=== PATIENT | female | born 1975 | race Caucasian/White ===

== ENCOUNTER 2023-06-11 11:47 | Outpatient (OUT) | payer OTHER, SELFPAY ==
[2023-06-11 12:34] LABS: Basophils Percent Auto 0.6 % (0.2-2.0); Eosinophils Absolute Auto 0.1 10^3/uL (0.0-0.7); Eosinophils Percent Auto 1.9 % (0.9-7.0); Hematocrit 33.9 % (36.0-48.0); Hemoglobin 10.6 g/dL (12.0-16.0); Immature Granulocytes Abs Auto 0.03 10^3/uL (0.00-0.03); Immature Granulocytes Pct Auto 0.6 % (0.0-0.5); Lymphocytes Absolute Auto 1.2 10^3/uL (1.2-3.8); Lymphocytes Percent Auto 21.9 % (20.5-60.0); Mean Corpuscular HGB Conc 31.3 g/dL (29.9-35.2); Mean Corpuscular Hemoglobin 26.8 pg (26.7-34.0); Mean Corpuscular Volume 85.8 fL (81.0-99.0); Mean Platelet Volume 10.6 fL (9.5-13.5); Monocytes Absolute Auto 0.3 10^3/uL (0.3-0.8); Monocytes Percent Auto 6.5 % (1.7-12.0); Neutrophils Absolute Auto 3.6 10^3/uL (1.4-6.5); Neutrophils Percent Auto 68.5 % (43.0-75.0); Platelet Count 262 10^3/uL (150-450); Red Blood Count 3.95 10^6/uL (4.20-5.40); Red Cell Distribution Width 13.2 % (11.0-15.0); White Blood Count 5.3 10^3/uL (4.0-11.0)
[2023-06-11 12:44] LABS: Estimated Average Glucose 105 mg/dL; Glycohemoglobin A1C 5.3 % (4.5-6.2)
[2023-06-11 13:49] LABS: Alanine Aminotransferase 21 U/L (14-59); Albumin Level 3.7 g/dL (3.4-5.0); Alkaline Phosphatase 81 U/L (46-116); Anion Gap 11.1; Aspartate Amino Transferase 14 U/L (15-37); BUN Creatinine Ratio 11.7; Bilirubin Total 0.4 mg/dL (0.2-1.0); Carbon Dioxide 28.1 mmol/L (21.0-32.0); Chloride 103 mmol/L (98-107); Chol HDL Ratio 3.9; Cholesterol 227 mg/dL (<=200); Estimated GFR (African America >60 (>=60); Estimated GFR (Non-African Ame >60 (>=60); Globulin 3.6 g/dL; Glucose 93 mg/dL (74-106); HDL Cholesterol 58 mg/dL (40-60); Potassium 4.2 mmol/L (3.5-5.1); Sodium 138 mmol/L (136-145); Total Protein 7.3 g/dL (6.4-8.2); Triglycerides 123 mg/dL (<=150); VLDL CHOLESTEROL 24.6 mg/dL
== END 2023-06-11 11:48 | disposition home or self-care (01) ==
PROVIDERS: PCP Internal Medicine; Visit Provider Internal Medicine
DX: Z00.00 Encounter for general adult medical examination without abnormal findings (principal)
CPT/HCPCS: 36415; 80053; 80061; 83036; 85025

== ENCOUNTER 2023-07-24 09:03 | Outpatient (OUT) | payer OTHER, SELFPAY ==
--- NOTE | 2023-07-24 09:07 | MM_ITS ---
Patient: SANDRO FERNANDEZ Exam Date: 07/24/2023 : 1975 Gender:F Ordering : DR Brennon Zambrano D.O. Admission #: [id number] Family : Order #: [id number] CLICK HERE TO VIEW EXAM RADIOLOGY REPORT PROCEDURE: MM TOMOSYNTHESIS SCREENING BI COMPARISON: MG MAMM SCREEN CE W CAD, 07/14/2017. MG MAMM SCREEN CE W CAD, 11/25/2007. INDICATIONS: Screening Calculator Name NCI Breast Cancer Risk Assessment Tool 5 Year Breast Cancer Risk 1.00% Lifetime Breast Cancer Risk 10.00% Personal Breast Cancer No Personal Ovarian Cancer No Treatments None Family Cancers Mother with colon cancer at age 48. LOCATION: [facility] BREAST COMPOSITION: Heterogeneously dense,which may obscure small masses. FINDINGS: DIAGNOSTIC CATEGORY 1--NEGATIVE. NO CHANGE FROM COMPARISON ASSESSMENT. Scattered benign-appearing lymph nodes are present. RIGHT BREAST: No significant suspicious finding. LEFT BREAST: No significant suspicious finding. RECOMMENDATIONS: ROUTINE MAMMOGRAM AND CLINICAL EVALUATION IN 12 MONTHS. PLEASE NOTE: A NORMAL MAMMOGRAM DOES NOT EXCLUDE THE POSSIBILITY OF BREAST CANCER. A CLINICALLY SUSPICIOUS PALPABLE LUMP SHOULD BE BIOPSIED. Dictated by: Estuardo Hewitt MD on 07/24/2023 at 13:18 Approved by: Estuardo Hewitt MD on 07/24/2023 at 13:20
== END 2023-07-24 09:04 | disposition home or self-care (01) ==
LOC: MAMMO 09:03
PROVIDERS: PCP Internal Medicine; Visit Provider Internal Medicine
DX: Z12.31 Encounter for screening mammogram for malignant neoplasm of breast (principal); Z80.0 Family history of malignant neoplasm of digestive organs
CPT/HCPCS: 77063; 77067

== ENCOUNTER 2025-06-23 09:20 | Outpatient (OUT) | payer OTHER, SELFPAY ==
--- OUTSIDE RECORDS SUMMARY | 2013-10-04 03:26 | XMS_ITS | Encounter Summary ---
Author Organization [facility] Address [address], [address] [place] [address] Care Team Providers Care Registered Mail Clerk Name Role Phone Rema Marquez MD Primary Care Provider [phone] Encounter Details Date Type Department Care Team (Late st Contact Info) Description 10/04/2013 2:26 AM EST Hospital Encounter MTH PRE ADMIT [address] [id number] Jian Samuels MD [address] [facility] [address] [id number] Social History Tobacco Use Types Packs/Day Years Used Date Smoking Tobacco: Never Smokeless Tobacco: Never Alcohol Use Standard Drinks/Week Comments Yes 0 (1 standard drink = 0.6 oz pur e alcohol) Comments No Sex and Gender Information Value Date Recorded Sex Assigned at Not on file Legal Sex Female 2:04 PM EST Gender Identity Not on file Sexual Orientation Not on file documented as of this encounter Last Filed Vital Signs Vital Sign Reading Time Taken Comments Blood Pressure 138/60 10/04/2013 8:58 AM EST Pulse 78 10/04/2013 8:58 AM EST Temperature - - Respiratory Rate - - Oxygen Saturation 97% 10/04/2013 8:58 AM EST Inhaled Oxygen Concentration - - Weight 136.8 kg (301 lb 9 oz) 10/04/2013 8:58 AM EST Height 170.2 cm (5' 7 ) 10/04/2013 8:58 AM EST Body Mass Index 47.23 10/04/2013 8:58 AM EST documented in this encounter Plan of Treatment Not on file documented as of this encounter Procedures Procedure Name Priority Date/Time Associated Diagnosis Comments MICROSCOPIC URINALYSIS Routine 10/04/2013 9:16 AM EST UA W/REFLEX CULTURE [employer] Label Print 10/04/2013 9:16 AM EST CBC WITH AUTO DIFFERENTIAL Routine 10/04/2013 9:16 AM EST TYPE AND SCREEN Routine 10/04/2013 9:16 AM EST HCG, SERUM, QUALITATIVE Routine 10/04/2013 9:16 AM EST documented in this encounter Results * Microscopic Urinalysis (10/04/2013 9:16 AM EST) Pathologist [facility] - 10/04/2013 10:43 AM EST [facility] WBC, UA None 0 - 5 /HPF 10/04/2013 10:43 AM EST [facility] RBC, UA None 0 - 2 /HPF 10/04/2013 10:43 AM EST [facility] Casts UA NOT REPORTED 0 - 2 /LPF [facility] Crystals, UA NOT REPORTED NONE /HPF [facility] Epithelial Cells, UA 0 TO 2 0 - 25 /HPF 10/04/2013 10:43 AM EST [facility] Comment: Performed at [address] [place] [address] Renal Epithelial, UA NOT REPORTED 0 /HPF [facility] Bacteria, UA NOT REPORTED NONE [facility] Mucus, UA NOT REPORTED NONE [facility] Trichomonas NOT REPORTED NONE [facility] Amorphous, UA NOT REPORTED NONE [facility] Other Observations UA NOT REPORTED NREQ [facility] Yeast, UA NOT REPORTED NONE [facility] 10/04/2013 9:16 AM EST 10/04/2013 9:17 AM EST Jian Samuels MD URINE ORDERABLES Final Result Performing Organization Address [facility] Co de Phone Number [facility] [address] [place], [place] [address] [phone] [facility] * TYPE AND SCREEN (10/04/2013 9:16 AM EST) Expiration Date 10/07/2013 4 12:51 PM EST [facility] Arm Band Number [id number] 12:51 PM EST [facility] ABO/Rh O POSITIVE 10/04/2013 12:51 PM EST [facility] Antibody Screen NEGATIVE 4 12:51 PM EST [facility] Comment: Performed at [address] [place] [address] BLOOD SPECIMEN / Unknown 10/04/2013 9:16 AM EST 10/04/2013 9:17 AM EST Jian Samuels MD BLOOD BANK TEST ORDERABLES Fi nal Result Performing Organization Address [facility] Co de Phone Number [facility] [address] [place] [address] [facility] * (ABNORMAL) UA W/REFLEX CULTURE (10/04/2013 9:16 AM EST) Color, UA STRAW(A) YEL 10/04/2013 10:43 AM EST [facility] Turbidity UA CLEAR CLEAR 10/04/2013 10:43 AM EST [facility] Glucose, Ur NEGATIVE NEG 10/04/2013 10:43 AM EST [facility] Bilirubin Urine NEGATIVE NEG 10/04/2013 10:43 AM EST [facility] Ketones, Urine NEGATIVE NEG 10/04/2013 10:43 AM EST [facility] Specific [place], UA <1.005(L) 1.010 - 1.020 10/04/2013 10:43 AM EST [facility] Urine Hgb NEGATIVE NEG 10/04/2013 10:43 AM EST [facility] pH, UA 7.5 5.0 - 9.0 10/04/2013 10:43 AM EST [facility] Protein, UA NEGATIVE NEG 10/04/2013 10:43 AM EST [facility] Urobilinogen, Urine Normal NORM 10/04/2013 10:43 AM EST [facility] Nitrite, Urine NEGATIVE NEG 10/04/2013 10:43 AM EST [facility] Leukocyte Esterase, Urine NEGATIVE NEG 10/04/2013 10:43 AM EST [facility] Comment: Performed at [address] [place] [address] Urinalysis Comments NOT REPORTED [facility] Urine 10/04/2013 9:16 AM EST 10/04/2013 9:17 AM EST us Jian Samuels MD URINE ORDERABLES Final Result Performing Organization Address [facility]/ZIP Co de Phone Number [facility] [address] [place], [place] [id number] [phone] [facility] * HCG Qualitative, Serum (10/04/2013 9:16 AM EST) Preg, Serum NEGATIVE NEG 10/04/2013 10:29 AM EST [facility] Comment: Performed at [address] [place] [id number] BLOOD SPECIMEN / Unknown 10/04/2013 9:16 AM EST 10/04/2013 9:17 AM EST us Jian Samuels MD CHEMISTRY ORDERABLES Final Re sult Performing Organization Address City/[facility]/ZIP Co de Phone Number [facility] [address] [place], [place] [id number] [phone] [facility] * (ABNORMAL) CBC auto differential (10/04/2013 9:16 AM EST) WBC 8.8 3.5 - 11.0 k/uL 10/04/2013 9:38 AM EST [facility] RBC 4.17 4.0 - 5.2 m/uL 10/04/2013 9:38 AM EST [facility] Hemoglobin 11.7(L) 12.0 - 16.0 g/dL 10/04/2013 9:38 AM EST [facility] Hematocrit 34.2(L) 36 - 46 % 10/04/2013 9:38 AM EST [facility] MCV 81.8 80 - 100 fL 10/04/2013 9:38 AM EST [facility] MCH 28.1 26 - 34 pg 10/04/2013 9:38 AM EST [facility] MCHC 34.4 31 - 37 g/dL 10/04/2013 9:38 AM EST [facility] RDW 14.2(H) 10.0 - 14.0 % 10/04/2013 9:38 AM EST [facility] Platelets 230 140 - 450 k/uL 10/04/2013 9:38 AM [facility] MPV NOT REPORTED 6.0 - 12.0 fL [facility] Differential Type NOT REPORTED [facility] Seg Neutrophils 76(H) 36 - 66 % 4 9:38 AM EST [facility] Lymphocytes 17(L) 24 - 44 % 10/04/2013 9:38 AM EST [facility] Monocytes % 6 0 - 12 % 10/04/2013 9:38 AM EST [facility] Eosinophils % 1 0 - 8 % 10/04/2013 9:38 AM EST [facility] Basophils % 0 0 - 2 % 10/04/2013 9:38 AM EST [facility] Neutrophils Absolute 6.70 1.8 - 7.7 k/uL 10/04/2013 9:38 AM EST [facility] Lymphocytes Absolute 1.50 1.0 - 4.8 k/uL 10/04/2013 9:38 AM EST [facility] Monocytes Absolute 0.50 0.0 - 1.0 k/uL 10/04/2013 9:38 AM EST [facility] Eosinophils Absolute 0.10 0.0 - 0.4 k/uL 10/04/2013 9:38 AM [facility] Basophils Absolute 0.00 0.0 - 0.2 k/uL 10/04/2013 9:38 AM [facility] Comment: Performed at [address] [place] [address] WBC Morphology NOT REPORTED [facility] RBC Morphology NOT REPORTED [facility] Platelet Estimate NOT REPORTED [facility] BLOOD SPECIMEN / Unknown 10/04/2013 9:16 AM EST 10/04/2013 9:17 AM EST us Jian Samuels MD HEMATOLOGY ORDERABLES Final R esult [facility] [address] [place], [place] [address] [phone] [facility] documented in this encounter Visit Diagnoses Not on filedocumented in this encounter Care Teams Registered Mail Clerk Relationship Specialty Start Date End Date Rema Marquez MD [address] [place] [address] PCP - General 10/03/13 documented as of this encounter
--- OUTSIDE RECORDS SUMMARY | 2025-06-23 09:25 | XMS_ITS | Clinical Summary ---
Author Organization [facility] Address [address], [address] [place] [address] Care Team Providers Care Machine Paint Mixer Name Role Phone Rema Marquez MD Primary Care Provider [phone] Allergies Active Allergy Reactions Criticality Noted Date Comments Rickey Collins 09/06/2013 Medications Multiple Vitamins-Mineral s (MULTIVITAMIN PO)Indications:P elvic pain Take by mouth. Active IRON, FERROUS GLUCONATE, POIndications:Pe lvic pain Take by mouth. Active Active Problems No known active problems Family History Medical History Relation Name Comments Diabetes Father Colon Cancer Mother Hypertension Mother Relation Name Status Comments Father Alive Mother Social History Tobacco Use Types Packs/Day Years Used Date Smoking Tobacco: Never Smokeless Tobacco: Never Alcohol Use Standard Drinks/Week Comments Yes 0 (1 standard drink = 0.6 oz pur e alcohol) Comments No Sex and Gender Information Value Date Recorded Sex Assigned at Not on file Legal Sex Female 2:04 PM EST Gender Identity Not on file Sexual Orientation Not on file Last Filed Vital Signs Vital Sign Reading Time Taken Comments Blood Pressure 134/74 04/06/2017 1:02 PM EDT Pulse 66 10/11/2013 12:18 PM EST Temperature 37.1 C (98.8 F) 10/11/2013 11:50 AM EST Respiratory Rate 16 10/11/2013 12:18 PM EST Oxygen Saturation 98% 10/11/2013 12:18 PM EST Inhaled Oxygen Concentration - - Weight 133.8 kg (295 lb) 04/06/2017 1:02 PM EDT Height 170.2 cm (5' 7 ) 04/06/2017 1:02 PM EDT Body Mass Index 46.2 04/06/2017 1:02 PM EDT Plan of Treatment Health Maintenance Due Date Last Done Comments Depression Screen 1986 HIV screen 1989 Hepatitis C screen 01/13/1992 DTaP/Tdap/Td vaccine (1 - Tdap) 1993 Hepatitis B vaccine (1 of 3 - 19+ 3-dose series) 1993 HPV (without or with Pap) 01/13/2004 Breast cancer screen 2014 Lipids 2014 Colonoscopy 2019 Colorectal Cancer Screen 2019 FIT/FOBT: Average risk 2019 Fecal-DNA (Cologuard): Dilley ge risk 2019 Sigmoidoscopy/CT colonography 2019 Cervical cancer screen 04/06/2020 Pap smear 04/06/2020 04/06/2017, 09/06/2013 Pneumococcal 50+ years Vacci ne (1 of 1 - PCV) 01/13/2024 Shingles vaccine (1 of 2) 01/13/2024 Flu vaccine (#1) 04/21/2025 COVID-19 Vaccine (1 - 2023-2 5 season) 2025 Hepatitis A vaccine Aged Out No longe r eligible based on patient's age to complete this topic Hib vaccine Aged Out No longer eligi ble based on patient's age to complete this topic Meningococcal (ACWY) vaccine Aged Out No longer eligible based on patient's age to complete this topic Meningococcal B vaccine Aged Out No l onger eligible based on patient's age to complete this topic Polio vaccine Aged Out No longer elig ible based on patient's age to complete this topic Procedures Procedure Name Priority Date/Time Associated Diagnosis Comments BERRY PLANTER CYTOLOGY Routine 04/06/2017 12:15 PM EDT from Last 3 Months or Most Recently Relevant to Health Maintenance Results * BERRY PLANTER Cytology (04/06/2017 12:15 PM EDT) Cytology Report (NOTE) [id number] Package [facility]ATOM[facility] PATHOLOG[facility] [address] [place] [address]. Line [place], [place] [address] GYNECOLOGIC CYTOLOGY REPORT Patient Name: SANDRO FERNANDEZ MR#: [id number] Specimen #[id number] Source: 1: Cervical material, (ThinPrep vial, Imaging-assisted review) Clinical History Z01.419 Routine mortgage processing clerk exam without abnormal findings High Risk HPV DNA testing is requested if the diagnosis is ASC-US LMP: 03/21/2017 INTERPRETATION Cervical material, (ThinPrep vial, Imaging-assisted review): Specimen Adequacy: Satisfactory for evaluation. -Endocervical/solomon sformation zone component is absent. Descriptive Diagnosis: Negative for intraepithelial lesion or malignancy. Fungal organisms morphologically consistent with Jessica species. Weight Checker: NORRIS Santiago(ASCP) Electronically Signed Out [place]/04/09/2017 04/09/2017 12:00 AM EDT [facility] 04/06/2017 12:1 5 PM EDT 04/07/2017 12:15 PM EDT us Jian Samuels MD PATHOLOGY/CYTOLOGY ORDERABLES Final Result [facility] [address] [place], [place] [address] [phone] from Last 3 Months or Most Recently Relevant to Health Maintenance Insurance Advance Directives * Full Code (Latest Code Status on File) Date Activated Date Inactivated Comments 10/11/2013 11:42 AM 10/11/2013 2:42 PM Care Teams Machine Paint Mixer Relationship Specialty Start Date End Date Rema Marquez MD [address] [place] [phone] PCP - General 10/03/13
--- OUTSIDE RECORDS SUMMARY | 2025-06-23 09:25 | XMS_ITS | Encounter Summary ---
Author Organization [facility] Address [address] [place] [id number] Care Team Providers Care Study Lead Name Role Phone Brennon Zambrano DO Primary Care Provider [phone] Source Comments In the event this information is protected by the Federal Confidentiality of Alcohol and Drug AbusePatient Records regulations: The Federal rules restrict any use of the information to criminally investigate or prosecute any alcohol or drug abuse patient.[facility] Encounter Details Date Type Department Care Team (Late st Contact Info) Description 05/10/2025 Results Follow-Up Hematology/Oncology [address] [place] [address] [place] [address] Sandra Raphael, PA-C [address] [place] [address] Social History Tobacco Use Types Packs/Day Years Used Date Smoking Tobacco: Never Passive Smoke Exposure: Past Smokeless Tobacco: Never Alcohol Use Standard Drinks/Week Comments Yes 0 (1 standard drink = 0.6 oz pur e alcohol) social only PHQ-2 Answer Date Recorded PHQ-2 score 0 02/28/2025 Area Deprivation Index Answer Date Master rded National Score (1-100), lower number is lower ri sk 60 02/05/2023 State Score (1-10), lower number is lower risk 4 02/05/2023 Data from: https://www.neighborhoodatlas.[facility]/. Last address used for calculation [address] 02/05/2023 Comments No Sex and Gender Information Value Date Recorded Sex Assigned at Not on file Legal Sex Female 3:33 PM EST Gender Identity Not on file Sexual Orientation Not on file documented as of this encounter Plan of Treatment Upcoming Encounters Date Type Department Care Team (Latest Contact Info) Description 08/09/2025 10:00 AM EST Office Visit [facility] [address] [place] [address] lab 08/16/2025 10:00 AM EST Visit (SP) Office Hematology/Oncology [address] [place] [address] Sandra Raphael, PAVianeyC [address] [place] [address] 3 month follow up 08/16/2025 10:30 AM EST [facility] Hematology/Oncology [address] [place] [address] [place] [address] follow up and Injectafer documented as of this encounter Visit Diagnoses Not on filedocumented in this encounter Care Teams Study Lead Relationship Specialty Start Date End Date Brennon Zambrano DO [address] [place] [address] PCP - General Internal Medicine 09/15/17 documented as of this encounter
--- OUTSIDE RECORDS SUMMARY | 2025-06-23 09:25 | XMS_ITS | Clinical Summary ---
Author Organization [facility] Address [address] [place] [id number] Care Team Providers Care [place] Operator Name Role Phone Brennon Zambrano DO Primary Care Provider [phone] Allergies Active Allergy Reactions Criticality Noted Date Comments Codeine Hives 09/23/2017 Ferric Derisomaltose Other: See Comments 2020 Chest palpations with flushing, hot all over Medications Syringe with Needle, Disp, (SYRINGE 3CC/21GX1 ) 3 mL 21 gauge x 1 syrgIndications :Iron deficiency anemia, unspecified iron deficiency anemia type,History of bariatric surgery 1 Syringe once every month. 12 Each 12/07/19 24 Active cyanocobalamin 1,000 mcg/mLIndicatio ns:Iron deficiency anemia, unspecified iron deficiency anemia type,History of bariatric surgery Inject 1 mL intramuscularly once every month. 12 Each 06/20/20 24 Active Active Problems Problem Noted Date Diagnosed Date Iron deficiency anemia 09/23/2017 History of bariatric surgery 09/23/2017 Intermittent palpitations Lightheadedness Paroxysmal supraventricular tachycardia Elevated blood pressure read ing in office without diagnosis of hypertension Encounters Date Type Department Care Team Description 05/10/2025 Results Follow-Up Hematology/Oncology [address] [place] [address] [place] [address] Sandra Raphael, PAVianeyC 05/09/2025 Travel from Last 3 Months Immunizations Immunization Administration Dates Next Due COVID-19 original vaccine, a ge 12+ yr, monovalent ([email or web address] - PURPLE TOP) 02/06/2021,01/02/2021 Family History Medical History Relation Comments Diabetes Father Colon Cancer Mother Relation Status Comments Father Mother (Age 50) Social History Tobacco Use Types Packs/Day Years Used Date Smoking Tobacco: Never Passive Smoke Exposure: Past Smokeless Tobacco: Never Tobacco Cessation:Counseling Given: Not Answered Alcohol Use Standard Drinks/Week Comments Yes 0 (1 standard drink = 0.6 oz pur e alcohol) social only PHQ-2 Answer Date Recorded PHQ-2 score 0 02/28/2025 Area Deprivation Index Answer Date Master rded National Score (1-100), lower number is lower ri sk 60 02/05/2023 State Score (1-10), lower number is lower risk 4 02/05/2023 Data from: https://www.neighborhoodatlas.medicine.[facility]/. Last address used for calculation [address] 02/05/2023 Comments No Sex and Gender Information Value Date Recorded Sex Assigned at Not on file Legal Sex Female 3:33 PM EST Gender Identity Not on file Sexual Orientation Not on file Last Filed Vital Signs Vital Sign Reading Time Taken Comments Blood Pressure 160/100 03/07/2025 11:43 AM EDT Pulse 76 03/07/2025 10:20 AM EDT Temperature 36.6 C (97.9 F) 03/07/2025 10:20 AM EDT Respiratory Rate 16 03/07/2025 10:2 0 AM EDT Oxygen Saturation 98% 03/07/2025 10: 20 AM EDT Inhaled Oxygen Concentration - - Weight 159.7 kg (352 lb 1.2 oz) 02/28/2025 1:19 PM EDT Height 170.2 cm (5' 7.01 ) 02/28/2025 1:19 PM ED T Body Mass Index 55.13 02/28/2025 1:19 PM EDT Plan of Treatment Upcoming Encounters Date Type Department Care Team (Latest Contact Info) Description 08/09/2025 10:00 AM EST Office Visit [facility] [address] [facility] [place] [address] lab 08/16/2025 10:00 AM EST Visit (SP) Office Hematology/Oncology [address] [facility] [place] [address] Sandra Raphael PAVianeyC [address] [place] [address] 3 month follow up 08/16/2025 10:30 AM [facility] Hematology/Oncology [address] [place], [place] [address] follow up and Injectafer Health Maintenance Due Date Last Done Comments Anxiety Screening 01/13/1992 Depression Screening 01/13/1992 HIV Screening 01/13/1992 Hepatitis C Screening 01/13/1992 DTaP,Tdap,Td Vaccine (1 - Tdap) 1993 Hepatitis B Vaccine (1 of 3 - 19+ 3-dose series) 1993 Cervical Cancer Screening [address] M[address] Colonography 2019 Cologuard (FIT-DNA) 2019 Colonoscopy 2019 Colorectal Cancer Screening 2019 Fecal Occult Blood 2019 Lipid Screening 2019 Sigmoidoscopy 2019 Pneumococcal Vaccine: 50+ (1 of 1 - PCV) 01/13/2024 Shingrix Vaccine (1 of 2) 01/13/2024 Influenza Vaccine (#1) 2025 Diabetes Screening 05/09/2028 05/09/2025, 0 02/03/2025, 09/24/2024, Additional history exists Procedures Procedure Name Priority Date/Time Associated Diagnosis Comments VITAMIN B12 BLOOD Routine 05/09/2025 11: 26 AM EDT Iron deficiency anemia, unspecified iron deficiency anemia type History of bariatric surgery 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 B12 deficiency FOLATE SERUM Routine 05/09/2025 11:26 AM EDT Iron deficiency anemia, unspecified iron deficiency anemia type History of bariatric surgery 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 B12 deficiency FERRITIN BLD Routine 05/09/2025 11:26 AM EDT Iron deficiency anemia, unspecified iron deficiency anemia type History of bariatric surgery 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 B12 deficiency CBC + DIFF Routine 05/09/2025 11:26 AM EDT Iron deficiency anemia, unspecified iron deficiency anemia type History of bariatric surgery 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 B12 deficiency COMPREHENSIVE METABOLIC PANEL Routine 05/09/2025 11:26 AM EDT Iron deficiency anemia, unspecified iron deficiency anemia type History of bariatric surgery 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 B12 deficiency IRON + TIBC Routine 05/09/2025 11:26 AM EDT Iron deficiency anemia, unspecified iron deficiency anemia type History of bariatric surgery 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 B12 deficiency from Last 3 Months Results * VITAMIN B12 (05/09/2025 11:26 AM EDT) Vitamin B12 411 232 - 1,245 pg/mL 05/09/2025 6:52 PM EDT [facility] Blood BLOOD SPECIMEN / Unknown Venipuncture / Unknown 05/09/2025 11:26 AM EDT 05/09/2025 11:26 AM EDT us Sandra Raphael PA-C LABORATORY Final Result Performing Organization Address City/[facility]/ZIP Co de Phone Number [facility] [address] [address], [place] * IRON AND TIBC (05/09/2025 11:26 AM EDT) Iron 87 41 - 186 ug/dL 05/09/2025 6:36 PM EDT [facility] TIBC 310 232 - 386 ug/dL 05/09/2025 6:36 PM EDT [facility] Transferrin Saturation 28.1 15.0 - 57.0 % 05/09/2025 6:36 PM EDT [facility] Blood BLOOD SPECIMEN / Unknown Venipuncture / Unknown 05/09/2025 11:26 AM EDT 05/09/2025 11:26 AM EDT us Sandra Raphael PA-C LABORATORY Final Result Performing Organization Address City/[facility]/ZIP Co de Phone Number [facility] [address] [address], [place] * FOLATE, SERUM (05/09/2025 11:26 AM EDT) Folate 9.3 >4.7 ng/mL 05/09/2025 6:52 PM EDT [facility] Blood BLOOD SPECIMEN / Unknown Venipuncture / Unknown 05/09/2025 11:26 AM EDT 05/09/2025 11:26 AM EDT Sandra Raphael PA-C LABORATORY Final Result Performing Organization Address City/[facility]/ZIP Co de Phone Number [facility] [address] [place] [address], [place] * FERRITIN (05/09/2025 11:26 AM EDT) Pathologist [facility] Ferritin 164.0 14.7 - 205.1 ng/mL 05/09/2025 6:52 PM EDT [facility] Blood BLOOD SPECIMEN / Unknown Venipuncture / Unknown 05/09/2025 11:26 AM EDT 05/09/2025 11:26 AM EDT us Sandra Raphael PA-C LABORATORY Final Result Performing Organization Address [facility] de Phone Number [facility] [address] [place] [address], [place] * (ABNORMAL) COMPREHENSIVE METABOLIC PANEL (05/09/2025 11:26 AM EDT) Pathologist [facility] Protein, Total 6.6 6.3 - 8.0 g/dL 05/09/2025 11:50 AM EDT [facility] Albumin 4.0 3.9 - 4.9 g/dL 05/09/2025 11:50 AM EDT [facility] Calcium, Total 9.3 8.5 - 10.2 mg/dL 05/09/2025 11:50 AM EDT [facility] Bilirubin, Total 0.5 0.2 - 1.3 mg/dL 05/09/2025 11:50 AM EDT [facility] Alkaline Phosphatase 99 34 - 123 U/L 05/09/2025 11:50 AM [facility] AST 19 13 - 35 U/L 05/09/2025 11:50 AM [facility] ALT 17 7 - 38 U/L 05/09/2025 11:50 AM [facility] Glucose 141(H) 74 - 99 mg/dL 05/09/2025 11:50 AM [facility] Comment: The [place] Diabetes Association (ADA) provides guidance for cutoff values for fasting glucose and random glucose. The ADA defines fasting as no caloric intake for at least 8 hours. Fasting plasma glucose results between 100 to 125 mg/dL indicate increased risk for diabetes (prediabetes). Fasting plasma glucose results greater than or equal to 126 mg/dL meet the criteria for diagnosis of diabetes. In the absence of unequivocal hyperglycemia, results should be confirmed by repeat testing. In a patient with classic symptoms of hyperglycemia or hyperglycemic crisis, random plasma glucose results greater than or equal to 200 mg/dL meet the criteria for diagnosis of diabetes. Reference: Standards of Medical Care in Diabetes 2016, [place] [employer] Association. Diabetes Care. 2016.39(Suppl 1). BUN 8 7 - 21 mg/dL 05/09/2025 11:50 AM [facility] Creatinine 0.72 0.58 - 0.96 mg/dL 05/09/2025 11:50 AM [facility] Sodium 138 136 - 144 mmol/L 05/09/2025 11:50 AM [facility] Potassium 4.3 3.7 - 5.1 mmol/L 05/09/2025 11:50 AM [facility] Chloride 104 98 - 107 mmol/L 05/09/2025 11:50 AM [facility] CO2 25 22 - 30 mmol/L 05/09/2025 11:50 AM [facility] Anion Gap 9 8 - 15 mmol/L 05/09/2025 11:50 AM [facility] Estimated Glomerular Filtration Rate 101 >=60 mL/min/1. 73m 05/09/2025 11:50 AM EDT [facility] Comment:Estimated Glomerular Filtration Rate (eGFR) is calculated using the 2020 CKD-EPI creatinine equation. This equation utilizes serum creatinine, sex, and age as parameters. The creatinine assay has traceable calibration to isotope dilution- mass spectrometry. Refer to KDIGO guidelines for clinical interpretation. In patients with unstable renal function, e.g. those with acute kidney injury, the eGFR may not accurately reflect actual GFR. Blood BLOOD SPECIMEN / Unknown Venipuncture / Unknown 05/09/2025 11:26 AM EDT 05/09/2025 11:26 AM EDT Sandra Raphael PA-C LABORATORY Final Result [facility] [address] [place] [address] * COMPLETE BLOOD COUNT AND DIFFERENTIAL (05/09/2025 11:26 AM EDT) WBC 6.25 3.70 - 11.00 k/uL 05/09/2025 11:30 AM EDT [facility] RBC 3.95 3.90 - 5.20 m/uL 05/09/2025 11:30 AM EDT [facility] Hemoglobin 11.8 11.5 - 15.5 g/dL 05/09/2025 11:30 AM EDT [facility] Hematocrit 36.1 36.0 - 46.0 % 05/09/2025 11:30 AM EDT [facility] MCV 91.4 80.0 - 100.0 fL 05/09/2025 11:30 AM EDT [facility] MCH 29.9 26.0 - 34.0 pg 05/09/2025 11:30 AM EDT [facility] MCHC 32.7 30.5 - 36.0 g/dL 05/09/2025 11:30 AM EDT [facility] RDW-CV 14.5 11.5 - 15.0 % 05/09/2025 11:30 AM EDT [facility] Platelet Count 153 150 - 400 k/uL 05/09/2025 11:30 AM EDT [facility] MPV 9.7 9.0 - 12.7 fL 05/09/2025 11:30 AM EDT [facility] Neutrophils % 74.2 % 05/09/2025 11:30 AM EDT [facility] Abs Neut 4.63 1.45 - 7.50 k/uL 05/09/2025 11:30 AM EDT [facility] Lymphocytes % 16.6 % 05/09/2025 11:30 AM EDT [facility] Abs Lymph 1.04 1.00 - 4.00 k/uL 05/09/2025 11:30 AM EDT [facility] Monocytes % 5.0 % 05/09/2025 11:30 AM EDT [facility] Abs [place] 0.31 <0.87 k/uL 05/09/2025 11:30 AM EDT [facility] Eosinophils % 2.2 % 05/09/2025 11:30 AM EDT [facility] Abs Eosin 0.14 <0.46 k/uL 05/09/2025 11:30 AM EDT [facility] Basophils % 0.6 % 05/09/2025 11:30 AM EDT [facility] Abs Baso 0.04 <0.11 k/uL 05/09/2025 11:30 AM EDT [facility] Immature Granulocytes % 1.4 % 05/09/2025 11:30 AM EDT [facility] Abs Immature Gran 0.09 <0.10 k/uL 025 11:30 AM EDT [facility] NRBC 0.0 /100 WBC 05/09/2025 11:30 AM EDT [facility] Absolute nRBC <0.01 <0.01 k/uL 05/09/2025 11:30 AM EDT [facility] Diff Type Auto 05/09/2025 11:30 AM EDT [facility] Blood BLOOD SPECIMEN / Unknown Venipuncture / Unknown 05/09/2025 11:26 AM EDT 05/09/2025 11:26 AM EDT Sandra Raphael PA-C LABORATORY Final Result [facility] [address] [place] [address] from Last 3 Months Insurance MMO [employer] P[employer] Care Teams [place] Operator Relationship Specialty Start Date End Date Brennon Zambrano DO [address] [place] [address] PCP - General Internal Medicine 09/15/17
--- OUTSIDE RECORDS SUMMARY | 2025-06-23 09:27 | XMS_ITS | CCD ---
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 Role Phone Brennon Woody DO Primary Care Provider DR SANDRA CASTILLO Attending Unavailable DR SANDRA CASTILLO Consulting Unavailable DR SANDRA CASTILLO Admitting Unavailable DR BRENNON WOODY Primary Care Unavailable Brennon Woody DO Primary Care Provider Brennon Woody DO Primary Care Provider Brennon Woody Unavailable Herman Bender Unavailable Brennon Woody DO Primary Care Provider DO Brennon Woody Primary Care Provider MD Vitaliy Imcarmel Attending Provider Brennon Woody Primary Care Unavailable Vitaliy Imcarmel Attending Unavailable Vitaliy Imcarmel Admitting Unavailable Jesus Alberto Mcclain MD Primary Care Provider JOSE, SANDRA M Referring Unavailable JESUS ALBERTO MCCLAIN Primary Care Unavailable JOSE, SANDRA M Referring Unavailable MCCLAINJESUS ALBERTO Primary Care Unavailable BALL, BRENNON E Primary Care Unavailable JOSE, SANDRA M Referring Unavailable BALL, BRENNON E Primary Care Unavailable JOSE, SANDRA M Referring Unavailable BALL, BRENNON E Primary Care Unavailable BALL, BRENNON E Primary Care Unavailable JOSE, SANDRA M Attending Unavailable BALL, BRENNON E Primary Care Unavailable JOSE, SANDRA M Referring Unavailable BALL, BRENNON E Primary Care Unavailable JOSE, SANDRA M Referring Unavailable BALL, BRENNON E Primary Care Unavailable JOSE, SANDRA M Attending Unavailable BALL, BRENNON E Primary Care Unavailable JOSE, SANDRA M Attending Unavailable BALL, BRENNON E Primary Care Unavailable BALL, BRENNON E Primary Care Unavailable JOSE, SANDRA M Referring Unavailable BALL, BRENNON E Primary Care Unavailable JOSE, SANDRA M Referring Unavailable ANNALISE, BRENNON E Primary Care Unavailable Brennon Woody DO Primary Care Provider [phone] Vitaliy RODRIGUEZ, Teresa Attending Provider Sandra Garcia PA-C Attending Provider [phone] Debra Nogueira APRN Attending Provider Brennon Woody DO Attending Provider Allergies Allergy Classification Reported Allergen(s) Allergy Type Date of Onset Reaction(s) Facility (20 sources) Codeine; Translations: [CODEINE] Drug Allergy [facility] (20 sources) ferric derisomaltose; Translations: [FERRIC DERISOMALTOSE] Drug Allergy 1 Other: See Comments [facility] (1 source) Monoferric Drug allergy (disorder) 2 [facility] (1 source) Codeine Drug Allergy 4 [facility] (1 source) ferric derisomaltose Drug allergy (disorder) 4 [facility] Medications Current Medications Medication Drug Class(es) Dates Sig (Normalized) Sig (Original) 0.25 MG, 0.5 MG Dose 3 ML semaglutide 0.68 MG/ML Pen Injector [Ozempic] (1 source) Start: 06-16-2023 Ozempic (0.25 or 0.5 MG/DOSE) 2 MG/3ML 0.25mg Subcutaneous weekly for 28 days May, Active 0.5 ML semaglutide 0.5 MG/ML Auto-Injector [Wegovy] (4 sources) Start: 06-11-2023 inject 0.5 mL by subcutaneous injection every week Wegovy 0.25 MG/0.5ML 0.5 mL Subcutaneous weekly for 30 days May, Active IRON, FERROUS GLUCONATE, PO (2 sources) IRON, FERROUS GLUCONATE, PO Indications: Pelvic pain Take by mouth. Active Multiple Vitamins-Minerals (MULTIVITAMIN PO) (2 sources) Multiple Vitamins-Minerals (MULTIVITAMIN PO) Indications: Pelvic pain Take by mouth. Active ozempic (0.25 or 0.5 mg/dose) 2 mg/3ml solution pen-injector (2 sources) Start: 06-16-2023 Ozempic (0.25 or 0.5 MG/DOSE) 2 MG/3ML 0.25mg Subcutaneous weekly for 28 days May, Active permethrin 50 mg/ml topical cream (1 source) Pyrethroid Start: 06-05-2025 Permethrin 5 % cream Active 1 APPLIC TOPICAL Q14D 60 June 05, 2025 12:00am apply from neck down and wash off 8 hours later, second treatment 14 days after first treatment Complies with drug therapy Vitamin B-12 1000 MCG/15ML (3 sources) Vitamin B-12 100 0 MCG/15ML 1 ML injection once monthly Active vitamin b12 1 mg/ml injectable solution (20 sources) Vitamin B12 Start: 12-27-2020 End: 06-20-2024 inject 1 mL by intramuscular injection every month cyanocobalamin 1,000 mcg/mL Indications: Iron deficiency anemia, unspecified iron deficiency anemia type , History of bariatric surgery Inject 1 mL intramuscularly once every month. 12 Each 06/20/2024 Active Start: 11-12-2017 Cyanocobalamin (Vitamin B-12) 1,000 mcg/mL solution Active 1000 MG IM EVERY 4 WEEKS November 12, 2017 1:00am Complies with drug therapy Start: 11-12-2017 Cyanocobalamin (Vitamin B-12) Active 1000 MG IM EVERY 4 WEEKS November 12, 2017 1:00am Vitamin B-12 100 0 MCG/15ML 1 ML injection once monthly Active Vitamin B-12 100 0 MCG/15ML 1 ML injection once monthly Active Comment on above: Inject 1 mL intramus cularly once every month. Completed/Discontinued Medications Medication Drug Class(es) Dates Sig (Normalized) Sig (Original) [id number] Pyj-Lkjy-Emx-Asb-C (3 sources) Osmotic Laxative, Vitamin C Start: 02-29-2024 End: 05-13-2024 take 1 dose by mouth once daily [id number] Ter-Dqri-Eof-Asb-C (Plenvu) 140-9-5.2 gram powder in packet, sequential Discontinued 140 ML PO .COMPLEX 1 1 February 29, 2024 12:00am May 13, 2024 7:35am First dose at 4pm the day before colonoscopy, Second dose at 11pm the night before the colonoscopy 15 ml ferric carboxymaltose 50 mg/ml injection (2 sources) Start: 10-11-2024 End: 10-11-2024 750 mg (set by rule on 09/26/2024 9:24 AM), INTRAVENOUS, ONCE, 1 dose, On Thu10/11/24 at 1000, Maximum dose is 750 mg Administer as slow IV push at a rate of ~100 mg/minute. Start: 10-04-2024 End: 10-04-2024 750 mg (set by rule on 9:24 AM), INTRAVENOUS, ONCE, 1 dose, On Thu10/04/24 at 1000, Maximum dose is 750 mg Administer as slow IV push at a rate of ~100 mg/minute. ferric carboxymaltose 750 mg in NaCl 0.9% 250 mL (INJECTAFER) (4 sources) Start: 03-07-2025 End: 03-07-2025 750 mg, INTRAVENOUS, Administer over 30 Minutes, ONCE, 1 dose, On Thu03/07/25 at 1030, Approximate Total Volume: 300 mL Start: 02-28-2025 End: 02-28-2025 750 mg, INTRAVENOUS, Adminis ter over 30 Minutes, ONCE, 1 dose, On Thu02/28/25 at 1430, Approximate Total Volume: EXP: 1430 03/03/25 Start: 05-26-2024 End: 05-26-2024 750 mg (set by rule on 2023 11:18 AM), INTRAVENOUS, Administer over 30 Minutes, ONCE, 1 dose, On Thu05/26/24 at 1000, Approx Total Volume: 290 mL Maximum dose is 750 mg Start: 05-19-2024 End: 05-19-2024 750 mg (set by rule on 2023 11:18 AM), INTRAVENOUS, Administer over 30 Minutes, ONCE, 1 dose, On Thu05/19/24 at 1030, Approx Total Volume: 290 mL Maximum dose is 750 mg hydrOXYzine hydrochloride 25 mg oral tablet (1 source) Antihistamine Start: 05-16-2025 End: 06-05-2025 take 1 tablet by mouth three times daily as needed Hydroxyzine Hcl 25 mg tablet Discontinued 25 MG PO Three times daily as needed for itching May 16, 2025 12:00am June 05, 2025 3:36pm predniSONE 20 mg oral tablet (1 source) Start: 05-16-2025 End: 06-05-2025 take 3 tablets by mouth once daily, then take 2 tablets by mouth once daily, then take 1 tablet by mouth once daily Prednisone 20 mg tablet Discontinued 20 MG PO .COMPLEX 24 May 16, 2025 12:00am June 05, 2025 3:36pm Take 3 tabs po daily x 4 days, then take 2 tabs po daily x 4 days, then take 1 tab po daily x 4 days. Semaglutide (3 sources) Start: 02-23-2024 End: 05-16-2025 Semaglutide (Ozempic) 0.25 mg or 0.5 mg (2 mg/3 mL) pen injector Discontinued 0.25 MG SUBCUT every week February 23, 2024 12:00am May 16, 2025 9:24am Start: 02-23-2024 Semaglutide (O zempic) 0.25 mg or 0.5 mg (2 mg/3 mL) pen injector Active 0.25 MG SUBCUT every week February 23, 2024 12:00am Problems Active Problems Problem Classification Problem Date Documented Date Episodic/Chronic Allergic reactions (2 sources) Contact dermatitis; Translations: [Unspecified contact dermatitis, unspecified cause] 05-16-2025 Episodic Cardiac dysrhythmias (20 sources) Paroxysmal supraventricular tachycardia; Translations: [Supraventricular tachycardia] 09-18-2017 Chronic Cardiac dysrhythmias (20 sources) Intermittent palpitations; Translations: [Palpitations] 09-18-2017 Episodic Conditions associated with dizziness or vertigo (20 sources) Lightheadedness; Translations: [Dizziness and giddiness] 09-18-2017 Episodic Deficiency and other anemia (4 sources) Anemia, unspecified; Translations: [ANEMIA UNSPECIFIED] Onset: 11-29-2021 Episodic Deficiency and other anemia (5 sources) 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 B>12< deficiency; Translations: [Other megaloblastic anemias, not elsewhere classified] Episodic Deficiency and other anemia (8 sources) Pernicious anemia; Translations: [Vitamin B12 deficiency anemia due to intrinsic factor deficiency] 06-21-2024 Episodic Deficiency and other anemia (6 sources) Iron deficiency anemia secondary to inadequate dietary iron intake; Translations: [Other iron deficiency anemias] Episodic Deficiency and other anemia (2 sources) Vitamin B12 deficiency anemia due to intrinsic factor deficiency Episodic Deficiency and other anemia (1 source) Other iron deficiency anemias Episodic Deficiency and other anemia (3 sources) Anemia; Translations: [Anemia, unspecified] 09-02-2023 Episodic Comment on above: Problem List clean-u p per request of Phys. EHR Cmte Deficiency and other anemia (3 sources) Other megaloblastic anemias, not elsewhere classified; Translations: [Other megaloblastic anemias, not elsewhere classified] Onset: 01-31-2025 Episodic Other circulatory disease (20 sources) Elevated blood-pressure reading without diagnosis of hypertension; Translations: [Elevated blood-pressure reading, without diagnosis of hypertension] 09-18-2017 Episodic Other circulatory disease (1 source) Elevated blood-pressure reading, without diagnosis of hypertension Episodic Other inflammatory condition of skin (2 sources) Pruritic rash; Translations: [Other prurigo] 06-05-2025 Episodic Other nutritional; endocrine; and metabolic disorders (6 sources) Severe obesity; Translations: [Morbid (severe) obesity due to excess calories] Chronic Other nutritional; endocrine; and metabolic disorders (6 sources) Body mass index 40+ - severely obese; Translations: [Body mass index (BMI) 50.0-59.9, adult] Chronic Other nutritional; endocrine; and metabolic disorders (4 sources) Morbid (severe) obesity due to excess calories Chronic Other nutritional; endocrine; and metabolic disorders (2 sources) Body mass index (BMI) 50.0-59.9, adult Chronic Other nutritional; endocrine; and metabolic disorders (2 sources) Obesity; Translations: [Obesity, unspecified] 06-05-2025 Chronic Other screening for suspected conditions (not mental disorders or infectious disease) (5 sources) Encounter for screening mammogram for malignant neoplasm of breast; Translations: [Encounter for screening for malignant neoplasm of colon] Onset: 05-13-2024 Episodic Residual codes; unclassified (4 sources) Family history of cancer of colon; Translations: [Family history of malignant neoplasm of digestive organs] Episodic Past or Other Problems Problem Classification Problem Date Documented Da te Episodic/Chronic Deficiency and other anemia (20 sources) Iron deficiency anemia; Translations: [Iron deficiency anemia, unspecified] Onset: 09-23-2017 Episodic Deficiency and other anemia (3 sources) Iron deficiency anemia, unspecified; Translations: [Iron deficiency anemia, unspecified] Onset: 09-23-2017 Episodic Other gastrointestinal disorders (20 sources) History of bariatric surgical procedure; Translations: [Bariatric surgery status] Onset: 09-23-2017 Episodic Other gastrointestinal disorders (3 sources) Bariatric surgery status; Translations: [Bariatric surgery status] Onset: 09-23-2017 Episodic Results Test Name Value Interpretation Reference Range Facility Basophils Auto (Bld) [#/Vol] Ordered By: SANDRA GARCIA on 05-09-2025 Basophils (Bld) [#/Vol] 0.04 10*3/uL <0.11 [facility] Basophils/100 WBC Auto (Bld) Ordered By: SANDRA GARCIA on 05-09-2025 Basophils/100 WBC (Bld) 0.6 % F [facility] Blood manual differential co mment interpretation narrativeOrdered By: SANDRA GARCIA on 05-09-2025 Manual differential comment [place] (Bld) [Interp] Auto [facility] CBC W Auto Differential pane l (Bld)on 05-09-2025 Basophils (Bld) [#/Vol] 0.04 10*3/uL Normal <0.11 [facility] Comment on above: Order Comment: Speci men Type: BLOOD SPECIMENOrdering Facility: [facility] Address: [address] [place] [address] Performed By: #### 5 7021-8 ####[facility] LABCLIA [id number] [place] [address] Basophils/100 WBC (Bld) 0.6 % Normal C [facility] Comment on above: Order Comment: Speci men Type: BLOOD SPECIMENOrdering Facility: [facility] Address: [address] [place] [address] Performed By: #### 5 7021-8 ####[facility] LABCLIA [id number] [place] [address] Differential cell count method Nom (Bld) Auto Normal [facility] Comment on above: Order Comment: Speci men Type: BLOOD SPECIMENOrdering Facility: [facility] Address: [address] [place] [address] Performed By: #### 5 7021-8 ####[facility] LABCLIA [id number] [place] [address] Eosinophils (Bld) [#/Vol] 0.14 10*3/uL Normal <0.46 [facility] Comment on above: Order Comment: Speci men Type: BLOOD SPECIMENOrdering Facility: [facility] Address: [address] [place] [address] Performed By: #### 5 7021-8 ####[facility] LABCLIA [id number] [place] [address] Eosinophils/100 WBC (Bld) 2.2 % Normal [facility] Comment on above: Order Comment: Speci men Type: BLOOD SPECIMENOrdering Facility: [facility] Address: [address] [place] [address] Performed By: #### 5 7021-8 ####[facility] LABCLIA [id number] [place] [address] Erythrocyte distribution width (RBC) [Ratio] 14.5 % Normal 11.5-15.0 [facility] Comment on above: Order Comment: Speci men Type: BLOOD SPECIMENOrdering Facility: [facility] Address: [address] [place] [address] Performed By: #### 5 7021-8 ####[facility] LABCLIA [id number] [place] [address] Hematocrit (Bld) [Volume fraction] 36.1 % Normal 36.0-46.0 [facility] Comment on above: Order Comment: Speci men Type: BLOOD SPECIMENOrdering Facility: [facility] Address: [address] [place] [address] Performed By: #### 5 7021-8 ####[facility] LABCLIA [id number] [place] [address] Hemoglobin (Bld) [Mass/Vol] 11.8 g/dL Normal 11.5-15.5 [facility] Comment on above: Order Comment: Speci men Type: BLOOD SPECIMENOrdering Facility: [facility] Address: [address] [place] [address] Performed By: #### 5 7021-8 ####[facility] LABCLIA [id number] [place] [address] Immature granulocytes (Bld) [#/Vol] 0.09 10*3/uL Normal <0.10 [facility] Comment on above: Order Comment: Speci men Type: BLOOD SPECIMENOrdering Facility: [facility] Address: [address] [place] [address] Performed By: #### 5 7021-8 ####[facility] LABCLIA [id number] [place] [address] Immature granulocytes/100 WBC (Bld) 1.4 % Normal [facility] Comment on above: Order Comment: Speci men Type: BLOOD SPECIMENOrdering Facility: [facility] Address: [address] [place] [address] Performed By: #### 5 7021-8 ####[facility] LABCLIA [id number] [place] [address] Lymphocytes (Bld) [#/Vol] 1.04 10*3/uL Normal 1.00-4.00 [facility] Comment on above: Order Comment: Speci men Type: BLOOD SPECIMENOrdering Facility: [facility] Address: [address] [place] [address] Performed By: #### 5 7021-8 ####[facility] LABCLIA [id number] [place] [address] Lymphocytes/100 WBC (Bld) 16.6 % Normal [facility] Comment on above: Order Comment: Speci men Type: BLOOD SPECIMENOrdering Facility: [facility] Address: [address] [place] [address] Performed By: #### 5 7021-8 ####[facility] LABCLIA [id number] [place] [address] MCH (RBC) [Entitic mass] 29.9 pg Normal 26.0-34.0 [facility] Comment on above: Order Comment: Speci men Type: BLOOD SPECIMENOrdering Facility: [facility] Address: [address] [place] [address] Performed By: #### 5 7021-8 ####[facility] LABCLIA [id number] [place] [address] MCHC (RBC) [Mass/Vol] 32.7 g/dL Normal 30.5-36.0 [facility] Comment on above: Order Comment: Speci men Type: BLOOD SPECIMENOrdering Facility: [facility] Address: [address] [place] [address] Performed By: #### 5 7021-8 ####[facility] LABIA [id number] [place] [address] MCV (RBC) [Entitic vol] 91.4 fL Normal 80.0-100.0 C [facility] Comment on above: Order Comment: Speci men Type: BLOOD SPECIMENOrdering Facility: [facility] Address: [address] [place] [address] Performed By: #### 5 7021-8 ####[facility] LABIA [id number] [place] [address] Monocytes (Bld) [#/Vol] 0.31 10*3/uL Normal <0.87 [facility] Comment on above: Order Comment: Speci men Type: BLOOD SPECIMENOrdering Facility: [facility] Address: [address] [place] [address] Performed By: #### 5 7021-8 ####[facility] LABIA [id number] [place] [address] Monocytes/100 WBC (Bld) 5.0 % Normal C [facility] Comment on above: Order Comment: Speci men Type: BLOOD SPECIMENOrdering Facility: [facility] Address: [address] [place] [address] Performed By: #### 5 7021-8 ####[facility] LABCLIA [id number] [place] [address] Neutrophils (Bld) [#/Vol] 4.63 10*3/uL Normal 1.45-7.50 [facility] Comment on above: Order Comment: Speci men Type: BLOOD SPECIMENOrdering Facility: [facility] Address: [address] [place] [address] Performed By: #### 5 7021-8 ####[facility] LABCLIA [id number] [place] [address] Neutrophils/100 WBC (Bld) 74.2 % Normal [facility] Comment on above: Order Comment: Speci men Type: BLOOD SPECIMENOrdering Facility: [facility] Address: [address] [place] [address] Performed By: #### 5 7021-8 ####[facility] LABCLIA [id number] [place] [address] Nucleated RBC (Bld) [#/Vol] 10*3/uL Normal <0.01 [facility] Comment on above: Order Comment: Speci men Type: BLOOD SPECIMENOrdering Facility: [facility] Address: [address] [place] [address] Performed By: #### 5 7021-8 ####[facility] LABCLIA [id number] [place] [address] Nucleated RBC/100 WBC (Bld) [Ratio] 0.0 /100 WBC Normal [facility] Comment on above: Order Comment: Speci men Type: BLOOD SPECIMENOrdering Facility: [facility] Address: [address] [place] [address] Performed By: #### 5 7021-8 ####[facility] LABCLIA [id number] [place] [address] Platelet mean volume (Bld) [Entitic vol] 9.7 fL Normal 9.0-12.7 [facility] Comment on above: Order Comment: Speci men Type: BLOOD SPECIMENOrdering Facility: [facility] Address: [address] [place] [address] Performed By: #### 5 7021-8 ####[facility] LABCLIA [id number] [place] [address] Platelets (Bld) [#/Vol] 153 10*3/uL Normal 150-400 [facility] Comment on above: Order Comment: Speci men Type: BLOOD SPECIMENOrdering Facility: [facility] Address: [address] [place] [address] Performed By: #### 5 7021-8 ####[facility] LABIA [id number] [place] [address] RBC (Bld) [#/Vol] 3.95 10*6/uL Normal 3.90-5.20 [facility] Comment on above: Order Comment: Speci men Type: BLOOD SPECIMENOrdering Facility: [facility] Address: [address] [place] [address] Performed By: #### 5 7021-8 ####[facility] LABIA [id number] [place] [address] WBC (Bld) [#/Vol] 6.25 10*3/uL Normal 3.70-11.00 [facility] Comment on above: Order Comment: Speci men Type: BLOOD SPECIMENOrdering Facility: [facility] Address: [address] [place] [address] Performed By: #### 5 7021-8 ####[facility] LABIA [id number] [place] [address] Comprehensive metabolic 2000 panelon 05-09-2025 Albumin [Mass/Vol] 4.0 g/dL Normal 3.9-4.9 [facility] Comment on above: Order Comment: Speci men Type: BLOOD SPECIMENOrdering Facility: [facility] Address: [address] [place] [address] Performed By: #### 2 4323-8 ####[facility] LABCLIA [id number] [place] [address] ALP [Catalytic activity/Vol] 99 U/L Normal 34-123 [facility] Comment on above: Order Comment: Speci men Type: BLOOD SPECIMENOrdering Facility: [facility] Address: [address] [place] [address] Performed By: #### 2 4323-8 ####[facility] LABCLIA [id number] [place] [address] ALT [Catalytic activity/Vol] 17 U/L Normal 7-38 [facility] Comment on above: Order Comment: Speci men Type: BLOOD SPECIMENOrdering Facility: [facility] Address: [address] [place] [address] Performed By: #### 2 4323-8 ####[facility] LABCLIA [id number] [place] [address] Anion gap [Moles/Vol] 9 mmol/L Normal 8-15 [facility] Comment on above: Order Comment: Speci men Type: BLOOD SPECIMENOrdering Facility: [facility] Address: [address] [place] [address] Performed By: #### 2 4323-8 ####[facility] LABCLIA [id number] [place] [address] AST [Catalytic activity/Vol] 19 U/L Normal 13-35 [facility] Comment on above: Order Comment: Speci men Type: BLOOD SPECIMENOrdering Facility: [facility] Address: [address] [place] [address] Performed By: #### 2 4323-8 ####[facility] LABCLIA [id number] [place] [address] Bilirubin [Mass/Vol] 0.5 mg/dL Normal 0.2-1.3 [facility] Comment on above: Order Comment: Speci men Type: BLOOD SPECIMENOrdering Facility: [facility] Address: [address] [place] [address] Performed By: #### 2 4323-8 ####[facility] LABCLIA [id number] [place] [address] Calcium [Mass/Vol] 9.3 mg/dL Normal 8.5-10.2 [facility] Comment on above: Order Comment: Speci men Type: BLOOD SPECIMENOrdering Facility: [facility] Address: [address] [place] [address] Performed By: #### 2 4323-8 ####[facility] LABCLIA [id number] [place] [address] Chloride [Moles/Vol] 104 mmol/L Normal 98-107 [facility] Comment on above: Order Comment: Speci men Type: BLOOD SPECIMENOrdering Facility: [facility] Address: [address] [place] [address] Performed By: #### 2 4323-8 ####[facility] LABCLIA [id number] [place] [address] CO2 [Moles/Vol] 25 mmol/L Normal 22-30 [facility] Comment on above: Order Comment: Speci men Type: BLOOD SPECIMENOrdering Facility: [facility] Address: [address] [place] [address] Performed By: #### 2 4323-8 ####[facility] LABCLIA [id number] [place] [address] Creatinine [Mass/Vol] 0.72 mg/dL Normal 0.58-0.96 [facility] Comment on above: Order Comment: Speci men Type: BLOOD SPECIMENOrdering Facility: [facility] Address: [address] [place], [place] [address] Performed By: #### 2 4323-8 ####[facility] LABCLIA [id number] [place] [address] eGFRcr SerPlBld CKD-EPI 2020 101 mL/min/1.73m??? Normal >=60 [facility] Comment on above: Order Comment: Azam gomes Type: BLOOD SPECIMENOrdering Facility: [facility] Address: [address] [place] [address] Result Comment: Caitlyn mated Glomerular Filtration Rate (eGFR) is calculated using the 2020 CKD-EPI creatinine equation. This equation utilizes serum creatinine, sex, and age as parameters. The creatinine assay has traceable calibration to isotope dilution-mass spectrometry. Refer to KDIGO guidelines for clinical interpretation. In patients with unstable renal function, e.g. those with acute kidney injury, the eGFR may not accurately reflect actual GFR. Performed By: #### 2 4323-8 ####[facility] LABIA [id number] [place] [address] Glucose [Mass/Vol] 141 mg/dL High 74-99 [facility] Comment on above: Order Comment: Azam gomes Type: BLOOD SPECIMENOrdering Facility: [facility] Address: [address] [place] [address] Result Comment: The [place] Diabetes Association (ADA) provides guidance for cutoff [...] Standards of Medical Care in Diabetes 2016, [place] [employer]. Diabetes Care. 2016.39(Suppl 1). Performed By: #### 2 4323-8 ####[facility] LABIA [id number] [place] [address] Potassium [Moles/Vol] 4.3 mmol/L Normal 3.7-5.1 [facility] Comment on above: Order Comment: Speci men Type: BLOOD SPECIMENOrdering Facility: [facility] Address: [address] [place], [place] [address] Performed By: #### 2 4323-8 ####[facility] LABCLIA [id number] [place] [address] Protein [Mass/Vol] 6.6 g/dL Normal 6.3-8.0 [facility] Comment on above: Order Comment: Speci men Type: BLOOD SPECIMENOrdering Facility: [facility] Address: [address] [place] [address] Performed By: #### 2 4323-8 ####[facility] LABCLIA [id number] [place] [address] Sodium [Moles/Vol] 138 mmol/L Normal 136-144 [facility] Comment on above: Order Comment: Speci men Type: BLOOD SPECIMENOrdering Facility: [facility] Address: [address] [place] [address] Performed By: #### 2 4323-8 ####[facility] LABCLIA [id number] [place] [address] Urea nitrogen [Mass/Vol] 8 mg/dL Normal 7-21 [facility] Comment on above: Order Comment: Speci men Type: BLOOD SPECIMENOrdering Facility: [facility] Address: [address] [place] [address] Performed By: #### 2 4323-8 ####[facility] LABCLIA [id number] [place] [address] Eosinophils/100 WBC Auto (Bl d)Ordered By: SANDRA GARCIA on 05-09-2025 Eosinophils/100 WBC (Bld) 2.2 % [facility] Erythrocyte distribution wid th Auto (RBC) [Ratio]Ordered By: SANDRA GARCIA on 05-09-2025 Erythrocyte distribution width (RBC) [Ratio] 14.5 % 11.5-15.0 [facility] Ferritin SerPl-mCncon 2024 Ferritin [Mass/Vol] 164.0 ng/mL Normal 14.7-205.1 [facility] Comment on above: Order Comment: Speci men Type: BLOOD SPECIMENOrdering Facility: [facility] Address: [address] [place] [address] Performed By: #### 2 284-8, 33509-5, 2276-4, 2131-9 ####[facility] LABCLIA [id number] [place] [address] [place] Folate SerPl-ncon 05-09-20 Folate [Mass/Vol] 9.3 ng/mL Normal >4.7 [facility] Comment on above: Order Comment: Azam gomes Type: BLOOD SPECIMENOrdering Facility: [facility] Address: [address] [place] [address] Performed By: #### 2 284-8, 02152-0, 6-4, 9 ####[facility] LABCLIA [id number] [place] [address] [place] Glomerular filtration rate [ Volume Rate/Area] in Serum, Plasma or Blood by CreatinineOrdered By: SANDRA GARCIA on 05-09-2025 Glomerular filtration rate [Volume Rate/Area] in Serum, Plasma or Blood by Creatinine 101 mL/min/1.73m??? >=60 [facility] Comment on above: Estimated Glomerular Filtration Rate (eGFR) is calculated using the 2020 CKD-EPI creatinine equation. This equation utilizes serum creatinine, sex, and age as parameters. The creatinine assay has traceable calibration to isotope dilution-mass spectrometry. Refer to KDIGO guidelines for clinical interpretation. In patients with unstable renal function, e.g. those with acute kidney injury, the eGFR may not accurately reflect actual GFR. Hematocrit Auto (Bld) [Volum e fraction]Ordered By: SANDRA GARCIA on 05-09-2025 Hematocrit (Bld) [Volume fraction] 36.1 % 36.0-46.0 [facility] Hemoglobin [Mass/volume] in BloodOrdered By: SANDRA GARCIA on 05-09-2025 Hemoglobin (Bld) [Mass/Vol] 11.8 g/dL 11.5-15.5 [facility] Iron and Iron binding capaci ty panelon 05-09-2025 Iron [Mass/Vol] 87 ug/dL Normal 41-186 [facility] Comment on above: Order Comment: Speci men Type: BLOOD SPECIMENOrdering Facility: [facility] Address: [address] [place] [address] Performed By: #### 2 284-8, 73568-6, 2275-4, 2132-05 ####[facility] LABIA [id number] [address] [address] [place] Iron binding capacity [Mass/Vol] 310 ug/dL Normal 232-386 [facility] Comment on above: Order Comment: Speci men Type: BLOOD SPECIMENOrdering Facility: [facility] Address: [address] [place] [address] Performed By: #### 2 284-8, 14163-8, 4, 2132-05 ####[facility] LABIA [id number] [address] [address] [place] Iron/TIBC [Molar ratio] 28.1 % Normal 15.0-57.0 [facility] Comment on above: Order Comment: Speci men Type: BLOOD SPECIMENOrdering Facility: [facility] Address: [address] [place], [place] [address] Performed By: #### 2 284-8, 95890-8, 4, 2132-05 ####[facility] LABCLIA [id number] [address] [address] [place] Iron binding capacity [Mass/ volume] in Serum or PlasmaOrdered By: SANDRA GARCIA on 05-09-2025 Iron binding capacity [Mass/Vol] 310 ug/dL 232-386 [facility] Iron saturation [Mass Fracti on] in Serum or PlasmaOrdered By: SANDRA GARCIA on 05-09-2025 Iron saturation [Mass fraction] 28.1 % 15.0-57.0 [facility] Laboratory - Chemistry and C hemistry - challengeOrdered By: SANDRA GARCIA on 05-09-2025 Albumin [Mass/Vol] 4.0 g/dL 3.9-4.9 [facility] ALP [Catalytic activity/Vol] 99 U/L 34-123 [facility] ALT [Catalytic activity/Vol] 17 U/L 7-38 [facility] AST [Catalytic activity/Vol] 19 U/L 13-35 [facility] Bilirubin [Mass/Vol] 0.5 mg/dL 0.2-1.3 [facility] Calcium [Mass/Vol] 9.3 mg/dL 8.5-10.2 [facility] Chloride [Moles/Vol] 104 mmol/L 98-107 [facility] CO2 [Moles/Vol] 25 mmol/L 22-30 [facility] Cobalamin (Vitamin B12) [Mass/Vol] 411 pg/mL 232-1245 [facility] Creatinine [Mass/Vol] 0.72 mg/dL 0.58-0.96 [facility] Ferritin [Mass/Vol] 164.0 ng/mL 14.7-205.1 [facility] Glucose [Mass/Vol] 141 mg/dL High 74-99 [facility] Comment on above: The [place] Diabete s Association (ADA) provides guidance for cutoff values for fasting glucose and random glucose. The ADA defines fasting as no caloric intake for at least 8 hours. Fasting plasma glucose results between 100 to 125 mg/dL indicate increased risk for diabetes (prediabetes).Fasting plasma glucose results greater than or equal to 126 mg/dL meet the criteria for diagnosis of diabetes. In the absence of unequivocal hyperglycemia, results should be confirmed by repeat testing. In a patient with classic symptoms of hyperglycemia or hyperglycemic crisis, random plasma glucose results greater than or equal to 200 mg/dL meet the criteria for diagnosis of diabetes.Reference: Standards of Medical Care in Diabetes 2016, [place] [employer]. Diabetes Care. 2016.39(Suppl 1). Iron [Mass/Vol] 87 ug/dL 41-186 [facility] Potassium [Moles/Vol] 4.3 mmol/L 3.7-5.1 [facility] Sodium [Moles/Vol] 138 mmol/L 136-144 [facility] Urea nitrogen [Mass/Vol] 8 mg/dL 7-21 [facility] Laboratory - Hematology and Cell countsOrdered By: SANDRA GARCIA on 05-09-2025 Eosinophils (Bld) [#/Vol] 0.14 10*3/uL <0.46 [facility] Immature granulocytes (Bld) [#/Vol] 0.09 10*3/uL <0.10 [facility] Immature granulocytes/100 WBC (Bld) 1.4 % [facility] Leukocytes [#/volume] correc araceli for nucleated erythrocytes in Blood by Automated counOrdered By: SANDRA GARCIA on 05-09-2025 WBC corrected for nucl RBC Auto (Bld) [#/Vol] 6.25 k/uL 3.70-11.00 [facility] Lymphocytes Auto (Bld) [#/Vo l]Ordered By: SANDRA GARCIA on 05-09-2025 Lymphocytes (Bld) [#/Vol] 1.04 10*3/uL 1.00-4.00 [facility] Lymphocytes/100 WBC Auto (Bl d)Ordered By: SANDRA GARCIA on 05-09-2025 Lymphocytes/100 WBC (Bld) 16.6 % [facility] MCH Auto (RBC) [Entitic mass ]Ordered By: SANDRA GARCIA on 05-09-2025 MCH (RBC) [Entitic mass] 29.9 pg 26.0-34.0 [facility] MCHC Auto (RBC) [Mass/Vol]Or dered By: SANDRA GARCIA on 05-09-2025 MCHC (RBC) [Mass/Vol] 32.7 g/dL 30.5-36.0 [facility] MCV Auto (RBC) [Entitic vol] Ordered By: SANDRA GARCIA on 05-09-2025 MCV (RBC) [Entitic vol] 91.4 fL 80.0-100.0 [facility] Monocytes Auto (Bld) [#/Vol] Ordered By: SANDRA GARCIA on 05-09-2025 Monocytes (Bld) [#/Vol] 0.31 10*3/uL <0.87 [facility] Monocytes/100 WBC Auto (Bld) Ordered By: SANDRA GARCIA on 05-09-2025 Monocytes/100 WBC (Bld) 5.0 % [facility] Neutrophils Auto (Bld) [#/Vo l]Ordered By: SANDRA GARCIA on 05-09-2025 Neutrophils (Bld) [#/Vol] 4.63 10*3/uL 1.45-7.50 [facility] Neutrophils/100 WBC Auto (Bl d)Ordered By: SANDRA GARCIA on 05-09-2025 Neutrophils/100 WBC (Bld) 74.2 % [facility] No Panel InformationOrdered By: SANDRA GARCIA on 05-09-2025 Folate 9.3 ng/mL >4.7 [facility] Nucleated RBC Auto (Bld) [#/ Vol]Ordered By: SANDRA GARCIA on 05-09-2025 Nucleated RBC (Bld) [#/Vol] 10*3/uL <0.01 [facility] Nucleated erythrocytes [Pres ence] in Blood by Automated countOrdered By: SANDRA GARCIA on 05-09-2025 Nucleated RBC Auto Ql (Bld) 0.0 /100{WBC} [facility] Platelet mean volume Auto (B ld) [Entitic vol]Ordered By: SANDRA GARCIA on 05-09-2025 Platelet mean volume (Bld) [Entitic vol] 9.7 fL 9.0-12.7 [facility] Platelets Auto (Bld) [#/Vol] Ordered By: SANDRA GARCIA on 05-09-2025 Platelets (Bld) [#/Vol] 153 10*3/uL 150-400 [facility] Protein [Mass/volume] in Ser um or PlasmaOrdered By: SANDRA GARCIA on 05-09-2025 Protein [Mass/Vol] 6.6 g/dL 6.3-8.0 [facility] RBC Auto (Bld) [#/Vol]Ordere d By: SANDRA GARCIA on 05-09-2025 RBC (Bld) [#/Vol] 3.95 10*6/uL 3.90-5.20 [facility] Serum or plasma anion gap de terminationOrdered By: SANDRA GARCIA on 05-09-2025 Anion gap [Moles/Vol] 9 mmol/L 8-15 [facility] Vit B12 SerPl-mCncon 025 Cobalamin (Vitamin B12) [Mass/Vol] 411 pg/mL Normal 232-1245 [facility] Comment on above: Order Comment: Speci men Type: BLOOD SPECIMENOrdering Facility: [facility] Address: [address] [place] [address] Performed By: #### 2 284-8, 74831-9, 2276-4, 2132-9 ####[facility] LABCLIA [id number] [address] [facility] CNOVSPon 02-28-2025 CNOVSP Visit (SP) Office ([place]) ILSA FERNANDEZ ([id number]) 1975 F Date Time Provider Department 02/28/25 1:30 PM SANDRA GARCIA During your visit today, we recorded the following information about you: Temperature Pulse Respiration Blood pressure 97.2 degrees 87/minute 20/minute 109/85 Weight Height Last Period 159.7 kg 1.702 m 02/28/25 Sandra Garcia PA-C 02/28/2025 1:52 PM Signed Date of Service: February 21, 2025 (Elements copied from my note dated October 04, 2024 have been reviewed and updated where appropriate, and all reflect current assessment and medical decision making during today's encounter, February 21, 2025) CC: Follow up Diagnosis: Iron deficiency anemia B12 deficiency S/p bariatric surgery Treatment History: Last IV ferric carboxymaltose (Injectafer) given 10/04-10/11/24 (had previous reaction to Monoferric and does not respond to venofer) IM B12 at home monthly HPI Ilsa returns for follow up. Labs dated 02/03/25 showed hemoglobin normal at 11.9, MCV 89.3, ferritin 33.5 , TIBC elevated at 397 , transferrin saturation down to 14.7%. She has been very fatigued, having leg cramps as well. She could tell it was time for iron. 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 Current Outpatient Medications Medication Sig cyanocobalamin 1,000 mcg/mL Inject 1 mL intramuscularly once every month. Syringe with Needle, Disp, (SYRINGE 3CC/21GX1 ) 3 mL 21 gauge x 1 syrg 1 Syringe once every month. No current facility-administere d medications for this visit. ALLERGIES Allergen Reactions Codeine Hives Monoferric [Ferric * Other: See Comments Chest palpations with flushing, hot all over REVIEW OF SYSTEMS GENERAL: No weight loss, malaise or fevers.+ see HPI HEENT: Negative for frequent or significant headaches, No changes in hearing or vision, no nose bleeds or other nasal problems NECK: Negative for lumps, goiter, pain and significant neck swelling RESPIRATORY: Negative for cough, wheezing or shortness of breath. CARDIOVASCULAR: Negative for chest pain, leg swelling or palpitations. GI: Negative for abdominal discomfort, blood in stools or black stools or change in bowel habits MUSCULOSKELETAL: Negative for joint pain or swelling, back pain or muscle pain. SKIN: Negative for lesions, rash, and itching. PSYCH: Negative for sleep disturbance, mood disorder and recent psychosocial stressors. HEMATOLOGY/LYMPHOLOG Y: Negative for prolonged bleeding, bruising easily or swollen nodes. NEURO: No history of headaches, syncope, paralysis, seizures or tremors All other reviewed and negative other than HPI. PHYSICAL EXAM: BP 109/85 Pulse 87 Temp 36.2 ?C (97.2 ?F) (Temporal) Resp 20 Ht 170.2 cm (5' 7.01 ) Wt (!) 159.7 kg (352 lb 1.2 oz) LMP 02/28/2025 SpO2 95% BMI 55.13 kg/m? No exam LAB: Hemoglobin (g/dL) Date Value 02/03/2025 11.9 05/21/2021 9.9 Hematocrit (%) Date Value 02/03/2025 36.9 05/21/2021 33.4 WBC (k/uL) Date Value 02/03/2025 6.13 05/21/2021 6.89 Platelet Count (k/uL) Date Value 02/03/2025 196 05/21/2021 241 Latest Reference Range AND Units 01/25/24 09:01 05/09/24 09:02 06/20/24 10:08 02/03/25 10:29 Folate >4.7 ng/mL 8.5 Ferritin 14.7 - 205.1 ng/mL 177.0 11.8 (L) 183.0 33.5 Iron 41 - 186 ug/dL 65 26 (L) 90 56 TIBC 232 - 386 ug/dL 288 394 (H) 318 397 (H) Transferrin Saturation 15.0 - 57.0 % 22.6 6.6 (L) 28.3 14.1 (L) (L): Data is abnormally low (H): Data is abnormally high ASSESSMENT/PLAN: 1. Iron deficiency anemia, unspecified iron deficiency anemia type - ICD9: 280.9, ICD10: D50.9 (primary diagnosis) She has a history of recurrrent iron deficiency anemia. She has an allergy to monoferric and does not respond to venofer. Last injectafer infusion was 05/26/2024. She is now symptomatic again and iron levels are low. Will give injectafer x 2 and recheck labs in April at her request. 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 2. History of bariatric surgery - ICD9: V45.86, ICD10: Z98.84 3. 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 B12 deficiency - ICD9: 281.1, ICD10: D53.1 Continue monthly B12 injections at home Sandra Garcia PA-C CC: Brennon Woody, I spent a total of 21 minutes on the date of the service which included preparing to see the patient, [id number] patient care, completing clinical documentation, performing a medically appropriate examination, counseling and educating the patient/family/careg iver, ordering medications, tests, or procedures, independently interpreting results (not separately reported), communicating results to the patient/family/careg iver, and care coordination (not separately reported). Allergies As of Date: 02/28/2025 Noted Allergy Reaction CODEINE (more content not included)... Normal [facility] CNPNon 02-28-2025 [facility] ILSA FERNANDEZ ([id number]) 1975 F Date Time Provider Department 02/28/25 SANDRA GARCIA [facility] During your visit today, we recorded the following information about you: Marilyn Andrew 03/10/2025 11:50 AM Addendum Marilyn Andrew 03/10/2025 11:51 AM Addendum Labs scheduled for 05-09-25 Follow up based on these results Justo Gambino RN 05/10/2025 10:41 AM Addendum Sandra Garcia PA-C to [facility] Triage Pool (Selected Message) 05/10/25 7:55 AM Result Note Iron levels look good. Please let her know MM: When would you like RTC? BERYL Gaston Mindy M, PA-C 05/10/2025 10:58 AM Signed Repeat labs in 3 months with follow up a week after BERRY Pierce Natalie, RN 05/10/2025 11:03 AM Signed Pt updated on result/plan of care. She is agreeable to repeat labs 3 months, RTC 1 week following. She denies any questions, needs or concerns at this time. Will await call to schedule. PSS: please call to schedule per MM. BERYL Gaston Jodi 05/11/2025 8:57 AM Signed Pt scheduled and confirmed 08-09 at 10am for labs and 08/16 at 10for Sandra and 1030 for treatment. Also mailed an appt reminder too. Allergies As of Date: 02/28/2025 Noted Allergy Reaction CODEINE 09/23/2017 4 - Hives MONOFERRIC (FERRIC DERISOMALTOSE) 06/10/2021 14 - Other: See Comments Comments: Chest palpations with flushing, hot all over Date Reviewed: 02/28/2025 Reviewed by: Josephine Amin MA - Fully Assessed Reason for Visit: Results [95] Prescriptions as of 05/11/2025 - cyanocobalamin 1,000 mcg/mL Inject 1 mL intramuscularly once every month. - Syringe with Needle, Disp, (SYRINGE 3CC/21GX1 ) 3 mL 21 gauge x 1 syrg 1 Syringe once every month. Problem List As Of Date 02/28/2025 Noted Resolved Intermittent palpitations [R00.2] Lightheadedness [R42] Paroxysmal supraventricular tachycardia (HCC) [* Elevated blood pressure reading in office witho* Iron deficiency anemia [D50.9] 09/23/2017 History of bariatric surgery [Z98.84] 09/23/2017 Encounter Status:Closed by JUSTO GAMBINO on 05/11/25 Normal [facility] CBC W Auto Differential pane l (Bld)on 02-03-2025 Basophils (Bld) [#/Vol] 0.03 10*3/uL Normal <0.11 [facility] Comment on above: Order Comment: Speci men Type: BLOOD SPECIMENOrdering Facility: [facility] Address: [address] [place] [address] Performed By: #### 5 7021-8 ####[facility] LABCLIA [id number] [place] [address] Basophils/100 WBC (Bld) 0.5 % Normal C [facility] Comment on above: Order Comment: Speci men Type: BLOOD SPECIMENOrdering Facility: [facility] Address: [address] [place] [address] Performed By: #### 5 7021-8 ####[facility] LABCLIA [id number] [place] [address] Differential cell count method Nom (Bld) Auto Normal [facility] Comment on above: Order Comment: Speci men Type: BLOOD SPECIMENOrdering Facility: [facility] Address: [address] [place] [address] Performed By: #### 5 7021-8 ####[facility] LABCLIA [id number] [place] [address] Eosinophils (Bld) [#/Vol] 0.14 10*3/uL Normal <0.46 [facility] Comment on above: Order Comment: Speci men Type: BLOOD SPECIMENOrdering Facility: [facility] Address: [address] [place] [address] Performed By: #### 5 7021-8 ####[facility] LABCLIA [id number] [place] [address] Eosinophils/100 WBC (Bld) 2.3 % Normal [facility] Comment on above: Order Comment: Speci men Type: BLOOD SPECIMENOrdering Facility: [facility] Address: [address] [place] [address] Performed By: #### 5 7021-8 ####[facility] LABCLIA [id number] [place] [address] Erythrocyte distribution width (RBC) [Ratio] 13.7 % Normal 11.5-15.0 [facility] Comment on above: Order Comment: Speci men Type: BLOOD SPECIMENOrdering Facility: [facility] Address: [address] [place] [address] Performed By: #### 5 7021-8 ####[facility] LABCLIA [id number] [place] [address] Hematocrit (Bld) [Volume fraction] 36.9 % Normal 36.0-46.0 [facility] Comment on above: Order Comment: Speci men Type: BLOOD SPECIMENOrdering Facility: [facility] Address: [address] [place] [address] Performed By: #### 5 7021-8 ####[facility] LABCLIA [id number] [place] [address] Hemoglobin (Bld) [Mass/Vol] 11.9 g/dL Normal 11.5-15.5 [facility] Comment on above: Order Comment: Speci men Type: BLOOD SPECIMENOrdering Facility: [facility] Address: [address] [place] [address] Performed By: #### 5 7021-8 ####[facility] LABCLIA [id number] [place] [address] Immature granulocytes (Bld) [#/Vol] 0.08 10*3/uL Normal <0.10 [facility] Comment on above: Order Comment: Speci men Type: BLOOD SPECIMENOrdering Facility: [facility] Address: [address] [place] [address] Performed By: #### 5 7021-8 ####[facility] LABCLIA [id number] [place] [address] Immature granulocytes/100 WBC (Bld) 1.3 % Normal [facility] Comment on above: Order Comment: Speci men Type: BLOOD SPECIMENOrdering Facility: [facility] Address: [address] [place] [address] Performed By: #### 5 7021-8 ####[facility] LABCLIA [id number] [place] [address] Lymphocytes (Bld) [#/Vol] 1.32 10*3/uL Normal 1.00-4.00 [facility] Comment on above: Order Comment: Speci men Type: BLOOD SPECIMENOrdering Facility: [facility] Address: [address] [place] [address] Performed By: #### 5 7021-8 ####[facility] LABCLIA [id number] [place] [address] Lymphocytes/100 WBC (Bld) 21.5 % Normal [facility] Comment on above: Order Comment: Speci men Type: BLOOD SPECIMENOrdering Facility: [facility] Address: [address] [place] [address] Performed By: #### 5 7021-8 ####[facility] LABCLIA [id number] [place] [address] MCH (RBC) [Entitic mass] 28.8 pg Normal 26.0-34.0 [facility] Comment on above: Order Comment: Speci men Type: BLOOD SPECIMENOrdering Facility: [facility] Address: [address] [place] [address] Performed By: #### 5 7021-8 ####[facility] LABCLIA [id number] [place] [address] MCHC (RBC) [Mass/Vol] 32.2 g/dL Normal 30.5-36.0 [facility] Comment on above: Order Comment: Speci men Type: BLOOD SPECIMENOrdering Facility: [facility] Address: [address] [place] [address] Performed By: #### 5 7021-8 ####[facility] LABIA [id number] [place] [address] MCV (RBC) [Entitic vol] 89.3 fL Normal 80.0-100.0 C [facility] Comment on above: Order Comment: Speci men Type: BLOOD SPECIMENOrdering Facility: [facility] Address: [address] [place] [address] Performed By: #### 5 7021-8 ####[facility] LABCLIA [id number] [place] [address] Monocytes (Bld) [#/Vol] 0.43 10*3/uL Normal <0.87 [facility] Comment on above: Order Comment: Speci men Type: BLOOD SPECIMENOrdering Facility: [facility] Address: [address] [place] [address] Performed By: #### 5 7021-8 ####[facility] LABIA [id number] [place] [address] Monocytes/100 WBC (Bld) 7.0 % Normal C [facility] Comment on above: Order Comment: Speci men Type: BLOOD SPECIMENOrdering Facility: [facility] Address: [address] [place] [address] Performed By: #### 5 7021-8 ####[facility] LABCLIA [id number] [place] [address] Neutrophils (Bld) [#/Vol] 4.13 10*3/uL Normal 1.45-7.50 [facility] Comment on above: Order Comment: Speci men Type: BLOOD SPECIMENOrdering Facility: [facility] Address: [address] [place] [address] Performed By: #### 5 7021-8 ####[facility] LABCLIA [id number] [place] [address] Neutrophils/100 WBC (Bld) 67.4 % Normal [facility] Comment on above: Order Comment: Speci men Type: BLOOD SPECIMENOrdering Facility: [facility] Address: [address] [place] [address] Performed By: #### 5 7021-8 ####[facility] LABCLIA [id number] [place] [address] Nucleated RBC (Bld) [#/Vol] 10*3/uL Normal <0.01 [facility] Comment on above: Order Comment: Speci men Type: BLOOD SPECIMENOrdering Facility: [facility] Address: [address] [place] [address] Performed By: #### 5 7021-8 ####[facility] LABCLIA [id number] [place] [address] Nucleated RBC/100 WBC (Bld) [Ratio] 0.0 /100 WBC Normal [facility] Comment on above: Order Comment: Speci men Type: BLOOD SPECIMENOrdering Facility: [facility] Address: [address] [place] [address] Performed By: #### 5 7021-8 ####[facility] LABCLIA [id number] [place] [address] Platelet mean volume (Bld) [Entitic vol] 10.1 fL Normal 9.0-12.7 [facility] Comment on above: Order Comment: Speci men Type: BLOOD SPECIMENOrdering Facility: [facility] Address: [address] [place] [address] Performed By: #### 5 7021-8 ####[facility] LABIA [id number] [place] [address] Platelets (Bld) [#/Vol] 196 10*3/uL Normal 150-400 [facility] Comment on above: Order Comment: Speci men Type: BLOOD SPECIMENOrdering Facility: [facility] Address: [address] [place] [address] Performed By: #### 5 7021-8 ####[facility] LABIA [id number] [place] [address] RBC (Bld) [#/Vol] 4.13 10*6/uL Normal 3.90-5.20 [facility] Comment on above: Order Comment: Speci men Type: BLOOD SPECIMENOrdering Facility: [facility] Address: [address] [place] [address] Performed By: #### 5 7021-8 ####[facility] LABIA [id number] [place] [address] WBC (Bld) [#/Vol] 6.13 10*3/uL Normal 3.70-11.00 [facility] Comment on above: Order Comment: Speci men Type: BLOOD SPECIMENOrdering Facility: [facility] Address: [address] [place] [address] Performed By: #### 5 7021-8 ####[facility] LABIA [id number] [place] [address] Katia 02-03-2025 SUSANNA Telephone (HEMASA) JIMILSA ([id number]) 1975 F Date Time Provider Department 02/03/25 SANDRA GARCIA HEMASA During your visit today, we recorded the following information about you: Sandra Garcia PA-C 02/03/2025 8:41 AM Signed Please call and advise patient that we received only a B12 result from [facility]. WE call them and they said no other labs were done. If patient wishes to go back to [facility] and have the rest of her labs redrawn, please fax the remaining orders to them and ensure they receive all orders. Otherwise she is welcome to come here to have them drawn. BERRY Pierce Natalie, RN 02/03/2025 8:51 AM Signed Pt notified. She is coming to [place] today and will come in at 1030 to have rest of labs completed. Pt added to lab schedule Justo Gambino RN Allergies As of Date: 02/03/2025 Noted Allergy Reaction CODEINE 09/23/2017 4 - Hives MONOFERRIC (FERRIC DERISOMALTOSE) 06/10/2021 14 - Other: See Comments Comments: Chest palpations with flushing, hot all over Date Reviewed: 02/03/2025 Reviewed by: Sandra Garcia PA-C - Fully Assessed Reason for Visit: Results [95] Prescriptions as of 02/03/2025 - cyanocobalamin 1,000 mcg/mL Inject 1 mL intramuscularly once every month. - Syringe with Needle, Disp, (SYRINGE 3CC/21GX1 ) 3 mL 21 gauge x 1 syrg 1 Syringe once every month. Problem List As Of Date 02/03/2025 Noted Resolved Intermittent palpitations [R00.2] Lightheadedness [R42] Paroxysmal supraventricular tachycardia (HCC) [* Elevated blood pressure reading in office witho* Iron deficiency anemia [D50.9] 09/23/2017 History of bariatric surgery [Z98.84] 09/23/2017 Encounter Status:Closed by JUSTO GAMBINO on 02/03/25 Normal [facility] metabolic 2000 panelon 02-03-2025 Albumin [Mass/Vol] 4.4 g/dL Normal 3.9-4.9 [facility] Comment on above: Order Comment: Speci men Type: BLOOD SPECIMENOrdering Facility: [facility] Address: [address] [place] [address] Performed By: #### 2 4323-8 ####[facility] LABCLIA [id number] [place] [address] ALP [Catalytic activity/Vol] 88 U/L Normal 34-123 [facility] Comment on above: Order Comment: Speci men Type: BLOOD SPECIMENOrdering Facility: [facility] Address: [address] [place] [address] Performed By: #### 2 4323-8 ####[facility] LABCLIA [id number] [place] [address] ALT [Catalytic activity/Vol] 13 U/L Normal 7-38 [facility] Comment on above: Order Comment: Speci men Type: BLOOD SPECIMENOrdering Facility: [facility] Address: [address] [place] [address] Performed By: #### 2 4323-8 ####[facility] LABCLIA [id number] [place] [address] Anion gap [Moles/Vol] 10 mmol/L Normal 8-15 [facility] Comment on above: Order Comment: Speci men Type: BLOOD SPECIMENOrdering Facility: [facility] Address: [address] [place] [address] Performed By: #### 2 4323-8 ####[facility] LABCLIA [id number] [place] [address] AST [Catalytic activity/Vol] 14 U/L Normal 13-35 [facility] Comment on above: Order Comment: Speci men Type: BLOOD SPECIMENOrdering Facility: [facility] Address: [address] [place] [address] Performed By: #### 2 4323-8 ####[facility] LABCLIA [id number] [place] [address] Bilirubin [Mass/Vol] 0.4 mg/dL Normal 0.2-1.3 [facility] Comment on above: Order Comment: Speci men Type: BLOOD SPECIMENOrdering Facility: [facility] Address: [address] [place] [address] Performed By: #### 2 4323-8 ####[facility] LABCLIA [id number] [place] [address] Calcium [Mass/Vol] 9.6 mg/dL Normal 8.5-10.2 [facility] Comment on above: Order Comment: Speci men Type: BLOOD SPECIMENOrdering Facility: [facility] Address: [address] [place] [address] Performed By: #### 2 4323-8 ####[facility] LABCLIA [id number] [place] [address] Chloride [Moles/Vol] 103 mmol/L Normal 98-107 [facility] Comment on above: Order Comment: Speci men Type: BLOOD SPECIMENOrdering Facility: [facility] Address: [address] [place] [address] Performed By: #### 2 4323-8 ####[facility] LABCLIA [id number] [place] [address] CO2 [Moles/Vol] 25 mmol/L Normal 22-30 [facility] Comment on above: Order Comment: Speci men Type: BLOOD SPECIMENOrdering Facility: [facility] Address: [address] [place] [address] Performed By: #### 2 4323-8 ####[facility] LABCLIA [id number] [place] [address] Creatinine [Mass/Vol] 0.71 mg/dL Normal 0.58-0.96 [facility] Comment on above: Order Comment: Speci men Type: BLOOD SPECIMENOrdering Facility: [facility] Address: [address] [place], [place] [address] Performed By: #### 2 4323-8 ####[facility] LABCLIA [id number] [place] [address] Creatinine and Glomerular filtration rate.predicted panel (S/P/Bld) 103 mL/min/1.73m??? Normal >=60 [facility] Comment on above: Order Comment: Azam men Type: BLOOD SPECIMENOrdering Facility: [facility] Address: [address] [place] [address] Result Comment: Caitlyn mated Glomerular Filtration Rate (eGFR) is calculated using the 2020 CKD-EPI creatinine equation. This equation utilizes serum creatinine, sex, and age as parameters. The creatinine assay has traceable calibration to isotope dilution-mass spectrometry. Refer to KDIGO guidelines for clinical interpretation. In patients with unstable renal function, e.g. those with acute kidney injury, the eGFR may not accurately reflect actual GFR. Performed By: #### 2 4323-8 ####[facility] LABCLIA [id number] [place] [address] Glucose [Mass/Vol] 97 mg/dL Normal 74-99 [facility] Comment on above: Order Comment: Azam gomes Type: BLOOD SPECIMENOrdering Facility: [facility] Address: [address] [place], [place] [address] Result Comment: The [place] Diabetes Association (ADA) provides guidance for cutoff [...] Standards of Medical Care in Diabetes 2016, [place] [employer]. Diabetes Care. 2016.39(Suppl 1). Performed By: #### 2 4323-8 ####[facility] LABCLIA [id number] [place] [address] Potassium [Moles/Vol] 4.4 mmol/L Normal 3.7-5.1 [facility] Comment on above: Order Comment: Speci men Type: BLOOD SPECIMENOrdering Facility: [facility] Address: [address] [place] [address] Performed By: #### 2 4323-8 ####[facility] LABCLIA [id number] [place] [address] Protein [Mass/Vol] 6.9 g/dL Normal 6.3-8.0 [facility] Comment on above: Order Comment: Speci men Type: BLOOD SPECIMENOrdering Facility: [facility] Address: [address] [place] [address] Performed By: #### 2 4323-8 ####[facility] LABCLIA [id number] [place] [address] Sodium [Moles/Vol] 138 mmol/L Normal 136-144 [facility] Comment on above: Order Comment: Speci men Type: BLOOD SPECIMENOrdering Facility: [facility] Address: [address] [place] [address] Performed By: #### 2 4323-8 ####[facility] LABCLIA [id number] [place] [address] Urea nitrogen [Mass/Vol] 28 mg/dL High 7-21 [facility] Comment on above: Order Comment: Speci men Type: BLOOD SPECIMENOrdering Facility: [facility] Address: [address] [place] [address] Performed By: #### 2 4323-8 ####[facility] LABCLIA [id number] [place] [address] Ferritin [facility] Ferritin [Mass/Vol] 33.5 ng/mL Normal 14.7-205.1 [facility] Comment on above: Order Comment: Speci men Type: BLOOD SPECIMENOrdering Facility: [facility] Address: [address] [place] [address] Performed By: #### 2 284-8, 95811-8, 2275-4 ####[facility] LABCLIA [id number] [place] [id number] [place] Folate SerPl-ncon 02-04-20 25 Folate [Mass/Vol] 8.5 ng/mL Normal >4.7 [facility] Comment on above: Order Comment: Speci men Type: BLOOD SPECIMENOrdering Facility: [facility] Address: [address] [place] [address] Performed By: #### 2 284-8, 67494-0, 2275-4 ####[facility] LABCLIA [id number] [place] [address] [place] Iron and Iron binding capaci panel 02-03-2025 Iron [Mass/Vol] 56 ug/dL Normal 41-186 [facility] Comment on above: Order Comment: Speci men Type: BLOOD SPECIMENOrdering Facility: [facility] Address: [address] [place] [address] Performed By: #### 2 284-8, 13210-4, 2275-4 ####[facility] LABCLIA [id number] [place] [address] [place] Iron binding capacity [Mass/Vol] 397 ug/dL High 232-386 [facility] Comment on above: Order Comment: Speci men Type: BLOOD SPECIMENOrdering Facility: [facility] Address: [address] [place] [address] Performed By: #### 2 284-8, 43912-7, 2275-4 ####[facility] LABCLIA [id number] [place] [id number] [place] Iron/TIBC [Molar ratio] 14.1 % Low 15.0-57.0 C [facility] Comment on above: Order Comment: Speci men Type: BLOOD SPECIMENOrdering Facility: [facility] Address: [address] [place] [address] Performed By: #### 2 284-8, 84110-8, 2276-4 ####[facility] LABCLIA [id number] [place] [id number] [place] OF [facility] Vitamin B12on 02-01-2025 Cobalamin (Vitamin B12) [Mass/Vol] 340 pg/mL Normal 232-1245 [facility] Comment on above: Performed By: #### B 12 #### [facility] [address] [place] [address] Bridge Rigger: Mehdi Taylor MD CNOVSPon 10-04-2024 CNOVSP Visit (SP) Office (HEMASA) ILSA FERNANDEZ ([id number]) 1975 F Date Time Provider Department 10/04/24 9:30 AM SANDRA GARCIA During your visit today, we recorded the following information about you: Temperature Pulse Respiration Blood pressure 97.2 degrees 90/minute 18/minute 164/90 Weight Height Last Period 157.4 kg 1.702 m 09/26/24 Sandra Garcia PA-C 10/04/2024 9:54 AM Signed Date of Service: October 04, 2024 (Elements copied from my note dated June 20, 2024 have been reviewed and updated where appropriate, and all reflect current assessment and medical decision making during today's encounter, 10/04/2024) CC: Follow up Diagnosis: Iron deficiency anemia B12 deficiency S/p bariatric surgery Treatment History: Last IV ferric carboxymaltose (Injectafer) given 08/14/2023 (had previous reaction to Monoferric and does not respond to venofer) IM B12 at home monthly HPI Ilsa returns for follow up. Recent labs show her hemoglobin is down to 11.7, MCV 87.3, ferritin 18, iron saturation 10%. She is here to get IV iron. She has had fatigue, cramps and heart palpitations. She knew she needed iron. Current Outpatient Medications Medication Sig cyanocobalamin 1,000 mcg/mL Inject 1 mL intramuscularly once every month. Syringe with Needle, Disp, (SYRINGE 3CC/21GX1 ) 3 mL 21 gauge x 1 syrg 1 Syringe once every month. No current facility-administere d medications for this visit. ALLERGIES Allergen Reactions Codeine Hives Monoferric [Ferric * Other: See Comments Chest palpations with flushing, hot all over REVIEW OF SYSTEMS GENERAL: No weight loss, malaise or fevers., HEENT: Negative for frequent or significant headaches, No changes in hearing or vision, no nose bleeds or other nasal problems NECK: Negative for lumps, goiter, pain and significant neck swelling RESPIRATORY: Negative for cough, wheezing or shortness of breath. CARDIOVASCULAR: Negative for chest pain, leg swelling or palpitations. GI: Negative for abdominal discomfort, blood in stools or black stools or change in bowel habits MUSCULOSKELETAL: Negative for joint pain or swelling, back pain or muscle pain. SKIN: Negative for lesions, rash, and itching. PSYCH: Negative for sleep disturbance, mood disorder and recent psychosocial stressors. HEMATOLOGY/LYMPHOLOG Y: Negative for prolonged bleeding, bruising easily or swollen nodes. NEURO: No history of headaches, syncope, paralysis, seizures or tremors All other reviewed and negative other than HPI. PHYSICAL EXAM: BP 164/90 Pulse 90 Temp 36.2 ?C (97.2 ?F) (Temporal) Resp 18 Ht 170.2 cm (5' 7.01 ) Wt (!) 157.4 kg (346 lb 14.7 oz) LMP 09/26/2024 SpO2 100% BMI 54.32 kg/m? General: Alert and oriented, no distress, pleasant and cooperative. Heart: Regular, normal S1 and S2, no murmurs, rubs, or gallops Lungs: Clear to auscultation bilaterally Abdomen: Benign Extremities: Feet/ankles without edema, posterior tibial pulses full and symmetrical LAB: See labs in epic from [place] ASSESSMENT/PLAN: 1. Iron deficiency anemia, unspecified iron deficiency anemia type - ICD9: 280.9, ICD10: D50.9 (primary diagnosis) She has a history of recurrrent iron deficiency anemia. She has an allergy to monoferric and does not respond to venofer. Last injectafer infusion was 05/26/2024. She is now symptomatic again and iron levels are low. Will give injectafer x 2 and recheck labs in about 4 months and see us after if iron is needed. Lab orders printed for patient for [facility]. 2. History of bariatric surgery - ICD9: V45.86, ICD10: Z98.84 3. 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 B12 deficiency - ICD9: 281.1, ICD10: D53.1 Continue monthly B12 injections at home Sandra Garcia PA-C I spent a total of 20 minutes on the date of the service which included preparing to see the patient, nigp-hc-flmc patient care, completing clinical documentation, performing a medically appropriate examination, counseling and educating the patient/family/careg iver, ordering medications, tests, or procedures, independently interpreting results (not separately reported), communicating results to the patient/family/careg iver, and care coordination (not separately reported). CC: Brennon Woody, DO Allergies As of Date: 10/04/2024 Noted Allergy Reaction CODEINE 09/23/2017 4 - Hives MONOFERRIC (FERRIC DERISOMALTOSE) 06/10/2021 14 - Other: See Comments Comments: Chest palpations with flushing, hot all over Date Reviewed: 10/04/2024 Reviewed by: Sandra Garcia PA-C - Fully Assessed Reason for Visit: Anemia [6] Cmt: Follow up Primary Visit Diagnosis:Iron deficiency anemia, unspecified iron deficiency anemia type [D50.9] Other Visit Diagnoses:History of bariatric surgery [Z98.84] 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 B12 deficiency [D53.1] Orde (more content not included)... Normal [facility] CBC with Auto Differentialon 09-24-2024 Basophils (Bld) [#/Vol] 0.06 10*3/uL [facility] Bas[facility]/100 WBC (Bld) 1 % 0 - 2 % B on [facility] Eosinophils (Bld) [#/Vol] 0.14 10*3/uL [facility] Eosinophils/100 WBC (Bld) 2 % 1 - 4 % [facility] Erythrocyte distribution width (RBC) [Ratio] 13.0 % 11.8 - 14.4 % [facility] Hematocrit (Bld) [Volume fraction] 36.3 % 36.3 - 47.1 % [facility] Hemoglobin (Bld) [Mass/Vol] 11.7 g/dL Low 11.9 - 15.1 g/dL [facility] Immature granulocytes (Bld) [#/Vol] 0.03 10*3/uL [facility] Immature granulocytes/100 WBC (Bld) 1 % High 0 [facility] Interpretation and review of laboratory results Abnormal [facility] Lymphocytes/100 WBC (Bld) 22 % Low 24 - 43 % [facility] Lymphocytes/100 WBC (Bld) 1.34 % [facility] MCH (RBC) [Entitic mass] 28.1 pg 25. 2 - 33.5 pg [facility] MCHC (RBC) [Mass/Vol] 32.2 g/dL 28.4 - 34.8 g/dL [facility] MCV (RBC) [Entitic vol] 87.3 fL 82.6 - 102.9 fL [facility] Monocytes/100 WBC (Bld) 8 % 3 - 12 % B on [facility] Monocytes/100 WBC (Bld) 0.47 % B on [facility] Neutrophils/100 WBC (Bld) 66 % High 36 - 65 % [facility] Nucleated RBC/100 WBC (Bld) [Ratio] 0.0 % 0.0 per 100 WBC [facility] Platelet mean volume (Bld) [Entitic vol] 10.5 fL 8.1 - 13.5 fL [facility] Platelets (Bld) [#/Vol] 246 10*3/uL [facility] RBC (Bld) [#/Vol] 4.16 10*6/uL 3.95 - 5.1 1 m/uL [facility] Segmented neutrophils/100 WBC (Bld) 4.01 % [facility] WBC other (Bld) [#/Vol] 6.[address] [facility] [address] [facility] CBC with Diffon 09-24-2024 Abs. Basophil 0.06 k/uL Normal 0.00-0.20 [facility] Comment on above: Performed By: #### C P, CDP #### [facility] [address] [place] [address] Bridge Rigger: Estuardo Sena MD #### MITCHEL, FERI #### [address] [id number] Bridge Rigger: Mehdi Taylor MD Abs.Imm.Granulocyte 0.03 k/uL Normal 0.00-0.30 [facility] Comment on above: Performed By: #### C P, CDP #### [facility] [address] [place] [address] [place]. [place] [id number] Bridge Rigger: Estuardo Sena MD #### MITCHEL, FERI #### [address] [id number] Bridge Rigger: Mehdi Taylor MD Abs.Neutrophil (Seg) 4.01 k/uL Normal 1.50-8.10 [facility] Comment on above: Performed By: #### C P, CDP #### [address] [place] [id number] Bridge Rigger: Estuardo Sena MD #### MITCEHL, FERI #### [address] [id number] Bridge Rigger: Mehdi Taylor MD Basophils/100 WBC (Bld) 1 % Normal 0-2 M [facility] Comment on above: Performed By: #### C P, CDP #### [facility] [address] [place], [place] [id number] Bridge Rigger: Estuardo Sena MD #### MITCHEL, FERI #### [address] [id number] Bridge Rigger: Mehdi Taylor MD Eosinophils (Bld) [#/Vol] 0.14 10*3/uL Normal 0.00-0.44 [facility] Comment on above: Performed By: #### C P, CDP #### [facility] [address] [place] [address] Dr. [place], [place] [id number] Bridge Rigger: Estuardo Sena MD #### MITCHEL, FERI #### [address] [id number] Bridge Rigger: Mehdi Taylor MD Eosinophils/100 WBC (Bld) 2 % Normal 1-4 [facility] Comment on above: Performed By: #### C P, CDP #### [facility] [address] [place] [address] Dr. [place] [id number] Bridge Rigger: Estuardo Sena MD #### MITCHEL, FERI #### [address] [id number] Bridge Rigger: Mehdi Taylor MD Erythrocyte distribution width (RBC) [Ratio] 13.0 % Normal 11.8-14.4 [facility] Comment on above: Performed By: #### C P, CDP #### [address] [place] [id number] Bridge Rigger: Estuardo Sena MD #### MITCHEL, FERI #### [address] [id number] Bridge Rigger: Mehdi Taylor MD Hematocrit (Bld) [Volume fraction] 36.3 % Normal 36.3-47.1 [facility] Comment on above: Performed By: #### C P, CDP #### [facility] [address] [place] [address] Dr. [place], [place] [id number] Bridge Rigger: Estuardo Sena MD #### MITCHEL, FERI #### [address] [place] [address] Bridge Rigger: Mehdi Taylor MD Hemoglobin (Bld) [Mass/Vol] 11.7 g/dL Low 11.9-15.1 [facility] Comment on above: Performed By: #### C P, CDP #### [facility] [address] [place], [place] [id number] Bridge Rigger: Estuardo Sena MD #### FEMARGARITO, FERI #### [address] [address] Bridge Rigger: Mehdi Taylor MD Immature granulocytes/100 WBC (Bld) 1 % High 0 [facility] Comment on above: Performed By: #### C P, CDP #### [facility] [address] [place] [address] Dr[place], [place] [id number] Bridge Rigger: Estuardo Sena MD #### MITCHEL, FERI #### [address] [address] Bridge Rigger: Mehdi Taylor MD Lymphocytes (Bld) [#/Vol] 1.34 10*3/uL Normal 1.10-3.70 [facility] Comment on above: Performed By: #### C P, CDP #### [facility] [address] [place] [address] Dr[place], [place] [phone] Bridge Rigger: Estuardo Sena MD #### MITCHEL, FERI #### [address] [address] Bridge Rigger: Mehdi Taylor MD Lymphocytes/100 WBC (Bld) 22 % Low 24-43 [facility] Comment on above: Performed By: #### C P, CDP #### [facility] [address] [place] [address] Dr[place], [place] [id number] Bridge Rigger: Estuardo Sena MD #### MITCHEL, FERI #### [address] [phone] Bridge Rigger: Mehdi Taylor MD MCH (RBC) [Entitic mass] 28.1 pg Normal 25.2-33.5 [facility] [facility] Comment on above: Performed By: #### C P, CDP #### [address] [place] [id number] Bridge Rigger: Estuardo Sena MD #### MITCHEL, FERI #### [address] [id number] Bridge Rigger: Mehdi Taylor MD MCHC (RBC) [Mass/Vol] 32.2 g/dL Normal 28.4-34.8 [facility] Comment on above: Performed By: #### C P, CDP #### [address] [place] [address] Bridge Rigger: Estuardo Sena MD #### MITCHEL, FERI #### [place] [address] Bridge Rigger: Mehdi Taylor MD MCV (RBC) [Entitic vol] 87.3 fL Normal 82.6-102.9 M [facility] Comment on above: Performed By: #### C P, CDP #### [address] [place] [id number] Bridge Rigger: Estuardo Sena MD #### MITCHEL, FERI #### [place] [address] Bridge Rigger: Mehdi Taylor MD Monocytes (Bld) [#/Vol] 0.47 10*3/uL Normal 0.10-1.20 [facility] Comment on above: Performed By: #### C P, CDP #### [address] [place] [id number] Bridge Rigger: Estuardo Sena MD #### MITCHEL, FERI #### [address] [id number] Bridge Rigger: Mehdi Taylor MD Monocytes/100 WBC (Bld) 8 % Normal 3-12 M [facility] Comment on above: Performed By: #### C P, CDP #### [facility] [address] [place], [place] [id number] Bridge Rigger: Estuardo Sena MD #### FEMARGARITO, FERI #### [address] [address] Bridge Rigger: Mehdi Taylor MD Neutrophil (Seg) 66 % High 36-65 [facility] Comment on above: Performed By: #### C P, CDP #### [address] [place], [place] 6357983 Bridge Rigger: Estuardo Sena MD #### MITCHEL, FERI #### [address] [address] Bridge Rigger: Mehdi Taylor MD NRBC Automated 0.0 per 100 WBC Normal 0.0 [facility] Comment on above: Performed By: #### C P, CDP #### [address] [place], [place] 0395783 Bridge Rigger: Estuardo Sena MD #### MITCHEL, FERI #### [address] [address] Bridge Rigger: Mehdi Taylor MD Platelet mean volume (Bld) [Entitic vol] 10.5 fL Normal 8.1-13.5 [facility] Comment on above: Performed By: #### C P, CDP #### [address] [place], [place] [id number] Bridge Rigger: Estuardo Sena MD #### MITCHEL, FERI #### [address] [address] Bridge Rigger: Mehdi Taylor MD Platelets (Bld) [#/Vol] 246 10*3/uL Normal 138-453 [facility] Comment on above: Performed By: #### C P, CDP #### [address] [place], [place] [id number] Bridge Rigger: Estuardo Sena MD #### FEBC, FERI #### [address] [id number] Bridge Rigger: Mehdi Taylor MD RBC (Bld) [#/Vol] 4.16 10*6/uL Normal 3.95-5.11 [facility] Comment on above: Performed By: #### C P, CDP #### [address] [place] [id number] Bridge Rigger: Estuardo Sena MD #### MITCHEL, FERI #### [address] [address] Bridge Rigger: Mehdi Taylor MD WBC (Bld) [#/Vol] 6.1 10*3/uL Normal 3.5-11.3 [facility] Comment on above: Performed By: #### C P, CDP #### [address] [place] [id number] Bridge Rigger: Estuardo Sena MD #### MITCHEL, FERI #### [address] [address] Bridge Rigger: Mehdi Taylor MD Comp Metabolic Profon 2024 Albumin [Mass/Vol] 4.0 g/dL Normal 3.5-5.2 [facility] Comment on above: Performed By: #### C P, CDP #### [address] [place], [place] 2645183 Bridge Rigger: Estuardo Sena MD #### MITCHEL, FERI #### [address] [address] Bridge Rigger: Mehdi Taylor MD Albumin/Glob Ratio 1.5 Normal 1.0-2.5 [facility] Comment on above: Performed By: #### C P, CDP #### [facility] [address] [place], [place] 2602883 Bridge Rigger: Estuardo Sena MD #### MITCHEL, FERI #### [address] [address] Bridge Rigger: Mehdi Taylor MD Alkaline Phos 88 U/L Normal 35-104 [facility] Comment on above: Performed By: #### C P, CDP #### [address] [place], [place] 4569283 Bridge Rigger: Estuardo Sena MD #### MITCHEL, FERI #### [address] [address] Bridge Rigger: Mehdi Taylor MD ALT [Catalytic activity/Vol] 12 U/L Normal 10-35 [facility] Comment on above: Performed By: #### C P, CDP #### [address] [place], [place] 5465283 Bridge Rigger: Estuardo Sena MD #### MITCHEL, FERI #### [address] [address] Bridge Rigger: Mehdi Taylor MD Anion gap [Moles/Vol] 10 mmol/L Normal 9-16 [facility] Comment on above: Performed By: #### C P, CDP #### [address] [place] [address] Bridge Rigger: Estuardo Sena MD #### MITCHEL, FERI #### [address] [address] Bridge Rigger: Mehdi Taylor MD AST [Catalytic activity/Vol] 17 U/L Normal 10-35 [facility] Comment on above: Performed By: #### C P, CDP #### [facility] [address] [place], [place] [phone] Bridge Rigger: Estuardo Sena MD #### FEBC, FERI #### [address] [place], [place] 4665108 Bridge Rigger: Mehdi Taylor MD Bilirubin [Mass/Vol] 0.3 mg/dL Normal 0.00-1.20 [facility] Comment on above: Performed By: #### C P, CDP #### [facility] [address] [place], [place] 2444283 Bridge Rigger: Estuardo Sena MD #### FEMARGARITO, FERI #### [address] [id number] Bridge Rigger: Mehdi Taylor MD BUN/CRE Ratio 16 Normal 9-20 [facility] Comment on above: Performed By: #### C P, CDP #### [facility] [address] [place], [place] [phone] Bridge Rigger: Estuardo Sena MD #### FEBC, FERI #### [address] [address] Bridge Rigger: Mehdi Taylor MD Calcium [Mass/Vol] 8.9 mg/dL Normal 8.6-10.4 [facility] Comment on above: Performed By: #### C P, CDP #### [facility] [address] [place], [place] [phone] Bridge Rigger: Estuardo Sena MD #### FEBC, FERI #### [address] [address] Bridge Rigger: Mehdi Taylor MD Chloride [Moles/Vol] 103 mmol/L Normal 98-107 [facility] Comment on above: Performed By: #### C P, CDP #### [facility] [address] [place] [address] Bridge Rigger: Estuardo Sena MD #### MITCHEL, NELLI #### [address] [place], [place] 1812008 Bridge Rigger: Mehdi Taylor MD CO2 [Moles/Vol] 25 mmol/L Normal 20-[address] [facility] Comment on above: Performed By: #### C P, CDP #### [facility] [address] [place], [place] 9262883 Bridge Rigger: Estuardo Sena MD #### MITCHEL, NELLI #### [address] [place], [place] 0873508 Bridge Rigger: Mehdi Taylor MD Creatinine [Mass/Vol] 0.7 mg/dL Normal 0.50-0.90 [facility] Comment on above: Performed By: #### C P, CDP #### [address] [place] [address] Bridge Rigger: Estuardo Sena MD #### MITCHEL, FERI #### [address] [place], [place] 6378208 Bridge Rigger: Mehdi Taylor MD GFR/1.73 sq M.predicted among non-blacks MDRD (S/P/Bld) [Vol rate/Area] mL/min/{1.73_m2} Normal >60 [facility] Comment on above: Result Comment: These results are not intended for use in patients <18 years of age. eGFR results are calculated without a race factor using the 2020 CKD-EPI equation. Careful clinical correlation is recommended, particularly when comparing to results calculated using previous equations. The CKD-EPI equation is less accurate in patients with extremes of muscle mass, extra-renal metabolism of creatine, excessive creatine ingestion, or following therapy that affects renal tubular secretion. Performed By: #### C P, CDP #### [address] [place], [place] 9101683 Bridge Rigger: Estuardo Sena MD #### MITCHEL, FERI #### [address] [id number] Bridge Rigger: Mehdi Taylor MD Glucose [Mass/Vol] 86 mg/dL Normal 74-99 [facility] Comment on above: Performed By: #### C P, CDP #### [address] [place], [place] 5401683 Bridge Rigger: Estuardo Sena MD #### MITCHEL, FERI #### [address] [phone] Bridge Rigger: Mehdi Taylor MD Potassium [Moles/Vol] 4.6 mmol/L Normal 3.7-5.3 [facility] Comment on above: Performed By: #### C P, CDP #### [address] [place], [place] 8999783 Bridge Rigger: Estuardo Sena MD #### MITCHEL, FERI #### [address] 0021408 Bridge Rigger: Mehdi Taylor MD Protein [Mass/Vol] 6.7 g/dL Normal 6.6-8.7 [facility] Comment on above: Performed By: #### C P, CDP #### [address] [place], [place] 3182283 Bridge Rigger: Estuardo Sena MD #### MITCHEL, FERI #### [address] [address] Bridge Rigger: Mehdi Taylor MD Sodium [Moles/Vol] 138 mmol/L Normal 136-145 [facility] Comment on above: Performed By: #### C P, CDP #### [address] [place] [address] Bridge Rigger: Estuardo Sena MD #### MITCHEL, FERI #### [facility] [address] [place] [address] Bridge Rigger: Mehdi Taylor MD Urea nitrogen [Mass/Vol] 11 mg/dL Normal 6-20 [facility] Comment on above: Performed By: #### C P, CDP #### [facility] [address] [place] [address] Bridge Rigger: Estuardo Sena MD #### MITCHEL, FERI #### [facility] [address] [place] [address] Bridge Rigger: Mehdi Taylor MD Comprehensive Metabolic Pane [facility] 09-24-2024 Albumin [Mass/Vol] 4.0 g/dL 3.5 - 5.2 g/dL [facility] Albumin/Globulin [Mass ratio] 1.5 {ratio} 1.0 - 2.5 [facility] ALP [Catalytic activity/Vol] 88 U/L 35 - 104 U/L [facility] ALT [Catalytic activity/Vol] 12 U/L 10 - 35 U/L [facility] Anion gap [Moles/Vol] 10 mmol/L 9 - 16 mmol/L [facility] AST [Catalytic activity/Vol] 17 U/L 10 - 35 U/L [facility] Bilirubin [Mass/Vol] 0.3 mg/dL 0.00 - 1.20 mg/dL [facility] Calcium [Mass/Vol] 8.9 mg/dL 8.6 - 10. 4 mg/dL [facility] Chloride [Moles/Vol] 103 mmol/L 98 - 10 7 mmol/L [facility] CO2 [Moles/Vol] 25 mmol/L 20 - 31 mmol/L [facility] Creatinine [Mass/Vol] 0.7 mg/dL 0.50 - 0.90 mg/dL [facility] Est, Glom Filt Rate - PINF [facility] Comment on above: These results are not intended for use in patients <18 years of age. eGFR results are calculated without a race factor using the 2020 CKD-EPI equation. Careful clinical correlation is recommended, particularly when comparing to results calculated using previous equations. The CKD-EPI equation is less accurate in patients with extremes of muscle mass, extra-renal metabolism of creatine, excessive creatine ingestion, or following therapy that affects renal tubular secretion. Glucose [Mass/Vol] 86 mg/dL 74 - 99 mg/dL [facility] Potassium [Moles/Vol] 4.6 mmol/L 3.7 - 5.3 mmol/L [facility] Protein [Mass/Vol] 6.7 g/dL 6.6 - 8.7 g/dL [facility] Sodium [Moles/Vol] 138 mmol/L 136 - 145 mmol/L [facility] Urea nitrogen [Mass/Vol] 11 mg/dL 6 - 20 mg/d L [facility] Urea nitrogen/Creatinine [Mass ratio] 16 mg/mg 9 - 20 [facility] Ferritinon 09-24-2024 Ferritin [Mass/Vol] 18 ng/mL 15 - 150 ng/mL [facility] Comment on above: FERRITIN Reference Ranges: Adult Males 20 - 60 years: 30 - 400 ng/mL Adult females 17 - 60 years: 13 - 150 ng/mL Adults greater than 60 years: no established reference range Pediatrics: no established reference range Ferritin [Mass/Vol] 18 ng/mL Normal 15-150 [facility] Comment on above: Result Comment: FERRITIN Reference Ranges: Adult Males 20 - 60 years: 30 - 400 ng/mL Adult females 17 - 60 years: 13 - 150 ng/mL Adults greater than 60 years: no established reference range Pediatrics: no established reference range Performed By: #### C P, CDP #### [facility] [address] [place] [address] Bridge Rigger: Estuardo Sena MD #### FEWILLIAM PIMENTEL #### [facility] [address] [place] [address] Bridge Rigger: Mehdi Taylor MD Iron Binding Cap.on 09-24-19 25 % Fe Saturation 10 % Low 20-[address] [facility] Comment on above: Performed By: #### C P, CDP #### [facility] [address] [place], [place] 9955083 Bridge Rigger: Estuardo Sena MD #### FEBC, FERI #### [address] [id number] Bridge Rigger: Mehdi Taylor MD Iron [Mass/Vol] 38 ug/dL Normal 37-[address] [facility] Comment on above: Performed By: #### C P, CDP #### [facility] [address] [place], [place] 7476683 Bridge Rigger: Estuardo Sena MD #### MITCHEL, FERI #### [address] 8205508 Bridge Rigger: Mehdi Taylor MD Total Fe Binding Cap 392 ug/dL Normal 250-450 [facility] Comment on above: Performed By: #### C P, CDP #### [address] [place], [place] 4585583 Bridge Rigger: Estuardo Sena MD #### FEBC, FERI #### [address] [address] Bridge Rigger: Mehdi Taylor MD Unbound Fe Bind Cap 354 ug/dL High 112-347 [facility] Comment on above: Performed By: #### C P, CDP #### [address] [place], [place] 2126083 Bridge Rigger: Estuardo Sena MD #### FEBC, FERI #### [address] [place] [address] Bridge Rigger: Mehdi Taylor MD Iron and TIBCon 09-24-2024 Interpretation and review of laboratory results Abnormal [facility] Iron [Mass/Vol] 38 ug/dL 37 - 145 ug/dL [facility] Iron binding capacity [Mass/Vol] 392 ug/dL 250 - 450 ug/dL [facility] Iron saturation [Mass fraction] 10 % Low 20 - 55 % [facility] UIBC 354 ug/dL High 112 - 347 ug/dL [facility] No Panel Informationon 09-24 [facility] CNPNon 09-23-2024 CNPN Telephone (NCCAP) ILSA FERNANDEZ ([id number]) 1975 F Date Time Provider Department 09/23/24 SANDRA GARCIA [facility] During your visit today, we recorded the following information about you: Myranda Herrera 09/23/2024 11:38 AM Addendum Patient calls very aggravated about her upcoming appointments and she needs scheduled for Iron. She is scheduled for lab and follow up with Sandra on 10/10 and states she should have been due in August (however follow up instructions were given for September). She's feeling really run down and knows she will now need Iron. She states it's silly for her to drive a half hour just for labs and for Sandra to review and tell her she needs Iron. She would like all appointments on the same day. She requested her lab orders be faxed to [facility] - fax [phone]. Faxed lab orders September 23, 2024 11:27 AM She wants Sandra to review these results and then set her up for Iron if indicated. If Sandra wants to see me that's fine, but I'm not wasting an extra trip to come back for Iron . Sandra: Please watch for results - I will forward to Selena to obtain incase we do not receive - I noted our fax number to send. Will also need Iron orders placed and await for approval if so. Thanks! Sandra Danielle, PA-C 09/23/2024 11:52 AM Signed I am sorry she is aggravated about her appointments. Unfortunately, we have a 24 hour turn around time on our iron labs. She is more than welcome to get them done elsewhere, however, be advised, they do not always send us results in an efficient manner. BERRY Pierce Brittany 09/23/2024 11:56 AM Signed I did explain this to patient, she still insisted they be sent to [place]. Myranda Mark, Jo Ann L 09/26/2024 8:37 AM Signed Labs are in chart under the lab tab. Sandra Garcia PA-C 09/26/2024 8:41 AM Signed Please inform her she needs more IV iron. She requires infectafer that will need special approval from pharmacy and orders will need placed by pharmacy. BERRY Pierce Kathryn, [facility] 09/26/2024 11:16 AM Signed Orders placed and per Filomena Telles no non formulary approval is needed for injectafer. Yoan Jean, PharmD, BCOP Myranda Herrera 09/26/2024 11:29 AM Signed Did you want to see her same day prior? Sandra Danielle PA-C 09/26/2024 11:59 AM Signed sure Myranda Herrera 09/26/2024 2:21 PM Signed Patient has been scheduled and notified. Thanks! Myranda Herrera Allergies As of Date: 09/23/2024 Noted Allergy Reaction CODEINE 09/23/2017 4 - Hives MONOFERRIC (FERRIC DERISOMALTOSE) 06/10/2021 14 - Other: See Comments Comments: Chest palpations with flushing, hot all over Date Reviewed: 09/23/2024 Reviewed by: Sandra Garcia PA-C - Fully Assessed Reason for Visit: Iron Appointment [Other] Prescriptions as of 09/26/2024 - cyanocobalamin 1,000 mcg/mL Inject 1 mL intramuscularly once every month. - Syringe with Needle, Disp, (SYRINGE 3CC/21GX1 ) 3 mL 21 gauge x 1 syrg 1 Syringe once every month. Problem List As Of Date 09/23/2024 Noted Resolved Intermittent palpitations [R00.2] Lightheadedness [R42] Paroxysmal supraventricular tachycardia (HCC) [* Elevated blood pressure reading in office witho* Iron deficiency anemia [D50.9] 09/23/2017 History of bariatric surgery [Z98.84] 09/23/2017 Encounter Status:Closed by MYRANDA HERRERA on 09/26/24 Normal [facility] CNPNon 06-21-2024 CNPN Telephone (HEMASA) ILSA FERNANDEZ ([id number]) 1975 F Date Time Provider Department 06/21/24 JUSTO GAMBINO During your visit today, we recorded the following information about you: Justo Gambino RN 06/21/2024 9:03 AM Signed ----- Message from Sandra Garcia PA-C sent at 06/21/2024 7:45 AM EDT ----- Please call with normal iron levels. No need for IV iron at this time. Justo Gambino RN 06/21/2024 9:04 AM Signed Pt aware and agreeable to plan of care. Pt denies questions, needs or concerns at this time. Justo Gambino RN Allergies As of Date: 06/21/2024 Noted Allergy Reaction CODEINE 09/23/2017 4 - Hives MONOFERRIC (FERRIC DERISOMALTOSE) 06/10/2021 14 - Other: See Comments Comments: Chest palpations with flushing, hot all over Date Reviewed: 06/20/2024 Reviewed by: Sandra Garcia PA-C - Fully Assessed Reason for Visit: Results [95] Prescriptions as of 06/21/2024 - cyanocobalamin 1,000 mcg/mL Inject 1 mL intramuscularly once every month. - Syringe with Needle, Disp, (SYRINGE 3CC/21GX1 ) 3 mL 21 gauge x 1 syrg 1 Syringe once every month. Problem List As Of Date 06/21/2024 Noted Resolved Intermittent palpitations [R00.2] Lightheadedness [R42] Paroxysmal supraventricular tachycardia (HCC) [* Elevated blood pressure reading in office witho* Iron deficiency anemia [D50.9] 09/23/2017 History of bariatric surgery [Z98.84] 09/23/2017 Encounter Status:Closed by JUSTO GAMBINO on 06/21/24 Normal [facility] CBC W Auto Differential pane l (Bld)on 06-20-2024 Basophils (Bld) [#/Vol] 0.05 10*3/uL Normal <0.11 [facility] Comment on above: Order Comment: Speci men Type: BLOOD SPECIMENOrdering Facility: [facility] Address: [address] [place] [address] Performed By: #### 5 7021-8 ####[facility] LABCLIA [id number] [place] [address] Basophils/100 WBC (Bld) 0.8 % Normal C [facility] Comment on above: Order Comment: Speci men Type: BLOOD SPECIMENOrdering Facility: [facility] Address: [address] [place] [address] Performed By: #### 5 7021-8 ####[facility] LABCLIA [id number] [place] [address] Differential cell count method Nom (Bld) Auto Normal [facility] Comment on above: Order Comment: Speci men Type: BLOOD SPECIMENOrdering Facility: [facility] Address: [address] [place] [address] Performed By: #### 5 7021-8 ####[facility] LABCLIA [id number] [place] [address] Eosinophils (Bld) [#/Vol] 0.10 10*3/uL Normal <0.46 [facility] Comment on above: Order Comment: Speci men Type: BLOOD SPECIMENOrdering Facility: [facility] Address: [address] [place] [address] Performed By: #### 5 7021-8 ####[facility] LABCLIA [id number] [place] [address] Eosinophils/100 WBC (Bld) 1.6 % Normal [facility] Comment on above: Order Comment: Speci men Type: BLOOD SPECIMENOrdering Facility: [facility] Address: [address] [place] [address] Performed By: #### 5 7021-8 ####[facility] LABCLIA [id number] [place] [address] Erythrocyte distribution width (RBC) [Ratio] 17.0 % High 11.5-15.0 [facility] Comment on above: Order Comment: Speci men Type: BLOOD SPECIMENOrdering Facility: [facility] Address: [address] [place] [address] Performed By: #### 5 7021-8 ####[facility] LABCLIA [id number] [place] [address] Hematocrit (Bld) [Volume fraction] 38.3 % Normal 36.0-46.0 [facility] Comment on above: Order Comment: Speci men Type: BLOOD SPECIMENOrdering Facility: [facility] Address: [address] [place] [address] Performed By: #### 5 7021-8 ####[facility] LABCLIA [id number] [place] [address] Hemoglobin (Bld) [Mass/Vol] 12.7 g/dL Normal 11.5-15.5 [facility] Comment on above: Order Comment: Speci men Type: BLOOD SPECIMENOrdering Facility: [facility] Address: [address] [place] [address] Performed By: #### 5 7021-8 ####[facility] LABCLIA [id number] [place] [address] Immature granulocytes (Bld) [#/Vol] 0.03 10*3/uL Normal <0.10 [facility] Comment on above: Order Comment: Speci men Type: BLOOD SPECIMENOrdering Facility: [facility] Address: [address] [place] [address] Performed By: #### 5 7021-8 ####[facility] LABCLIA [id number] [place] [address] Immature granulocytes/100 WBC (Bld) 0.5 % Normal [facility] Comment on above: Order Comment: Speci men Type: BLOOD SPECIMENOrdering Facility: [facility] Address: [address] [place] [address] Performed By: #### 5 7021-8 ####[facility] LABCLIA [id number] [place] [address] Lymphocytes (Bld) [#/Vol] 1.49 10*3/uL Normal 1.00-4.00 [facility] Comment on above: Order Comment: Speci men Type: BLOOD SPECIMENOrdering Facility: [facility] Address: [address] [place] [address] Performed By: #### 5 7021-8 ####[facility] LABCLIA [id number] [place] [address] Lymphocytes/100 WBC (Bld) 23.3 % Normal [facility] Comment on above: Order Comment: Speci men Type: BLOOD SPECIMENOrdering Facility: [facility] Address: [address] [place] [address] Performed By: #### 5 7021-8 ####[facility] LABCLIA [id number] [place] [address] MCH (RBC) [Entitic mass] 28.2 pg Normal 26.0-34.0 [facility] Comment on above: Order Comment: Speci men Type: BLOOD SPECIMENOrdering Facility: [facility] Address: [address] [place] [address] Performed By: #### 5 7021-8 ####[facility] LABCLIA [id number] [place] [address] MCHC (RBC) [Mass/Vol] 33.2 g/dL Normal 30.5-36.0 [facility] Comment on above: Order Comment: Speci men Type: BLOOD SPECIMENOrdering Facility: [facility] Address: [address] [place] [address] Performed By: #### 5 7021-8 ####[facility] LABIA [id number] [place] [address] MCV (RBC) [Entitic vol] 84.9 fL Normal 80.0-100.0 C [facility] Comment on above: Order Comment: Speci men Type: BLOOD SPECIMENOrdering Facility: [facility] Address: [address] [place] [address] Performed By: #### 5 7021-8 ####[facility] LABIA [id number] [place] [address] Monocytes (Bld) [#/Vol] 0.47 10*3/uL Normal <0.87 [facility] Comment on above: Order Comment: Speci men Type: BLOOD SPECIMENOrdering Facility: [facility] Address: [address] [place] [address] Performed By: #### 5 7021-8 ####[facility] LABCLIA [id number] [place] [address] Monocytes/100 WBC (Bld) 7.4 % Normal C [facility] Comment on above: Order Comment: Speci men Type: BLOOD SPECIMENOrdering Facility: [facility] Address: [address] [place] [address] Performed By: #### 5 7021-8 ####[facility] LABIA [id number] [place] [address] Neutrophils (Bld) [#/Vol] 4.25 10*3/uL Normal 1.45-7.50 [facility] Comment on above: Order Comment: Speci men Type: BLOOD SPECIMENOrdering Facility: [facility] Address: [address] [place] [address] Performed By: #### 5 7021-8 ####[facility] LABCLIA [id number] [place] [address] Neutrophils/100 WBC (Bld) 66.4 % Normal [facility] Comment on above: Order Comment: Speci men Type: BLOOD SPECIMENOrdering Facility: [facility] Address: [address] [place] [address] Performed By: #### 5 7021-8 ####[facility] LABCLIA [id number] [place] [address] Nucleated RBC (Bld) [#/Vol] 10*3/uL Normal <0.01 [facility] Comment on above: Order Comment: Speci men Type: BLOOD SPECIMENOrdering Facility: [facility] Address: [address] [place] [address] Performed By: #### 5 7021-8 ####[facility] LABCLIA [id number] [place] [address] Nucleated RBC/100 WBC (Bld) [Ratio] 0.0 /100 WBC Normal [facility] Comment on above: Order Comment: Speci men Type: BLOOD SPECIMENOrdering Facility: [facility] Address: [address] [place] [address] Performed By: #### 5 7021-8 ####[facility] LABCLIA [id number] [place] [address] Platelet mean volume (Bld) [Entitic vol] 9.9 fL Normal 9.0-12.7 [facility] Comment on above: Order Comment: Speci men Type: BLOOD SPECIMENOrdering Facility: [facility] Address: [address] [place] [address] Performed By: #### 5 7021-8 ####[facility] LABCLIA [id number] [place] [address] Platelets (Bld) [#/Vol] 177 10*3/uL Normal 150-400 [facility] Comment on above: Order Comment: Speci men Type: BLOOD SPECIMENOrdering Facility: [facility] Address: [address] [place] [address] Performed By: #### 5 7021-8 ####[facility] LABIA [id number] [place] [address] RBC (Bld) [#/Vol] 4.51 10*6/uL Normal 3.90-5.20 [facility] Comment on above: Order Comment: Speci men Type: BLOOD SPECIMENOrdering Facility: [facility] Address: [address] [place] [address] Performed By: #### 5 7021-8 ####[facility] LABIA [id number] [place] [address] WBC (Bld) [#/Vol] 6.39 10*3/uL Normal 3.70-11.00 [facility] Comment on above: Order Comment: Speci men Type: BLOOD SPECIMENOrdering Facility: [facility] Address: [address] [place] [address] Performed By: #### 5 7021-8 ####[facility] LABIA [id number] [place] [address] CNOVSPon 06-20-2024 CNOVS Visit (SP) Office ([place]) ILSA FERNANDEZ ([id number]) 1975 F Date Time Provider Department 06/20/24 10:30 AM SANDRA GARCIA During your visit today, we recorded the following information about you: Temperature Pulse Respiration Blood pressure 97.9 degrees 78/minute 16/minute 138/84 Weight 147 kg Sandra Garcia PA-C 06/20/2024 10:45 AM Signed Date of Service: June 20, 2024 ((Elements copied from my note dated December 06 have been reviewed and updated where appropriate, and all reflect current assessment and medical decision making during today's encounter, June 20, 2024) CC: Follow up Diagnosis: Iron deficiency anemia B12 deficiency S/p bariatric surgery Treatment History: Last IV ferric carboxymaltose (Injectafer) given 08/14/2023 (had previous reaction to Monoferric and does not respond to venofer) IM B12 at home monthly HPI Ilsa returns for follow up after getting IV iron last month. She could tell she needed iron because of cramping in hips, sides and amira horses in her legs. She is feeling better now. No bleeding or new complaints. 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 Current Outpatient Medications Medication Sig cyanocobalamin 1,000 mcg/mL Inject 1 mL intramuscularly once every month. Syringe with Needle, Disp, (SYRINGE 3CC/21GX1 ) 3 mL 21 gauge x 1 syrg 1 Syringe once every month. No current facility-administere d medications for this visit. ALLERGIES Allergen Reactions Codeine Hives Monoferric [Ferric * Other: See Comments Chest palpations with flushing, hot all over REVIEW OF SYSTEMS GENERAL: No weight loss, malaise or fevers., HEENT: Negative for frequent or significant headaches, No changes in hearing or vision, no nose bleeds or other nasal problems NECK: Negative for lumps, goiter, pain and significant neck swelling RESPIRATORY: Negative for cough, wheezing or shortness of breath. CARDIOVASCULAR: Negative for chest pain, leg swelling or palpitations. GI: Negative for abdominal discomfort, blood in stools or black stools or change in bowel habits MUSCULOSKELETAL: Negative for joint pain or swelling, back pain or muscle pain. SKIN: Negative for lesions, rash, and itching. PSYCH: Negative for sleep disturbance, mood disorder and recent psychosocial stressors. HEMATOLOGY/LYMPHOLOG Y: Negative for prolonged bleeding, bruising easily or swollen nodes. NEURO: No history of headaches, syncope, paralysis, seizures or tremors All other reviewed and negative other than HPI. PHYSICAL EXAM: BP 138/84 Pulse 78 Temp 36.6 ?C (97.9 ?F) (Temporal) Resp 16 Wt (!) 147 kg (324 lb 1.2 oz) LMP 09/05/2022 SpO2 100% BMI 50.75 kg/m? General: Alert and oriented, no distress, pleasant and cooperative. Heart: Regular, normal S1 and S2, no murmurs, rubs, or gallops Lungs: Clear to auscultation bilaterally Abdomen: Benign Extremities: Feet/ankles without edema, posterior tibial pulses full and symmetrical LAB: Hemoglobin (g/dL) Date Value 06/20/2024 12.7 05/21/2021 9.9 Hematocrit (%) Date Value 06/20/2024 38.3 05/21/2021 33.4 WBC (k/uL) Date Value 06/20/2024 6.39 05/21/2021 6.89 Platelet Count (k/uL) Date Value 06/20/2024 177 05/21/2021 241 ASSESSMENT/PLAN: 1. Iron deficiency anemia, unspecified iron deficiency anemia type - ICD9: 280.9, ICD10: D50.9 (primary diagnosis) She has a history of recurrrent iron deficiency anemia. She has an allergy to monoferric and does not respond to venofer. Last injectafer infusion was 05/26/2024. Symptoms improved and hemoglobin improved. Waiting for iron levels. If normal, will plan to see back in about 4 months with repeat labs. 2. History of bariatric surgery - ICD9: V45.86, ICD10: Z98.84 3. 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 B12 deficiency - ICD9: 281.1, ICD10: D53.1 Continue monthly B12 injections at home, refilled today Sandra Garcia PA-C CC: Brennon Woody, DO I spent a total of 20 minutes on the date of the service which included preparing to see the patient, [id number] patient care, completing clinical documentation, performing a medically appropriate examination, counseling and educating the patient/family/careg iver, ordering medications, tests, or procedures, independently interpreting results (not separately reported), communicating results to the patient/family/careg iver, and care coordination (not separately reported). Allergies As of Date: 06/20/2024 Noted Allergy Reaction CODEINE 09/23/2017 4 - Hives MONOFERRIC (FERRIC DERISOMALTOSE) 06/10/2021 14 - Other: See Comments Comments: Chest palpations with flushing, hot all over Date Reviewed: 06/20/2024 Reviewed by: Sandra Garcia PA-C - Fully Assessed Visit Diagnoses:Iron deficiency anemia, unspecified iron deficiency anemia type [D50.9] History of (more content not included)... Normal [facility] Telephone (NCCAP) ILSA FERNANDEZ ([id number]) 1975 F Date Time Provider Department 06/20/24 SANDRA GARCIA NCCAP During your visit today, we recorded the following information about you: Myranda Herrera 06/20/2024 10:40 AM Signed Patient did not want to schedule appointments when she was here today. She states she will call our office to schedule appts at her convenience. Myranda Herrera Allergies As of Date: 06/20/2024 Noted Allergy Reaction CODEINE 09/23/2017 4 - Hives MONOFERRIC (FERRIC DERISOMALTOSE) 06/10/2021 14 - Other: See Comments Comments: Chest palpations with flushing, hot all over Date Reviewed: 06/20/2024 Reviewed by: Gayle Sandoval MA - Fully Assessed Reason for Visit: Appointment [186] Prescriptions as of 06/20/2024 - cyanocobalamin 1,000 mcg/mL Inject 1 mL intramuscularly once every month. - Syringe with Needle, Disp, (SYRINGE 3CC/21GX1 ) 3 mL 21 gauge x 1 syrg 1 Syringe once every month. Problem List As Of Date 06/20/2024 Noted Resolved Intermittent palpitations [R00.2] Lightheadedness [R42] Paroxysmal supraventricular tachycardia (HCC) [* Elevated blood pressure reading in office witho* Iron deficiency anemia [D50.9] 09/23/2017 History of bariatric surgery [Z98.84] 09/23/2017 Encounter Status:Closed by MYRANDA HERRERA on 06/20/24 Normal [facility] Comprehensive metabolic 2000 panelon 06-20-2024 Albumin [Mass/Vol] 4.5 g/dL Normal 3.9-4.9 [facility] Comment on above: Order Comment: Speci men Type: BLOOD SPECIMENOrdering Facility: [facility] Address: [address] [place] [address] Performed By: #### 2 4323-8 ####[facility] LABCLIA [id number] [place] [address] ALP [Catalytic activity/Vol] 94 U/L Normal 34-123 [facility] Comment on above: Order Comment: Speci men Type: BLOOD SPECIMENOrdering Facility: [facility] Address: [address] [place] [address] Performed By: #### 2 4323-8 ####[facility] LABCLIA [id number] [place] [address] ALT [Catalytic activity/Vol] 11 U/L Normal 7-38 [facility] Comment on above: Order Comment: Speci men Type: BLOOD SPECIMENOrdering Facility: [facility] Address: [address] [place] [address] Performed By: #### 2 4323-8 ####[facility] LABCLIA [id number] [place] [address] Anion gap [Moles/Vol] 10 mmol/L Normal 8-15 [facility] Comment on above: Order Comment: Speci men Type: BLOOD SPECIMENOrdering Facility: [facility] Address: [address] [place] [address] Performed By: #### 2 4323-8 ####[facility] LABCLIA [id number] [place] [address] AST [Catalytic activity/Vol] 11 U/L Low 13-35 [facility] Comment on above: Order Comment: Speci men Type: BLOOD SPECIMENOrdering Facility: [facility] Address: [address] [place] [address] Performed By: #### 2 4323-8 ####[facility] LABCLIA [id number] [place] [address] Bilirubin [Mass/Vol] 0.3 mg/dL Normal 0.2-1.3 [facility] Comment on above: Order Comment: Speci men Type: BLOOD SPECIMENOrdering Facility: [facility] Address: [address] [place] [address] Performed By: #### 2 4323-8 ####[facility] LABCLIA [id number] [place] [address] Calcium [Mass/Vol] 9.5 mg/dL Normal 8.5-10.2 [facility] Comment on above: Order Comment: Speci men Type: BLOOD SPECIMENOrdering Facility: [facility] Address: [address] [place] [address] Performed By: #### 2 4323-8 ####[facility] LABCLIA [id number] [place] [address] Chloride [Moles/Vol] 107 mmol/L Normal 98-107 [facility] Comment on above: Order Comment: Speci men Type: BLOOD SPECIMENOrdering Facility: [facility] Address: [address] [place] [address] Performed By: #### 2 4323-8 ####[facility] LABCLIA [id number] [place] [address] CO2 [Moles/Vol] 23 mmol/L Normal 22-30 [facility] Comment on above: Order Comment: Speci men Type: BLOOD SPECIMENOrdering Facility: [facility] Address: [address] [place], [place] [address] Performed By: #### 2 4323-8 ####[facility] LABCLIA [id number] [place] [address] Creatinine [Mass/Vol] 0.78 mg/dL Normal 0.58-0.96 [facility] Comment on above: Order Comment: Azam gomes Type: BLOOD SPECIMENOrdering Facility: [facility] Address: [address] [place], [place] [address] Performed By: #### 2 4323-8 ####[facility] LABCLIA [id number] [place] [address] Creatinine and Glomerular filtration rate.predicted panel (S/P/Bld) 93 mL/min/1.73m??? Normal >=60 [facility] Comment on above: Order Comment: Azam gomes Type: BLOOD SPECIMENOrdering Facility: [facility] Address: [address] [place] [address] Result Comment: Caitlyn mated Glomerular Filtration Rate (eGFR) is calculated using the 2020 CKD-EPI creatinine equation. This equation utilizes serum creatinine, sex, and age as parameters. The creatinine assay has traceable calibration to isotope dilution-mass spectrometry. Refer to KDIGO guidelines for clinical interpretation. In patients with unstable renal function, e.g. those with acute kidney injury, the eGFR may not accurately reflect actual GFR. Performed By: #### 2 4323-8 ####[facility] LABCLIA [id number] [place] [address] Glucose [Mass/Vol] 96 mg/dL Normal 74-99 [facility] Comment on above: Order Comment: Azam gomes Type: BLOOD SPECIMENOrdering Facility: [facility] Address: [address] [place], [place] [address] Result Comment: The [place] Diabetes Association (ADA) provides guidance for cutoff [...] Standards of Medical Care in Diabetes 2016, [place] [employer]. Diabetes Care. 2016.39(Suppl 1). Performed By: #### 2 4323-8 ####[facility] LABCLIA [id number] [place] [address] Potassium [Moles/Vol] 4.9 mmol/L Normal 3.7-5.1 [facility] Comment on above: Order Comment: Speci men Type: BLOOD SPECIMENOrdering Facility: [facility] Address: [address] [place] [address] Performed By: #### 2 4323-8 ####[facility] LABIA [id number] [place] [address] Protein [Mass/Vol] 7.3 g/dL Normal 6.3-8.0 [facility] Comment on above: Order Comment: Speci men Type: BLOOD SPECIMENOrdering Facility: [facility] Address: [address] [place] [address] Performed By: #### 2 4323-8 ####[facility] LABCLIA [id number] [place] [address] Sodium [Moles/Vol] 140 mmol/L Normal 136-144 [facility] Comment on above: Order Comment: Speci men Type: BLOOD SPECIMENOrdering Facility: [facility] Address: [address] [place] [address] Performed By: #### 2 4323-8 ####[facility] LABCLIA [id number] [place] [address] Urea nitrogen [Mass/Vol] 12 mg/dL Normal 7-21 [facility] Comment on above: Order Comment: Speci men Type: BLOOD SPECIMENOrdering Facility: [facility] Address: [address] [place] [address] Performed By: #### 2 4323-8 ####[facility] LABCLIA [id number] [place] [address] Ferritin SerPl-mCncon 2023 Ferritin [Mass/Vol] 183.0 ng/mL Normal 14.7-205.1 [facility] Comment on above: Order Comment: Speci men Type: BLOOD SPECIMENOrdering Facility: [facility] Address: [address] [place] [address] Performed By: #### 5 0190-8, 2275- ####[facility] LABCLIA [id number] [place] [address] [place] Iron and Iron binding capaci ty panelon 06-20-2024 Iron [Mass/Vol] 90 ug/dL Normal 41-186 [facility] Comment on above: Order Comment: Speci men Type: BLOOD SPECIMENOrdering Facility: [facility] Address: [address] [place] [address] Performed By: #### 5 0190-8, 2275-12 ####[facility] LABCLIA [id number] [address] [place] Iron binding capacity [Mass/Vol] 318 ug/dL Normal 232-386 [facility] Comment on above: Order Comment: Speci men Type: BLOOD SPECIMENOrdering Facility: [facility] Address: [address] [place] [address] Performed By: #### 5 0190-8, 2275-12 ####[facility] LABCLIA [id number] [place] [address] [place] Iron/TIBC [Molar ratio] 28.3 % Normal 15.0-57.0 [facility] Comment on above: Order Comment: Speci men Type: BLOOD SPECIMENOrdering Facility: [facility] Address: [address] [place] [address] Performed By: #### 5 0190-8, 2275- ####[facility] LABCLIA [id number] [place] [address] [place] HCG ( test) [place].rapi d Ql (U)Ordered By: Teresa Burks on 05-13-2024 HCG ( test) Ql (U) Negative [facility] HCG,Urineon 05-13-2024 Beta HCG ( test) Ql (U) Negative Normal [facility] Comment on above: Result Comment: PERF ORMED BY: [place] [address] PATHOLOGIST [employer] SAMANTHA RODRIGUEZ M.D. Performed By: #### U HCG #### [place] [address] [place] Oz 05-13-2024 L Specimen: [id number] Received: 05/16/24 Status: AMANDA [place] Num: [id number] Spec Type: Surgical Subm Dr: Teresa Burks MD Tissues: A Colon Biopsy (CECAL POLYP) B Colon Biopsy (ASCENDING POLYP) C Colon Biopsy (TRANSVERSE POLYP) D Colon Biopsy (DESCENDING POLYP) Procedures: HE/8, Gross/Micro L4/4 Age/ Patient Sex Location Account Attending Physician Ilsa Fernandez 49/F [id number] Teresa Burks MD SPEC NUM: [id number] RECD: 05/16/24 STATUS: AMANDA [place] NUM: [id number] CARYN: 05/13/24- [facility] DR: Teresa Burks MD ENTERED: 05/16/[address] [facility] DR: SPEC TYPE: Surgical DEPT: S ORDERED: HE/8, Gross/Micro L4/4 ORDERED: HE/8, Gross/Micro L4/4 Pathological Diagnosis A. Cecal polyp: Tubular Adenoma. - Negative For High Grade Dysplasia And Malignancy. B. Ascending colon polyps: Tubular Adenomas. - Negative For High Grade Dysplasia And Malignancy. C. Transverse colon polyp: Tubular Adenoma. - Negative For High Grade Dysplasia And Malignancy. D. Descending colon polyp: Tubular Adenoma. - Negative For High Grade Dysplasia And Malignancy. Clinical Information Family history of colon cancer Gross Description Part a was received in formalin with the patient's name and cecal polyp are 2 shetty irregular shaped soft tissue fragments ranging in size from 0.6 to 0.7 cm in greatest dimension. The specimen is submitted in toto in cassette A1. Specimen: [id number] Received: 05/16/24 Status: AM[place]DA [place] Num: [id number] Spec Type: Surgical Subm Dr: Teresa Burks MD Tissues: A Colon Biopsy (CECAL POLYP) B Colon Biopsy (ASCENDING POLYP) C Colon Biopsy (TRANSVERSE POLYP) D Colon Biopsy (DESCENDING POLYP) Procedures: Horace, Gross/Micro L4/4 Patient: JimIlsa [id number] (Continued) Specimen: [id number] Received: 05/16/24 (Continued) Gross Description (Continued) Signed (signature on file) Libertad Mendes MD 05/18/24 1524 Specimen: [id number] Received: 05/16/24 Status: AM[place] Num: [id number] Spec Type: Surgical Subm Dr: Teresa Burks MD Tissues: A Colon Biopsy (CECAL POLYP) B Colon Biopsy (ASCENDING POLYP) C Colon Biopsy (TRANSVERSE POLYP) D Colon Biopsy (DESCENDING POLYP) Procedures: HE/Horaec, Gross/Micro L4/4 Patient: Ilsa Fernandez [id number] (Continued) Specimen: [id number] Received: 05/16/24 (Continued) Gross Description (Continued) Part B was received in formalin with the patient's name and polyps x 5, ascending are multiple portions of shetty soft tissue measuring 1.5 x 0.6 x 0.3 cm in aggregate. The specimen is filtered entirely submitted in cassette B. Part C is received in formalin with the patient's name and transverse polyp are multiple shetty-pink polypoid shaped soft tissue fragments measuring 2.7 x 1.4 x 0.5 cm in aggregate. The specimen is filtered and entirely submitted in cassette C1. Part B received in formalin with the patient's name and polyp descending is a shetty portion of soft tissue measuring 0.5 cm in greatest dimension. The specimen is entirely submitted in cassette D1. CPT Codes 21745e9 Specimen: [id number] Received: 05/16/24 Status: AM[place] Num: [id number] Spec Type: Surgical Subm Dr: Teresa Burks MD Tissues: A Colon Biopsy (CECAL POLYP) B Colon Biopsy (ASCENDING POLYP) C Colon Biopsy (TRANSVERSE POLYP) D Colon Biopsy (DESCENDING POLYP) Procedures: Rylie MARIN/Ophelia L4/4 Patient: Ilsa Fernandez [id number] (Continued) Signed (signature on file) Libertad Mendes MD 05/18/24 1524 Normal [facility] Basophils Auto (Bld) [#/Vol] on 05-09-2024 Basophils (Bld) [#/Vol] 0.05 10*3/uL <0.11 [facility] Basophils/100 WBC Auto (Bld) on 05-09-2024 Basophils/100 WBC (Bld) 1.0 % F [facility] Blood manual differential co mment interpretation narrativeon 05-09-2024 Manual differential comment Addison (Bld) [Interp] Auto [facility] CBC W Auto Differential pane l (Bld)on 05-09-2024 Basophils (Bld) [#/Vol] 0.05 10*3/uL [facility] Basophils/100 WBC (Bld) 1.0 % C [facility] Differential cell count method Nom (Bld) Auto [facility] Eosinophils (Bld) [#/Vol] 0.07 10*3/uL [facility] Eosinophils/100 WBC (Bld) 1.4 % [facility] Erythrocyte distribution width (RBC) [Ratio] 13.0 % 11.5 - 15.0 % [facility] Hematocrit (Bld) [Volume fraction] 32.9 % Low 36.0 - 46.0 % [facility] Hemoglobin (Bld) [Mass/Vol] 10.7 g/dL Low 11.5 - 15.5 g/dL [facility] Immature granulocytes (Bld) [#/Vol] 0.03 10*3/uL [facility] Immature granulocytes/100 WBC (Bld) 0.6 % [facility] Interpretation and review of laboratory results Abnormal [facility] Lymphocytes (Bld) [#/Vol] 1.24 10*3/uL [facility] Lymphocytes/100 WBC (Bld) 25.1 % [facility] MCH (RBC) [Entitic mass] 27.3 pg 26. 0 - 34.0 pg [facility] MCHC (RBC) [Mass/Vol] 32.5 g/dL 30.5 - 36.0 g/dL [facility] MCV (RBC) [Entitic vol] 83.9 fL 80.0 - 100.0 fL [facility] Monocytes (Bld) [#/Vol] 0.39 10*3/uL [facility] Monocytes/100 WBC (Bld) 7.9 % C [facility] Neutrophils (Bld) [#/Vol] 3.16 10*3/uL [facility] Neutrophils/100 WBC (Bld) 64.0 % [facility] Nucleated RBC (Bld) [#/Vol] NINF [facility] Nucleated RBC/100 WBC (Bld) [Ratio] 0.0 % /100 WBC [facility] Platelet mean volume (Bld) [Entitic vol] 10.0 fL 9.0 - 12.7 fL [facility] Platelets (Bld) [#/Vol] 241 10*3/uL [facility] RBC (Bld) [#/Vol] 3.92 10*6/uL 3.90 - 5.2 0 m/uL [facility] WBC (Bld) [#/Vol] 4.94 10*3/uL [facility] Comprehensive metabolic 2000 panelOrdered By: Lizeth Gunter on 05-09-2024 Albumin [Mass/Vol] 4.2 g/dL 3.9 - 4.9 g/dL [facility] ALP [Catalytic activity/Vol] 89 U/L 34 - 123 U/L [facility] ALT [Catalytic activity/Vol] 9 U/L 7 - 38 U/L [facility] Anion gap [Moles/Vol] 11 mmol/L 8 - 15 mmol/L [facility] AST [Catalytic activity/Vol] 11 U/L Low 13 - 35 U/L [facility] Bilirubin [Mass/Vol] 0.4 mg/dL 0.2 - 1 .3 mg/dL [facility] Calcium [Mass/Vol] 9.4 mg/dL 8.5 - 10. 2 mg/dL [facility] Chloride [Moles/Vol] 104 mmol/L 98 - 10 7 mmol/L [facility] CO2 [Moles/Vol] 24 mmol/L 22 - 30 mmol/L [facility] Creatinine [Mass/Vol] 0.89 mg/dL 0.58 - 0.96 mg/dL [facility] [facility] GFR/1.73 sq M.predicted among non-blacks MDRD (S/P/Bld) [Vol rate/Area] 79 mL/min/{1.73_m2} - PINF [facility] Comment on above: Estimated Glomerular Filtration Rate (eGFR) is calculated using the 2020 CKD-EPI creatinine equation. This equation utilizes serum creatinine, sex, and age as parameters. The creatinine assay has traceable calibration to isotope dilution-mass spectrometry. Refer to KDIGO guidelines for clinical interpretation. In patients with unstable renal function, e.g. those with acute kidney injury, the eGFR may not accurately reflect actual GFR. Glucose [Mass/Vol] 92 mg/dL 74 - 99 mg/dL [facility] Comment on above: The [place] [employer] (ADA) provides guidance for cutoff values [...] Standards of Medical Care in Diabetes 2016, [place] [employer]. Diabetes Care. 2016.39(Suppl 1). Interpretation and review of laboratory results Abnormal [facility] Potassium [Moles/Vol] 4.4 mmol/L 3.7 - 5.1 mmol/L [facility] Protein [Mass/Vol] 6.6 g/dL 6.3 - 8.0 g/dL [facility] Sodium [Moles/Vol] 139 mmol/L 136 - 144 mmol/L [facility] Urea nitrogen [Mass/Vol] 12 mg/dL 7 - 21 mg/d L [facility] Eosinophils/100 WBC Auto (Bl d)on 05-09-2024 Eosinophils/100 WBC (Bld) 1.4 % [facility] Erythrocyte distribution wid th Auto (RBC) [Ratio]on 05-09-2024 Erythrocyte distribution width (RBC) [Ratio] 13.0 % 11.5-15.0 [facility] FERRITINon 05-09-2024 Ferritin [Mass/Vol] 11.8 ng/mL Low 14.7 - 2 05.1 ng/mL [facility] Ferritin [Mass/Vol]on 2023 Interpretation and review of laboratory results Abnormal [facility] Hematocrit Auto (Bld) [Volum e fraction]on 05-09-2024 Hematocrit (Bld) [Volume fraction] 32.9 % Low 36.0-46.0 [facility] Hemoglobin [Mass/volume] in Bloodon 05-09-2024 Hemoglobin (Bld) [Mass/Vol] 10.7 g/dL Low 11.5-15.5 [facility] Iron and Iron binding capaci ty panelon 05-09-2024 Interpretation and review of laboratory results Abnormal [facility] Iron [Mass/Vol] 26 ug/dL Low 41 - 186 ug/dL [facility] Iron binding capacity [Mass/Vol] 394 ug/dL High 232 - 386 ug/dL [facility] Iron/TIBC [Molar ratio] 6.6 % Low 15.0 - 57.0 % [facility] Iron binding capacity [Mass/ volume] in Serum or Plasmaon 05-09-2024 Iron binding capacity [Mass/Vol] 394 ug/dL High 232-386 [facility] Iron saturation [Mass Fracti on] in Serum or Plasmaon 05-09-2024 Iron saturation [Mass fraction] 6.6 % Low 15.0-57.0 [facility] Laboratory - Chemistry and C hemistry - challengeon 05-09-2024 Albumin [Mass/Vol] 4.2 g/dL 3.9-4.9 [facility] ALP [Catalytic activity/Vol] 89 U/L 34-123 [facility] ALT [Catalytic activity/Vol] 9 U/L 7-38 [facility] AST [Catalytic activity/Vol] 11 U/L Low 13-35 [facility] Bilirubin [Mass/Vol] 0.4 mg/dL 0.2-1.3 [facility] Calcium [Mass/Vol] 9.4 mg/dL 8.5-10.2 [facility] Chloride [Moles/Vol] 104 mmol/L 98-107 [facility] CO2 [Moles/Vol] 24 mmol/L 22-30 [facility] Creatinine [Mass/Vol] 0.89 mg/dL 0.58-0.96 [facility] Ferritin [Mass/Vol] 11.8 ng/mL Low 14.7-205.1 [facility] Glucose [Mass/Vol] 92 mg/dL 74-99 [facility] Comment on above: The [place] Di[employer] (ADA) provides guidance for cutoff values for fasting glucose and random glucose. The ADA defines fasting as no caloric intake for at least 8 hours. Fasting plasma glucose results between 100 to 125 mg/dL indicate increased risk for diabetes (prediabetes).Fasting plasma glucose results greater than or equal to 126 mg/dL meet the criteria for diagnosis of diabetes. In the absence of unequivocal hyperglycemia, results should be confirmed by repeat testing. In a patient with classic symptoms of hyperglycemia or hyperglycemic crisis, random plasma glucose results greater than or equal to 200 mg/dL meet the criteria for diagnosis of diabetes.Reference: Standards of Medical Care in Diabetes 2016, [place] [employer]. Diabetes Care. 2016.39(Suppl 1). Iron [Mass/Vol] 26 ug/dL Low 41-186 [facility] Potassium [Moles/Vol] 4.4 mmol/L 3.7-5.1 [facility] Sodium [Moles/Vol] 139 mmol/L 136-144 [facility] Urea nitrogen [Mass/Vol] 12 mg/dL 7-21 [facility] Laboratory - Hematology and Cell countson 05-09-2024 Eosinophils (Bld) [#/Vol] 0.07 10*3/uL <0.46 [facility] Immature granulocytes (Bld) [#/Vol] 0.03 10*3/uL <0.10 [facility] Immature granulocytes/100 WBC (Bld) 0.6 % [facility] Leukocytes [#/volume] correc araceli for nucleated erythrocytes in Blood by Automated counon 05-09-2024 WBC corrected for nucl RBC Auto (Bld) [#/Vol] 4.94 k/uL 3.70-11.00 [facility] Lymphocytes Auto (Bld) [#/Vo l]on 05-09-2024 Lymphocytes (Bld) [#/Vol] 1.24 10*3/uL 1.00-4.00 [facility] Lymphocytes/100 WBC Auto (Bl d)on 05-09-2024 Lymphocytes/100 WBC (Bld) 25.1 % [facility] MCH Auto (RBC) [Entitic mass ]on 05-09-2024 MCH (RBC) [Entitic mass] 27.3 pg 26.0-34.0 [facility] MCHC Auto (RBC) [Mass/Vol]on 05-09-2024 MCHC (RBC) [Mass/Vol] 32.5 g/dL 30.5-36.0 [facility] MCV Auto (RBC) [Entitic vol] on 05-09-2024 MCV (RBC) [Entitic vol] 83.9 fL 80.0-100.0 [facility] Monocytes Auto (Bld) [#/Vol] on 05-09-2024 Monocytes (Bld) [#/Vol] 0.39 10*3/uL <0.87 [facility] Monocytes/100 WBC Auto (Bld) on 05-09-2024 Monocytes/100 WBC (Bld) 7.9 % [facility] Neutrophils Auto (Bld) [#/Vo l]on 05-09-2024 Neutrophils (Bld) [#/Vol] 3.16 10*3/uL 1.45-7.50 [facility] Neutrophils/100 WBC Auto (Bl d)on 05-09-2024 Neutrophils/100 WBC (Bld) 64.0 % [facility] No Panel Informationon 05-09 Estimated GFR (CKD-EPI) 79 mL/min/1.73m??? >=60 [facility] Comment on above: Estimated Glomerular Filtration Rate (eGFR) is calculated using the 2020 CKD-EPI creatinine equation. This equation utilizes serum creatinine, sex, and age as parameters. The creatinine assay has traceable calibration to isotope dilution-mass spectrometry. Refer to KDIGO guidelines for clinical interpretation. In patients with unstable renal function, e.g. those with acute kidney injury, the eGFR may not accurately reflect actual GFR. Nucleated RBC Auto (Bld) [#/ Vol]on 05-09-2024 Nucleated RBC (Bld) [#/Vol] 10*3/uL <0.01 [facility] Nucleated erythrocytes [Pres ence] in Blood by Automated counton 05-09-2024 Nucleated RBC Auto Ql (Bld) 0.0 /100{WBC} [facility] Platelet mean volume Auto (B ld) [Entitic vol]on 05-09-2024 Platelet mean volume (Bld) [Entitic vol] 10.0 fL 9.0-12.7 [facility] Platelets Auto (Bld) [#/Vol] on 05-09-2024 Platelets (Bld) [#/Vol] 241 10*3/uL 150-400 [facility] Protein [Mass/volume] in Ser um or Plasmaon 05-09-2024 Protein [Mass/Vol] 6.6 g/dL 6.3-8.0 [facility] RBC Auto (Bld) [#/Vol]on RBC (Bld) [#/Vol] 3.92 10*6/uL 3.90-5.20 [facility] Serum or plasma anion gap de terminationon 05-09-2024 Anion gap [Moles/Vol] 11 mmol/L 8-15 [facility] CBC W Auto Differential pane l (Bld)on 09-19-2022 Basophils (Bld) [#/Vol] 0.05 10*3/uL <0.11 k/uL [facility] Basophils/100 WBC (Bld) 0.9 % [facility] Differential cell count method Nom (Bld) Auto [facility] Eosinophils (Bld) [#/Vol] 0.11 10*3/uL <0.46 k/uL [facility] Eosinophils/100 WBC (Bld) 2.0 % [facility] Erythrocyte distribution width (RBC) [Ratio] 14.2 % 11.5 - 15.0 % [facility] Hematocrit (Bld) [Volume fraction] 36.3 % 36.0 - 46.0 % [facility] Hemoglobin (Bld) [Mass/Vol] 11.7 g/dL 11.5 - 15.5 g/dL [facility] Immature granulocytes (Bld) [#/Vol] <0.10 k/uL [facility] Immature granulocytes/100 WBC (Bld) 0.4 % [facility] Lymphocytes (Bld) [#/Vol] 1.15 10*3/uL 1.00 - 4.00 k/uL [facility] Lymphocytes/100 WBC (Bld) 20.9 % [facility] MCH (RBC) [Entitic mass] 27.8 pg 26. 0 - 34.0 pg [facility] MCHC (RBC) [Mass/Vol] 32.2 g/dL 30.5 - 36.0 g/dL [facility] MCV (RBC) [Entitic vol] 86.2 fL 80.0 - 100.0 fL [facility] Monocytes (Bld) [#/Vol] 0.36 10*3/uL <0.87 k/uL [facility] Monocytes/100 WBC (Bld) 6.5 % [facility] Neutrophils (Bld) [#/Vol] 3.82 10*3/uL 1.45 - 7.50 k/uL [facility] Neutrophils/100 WBC (Bld) 69.3 % [facility] Nucleated RBC (Bld) [#/Vol] <0.01 k/uL [facility] Nucleated RBC/100 WBC (Bld) [Ratio] 0.0 /100 WBC [facility] Platelet mean volume (Bld) [Entitic vol] 10.1 fL 9.0 - 12.7 fL [facility] Platelets (Bld) [#/Vol] 193 10*3/uL 150 - 400 k/uL [facility] RBC (Bld) [#/Vol] 4.21 10*6/uL 3.90 - 5.2 0 m/uL [facility] WBC (Bld) [#/Vol] 5.51 10*3/uL 3.70 - 11. 00 k/uL [facility] Comprehensive metabolic 2000 panelon 09-19-2022 Albumin [Mass/Vol] 4.3 g/dL 3.9 - 4.9 g/dL [facility] ALP [Catalytic activity/Vol] 96 U/L 34 - 123 U/L [facility] ALT [Catalytic activity/Vol] 11 U/L 7 - 38 U/L [facility] Anion gap [Moles/Vol] 10 mmol/L 9 - 18 mmol/L [facility] AST [Catalytic activity/Vol] 13 U/L 13 - 35 U/L [facility] Bilirubin [Mass/Vol] 0.5 mg/dL 0.2 - 1 .3 mg/dL [facility] Calcium [Mass/Vol] 9.1 mg/dL 8.5 - 10. 2 mg/dL [facility] Chloride [Moles/Vol] 101 mmol/L 97 - 10 5 mmol/L [facility] CO2 [Moles/Vol] 25 mmol/L 22 - 30 mmol/L [facility] Creatinine [Mass/Vol] 0.69 mg/dL 0.58 - 0.96 mg/dL [facility] Estimated Glomerular Filtration Rate 107 mL/min/1.73m >=60 mL/min/1.73m [facility] Glucose [Mass/Vol] 99 mg/dL 74 - 99 mg/dL [facility] Potassium [Moles/Vol] 4.2 mmol/L 3.7 - 5.1 mmol/L [facility] Protein [Mass/Vol] 6.5 g/dL 6.3 - 8.0 g/dL [facility] Sodium [Moles/Vol] 136 mmol/L 136 - 144 mmol/L [facility] Urea nitrogen [Mass/Vol] 8 mg/dL 7 - 21 mg/d L [facility] FERRITIN BLDon 09-19-2022 Ferritin [Mass/Vol] 68.3 ng/mL 14.7 - 2 05.1 ng/mL [facility] Iron and Iron binding capaci ty panelon 09-19-2022 Iron [Mass/Vol] 62 ug/dL 41 - 186 ug/dL [facility] Iron binding capacity [Mass/Vol] 336 ug/dL 232 - 386 ug/dL [facility] Iron/TIBC [Molar ratio] 18.5 % 15.0 - 57.0 % [facility] CBC W Auto Differential pane l (Bld)on 06-20-2022 Abs Immature Gran 0.04 k/uL <0.10 k/uL [facility] Basophils (Bld) [#/Vol] 0.04 10*3/uL <0.11 k/uL [facility] Basophils/100 WBC (Bld) 0.8 % [facility] Differential cell count method Nom (Bld) Auto [facility] Eosinophils (Bld) [#/Vol] 0.08 10*3/uL <0.46 k/uL [facility] Eosinophils/100 WBC (Bld) 1.5 % [facility] Erythrocyte distribution width (RBC) [Ratio] 22.0 % High 11.5 - 15.0 % [facility] Hematocrit (Bld) [Volume fraction] 31.4 % Low 36.0 - 46.0 % [facility] Hemoglobin (Bld) [Mass/Vol] 10.0 g/dL Low 11.5 - 15.5 g/dL [facility] Immature Gran % 0.8 % [facility] Lymphocytes (Bld) [#/Vol] 1.19 10*3/uL 1.00 - 4.00 k/uL [facility] Lymphocytes/100 WBC (Bld) 22.3 % [facility] MCH (RBC) [Entitic mass] 27.0 pg 26. 0 - 34.0 pg [facility] MCHC (RBC) [Mass/Vol] 31.8 g/dL 30.5 - 36.0 g/dL [facility] MCV (RBC) [Entitic vol] 84.9 fL 80.0 - 100.0 fL [facility] Monocytes (Bld) [#/Vol] 0.30 10*3/uL <0.87 k/uL [facility] Monocytes/100 WBC (Bld) 5.6 % [facility] Neutrophils (Bld) [#/Vol] 3.68 10*3/uL 1.45 - 7.50 k/uL [facility] Neutrophils/100 WBC (Bld) 69.0 % [facility] Nucleated RBC (Bld) [#/Vol] <0.01 k/uL [facility] Nucleated RBC/100 WBC (Bld) [Ratio] 0.0 /100 WBC [facility] Platelet mean volume (Bld) [Entitic vol] 10.2 fL 9.0 - 12.7 fL [facility] Platelets (Bld) [#/Vol] 216 10*3/uL 150 - 400 k/uL [facility] RBC (Bld) [#/Vol] 3.70 10*6/uL Low 3.90 - 5.2 0 m/uL [facility] WBC (Bld) [#/Vol] 5.33 10*3/uL 3.70 - 11. 00 k/uL [facility] Comprehensive metabolic 2000 panelon 06-20-2022 Albumin [Mass/Vol] 4.3 g/dL 3.9 - 4.9 g/dL [facility] ALP [Catalytic activity/Vol] 78 U/L 34 - 123 U/L [facility] ALT [Catalytic activity/Vol] 13 U/L 7 - 38 U/L [facility] Anion gap [Moles/Vol] 12 mmol/L 9 - 18 mmol/L [facility] AST [Catalytic activity/Vol] 16 U/L 13 - 35 U/L [facility] Bilirubin [Mass/Vol] 0.3 mg/dL 0.2 - 1 .3 mg/dL [facility] Calcium [Mass/Vol] 8.7 mg/dL 8.5 - 10. 2 mg/dL [facility] Chloride [Moles/Vol] 102 mmol/L 97 - 10 5 mmol/L [facility] CO2 [Moles/Vol] 22 mmol/L 22 - 30 mmol/L [facility] Creatinine [Mass/Vol] 0.67 mg/dL 0.58 - 0.96 mg/dL [facility] Estimated Glomerular Filtration Rate 108 mL/min/1.73m >=60 mL/min/1.73m [facility] Glucose [Mass/Vol] 166 mg/dL High 74 - 99 mg/dL [facility] Potassium [Moles/Vol] 4.1 mmol/L 3.7 - 5.1 mmol/L [facility] Protein [Mass/Vol] 6.3 g/dL 6.3 - 8.0 g/dL [facility] Sodium [Moles/Vol] 136 mmol/L 136 - 144 mmol/L [facility] Urea nitrogen [Mass/Vol] 8 mg/dL 7 - 21 mg/d L [facility] PRBC LEUKOREDUCEDon 12-25-19 PRBC LEUKOREDUCED Cross Match Result Compatible Unit Blood Type O Pos Unit Number [id number] Status Information Transfused Product ID Red Blood Cells Product Code [id number] Normal [facility] Comment on above: Performed By: #### T NS, PRBC #### [facility] [address] [place] [address] Dr. Summer Rubalcava HEMOGLOBIN AND HEMATOCRITon 11-28-2021 Hematocrit (Bld) [Volume fraction] 26.0 % Critically low 36.0-48.0 [facility] Comment on above: Performed By: #### H GBHCT #### [facility] [address] [address] [address] Summer Rubalcava Hemoglobin (Bld) [Mass/Vol] 7.2 g/dL Critically low 12.0-16.0 [facility] Comment on above: Performed By: #### H GBHCT #### [facility] [address] [address] [address] Summer Rubalcava TYPE AND SCREENon 11-28-2021 TYPE AND SCREEN Negative Normal [facility] Comment on above: Performed By: #### T NS, PRBC #### [facility] [address] [address] [address] Summer Rubalcava Vital Signs Date Time Vital Sign Value Performing Clinician Facility 06-05-2025 15:41-0400 Body height 170.18 cm Brennon Ball DO Work Phone: [facility] 06-05-2025 15:41-0400 Body mass index (BMI) [Ratio] 57 kg/m2 Brennon Ball DO Work Phone: [facility] 06-05-2025 15:41-0400 Body weight 165.16 kg Brennon Ball DO Work Phone: [facility] 06-05-2025 15:41-0400 Diastolic blood pressure 89 mm[Hg] Brennon Ball DO Work Phone: [facility] 06-05-2025 15:41-0400 Heart rate 96 /min Brennon Ball DO Work Phone: [facility] 06-05-2025 15:41-0400 Respiratory rate 12 /min Brennon Ball DO Work Phone: [facility] 06-05-2025 15:41-0400 Systolic blood pressure 139 mm[Hg] Brennon Ball DO Work Phone: [facility] 05-16-2025 09:21-0400 Body height 170.18 cm Brennon Ball DO Work Phone: [facility] 05-16-2025 09:21-0400 Body mass index (BMI) [Ratio] 57.3 kg/m2 Brennon Ball DO Work Phone: [facility] 05-16-2025 09:21-0400 Body temperature 97.9 [degF] Brennon Ball DO Work Phone: [facility] 05-16-2025 09:21-0400 Body weight 166.01 kg Brennon Ball DO Work Phone: [facility] 05-16-2025 09:21-0400 Diastolic blood pressure 93 mm[Hg] Brennon Ball DO Work Phone: [facility] 05-16-2025 09:21-0400 Heart rate 103 /min Brennon Ball DO Work Phone: [facility] 05-16-2025 09:21-0400 Respiratory rate 18 /min Brennon Ball DO Work Phone: [facility] 05-16-2025 09:21-0400 SaO2% (BldA) [Mass fraction] 97 % Brennon Ball DO Work Phone: [facility] 05-16-2025 09:21-0400 Systolic blood pressure 154 mm[Hg] Brennon Ball DO Work Phone: [facility] 03-07-2025 11:43-0400 Diastolic blood pressure 100 mm[Hg] Chair [place] Work Phone: [facility] 03-07-2025 11:43-0400 Systolic blood pressure 160 mm[Hg] Chair [place] Work Phone: [facility] 03-07-2025 10:20-0400 Body temperature 97.9 [degF] Chair [place] Work Phone: [facility] 03-07-2025 10:20-0400 Heart rate 76 /min Chair [place] Work Phone: [facility] 03-07-2025 10:20-0400 Respiratory rate 16 /min Chair Evelia Work Phone: [facility] 03-07-2025 10:20-0400 SaO2% (BldA) [Mass fraction] 98 % Chair [place] Work Phone: [facility] 02-28-2025 13:19-0400 Body height 170.2 cm Sandra Jose PA-C Work Phone: [facility] 02-28-2025 13:19-0400 Body mass index (BMI) [Ratio] 55.13 kg/m2 Sandra Nolaner PA-C Work Phone: [facility] 02-28-2025 13:19-0400 Body temperature 97.2 [degF] Sandra Jose PA-C Work Phone: [facility] 02-28-2025 13:19-0400 Body weight 159.7 kg Sandra Jose PA-C Work Phone: [facility] 02-28-2025 13:19-0400 Diastolic blood pressure 85 mm[Hg] Sandra Jose PA-C Work Phone: [facility] 02-28-2025 13:19-0400 Heart rate 87 /min Sandra Jose PA-C Work Phone: [facility] 02-28-2025 13:19-0400 Respiratory rate 20 /min Sandra Jose PA-C Work Phone: [facility] 02-28-2025 13:19-0400 SaO2% (BldA) [Mass fraction] 95 % Sandra Jose PA-C Work Phone: [facility] 02-28-2025 13:19-0400 Systolic blood pressure 109 mm[Hg] Sandra Jose PA-C Work Phone: [facility] 10-11-2024 09:33-0500 Body temperature 98.1 [degF] Chair [place] Work Phone: [facility] 10-11-2024 09:33-0500 Diastolic blood pressure 83 mm[Hg] Chair [place] Work Phone: [facility] 10-11-2024 09:33-0500 Heart rate 67 /min Chair [place] Work Phone: [facility] 10-11-2024 09:33-0500 Respiratory rate 18 /min Chair Evelia Work Phone: [facility] 10-11-2024 09:33-0500 SaO2% (BldA) [Mass fraction] 96 % Chair [place] Work Phone: [facility] 10-11-2024 09:33-0500 Systolic blood pressure 139 mm[Hg] Chair [place] Work Phone: [facility] 10-04-2024 11:18-0500 Diastolic blood pressure 89 mm[Hg] Chair Evelia Work Phone: [facility] 10-04-2024 11:18-0500 Heart rate 62 /min Chair Evelia Work Phone: [facility] 10-04-2024 11:18-0500 Respiratory rate 18 /min Chair [place] Work Phone: [facility] 10-04-2024 11:18-0500 SaO2% (BldA) [Mass fraction] 97 % Chair [place] Work Phone: [facility] 10-04-2024 11:18-0500 Systolic blood pressure 164 mm[Hg] Chair [place] Work Phone: [facility] 10-04-2024 09:38-0500 Diastolic blood pressure 90 mm[Hg] Sandra Jose PA-C Work Phone: [facility] 10-04-2024 09:38-0500 Systolic blood pressure 164 mm[Hg] Sandra Jose PA-C Work Phone: [facility] 10-04-2024 09:31-0500 Body height 170.2 cm Sandra Jose PA-C Work Phone: [facility] 10-04-2024 09:31-0500 Body mass index (BMI) [Ratio] 54.32 kg/m2 Sandra Jose PA-C Work Phone: [facility] 10-04-2024 09:31-0500 Body temperature 97.2 [degF] Sandra Jose PA-C Work Phone: [facility] 10-04-2024 09:31-0500 Body weight 157.36 kg Sandra Jose PA-C Work Phone: [facility] 10-04-2024 09:31-0500 Heart rate 90 /min Sandra Jose PA-C Work Phone: [facility] 10-04-2024 09:31-0500 Respiratory rate 18 /min Sandra Jose PA-C Work Phone: [facility] 10-04-2024 09:31-0500 SaO2% (BldA) [Mass fraction] 100 % Sandra Jose PA-C Work Phone: [facility] 06-20-2024 10:10-0400 Body mass index (BMI) [Ratio] 50.75 kg/m2 Sandra Jose PA-C Work Phone: [facility] 06-20-2024 10:10-0400 Body temperature 97.9 [degF] Sandra Jose PA-C Work Phone: [facility] 06-20-2024 10:10-0400 Body weight 147 kg Sandra Jose PA-C Work Phone: [facility] 06-20-2024 10:10-0400 Diastolic blood pressure 84 mm[Hg] Sandra Jose PA-C Work Phone: [facility] 06-20-2024 10:10-0400 Heart rate 78 /min Sandra Jose PA-C Work Phone: [facility] 06-20-2024 10:10-0400 Respiratory rate 16 /min Sandra Jose PA-C Work Phone: [facility] 06-20-2024 10:10-0400 SaO2% (BldA) [Mass fraction] 100 % Sandra Jose PA-C Work Phone: [facility] 06-20-2024 10:10-0400 Systolic blood pressure 138 mm[Hg] Sandra Jose PA-C Work Phone: [facility] 05-26-2024 10:00-0400 Diastolic blood pressure 83 mm[Hg] Chair Evelia Work Phone: [facility] 05-26-2024 10:00-0400 Heart rate 88 /min Chair Evelia Work Phone: [facility] 05-26-2024 10:00-0400 Respiratory rate 18 /min Chair [place] Work Phone: [facility] 05-26-2024 10:00-0400 SaO2% (BldA) [Mass fraction] 99 % Chair Evelia Work Phone: [facility] 05-26-2024 10:00-0400 Systolic blood pressure 126 mm[Hg] Chair [place] Work Phone: [facility] 05-19-2024 10:00-0400 Body temperature 98.1 [degF] Chair [place] Work Phone: [facility] 05-19-2024 10:00-0400 Diastolic blood pressure 90 mm[Hg] Chair [place] Work Phone: [facility] 05-19-2024 10:00-0400 Heart rate 73 /min Chair [place] Work Phone: [facility] 05-19-2024 10:00-0400 Respiratory rate 16 /min Chair Evelia Work Phone: [facility] 05-19-2024 10:00-0400 SaO2% (BldA) [Mass fraction] 98 % Chair [place] Work Phone: [facility] 05-19-2024 10:00-0400 Systolic blood pressure 130 mm[Hg] Chair [place] Work Phone: [facility] 05-13-2024 09:20-0400 Diastolic blood pressure 77 mm[Hg] DO Brennon Ball Work Phone: [facility] 05-13-2024 09:20-0400 Heart rate 72 /min DO Brennon Ball Work Phone: [facility] 05-13-2024 09:20-0400 Respiratory rate 16 /min DO Brennon Ball Work Phone: [facility] 05-13-2024 09:20-0400 SaO2% (BldA) [Mass fraction] 97 % DO Brennon Ball Work Phone: [facility] 05-13-2024 09:20-0400 Systolic blood pressure 115 mm[Hg] DO Brennon Ball Work Phone: [facility] 05-13-2024 07:31-0400 Body height 170.18 cm DO Brennon Ball Work Phone: [facility] 05-13-2024 07:31-0400 Body weight 140.61 kg DO Brennon Ball Work Phone: [facility] 12-28-2023 11:05-0400 Diastolic blood pressure 55 mm[Hg] Chair [place] Work Phone: [facility] 12-28-2023 11:05-0400 Heart rate 69 /min Chair [place] Work Phone: [facility] 12-28-2023 11:05-0400 Respiratory rate 16 /min Chair [place] Work Phone: [facility] 12-28-2023 11:05-0400 Systolic blood pressure 143 mm[Hg] Chair Evelia Work Phone: [facility] 12-28-2023 09:25-0400 Body temperature 98.01 [degF] Chair [place] Work Phone: [facility] 12-28-2023 09:25-0400 SaO2% (BldA) [Mass fraction] 99 % Chair [place] Work Phone: [facility] 12-21-2023 09:15-0400 Diastolic blood pressure 80 mm[Hg] Chair Evelia Work Phone: [facility] 12-21-2023 09:15-0400 Heart rate 74 /min Chair Evelia Work Phone: [facility] 12-21-2023 09:15-0400 Respiratory rate 18 /min Chair Evelia Work Phone: [facility] 12-21-2023 09:15-0400 SaO2% (BldA) [Mass fraction] 98 % Chair Evelia Work Phone: [facility] 12-21-2023 09:15-0400 Systolic blood pressure 126 mm[Hg] Chair [place] Work Phone: [facility] 12-07-2023 09:23-0400 Body height 170.2 cm Sandra Jose PA-C Work Phone: [facility] 12-07-2023 09:23-0400 Body temperature 98.01 [degF] Sandra Jose PA-C Work Phone: [facility] 12-07-2023 09:23-0400 Body weight 145.2 kg Sandra Jose PA-C Work Phone: [facility] 12-07-2023 09:23-0400 Diastolic blood pressure 80 mm[Hg] Sandra Jose PA-C Work Phone: [facility] 12-07-2023 09:23-0400 Heart rate 85 /min Sandra Jose PA-C Work Phone: [facility] 12-07-2023 09:23-0400 Respiratory rate 16 /min Sandra Jose PA-C Work Phone: [facility] 12-07-2023 09:23-0400 SaO2% (BldA) [Mass fraction] 97 % Sandra Jose PA-C Work Phone: [facility] 12-07-2023 09:23-0400 Systolic blood pressure 153 mm[Hg] Sandra Jose PA-C Work Phone: [facility] 09-04-2023 09:30-0500 Body height 170.18 cm Brennon [employer] Other [employer] Other 09-04-2023 09:30-0500 Body mass index (BMI) [Ratio] 50.49 kg/m2 Brennon Ball Other [employer] Other 09-04-2023 09:30-0500 Body weight 146.24 kg Brennon Ball Other [employer] Other 09-04-2023 09:30-0500 Diastolic blood pressure 96 mm[Hg] Brennon Ball Other [employer] Other 09-04-2023 09:30-0500 Respiratory rate 12 /min Brennon Ball Other [employer] Other 09-04-2023 09:30-0500 Systolic blood pressure 151 mm[Hg] Brennon Ball Other [employer] Other 08-28-2023 08:43-0500 Body height 170.2 cm Sandra Jose PA-C Work Phone: [facility] 08-28-2023 08:43-0500 Body temperature 97.9 [degF] Sandra Jose PA-C Work Phone: [facility] 08-28-2023 08:43-0500 Body weight 148.15 kg Sandra Jose PA-C Work Phone: [facility] 08-28-2023 08:43-0500 Diastolic blood pressure 92 mm[Hg] Sandra Jose PA-C Work Phone: [facility] 08-28-2023 08:43-0500 Heart rate 78 /min Sandra Jose PA-C Work Phone: [facility] 08-28-2023 08:43-0500 Respiratory rate 16 /min Sandra Jose PA-C Work Phone: [facility] 08-28-2023 08:43-0500 SaO2% (BldA) [Mass fraction] 100 % Sandra Jose PA-C Work Phone: [facility] 08-28-2023 08:43-0500 Systolic blood pressure 153 mm[Hg] Sandra Jose PA-C Work Phone: [facility] 08-14-2023 10:18-0500 Diastolic blood pressure 85 mm[Hg] Chair [place] Work Phone: [facility] 08-14-2023 10:18-0500 Systolic blood pressure 124 mm[Hg] Chair [place] Work Phone: [facility] 08-14-2023 09:00-0500 Body temperature 97.7 [degF] Chair Evelia Work Phone: [facility] 08-14-2023 09:00-0500 Heart rate 99 /min Chair [place] Work Phone: [facility] 08-14-2023 09:00-0500 Respiratory rate 18 /min Chair [place] Work Phone: [facility] 08-14-2023 09:00-0500 SaO2% (BldA) [Mass fraction] 98 % Chair Evelia Work Phone: [facility] 08-07-2023 11:49-0500 Diastolic blood pressure 96 mm[Hg] Chair [place] Work Phone: [facility] 08-07-2023 11:49-0500 Systolic blood pressure 155 mm[Hg] Chair Evelia Work Phone: [facility] 08-07-2023 10:35-0500 Body temperature 98.49 [degF] Chair [place] Work Phone: [facility] 08-07-2023 10:35-0500 Heart rate 91 /min Chair [place] Work Phone: [facility] 08-07-2023 10:35-0500 Respiratory rate 18 /min Chair [place] Work Phone: [facility] 08-07-2023 10:35-0500 SaO2% (BldA) [Mass fraction] 100 % Chair [place] Work Phone: [facility] 06-11-2023 11:00-0400 Body height 170.18 cm Brennon Ball Other [employer] Other 06-11-2023 11:00-0400 Body mass index (BMI) [Ratio] 52.62 kg/m2 Brennon Ball Other [employer] Other 06-11-2023 11:00-0400 Body weight 152.41 kg Brennon Ball Other [employer] Other 06-11-2023 11:00-0400 Diastolic blood pressure 101 mm[Hg] Brennon Ball Other [employer] Other 06-11-2023 11:00-0400 Respiratory rate 12 /min Brennon Ball Other [employer] Other 06-11-2023 11:00-0400 Systolic blood pressure 175 mm[Hg] Brennon Ball Other [employer] Other 03-10-2023 10:54-0400 Body height 170.2 cm Sandra Jose PA-C Work Phone: [facility] 03-10-2023 10:54-0400 Body temperature 97.3 [degF] Sandra Jose PA-C Work Phone: [facility] 03-10-2023 10:54-0400 Body weight 148.6 kg Sandra Jose PA-C Work Phone: [facility] 03-10-2023 10:54-0400 Diastolic blood pressure 84 mm[Hg] Sandra Jose PA-C Work Phone: [facility] 03-10-2023 10:54-0400 Heart rate 68 /min Sandra Jose PA-C Work Phone: [facility] 03-10-2023 10:54-0400 Respiratory rate 16 /min Sandra Jose PA-C Work Phone: [facility] 03-10-2023 10:54-0400 SaO2% (BldA) [Mass fraction] 98 % Sandra Nolaner PA-C Work Phone: [facility] 03-10-2023 10:54-0400 Systolic blood pressure 163 mm[Hg] Sandra Nolaner PA-C Work Phone: [facility] 02-19-2023 09:31-0400 Body temperature 98.29 [degF] Chair Evelia Work Phone: [facility] 02-19-2023 09:31-0400 Diastolic blood pressure 84 mm[Hg] Chair Evelia Work Phone: [facility] 02-19-2023 09:31-0400 Heart rate 67 /min Chair [place] Work Phone: [facility] 02-19-2023 09:31-0400 Respiratory rate 18 /min Chair Evelia Work Phone: [facility] 02-19-2023 09:31-0400 SaO2% (BldA) [Mass fraction] 99 % Chair [place] Work Phone: [facility] 02-19-2023 09:31-0400 Systolic blood pressure 137 mm[Hg] Chair [place] Work Phone: [facility] 09-19-2022 09:59-0500 Body height 173 cm Reese Meek MD Work Phone: [facility] 09-19-2022 09:59-0500 Body temperature 97.3 [degF] Reese Meek MD Work Phone: [facility] 09-19-2022 09:59-0500 Body weight 152.95 kg Reese Meek MD Work Phone: [facility] 09-19-2022 09:59-0500 Diastolic blood pressure 100 mm[Hg] Reese Meek MD Work Phone: [facility] 09-19-2022 09:59-0500 Heart rate 73 /min Reese Meek MD Work Phone: [facility] 09-19-2022 09:59-0500 Respiratory rate 16 /min Reese Meek MD Work Phone: [facility] 09-19-2022 09:59-0500 SaO2% (BldA) [Mass fraction] 98 % Reese Meek MD Work Phone: [facility] 09-19-2022 09:59-0500 Systolic blood pressure 170 mm[Hg] Reese Meek MD Work Phone: [facility] 07-22-2022 10:35-0400 Body temperature 98.1 [degF] Chair [place] Work Phone: [facility] 07-22-2022 10:35-0400 Diastolic blood pressure 74 mm[Hg] Chair [place] Work Phone: [facility] 07-22-2022 10:35-0400 Heart rate 76 /min Chair [place] Work Phone: [facility] 07-22-2022 10:35-0400 Respiratory rate 18 /min Chair [place] Work Phone: [facility] 07-22-2022 10:35-0400 SaO2% (BldA) [Mass fraction] 97 % Chair [place] Work Phone: [facility] 07-22-2022 10:35-0400 Systolic blood pressure 129 mm[Hg] Chair [place] Work Phone: [facility] 07-15-2022 11:07-0400 Body temperature 98.01 [degF] Chair Evelia Work Phone: [facility] 07-15-2022 11:07-0400 Diastolic blood pressure 74 mm[Hg] Chair [place] Work Phone: [facility] 07-15-2022 11:07-0400 Heart rate 74 /min Chair [place] Work Phone: [facility] 07-15-2022 11:07-0400 Respiratory rate 18 /min Chair [place] Work Phone: [facility] 07-15-2022 11:07-0400 SaO2% (BldA) [Mass fraction] 98 % Chair [place] Work Phone: [facility] 07-15-2022 11:07-0400 Systolic blood pressure 135 mm[Hg] Chair [place] Work Phone: [facility] 06-20-2022 10:17-0400 Body height 173 cm Sandra Jose PA-C Work Phone: [facility] 06-20-2022 10:17-0400 Body temperature 98.2 [degF] Sandra Jose PA-C Work Phone: [facility] 06-20-2022 10:17-0400 Body weight 150.59 kg Sandra Jose PA-C Work Phone: [facility] 06-20-2022 10:17-0400 Diastolic blood pressure 96 mm[Hg] Sandra Jose PA-C Work Phone: [facility] 06-20-2022 10:17-0400 Heart rate 86 /min Sandra Jose PA-C Work Phone: [facility] 06-20-2022 10:17-0400 Respiratory rate 16 /min Sandra Jose PA-C Work Phone: [facility] 06-20-2022 10:17-0400 SaO2% (BldA) [Mass fraction] 98 % Sandra Jose PA-C Work Phone: [facility] 06-20-2022 10:17-0400 Systolic blood pressure 177 mm[Hg] Sandra Jose PA-C Work Phone: [facility] 05-21-2022 11:38-0400 Diastolic blood pressure 95 mm[Hg] Chair Evelia Work Phone: [facility] 05-21-2022 11:38-0400 Systolic blood pressure 130 mm[Hg] Chair [place] Work Phone: [facility] 05-21-2022 10:04-0400 Body temperature 97.59 [degF] Chair Evelia Work Phone: [facility] 05-21-2022 10:04-0400 Heart rate 76 /min Chair [place] Work Phone: [facility] 05-21-2022 10:04-0400 Respiratory rate 18 /min Chair [place] Work Phone: [facility] 05-21-2022 10:04-0400 SaO2% (BldA) [Mass fraction] 98 % Chair [place] Work Phone: [facility] 05-14-2022 12:00-0400 Diastolic blood pressure 70 mm[Hg] Chair Evelia Work Phone: [facility] 05-14-2022 12:00-0400 Systolic blood pressure 127 mm[Hg] Chair [place] Work Phone: [facility] 05-14-2022 10:28-0400 Body temperature 98.1 [degF] Chair Evelia Work Phone: [facility] 05-14-2022 10:28-0400 Heart rate 81 /min Chair [place] Work Phone: [facility] 05-14-2022 10:28-0400 Respiratory rate 18 /min Chair [place] Work Phone: [facility] 05-14-2022 10:28-0400 SaO2% (BldA) [Mass fraction] 99 % Chair Evelia Work Phone: [facility] 02-25-2022 09:20-0400 Body temperature 98.1 [degF] Chair Evelia Work Phone: [facility] 02-25-2022 09:20-0400 Diastolic blood pressure 66 mm[Hg] Chair [place] Work Phone: [facility] 02-25-2022 09:20-0400 Heart rate 84 /min Chair Evelia Work Phone: [facility] 02-25-2022 09:20-0400 Respiratory rate 16 /min Chair [place] Work Phone: [facility] 02-25-2022 09:20-0400 SaO2% (BldA) [Mass fraction] 97 % Chair Evelia Work Phone: [facility] 02-25-2022 09:20-0400 Systolic blood pressure 126 mm[Hg] Chair [place] Work Phone: [facility] 02-18-2022 08:37-0400 Body temperature 97.59 [degF] Chair Evelia Work Phone: [facility] 02-18-2022 08:37-0400 Diastolic blood pressure 75 mm[Hg] Chair [place] Work Phone: [facility] 02-18-2022 08:37-0400 Heart rate 73 /min Chair [place] Work Phone: [facility] 02-18-2022 08:37-0400 Respiratory rate 16 /min Chair [place] Work Phone: [facility] 02-18-2022 08:37-0400 SaO2% (BldA) [Mass fraction] 99 % Chair Evelia Work Phone: [facility] 02-18-2022 08:37-0400 Systolic blood pressure 138 mm[Hg] Chair [place] Work Phone: [facility] 02-11-2022 10:57-0400 Diastolic blood pressure 79 mm[Hg] Chair [place] Work Phone: [facility] 02-11-2022 10:57-0400 Heart rate 73 /min Chair Evelia Work Phone: [facility] 02-11-2022 10:57-0400 Respiratory rate 18 /min Chair Evelia Work Phone: [facility] 02-11-2022 10:57-0400 SaO2% (BldA) [Mass fraction] 97 % Chair Evelia Work Phone: [facility] 02-11-2022 10:57-0400 Systolic blood pressure 112 mm[Hg] Chair Evelia Work Phone: [facility] 02-11-2022 09:30-0400 Body temperature 97.11 [degF] Chair Evelia Work Phone: [facility] 02-04-2022 09:50-0400 Body height 173 cm Reese Meek MD Work Phone: [facility] 02-04-2022 09:50-0400 Body temperature 97.81 [degF] Reees Meek MD Work Phone: [facility] 02-04-2022 09:50-0400 Body weight 152.5 kg Reese Meek MD Work Phone: [facility] 02-04-2022 09:50-0400 Diastolic blood pressure 83 mm[Hg] Reese Meek MD Work Phone: [facility] 02-04-2022 09:50-0400 Heart rate 79 /min Reese Meek MD Work Phone: [facility] 02-04-2022 09:50-0400 Respiratory rate 20 /min Reese Meek MD Work Phone: [facility] 02-04-2022 09:50-0400 SaO2% (BldA) [Mass fraction] 100 % Reese Meek MD Work Phone: [facility] 02-04-2022 09:50-0400 Systolic blood pressure 180 mm[Hg] Reese Meek MD Work Phone: [facility] 12-30-2021 09:45-0400 Body temperature 98.2 [degF] Chair Evelia Work Phone: [facility] 12-30-2021 09:45-0400 Diastolic blood pressure 80 mm[Hg] Chair [place] Work Phone: [facility] 12-30-2021 09:45-0400 Heart rate 85 /min Chair [place] Work Phone: [facility] 12-30-2021 09:45-0400 Respiratory rate 20 /min Chair [place] Work Phone: [facility] 12-30-2021 09:45-0400 SaO2% (BldA) [Mass fraction] 98 % Chair [place] Work Phone: [facility] 12-30-2021 09:45-0400 Systolic blood pressure 142 mm[Hg] Chair [place] Work Phone: [facility] 12-23-2021 10:48-0400 Diastolic blood pressure 69 mm[Hg] Chair [place] Work Phone: [facility] 12-23-2021 10:48-0400 Heart rate 71 /min Chair [place] Work Phone: [facility] 12-23-2021 10:48-0400 Respiratory rate 18 /min Chair [place] Work Phone: [facility] 12-23-2021 10:48-0400 SaO2% (BldA) [Mass fraction] 98 % Chair [place] Work Phone: [facility] 12-23-2021 10:48-0400 Systolic blood pressure 121 mm[Hg] Chair [place] Work Phone: [facility] 12-23-2021 09:20-0400 Body temperature 98.4 [degF] Chair [place] Work Phone: [facility] 12-16-2021 09:17-0400 Body temperature 98.01 [degF] Chair Evelia Work Phone: [facility] 12-16-2021 09:17-0400 Diastolic blood pressure 76 mm[Hg] Chair [place] Work Phone: [facility] 12-16-2021 09:17-0400 Heart rate 77 /min Chair Evelia Work Phone: [facility] 12-16-2021 09:17-0400 Respiratory rate 16 /min Chair Evelia Work Phone: [facility] 12-16-2021 09:17-0400 SaO2% (BldA) [Mass fraction] 98 % Chair Altamirano Work Phone: [facility] 12-16-2021 09:17-0400 Systolic blood pressure 139 mm[Hg] Chair Altamirano Work Phone: [facility] Encounters Encounter Date Encounter Type Care Provider Facility Start: 06-05-2025 End: 06-05-2025 ambulatory Brennon Woody DO Work Phone: [facility] Work Phone: Start: 06-05-2025 End: 06-05-2025 Patient encounter procedure Brennon Woody -[facility] Work Phone: Start: 06-05-2025 End: 06-05-2025 Patient encounter status Brennon Woody DO [facility] Start: 06-05-2025 Patient encounter status Brennon Woody DO Work Phone: [facility] Start: 05-16-2025 End: 05-16-2025 ambulatory Brennon Woody DO Work Phone: [facility] [place] Work Phone: Start: 05-16-2025 End: 05-16-2025 Patient encounter procedure Debra Weber PUBLIC [employer]ATIONS REPRESENTATIVE -[facility] Work Phone: Start: 05-09-2025 Non-patient / Non-visit SANDRA Weber PA-C -[facility] Work Phone: Start: 05-09-2025 End: 05-09-2025 ambulatory BRENNON WOODY Facility:[facility] Start: 05-04-2025 Non-patient / Non-visit Teresa Burks MD -[facility] Work Phone: Start: 03-07-2025 End: 03-07-2025 Admission to same day surgery center Chair Evelia Work Phone: Hematology/Oncology Comment on above: History of bariatric surgery (Primary Dx); Iron deficiency anemia, unspecified iron deficiency anemia type Start: 03-07-2025 End: 03-07-2025 ambulatory Chair 14 Evelia Work Phone: Hematology/Oncology Start: 03-07-2025 End: 03-08-2025 ambulatory SANDRA GARCIA Facility:[facility] Start: 02-28-2025 End: 02-28-2025 Admission to same day surgery center Chair Evelia Work Phone: Hematology/Oncology Comment on above: History of bariatric surgery (Primary Dx); Iron deficiency anemia, unspecified iron deficiency anemia type Start: 02-28-2025 End: 05-11-2025 Telephone encounter Sandra TAYLORC Work Phone: [facility] Comment on above: Results Start: 02-28-2025 End: 02-28-2025 Office outpatient visit 15 minutes Sandra BRYANT-C Work Phone: Hematology/Oncology Comment on above: Iron deficiency anem ia, unspecified iron deficiency anemia type (Primary Dx); History of bariatric surgery; 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 B12 deficiency Start: 02-28-2025 End: 02-28-2025 ambulatory Chair 16 Evelia Work Phone: Hematology/Oncology Start: 02-06-2025 End: 04-08-2025 Follow-up encounter Sandra BRYANT-C Work Phone: Hematology/Oncology Comment on above: injectofer orders Start: 02-03-2025 End: 02-03-2025 Telephone encounter Sandra BRYANT-C Work Phone: Hematology/Oncology Comment on above: Results Start: 02-03-2025 End: 02-03-2025 ambulatory BRENNON WOODY Facility:[facility] Start: 01-31-2025 End: 01-31-2025 ambulatory SANDRA GARCIA [facility] Start: 01-31-2025 End: 01-31-2025 Subsequent hospital visit by physician Jesus Alberto Mcclain MD Work Phone: [facility] Start: 10-11-2024 End: 10-11-2024 Admission to same day surgery center Chair Evelia Work Phone: Hematology/Oncology Comment on above: History of bariatric surgery (Primary Dx); Iron deficiency anemia, unspecified iron deficiency anemia type Start: 10-11-2024 End: 10-11-2024 ambulatory Chair Anshu Altamirano Work Phone: Hematology/Oncology Start: 10-04-2024 End: 10-04-2024 Admission to same day surgery center Chair Evelia Work Phone: Hematology/Oncology Comment on above: History of bariatric surgery (Primary Dx); Iron deficiency anemia, unspecified iron deficiency anemia type Start: 10-04-2024 End: 10-04-2024 ambulatory Chair Anshu Altamirano Work Phone: Hematology/Oncology Start: 10-04-2024 End: 10-04-2024 Office outpatient visit 15 minutes Sandra Garcia PA-C Work Phone: Hematology/Oncology Comment on above: Iron deficiency anem ia, unspecified iron deficiency anemia type (Primary Dx); History of bariatric surgery; 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 B12 deficiency Start: 09-24-2024 End: 09-24-2024 ambulatory [facility] Start: 09-24-2024 End: 09-24-2024 Subsequent hospital visit by physician Jesus Alberto Mcclain MD Work Phone: [facility] Start: 09-23-2024 End: 09-26-2024 Telephone encounter Sandra Garcia PA-C Work Phone: [facility] Comment on above: Iron Appointment Start: 06-21-2024 End: 06-21-2024 Telephone encounter Justo Gambino RN Hematology/Oncology Comment on above: Results Start: 06-20-2024 End: 06-20-2024 Telephone encounter Sandra Garcia PA-C Work Phone: [facility] Comment on above: Appointment Start: 06-20-2024 End: 06-20-2024 Office outpatient visit 15 minutes Sandra Garcia PA-C Work Phone: Hematology/Oncology Comment on above: Iron deficiency anem ia, unspecified iron deficiency anemia type; History of bariatric surgery Start: 06-20-2024 End: 06-20-2024 ambulatory SANDRA GARCIA Facility:[facility] Start: 05-26-2024 End: 05-26-2024 Admission to same day surgery center Chair Evelia Work Phone: Hematology/Oncology Comment on above: History of bariatric surgery (Primary Dx); Iron deficiency anemia, unspecified iron deficiency anemia type Start: 05-26-2024 End: 05-26-2024 ambulatory Chair Anshu Altamirano Work Phone: Hematology/Oncology Start: 05-19-2024 End: 05-19-2024 Admission to same day surgery center Chair Evelia Work Phone: Hematology/Oncology Comment on above: History of bariatric surgery (Primary Dx); Iron deficiency anemia, unspecified iron deficiency anemia type Start: 05-19-2024 End: 05-19-2024 ambulatory Chair Anshu Altamirano Work Phone: Hematology/Oncology Start: 05-13-2024 Non-patient / Non-visit DO Brennon Ball Work Phone: [facility] Work Phone: Start: 05-13-2024 End: 05-13-2024 Admission to same day surgery center DO Brennon Ball Work Phone: [facility] Work Phone: Start: 05-13-2024 End: 05-13-2024 ambulatory DO Brennon Ball Work Phone: [facility] Work Phone: Start: 05-09-2024 End: 05-11-2024 Telephone encounter Sandra Garcia PA-C Work Phone: [facility] Comment on above: Appointment Start: 05-09-2024 Non-patient / Non-visit DO Brennon Woody Work Phone: [facility] Work Phone: Start: 05-02-2024 End: 05-11-2024 Telephone encounter Sandra Garcia PA-C Work Phone: Hematology/Oncology Comment on above: Lab Orders Start: 02-23-2024 Non-patient / Non-visit DO Brennon Woody Work Phone: [facility] Physician [facility] Work Phone: Start: 01-26-2024 Telephone encounter Justo Ardon Hematology/Oncology Comment on above: Results Start: 12-28-2023 End: 12-28-2023 Admission to same day surgery center Chair Altamirano Work Phone: Hematology/Oncology Comment on above: Iron deficiency anem ia, unspecified iron deficiency anemia type (Primary Dx); History of bariatric surgery Start: 12-28-2023 End: 12-28-2023 ambulatory Chair 14 Evelia Work Phone: [facility] Start: 12-21-2023 End: 12-21-2023 Admission to same day surgery center Chair Altamirano Work Phone: Hematology/Oncology Comment on above: Iron deficiency anem ia, unspecified iron deficiency anemia type (Primary Dx); History of bariatric surgery Start: 12-21-2023 End: 12-21-2023 ambulatory Chair 13 Evelia Work Phone: [facility] Start: 12-08-2023 Telephone encounter Sandra aguiar PA-C Work Phone: Hematology/Oncology Comment on above: Results Start: 12-07-2023 End: 12-07-2023 Admission to same day surgery center Sandra Garcia PA-C Work Phone: Hematology/Oncology Comment on above: Iron deficiency anem ia, unspecified iron deficiency anemia type; History of bariatric surgery Start: 12-07-2023 End: 12-07-2023 Patient encounter procedure Sandra Tia Jose SMART Work Phone: [facility] Start: 09-17-2023 End: 09-17-2023 ambulatory Herman Bender Other [employer] Other Start: 09-17-2023 Telephone encounter Herman Toussaint Staff Occupational Therapist Start: 09-04-2023 End: 09-04-2023 ambulatory Brennon Annalise Other [employer] Other Start: 09-04-2023 Office outpatient visit 15 minutes Brennon Woody [facility] Start: 08-31-2023 Telephone encounter Justo Ardon Hematology/Oncology Comment on above: Results Start: 08-28-2023 End: 08-28-2023 Admission to same day surgery center Sandra Garcia PA-C Work Phone: Hematology/Oncology Comment on above: Iron deficiency anem ia, unspecified iron deficiency anemia type (Primary Dx); History of bariatric surgery; 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 B12 deficiency Start: 08-28-2023 End: 08-28-2023 Patient encounter procedure Sandra M Jose SMART Work Phone: [facility] Start: 08-14-2023 End: 08-14-2023 Admission to same day surgery center Chair [place] Work Phone: Hematology/Oncology Comment on above: Iron deficiency anem ia, unspecified iron deficiency anemia type (Primary Dx); History of bariatric surgery Start: 08-14-2023 End: 08-14-2023 ambulatory Chair Sharon [place]am[place]ano Work Phone: [facility] Start: 08-07-2023 End: 08-07-2023 Admission to same day surgery center Chair [place]am[place]ano Work Phone: Hematology/Oncology Comment on above: Iron deficiency anem ia, unspecified iron deficiency anemia type (Primary Dx); History of bariatric surgery Start: 08-07-2023 End: 08-07-2023 ambulatory Chair Sharon [place]am[place]ano Work Phone: [facility] Start: 07-27-2023 Telephone encounter Nara Bustamante RN Hematology/Oncology Comment on above: Appointment Start: 06-16-2023 End: 06-16-2023 ambulatory Brennon Woody Other [employer] Other Start: 06-16-2023 Telephone encounter Brennon Woody LIANE [facility] Start: 06-12-2023 End: 06-12-2023 ambulatory Brennon Woody Other [employer] Other Start: 06-12-2023 Telephone encounter Brennon ROB [facility] Start: 06-11-2023 End: 06-11-2023 ambulatory Brennon Woody Other [employer] Other Start: 06-11-2023 Encounter for genera l adult medical examination without abnormal findings Brennon Woody [facility] Start: 06-11-2023 Periodic preventive med est patient 40-64yrs Brennon Woody [facility] Start: 06-11-2023 Telephone encounter Brennon Woody [facility] Start: 05-13-2023 ambulatory Sandra Garcia PA-C Work Phone: Hematology/Oncology Comment on above: Ozempic Start: 03-11-2023 Telephone encounter Sandra aguiar PA-C Work Phone: Hematology/Oncology Comment on above: Results Start: 03-10-2023 End: 03-10-2023 Admission to same day surgery center Sandra Garcia PA-C Work Phone: Hematology/Oncology Comment on above: Iron deficiency anem ia, unspecified iron deficiency anemia type (Primary Dx); History of bariatric surgery; 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 B12 deficiency Start: 03-10-2023 End: 03-10-2023 Patient encounter procedure Sandra TAYLORC Work Phone: [facility] Start: 02-23-2023 Lavell Chamberslou MD Work Phone: Hematology/Oncology Comment on above: Refill Request Start: 02-19-2023 End: 02-19-2023 Admission to same day surgery center Chair Evelia Work Phone: Hematology/Oncology Comment on above: Iron deficiency anem ia, unspecified iron deficiency anemia type (Primary Dx); History of bariatric surgery Start: 02-19-2023 End: 02-19-2023 ambulatory Chair 11 Evelia Work Phone: [facility] Start: 01-09-2023 Telephone encounter Rosalinda Virk RN Hematology/Oncology Comment on above: Results Start: 09-23-2022 Telephone encounter Rosalinda Virk RN Hematology/Oncology Comment on above: Results Start: 09-19-2022 End: 09-19-2022 ambulatory Reese Meek MD Work Phone: Hematology/Oncology Comment on above: Iron deficiency anem ia, unspecified iron deficiency anemia type (Primary Dx) Start: 09-19-2022 End: 09-19-2022 Patient encounter procedure Reese Meek MD Work Phone: [facility] Start: 09-05-2022 Telephone encounter Sandra aguiar PA-C Work Phone: Hematology/Oncology Comment on above: Lab Orders Start: 07-22-2022 End: 07-22-2022 Admission to same day surgery center Chair Altamirano Work Phone: Hematology/Oncology Comment on above: Iron deficiency anem ia, unspecified iron deficiency anemia type (Primary Dx); History of bariatric surgery Start: 07-22-2022 End: 07-22-2022 ambulatory Chair 15 Evelia Work Phone: [facility] Start: 07-15-2022 End: 07-15-2022 Admission to same day surgery center Chair Evelia Work Phone: Hematology/Oncology Comment on above: Iron deficiency anem ia, unspecified iron deficiency anemia type (Primary Dx); History of bariatric surgery Start: 07-15-2022 End: 07-15-2022 ambulatory Chair 15 Evelia Work Phone: [facility] Start: 06-23-2022 Telephone encounter Justo Ardon Hematology/Oncology Comment on above: Results; Appointment Start: 06-20-2022 End: 06-20-2022 Admission to same day surgery center Sandra Tia Garcia PA-C Work Phone: Hematology/Oncology Comment on above: Iron deficiency anem ia, unspecified iron deficiency anemia type (Primary Dx); History of bariatric surgery; 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 B12 deficiency Start: 06-20-2022 End: 06-20-2022 Patient encounter procedure Sandra Garcia PA-C Work Phone: [facility] Start: 06-04-2022 Telephone encounter Sandra Diggs sser PA-C Work Phone: Hematology/Oncology Comment on above: Lab Orders Start: 05-21-2022 End: 05-21-2022 Admission to same day surgery center Chair Altamirano Work Phone: Hematology/Oncology Comment on above: Iron deficiency anem ia, unspecified iron deficiency anemia type (Primary Dx); History of bariatric surgery Start: 05-21-2022 End: 05-21-2022 ambulatory Chair 13 Evelia Work Phone: [facility] Start: 05-14-2022 End: 05-14-2022 Admission to same day surgery center Chair Altamirano Work Phone: Hematology/Oncology Comment on above: Iron deficiency anem ia, unspecified iron deficiency anemia type (Primary Dx); History of bariatric surgery Start: 05-14-2022 End: 05-14-2022 ambulatory Chair 13 Evelia Work Phone: [facility] Start: 04-10-2022 Telephone encounter Sandra henaor PA-C Work Phone: Hematology/Oncology Comment on above: Results Start: 02-25-2022 End: 02-25-2022 Admission to same day surgery center Chair Altamirano Work Phone: Hematology/Oncology Comment on above: Iron deficiency anem ia, unspecified iron deficiency anemia type (Primary Dx); History of bariatric surgery Start: 02-25-2022 End: 02-25-2022 ambulatory Chair 18 Evelia Work Phone: [facility] Start: 02-18-2022 End: 02-18-2022 Admission to same day surgery center Chair Altamirano Work Phone: Hematology/Oncology Comment on above: Iron deficiency anem ia, unspecified iron deficiency anemia type (Primary Dx); History of bariatric surgery Start: 02-18-2022 End: 02-18-2022 ambulatory Chair 18 Evelia Work Phone: [facility] Start: 02-11-2022 End: 02-11-2022 Admission to same day surgery center Keri Townsend RN Hematology/Oncology Comment on above: Iron deficiency anem ia, unspecified iron deficiency anemia type (Primary Dx); History of bariatric surgery Refill Request Start: 02-11-2022 End: 02-11-2022 ambulatory Chair 18 Evelia Work Phone: [facility] Start: 02-04-2022 End: 02-04-2022 Admission to same day surgery center Chair Altamirano Work Phone: Hematology/Oncology Comment on above: Iron deficiency anem ia, unspecified iron deficiency anemia type (Primary Dx); History of bariatric surgery Start: 02-04-2022 End: 02-04-2022 ambulatory Chair 18 Evelia Work Phone: [facility] Comment on above: Iron deficiency anem ia, unspecified iron deficiency anemia type (Primary Dx) Start: 02-04-2022 End: 02-04-2022 Patient encounter procedure Reese Meek MD Work Phone: [facility] Start: 12-30-2021 End: 12-30-2021 Admission to same day surgery center Chair Altamirano Work Phone: Hematology/Oncology Comment on above: Iron deficiency anem ia, unspecified iron deficiency anemia type (Primary Dx); History of bariatric surgery Start: 12-30-2021 End: 12-30-2021 ambulatory Chair 11 Evelia Work Phone: [facility] Start: 12-23-2021 End: 12-23-2021 Admission to same day surgery center Chair Evelia Work Phone: Hematology/Oncology Comment on above: Iron deficiency anem ia, unspecified iron deficiency anemia type (Primary Dx); History of bariatric surgery Start: 12-23-2021 End: 12-23-2021 ambulatory Chair 10 Evelia Work Phone: [facility] Start: 12-16-2021 End: 12-16-2021 Admission to same day surgery center Chair Evelia Work Phone: Hematology/Oncology Comment on above: Iron deficiency anem ia, unspecified iron deficiency anemia type (Primary Dx); History of bariatric surgery Start: 12-16-2021 End: 12-16-2021 ambulatory Chair 11 Evelia Work Phone: [facility] Start: 11-29-2021 End: 11-29-[address] SANDRA CASTILLO Facility:[facility] Procedures Date Procedure Procedure Detail Performing Clinician Start: 09-24-2024 Comprehensive metabo lic panel Sandra Garcia PA-C Work Phone: Start: 05-13-2024 Colonoscopy DO Noelle Woody Work Phone: Start: 12-06-2021 Adult depression scr eening assessment Chair Altamirano Work Phone: Start: 04-06-2017 Microscopic observat ion [Identifier] in Cervix by Cyto stain Jesus Alberto Mcclain MD Work Phone: Screening for malign ant neoplasm of colon Brennon Woody Other Plan of Treatment Date Care Activity Detail Author Start: 05-09-2028 Diabetes Screening Diabetes Screenin g [facility] Start: 02-04-2028 Diabetes Screening Diabetes Screenin g [facility] Start: 09-24-2027 Diabetes Screening Diabetes Screenin g [facility] Start: 06-20-2027 Diabetes Screening Diabetes Screenin g [facility] Start: 05-09-2027 Diabetes Screening Diabetes Screenin g [facility] Start: 01-24-2027 Diabetes Screening Diabetes Screenin g [facility] Start: 12-06-2026 Diabetes Screening Diabetes Screenin g [facility] Start: 08-28-2026 Diabetes Screening Diabetes Screenin g [facility] Start: 07-24-2026 Diabetes Screening Diabetes Screenin g [facility] Start: 03-10-2026 DIABETES SCREEN DIABETES SCREEN [facility] Start: 02-05-2026 DIABETES SCREEN DIABETES SCREEN [facility] Start: 09-19-2025 DIABETES SCREEN DIABETES SCREEN [facility] Start: 08-16-2025 End: 08-16-2025 Follow-up encounter Hematology/Oncology Comment on above: 3 month follow up follow up and Inject afer Start: 08-09-2025 End: 08-09-2025 Patient encounter procedure 08/09/2025 10:00 AM EST Office Visit [facility] [address] [place] [address] [place] [id number] lab [facility] Comment on above: lab Start: 06-20-2025 DIABETES SCREEN DIABETES SCREEN [facility] Start: 05-22-2025 Influenza vaccination C [facility] Start: 05-11-2025 End: 08-10-2025 CBC W Auto Differential panel - Blood COMPLETE BLOOD COUNT AND DIFFERENTIAL Lab Routine Iron deficiency anemia, unspecified iron deficiency anemia type History of bariatric surgery 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 B12 deficiency Expected: 05/11/2025 (Approximate), Expires: 08/10/2025 [facility] Comment on above: Expected: 05/11/2025 (Approximate), Expires: 08/10/2025 Start: 05-11-2025 End: 08-10-2025 Comprehensive metabolic 2000 panel - Serum or Plasma COMPREHENSIVE METABOLIC PANEL Lab Routine Iron deficiency anemia, unspecified iron deficiency anemia type History of bariatric surgery 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 B12 deficiency Expected: 05/11/2025 (Approximate), Expires: 08/10/2025 [facility] Comment on above: Expected: 05/11/2025 (Approximate), Expires: 08/10/2025 Start: 05-11-2025 End: 08-10-2025 Ferritin [Mass/volume] in Serum or Plasma FERRITIN Lab Routine Iron deficiency anemia, unspecified iron deficiency anemia type History of bariatric surgery 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 B12 deficiency Expected: 05/11/2025 (Approximate), Expires: 08/10/2025 [facility] Comment on above: Expected: 05/11/2025 (Approximate), Expires: 08/10/2025 Start: 05-11-2025 End: 08-10-2025 Folate [Mass/volume] in Serum or Plasma FOLATE, SERUM Lab Routine Iron deficiency anemia, unspecified iron deficiency anemia type History of bariatric surgery 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 B12 deficiency Expected: 05/11/2025 (Approximate), Expires: 08/10/2025 [facility] Comment on above: Expected: 05/11/2025 (Approximate), Expires: 08/10/2025 Start: 05-11-2025 End: 08-10-2025 Iron and Iron binding capacity panel - Serum or Plasma IRON AND TIBC Lab Routine Iron deficiency anemia, unspecified iron deficiency anemia type History of bariatric surgery 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 B12 deficiency Expected: 05/11/2025 (Approximate), Expires: 08/10/2025 [facility] Comment on above: Expected: 05/11/2025 (Approximate), Expires: 08/10/2025 Start: 05-09-2025 End: 05-09-2025 Patient encounter procedure 05/09/2025 11:30 AM EDT Office Visit [facility] [address] [place] [address] [place] [id number] lab / week of april / Follow up based on thoses results [facility] Comment on above: lab / week of ana rosa / Follow up based on thoses results Start: 04-21-2025 Influenza vaccination Flu vacc ine (Season Ended) [facility] Start: 03-07-2025 End: 03-07-2025 ambulatory 03/07/2025 1:30 PM EDT [facility] Hematology/Oncology [address] [place] [id number] Injectafer x2 Hematology/Oncology Comment on above: Injectafer x2 Start: 02-28-2025 End: 05-30-2025 CBC W Auto Differential panel - Blood COMPLETE BLOOD COUNT AND DIFFERENTIAL Lab Routine Iron deficiency anemia, unspecified iron deficiency anemia type History of bariatric surgery 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 B12 deficiency Expected: 02/28/2025, Expires: 05/30/2025 [facility] Comment on above: Expected: 02/28/2025 , Expires: 05/30/2025 Start: 02-28-2025 End: 05-30-2025 Cobalamin (Vitamin B12) [Mass/volume] in Serum or Plasma VITAMIN B12 Lab Routine Iron deficiency anemia, unspecified iron deficiency anemia type History of bariatric surgery 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 B12 deficiency Expected: 02/28/2025, Expires: 05/30/2025 [facility] Comment on above: Expected: 02/28/2025 , Expires: 05/30/2025 Start: 02-28-2025 End: 05-30-2025 Comprehensive metabolic 2000 panel - Serum or Plasma COMPREHENSIVE METABOLIC PANEL Lab Routine Iron deficiency anemia, unspecified iron deficiency anemia type History of bariatric surgery 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 B12 deficiency Expected: 02/28/2025, Expires: 05/30/2025 [facility] Comment on above: Expected: 02/28/2025 , Expires: 05/30/2025 Start: 02-28-2025 End: 05-30-2025 Ferritin [Mass/volume] in Serum or Plasma FERRITIN Lab Routine Iron deficiency anemia, unspecified iron deficiency anemia type History of bariatric surgery 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 B12 deficiency Expected: 02/28/2025, Expires: 05/30/2025 [facility] Comment on above: Expected: 02/28/2025 , Expires: 05/30/2025 Start: 02-28-2025 End: 05-30-2025 Folate [Mass/volume] in Serum or Plasma FOLATE, SERUM Lab Routine Iron deficiency anemia, unspecified iron deficiency anemia type History of bariatric surgery 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 B12 deficiency Expected: 02/28/2025, Expires: 05/30/2025 [facility] Comment on above: Expected: 02/28/2025 , Expires: 05/30/2025 Start: 02-28-2025 End: 05-30-2025 Iron and Iron binding capacity panel - Serum or Plasma IRON AND TIBC Lab Routine Iron deficiency anemia, unspecified iron deficiency anemia type History of bariatric surgery 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 B12 deficiency Expected: 02/28/2025, Expires: 05/30/2025 [facility] Work Phone: Comment on above: Expected: 02/28/2025 , Expires: 05/30/2025 Start: 02-04-2025 DIABETES SCREEN DIABETES SCREEN [facility] Start: 02-01-2025 End: 05-03-2025 CBC W Auto Differential panel - Blood COMPLETE BLOOD COUNT AND DIFFERENTIAL Lab Routine Iron deficiency anemia, unspecified iron deficiency anemia type History of bariatric surgery 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 B12 deficiency Expected: 02/01/2025 (Approximate), Expires: 05/03/2025 [facility] Comment on above: Expected: 02/01/2025 (Approximate), Expires: 05/03/2025 Start: 02-01-2025 End: 05-03-2025 Cobalamin (Vitamin B12) [Mass/volume] in Serum or Plasma VITAMIN B12 Lab Routine Iron deficiency anemia, unspecified iron deficiency anemia type History of bariatric surgery 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 B12 deficiency Expected: 02/01/2025 (Approximate), Expires: 05/03/2025 [facility] Comment on above: Expected: 02/01/2025 (Approximate), Expires: 05/03/2025 Start: 02-01-2025 End: 05-03-2025 Comprehensive metabolic 2000 panel - Serum or Plasma COMPREHENSIVE METABOLIC PANEL Lab Routine Iron deficiency anemia, unspecified iron deficiency anemia type History of bariatric surgery 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 B12 deficiency Expected: 02/01/2025 (Approximate), Expires: 05/03/2025 [facility] Comment on above: Expected: 02/01/2025 (Approximate), Expires: 05/03/2025 Start: 02-01-2025 End: 05-03-2025 Ferritin [Mass/volume] in Serum or Plasma FERRITIN Lab Routine Iron deficiency anemia, unspecified iron deficiency anemia type History of bariatric surgery 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 B12 deficiency Expected: 02/01/2025 (Approximate), Expires: 05/03/2025 [facility] Comment on above: Expected: 02/01/2025 (Approximate), Expires: 05/03/2025 Start: 02-01-2025 End: 05-03-2025 Folate [Mass/volume] in Serum or Plasma FOLATE, SERUM Lab Routine Iron deficiency anemia, unspecified iron deficiency anemia type History of bariatric surgery 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 B12 deficiency Expected: 02/01/2025 (Approximate), Expires: 05/03/2025 [facility] Comment on above: Expected: 02/01/2025 (Approximate), Expires: 05/03/2025 Start: 02-01-2025 End: 05-03-2025 Iron and Iron binding capacity panel - Serum or Plasma IRON AND TIBC Lab Routine Iron deficiency anemia, unspecified iron deficiency anemia type History of bariatric surgery 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 B12 deficiency Expected: 02/01/2025 (Approximate), Expires: 05/03/2025 [facility] Work Phone: Comment on above: Expected: 02/01/2025 (Approximate), Expires: 05/03/2025 Start: 12-06-2024 DIABETES SCREEN DIABETES SCREEN [facility] Start: 10-20-2024 End: 01-19-2025 CBC W Auto Differential panel - Blood COMPLETE BLOOD COUNT AND DIFFERENTIAL Lab Routine Iron deficiency anemia, unspecified iron deficiency anemia type History of bariatric surgery Expected: 10/20/2024 (Approximate), Expires: 01/19/2025 [facility] Comment on above: Expected: 10/20/2024 (Approximate), Expires: 01/19/2025 Start: 10-20-2024 End: 01-19-2025 Comprehensive metabolic 2000 panel - Serum or Plasma COMPREHENSIVE METABOLIC PANEL Lab Routine Iron deficiency anemia, unspecified iron deficiency anemia type History of bariatric surgery Expected: 10/20/2024 (Approximate), Expires: 01/19/2025 [facility] Comment on above: Expected: 10/20/2024 (Approximate), Expires: 01/19/2025 Start: 10-20-2024 End: 01-19-2025 Ferritin [Mass/volume] in Serum or Plasma FERRITIN Lab Routine Iron deficiency anemia, unspecified iron deficiency anemia type History of bariatric surgery Expected: 10/20/2024 (Approximate), Expires: 01/19/2025 [facility] Comment on above: Expected: 10/20/2024 (Approximate), Expires: 01/19/2025 Start: 10-20-2024 End: 01-19-2025 Iron and Iron binding capacity panel - Serum or Plasma IRON AND TIBC Lab Routine Iron deficiency anemia, unspecified iron deficiency anemia type History of bariatric surgery Expected: 10/20/2024 (Approximate), Expires: 01/19/2025 [facility] Work Phone: Comment on above: Expected: 10/20/2024 (Approximate), Expires: 01/19/2025 Start: 10-11-2024 End: 10-11-2024 ambulatory 10/11/2024 9:30 AM [facility] Hematology/Oncology [address] [place] [address] [place] [address] Injectafer x2 Hematology/Oncology Comment on above: Injectafer x2 Start: 10-04-2024 End: 10-04-2024 Follow-up encounter Hematology/Oncology Comment on above: follow up w/ Injecta nell x2 (pt had local labs done and received results) Start: 07-19-2024 End: 10-18-2024 CBC W Auto Differential panel - Blood COMPLETE BLOOD COUNT AND DIFFERENTIAL Lab Routine Iron deficiency anemia, unspecified iron deficiency anemia type Expected: 07/19/2024 (Approximate), Expires: 10/18/2024 [facility] Comment on above: Expected: 07/19/2024 (Approximate), Expires: 10/18/2024 Start: 07-19-2024 End: 10-18-2024 Comprehensive metabolic 2000 panel - Serum or Plasma COMPREHENSIVE METABOLIC PANEL Lab Routine Iron deficiency anemia, unspecified iron deficiency anemia type Expected: 07/19/2024 (Approximate), Expires: 10/18/2024 [facility] Comment on above: Expected: 07/19/2024 (Approximate), Expires: 10/18/2024 Start: 07-19-2024 End: 10-18-2024 Ferritin [Mass/volume] in Serum or Plasma FERRITIN Lab Routine Iron deficiency anemia, unspecified iron deficiency anemia type Expected: 07/19/2024 (Approximate), Expires: 10/18/2024 [facility] Comment on above: Expected: 07/19/2024 (Approximate), Expires: 10/18/2024 Start: 07-19-2024 End: 10-18-2024 Iron and Iron binding capacity panel - Serum or Plasma IRON AND TIBC Lab Routine Iron deficiency anemia, unspecified iron deficiency anemia type Expected: 07/19/2024 (Approximate), Expires: 10/18/2024 [facility] Work Phone: Comment on above: Expected: 07/19/2024 (Approximate), Expires: 10/18/2024 Start: 06-20-2024 End: 06-20-2024 Follow-up encounter 06/20/2024 10:30 AM EDT Visit (SP) Office Hematology/Oncology [address] [facility] [place] [address] Sandra Garcia PA-C [address] [place] [address] follow up after iron infusions - date req per patient Hematology/Oncology Comment on above: follow up after iron infusions - date req per patient Start: 06-20-2024 End: 06-20-2024 Patient encounter procedure 06/20/2024 10:15 AM EDT Office Visit [facility] [address] [facility] [place] [address] follow up after iron infusions - date req per patient [facility] Comment on above: follow up after iron infusions - date req per patient Start: 05-26-2024 End: 05-26-2024 ambulatory 05/26/2024 10:00 AM EDT Infusion Center Hematology/Oncology [address] [facility] [place] [address] INJECTAFER Hematology/Oncology Comment on above: IN[employer]AFER Start: 05-22-2024 COVID-19 Vaccine () COVID-19 Vaccine () [facility] Start: 05-22-2024 Covid-19 Vaccine () Covid-19 Vaccine () [facility] Start: 05-22-2024 Covid-19 Vaccine (3 - 2024-25 season) Covid-19 Vaccine ( season) [facility] Start: 05-22-2024 Influenza vaccination C [facility] Start: 05-19-2024 End: 05-19-2024 ambulatory 05/19/2024 10:00 AM EDT Infusion Center Hematology/Oncology [address] [place] [address] INJECTAFER Hematology/Oncology Comment on above: INJECTAFER Start: 05-16-2024 End: 05-16-2024 ambulatory 05/16/2024 9:30 AM EDT Infusion Center Hematology/Oncology [address] [place] [address] possible injectafer Hematology/Oncology Comment on above: possible injectafer Start: 05-13-2024 [facility] Start: 05-09-2024 End: 05-09-2024 Follow-up encounter 05/09/2024 9:30 AM EDT Visit (SP) Office Hematology/Oncology [address] [place] [address] Sandra Garcia, PA-C [address] [place] [address] lab and follow up Hematology/Oncology Comment on above: lab and follow up Start: 05-09-2024 End: 05-09-2024 Patient encounter procedure 05/09/2024 9:00 AM EDT Office Visit [facility] [address] [place] [address] lab and follow up [facility] Comment on above: lab and follow up Start: 02-11-2024 End: 05-12-2024 CBC W Auto Differential panel - Blood CBC + DIFF Lab Routine Iron deficiency anemia, unspecified iron deficiency anemia type History of bariatric surgery Expected: 02/11/2024 (Approximate), Expires: 05/12/2024 [facility] Work Phone: Comment on above: Expected: 02/11/2024 (Approximate), Expires: 05/12/2024 Start: 02-11-2024 End: 05-12-2024 Comprehensive metabolic 2000 panel - Serum or Plasma COMP METABOLIC PANEL Lab Routine Iron deficiency anemia, unspecified iron deficiency anemia type History of bariatric surgery Expected: 02/11/2024 (Approximate), Expires: 05/12/2024 [facility] Work Phone: Comment on above: Expected: 02/11/2024 (Approximate), Expires: 05/12/2024 Start: 02-11-2024 End: 05-12-2024 Ferritin [Mass/volume] in Serum or Plasma FERRITIN BLD Lab Routine Iron deficiency anemia, unspecified iron deficiency anemia type History of bariatric surgery Expected: 02/11/2024 (Approximate), Expires: 05/12/2024 [facility] Work Phone: Comment on above: Expected: 02/11/2024 (Approximate), Expires: 05/12/2024 Start: 02-11-2024 End: 05-12-2024 Iron and Iron binding capacity panel - Serum or Plasma IRON + TIBC Lab Routine Iron deficiency anemia, unspecified iron deficiency anemia type History of bariatric surgery Expected: 02/11/2024 (Approximate), Expires: 05/12/2024 [facility] Work Phone: Comment on above: Expected: 02/11/2024 (Approximate), Expires: 05/12/2024 Start: 01-13-2024 Pneumococcal 50+ yea rs Vaccine (1 of 1 - PCV) Pneumococcal 50+ years Vaccine (1 of 1 - PCV) [facility] Start: 01-13-2024 Pneumococcal Vaccine : 50+ (1 of 1 - PCV) Pneumococcal Vaccine: 50+ (1 of 1 - PCV) [facility] Start: 01-13-2024 Shingles vaccine (1 of 2) Shingles vaccine (1 of 2) [facility] Start: 01-13-2024 Shingrix Vaccine (1 of 2) Shingrix Vaccine (1 of 2) [facility] Start: 12-16-2023 End: 03-16-2024 CBC W Auto Differential panel - Blood CBC + DIFF Lab Routine Iron deficiency anemia, unspecified iron deficiency anemia type History of bariatric surgery 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 B12 deficiency Expected: 12/16/2023 (Approximate), Expires: 03/16/2024 [facility] Work Phone: Comment on above: Expected: 12/16/2023 (Approximate), Expires: 03/16/2024 Start: 12-16-2023 End: 03-16-2024 Comprehensive metabolic 2000 panel - Serum or Plasma COMP METABOLIC PANEL Lab Routine Iron deficiency anemia, unspecified iron deficiency anemia type History of bariatric surgery 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 B12 deficiency Expected: 12/16/2023 (Approximate), Expires: 03/16/2024 [facility] Work Phone: Comment on above: Expected: 12/16/2023 (Approximate), Expires: 03/16/2024 Start: 12-16-2023 End: 03-16-2024 Ferritin [Mass/volume] in Serum or Plasma FERRITIN BLD Lab Routine Iron deficiency anemia, unspecified iron deficiency anemia type History of bariatric surgery 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 B12 deficiency Expected: 12/16/2023 (Approximate), Expires: 03/16/2024 [facility] Work Phone: Comment on above: Expected: 12/16/2023 (Approximate), Expires: 03/16/2024 Start: 12-16-2023 End: 03-16-2024 Iron and Iron binding capacity panel - Serum or Plasma IRON + TIBC Lab Routine Iron deficiency anemia, unspecified iron deficiency anemia type History of bariatric surgery 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 B12 deficiency Expected: 12/16/2023 (Approximate), Expires: 03/16/2024 [facility] Work Phone: Comment on above: Expected: 12/16/2023 (Approximate), Expires: 03/16/2024 Start: 09-21-2023 Behavioral Health Screening Behavioral Health Screening [facility] Start: 09-21-2023 Depression Assessment Depression Ass essment [facility] Start: 09-09-2023 End: 11-09-2023 CBC W Auto Differential panel - Blood CBC + DIFF Lab Routine Iron deficiency anemia, unspecified iron deficiency anemia type History of bariatric surgery 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 B12 deficiency Expected: 09/09/2023 (Approximate), Expires: 11/09/2023 [facility] Work Phone: Comment on above: Expected: 09/09/2023 (Approximate), Expires: 11/09/2023 Start: 09-09-2023 End: 11-09-2023 Comprehensive metabolic 2000 panel - Serum or Plasma COMP METABOLIC PANEL Lab Routine Iron deficiency anemia, unspecified iron deficiency anemia type History of bariatric surgery 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 B12 deficiency Expected: 09/09/2023 (Approximate), Expires: 11/09/2023 [facility] Work Phone: Comment on above: Expected: 09/09/2023 (Approximate), Expires: 11/09/2023 Start: 09-09-2023 End: 11-09-2023 Ferritin [Mass/volume] in Serum or Plasma FERRITIN BLD Lab Routine Iron deficiency anemia, unspecified iron deficiency anemia type History of bariatric surgery 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 B12 deficiency Expected: 09/09/2023 (Approximate), Expires: 11/09/2023 [facility] Work Phone: Comment on above: Expected: 09/09/2023 (Approximate), Expires: 11/09/2023 Start: 09-09-2023 End: 11-09-2023 Iron and Iron binding capacity panel - Serum or Plasma IRON + TIBC Lab Routine Iron deficiency anemia, unspecified iron deficiency anemia type History of bariatric surgery 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 B12 deficiency Expected: 09/09/2023 (Approximate), Expires: 11/09/2023 [facility] Work Phone: Comment on above: Expected: 09/09/2023 (Approximate), Expires: 11/09/2023 Start: 05-22-2023 Covid-19 Vaccine () Covid-19 Vaccine () [facility] Start: 05-22-2023 Influenza vaccination [facility] Start: 01-18-2023 End: 03-20-2023 CBC W Auto Differential panel - Blood CBC + DIFF Lab Routine Iron deficiency anemia, unspecified iron deficiency anemia type Expected: 01/18/2023 (Approximate), Expires: 03/20/2023 [facility] Work Phone: Comment on above: Expected: 01/18/2023 (Approximate), Expires: 03/20/2023 Start: 01-18-2023 End: 09-19-2023 Ferritin [Mass/volume] in Serum or Plasma FERRITIN BLD Lab Routine Iron deficiency anemia, unspecified iron deficiency anemia type Expected: 01/18/2023 (Approximate), Expires: 09/19/2023 [facility] Work Phone: Comment on above: Expected: 01/18/2023 (Approximate), Expires: 09/19/2023 Start: 01-18-2023 End: 09-19-2023 Iron and Iron binding capacity panel - Serum or Plasma IRON + TIBC Lab Routine Iron deficiency anemia, unspecified iron deficiency anemia type Expected: 01/18/2023 (Approximate), Expires: 09/19/2023 [facility] Work Phone: Comment on above: Expected: 01/18/2023 (Approximate), Expires: 09/19/2023 Start: 01-18-2023 End: 03-20-2023 RETIC COUNT RETIC COUNT Lab Routine Iron deficiency anemia, unspecified iron deficiency anemia type Expected: 01/18/2023 (Approximate), Expires: 03/20/2023 [facility] Work Phone: Comment on above: Expected: 01/18/2023 (Approximate), Expires: 03/20/2023 Start: 12-06-2022 Adult depression screening assessment DEPRESSION SCREENING [facility] Start: 09-21-2022 DEPRESSION ASSESSMENT DEPRESSION ASS ESSMENT [facility] Start: 06-20-2022 End: 08-20-2022 CBC W Auto Differential panel - Blood CBC + DIFF Lab Routine Iron deficiency anemia, unspecified iron deficiency anemia type History of bariatric surgery 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 B12 deficiency Expected: 06/20/2022, Expires: 08/20/2022 [facility] Work Phone: Comment on above: Expected: 06/20/2022 , Expires: 08/20/2022 Start: 06-20-2022 End: 08-20-2022 Comprehensive metabolic 2000 panel - Serum or Plasma COMP METABOLIC PANEL Lab Routine Iron deficiency anemia, unspecified iron deficiency anemia type History of bariatric surgery 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 B12 deficiency Expected: 06/20/2022, Expires: 08/20/2022 [facility] Work Phone: Comment on above: Expected: 06/20/2022 , Expires: 08/20/2022 Start: 06-20-2022 End: 08-20-2022 Ferritin [Mass/volume] in Serum or Plasma [facility] Work Phone: Comment on above: Expected: 06/20/2022 , Expires: 08/20/2022 Start: 06-20-2022 End: 08-20-2022 Iron and Iron binding capacity panel - Serum or Plasma [facility] Work Phone: Comment on above: Expected: 06/20/2022 , Expires: 08/20/2022 Start: 06-04-2022 End: 08-04-2022 Ferritin [Mass/volume] in Serum or Plasma FERRITIN BLD Lab Routine Iron deficiency anemia, unspecified iron deficiency anemia type Expected: 06/04/2022, Expires: 08/04/2022 [facility] Work Phone: Comment on above: Expected: 06/04/2022 , Expires: 08/04/2022 Start: 06-04-2022 End: 08-04-2022 Iron and Iron binding capacity panel - Serum or Plasma IRON + TIBC Lab Routine Iron deficiency anemia, unspecified iron deficiency anemia type Expected: 06/04/2022, Expires: 08/04/2022 [facility] Work Phone: Comment on above: Expected: 06/04/2022 , Expires: 08/04/2022 Start: 05-22-2022 Influenza vaccination [facility] Start: 04-01-2022 End: 06-01-2022 CBC W Auto Differential panel - Blood CBC + DIFF Lab Routine Iron deficiency anemia, unspecified iron deficiency anemia type Expected: 04/01/2022 (Approximate), Expires: 06/01/2022 [facility] Work Phone: Comment on above: Expected: 04/01/2022 (Approximate), Expires: 06/01/2022 Start: 04-01-2022 End: 02-04-2023 FERRITIN BLD FERRITIN BLD Lab Routine Iron deficiency anemia, unspecified iron deficiency anemia type Expected: 04/01/2022 (Approximate), Expires: 02/04/2023 [facility] Work Phone: Comment on above: Expected: 04/01/2022 (Approximate), Expires: 02/04/2023 Start: 04-01-2022 End: 02-04-2023 IRON + TIBC IRON + TIBC Lab Routine Iron deficiency anemia, unspecified iron deficiency anemia type Expected: 04/01/2022 (Approximate), Expires: 02/04/2023 [facility] Work Phone: Comment on above: Expected: 04/01/2022 (Approximate), Expires: 02/04/2023 Start: 04-01-2022 End: 06-01-2022 RETIC COUNT RETIC COUNT Lab Routine Iron deficiency anemia, unspecified iron deficiency anemia type Expected: 04/01/2022 (Approximate), Expires: 06/01/2022 [facility] Work Phone: Comment on above: Expected: 04/01/2022 (Approximate), Expires: 06/01/2022 Start: 09-21-2021 DEPRESSION ASSESSMENT DEPRESSION ASS ESSMENT [facility] Start: 07-09-2021 COVID-19 VACCINE (3 - Booster for Pfizer series) COVID-19 VACCINE (3 - Booster for Pfizer series) [facility] Start: 05-22-2021 Influenza vaccination INFLUENZA (#1) [facility] Start: 04-03-2021 COVID-19 VACCINE (3 - Booster for Pfizer series) COVID-19 VACCINE (3 - Booster for Pfizer series) [facility] Start: 04-03-2021 COVID-19 VACCINE (3 - Pfizer series) COVID-19 VACCINE (3 - Pfizer series) [facility] Start: 04-06-2020 Screening for malign ant neoplasm of cervix [facility] Start: 04-24-2019 COLOGUARD (FIT-DNA) COLOGUARD (FIT-D NA) [facility] Start: 2019 Colonoscopy COLONOSCOPY [facility] Start: 2019 COLORECTAL CANCER SCREENING COLORECTAL CANCER SCREENING [facility] Start: [address] COLONOGRAPHY [facility] Start: 2019 FECAL OCCULT BLOOD FECAL OCCULT BLOO D [facility] Start: 2019 Lipid 1996 panel - S solomon or Plasma Lipid Screening [facility] Start: 2019 Lipid panel Lipid Screening [facility] Start: 2019 LIPID SCREEN LIPID SCREEN [facility] Start: 2019 Screening for malign ant neoplasm of colon [facility] Start: 2019 SIGMOIDOSCOPY SIGMOIDOSCOPY [facility] Start: 2014 Lipid panel Lipids [facility] Start: 2014 Mammography [facility] Start: 2014 Screening for malign ant neoplasm of breast [facility] Start: 01-13-2004 HPV TESTING HPV TESTING [facility] Start: 01-13-2004 Screening for malign ant neoplasm of cervix [facility] Start: 1995 PAP TESTING PAP TESTING [facility] Start: 1995 Screening for malign ant neoplasm of cervix [facility] Start: 1993 DTaP/Tdap/Td vaccine (1 - Tdap) DTaP/Tdap/Td [facility] (1 - [facility]dap[facility] Start: 1993 Hepatitis B Vaccine (1 of 3 - 19+ 3-dose series) Hepatitis B Vaccine (1 of 3 - 19+ 3-dose series) [facility] Start: 1993 Urine microalbumin profile [facility] Start: 01-13-1992 Anxiety Screening Anxiety Screening [facility] Start: 01-13-1992 Depression Screening Depression Scre ening [facility] Start: 01-13-1992 HEPATITIS C SCREENING HEPATITIS C SC REENING [facility] Start: 01-13-1992 Hepatitis C screening C [facility] Start: 01-13-1992 HIV SCREENING HIV SCREENING [facility] Start: 01-13-1992 HIV screening HIV Screening [facility] Start: 1989 HIV screening HIV screen [facility] [employer] [facility] [email or web address] Start: 1986 Depression Screen Depression Screen [facility] [employer] Start: 1974 HEPATITIS B (1 of 3 - 3-dose series) HEPATITIS B (1 of 3 - 3-dose series) [facility] Start: 1974 Hepatitis B Vaccine (1 of 3 - 3-dose series) Hepatitis B Vaccine (1 of 3 - 3-dose series) [facility] Comprehensive metabo lic 1999 panel - Serum or Plasma [facility] End: 01-31-2025 Cyanocobalamin vitamin b-[address] [facility] Work Phone: Comment on above: Once for 1 Occurrenc es starting 01/31/2025 until 01/31/2025 MG Breast - bilatera l Screening [facility] Patient Education Colon polyps Hemorrhoids (DC) Know your Meds [facility] Work Phone: [facility] Immunizations Immunization Date Immunization Notes Care Provider Felicity watson 02-06-2021 COVID-19 vaccine, ag e 12+ yr (PFIZER-BIONTECH - PURPLE TOP) Chair Evelia Work Phone: [facility] 01-02-2021 COVID-19 vaccine, ag e 12+ yr (PFIZER-BIONTECH - PURPLE TOP) Chair [place] Work Phone: [facility] Payers Date Payer Category Payer Self-pay [id number] 2017 Private Health Insurance MMO SUP [employer] PPO [id number] 2017 Unknown MMO MMO [employer] [id number] 2017-Present [phone] [address] [place] [address] PPO [id number] 2017 Unknown [id number] 1974 Unknown [id number] 1974 Unknown [id number] 1974 Unknown [id number] 1959 Unknown [id number] Unknown [id number] Social History Date Type Detail Facility Start: 09-18-2017 End: 06-20-2022 Tobacco smoking status NHIS Never smoked tobacco [facility] Start: 09-18-2017 End: 06-20-2022 Tobacco use and exposure Smokeless tobacco non-user [facility] Start: 12-06-2021 End: 02-28-2025 Alcohol intake Current drinker of alcohol (finding) [facility] Start: 09-23-2017 History SDOH Alcohol Comment social only [facility] Start: 1975 Sex Assigned At Not on file [facility] Start: 12-06-2021 End: 06-23-2022 Exposure to SARS-CoV-2 (event) Not sure [facility] History of tobacco use Passive smoker [facility] Start: 09-19-2022 End: 02-05-2023 History of Social function [facility] Start: 09-19-2022 End: 02-05-2023 Tobacco use panel [facility] Start: 09-15-2017 Adult Depression Screening Assessment 0 [facility] Start: 05-13-2024 Tobacco smoking stat us NHIS Ex-smoker (finding) [facility] Start: 1975 Sex Assigned At Female F [facility] Start: 10-31-2012 Sex Female (finding) [facility] Medical Equipment Procedure Code Equipment Code Equipment Origin al Text Equipment Identifier Dates 1 Syringe once every month. [id number] Start: 05-21-2021 End: 12-07-2023 Comment on above: 1 Syringe once every month. Goals Date Patient Goal Desired Activity /State Clinical Notes 10-22-2017 to 05-16-2025 Note Date & Type Note Facility 05-16-2025 Evaluation note Diagnosis Onset Date Resolution Contact dermatitis acute May 16, 2025 9:19am Obesity acute May 3:09pm Pruritic rash acute May 222024 3:09pm Screening mammogram for breast cancer acute June 05, 2025 3:09pm Wellness examination acute May 3:09pm [facility] Work Phone: [phone]) 992-816108-21-2025 Telephone encounter Note* Telephone Encounter - Raeann Monterroso - 05/11/2025 8:57 AM EDT Pt scheduled and confirmed 11-19 at 10am for labs and 08/16 at 10for Sandra and 1030 for treatment. Also mailed an appt reminder too. [facility]08-21-2025 Miscellaneous Notes* Telephone Encounter - Raeann Monterroso - 05/11/2025 8:57 AM EDT Pt scheduled and confirmed 11-19 at 10am for labs and 08/16 at 10for Sandra and 1030 for treatment. Also mailed an appt reminder too. * Telephone Encounter - Justo Gambino RN - 05/10/2025 11:02 AM EDT Pt updated on result/plan of care. She is agreeable to repeat labs 3 months, RTC 1 week following. She denies any questions, needs or concerns at this time. Will await call to schedule. PSS: please call to schedule per MM. Justo Gambino RN * Telephone Encounter - Sandra Garcia PA-C - 05/10/2025 10:57 AM EDT Repeat labs in 3 months with follow up a week after Sandra Garcia PA-C * Telephone Encounter - Justo Gambino RN - 05/10/2025 10:36 AM EDT Images from the original note were not included. Sandra Garcia PA-C to [facility] Triage Pool (Selected Message) 05/10/25 7:55 AM Result Note Iron levels look good. Please let her know MM: When would you like RTC? Justo Gambino RN * Telephone Encounter - Marilyn Andrew - 02/28/2025 2:16 PM EDT Labs scheduled for 05-09-25 Follow up based on these results * Telephone Encounter - Marilyn Andrew - 02/28/2025 2:15 PM EDT Images from the original note were not included. [facility] Telephone encounter Note * Telephone Encounter - Justo Gambino RN - 05/10/2025 11:02 AM EDT Pt updated on result/plan of care. She is agreeable to repeat labs 3 months, RTC 1 week following. She denies any questions, needs or concerns at this time. Will await call to schedule. PSS: please call to schedule per MM. Justo Gambino RN [facility]08-20-2025 Telephone encounter Note* Telephone Encounter - Sandra Garcia PA-C - 05/10/2025 10:57 AM EDT Repeat labs in 3 months with follow up a week after Sandra Garcia PA-C [facility]08-20-2025 Telephone encounter Note* Telephone Encounter - Justo Gambino RN - 05/10/2025 10:36 AM EDT Images from the original note were not included. Sandra Garcia PA-C to [facility] Triage Pool (Selected Message) 05/10/25 7:55 AM Result Note Iron levels look good. Please let her know MM: When would you like RTC? Justo Gambino RN [facility]06-10-2025 Telephone encounter Note* Telephone Encounter - Marilyn Andrew - 02/28/2025 2:16 PM EDT Labs scheduled for 05-09-25 Follow up based on these results [facility]06-10-2025 Telephone encounter Note* Telephone Encounter - Marilyn Andrew - 02/28/2025 2:15 PM EDT Images from the original note were not included. [facility]06-10-2025 NoteHNO ID: [id number] Author: SANDRA GARCIA PA-C Service: ? Author Type: Physician Biotechnologist Type: Progress Notes Filed: 02/28/2025 13:52 Note Text: Date of Service: February 21, 2025 (Elements copied from my note dated October 04, 2024 have been reviewed and updated where appropriate, and all reflect current assessment and medical decision making during today's encounter, February 21, 2025) CC: Follow up Diagnosis: Iron deficiency anemia B12 deficiency S/p bariatric surgery Treatment History: Last IV ferric carboxymaltose (Injectafer) given 10/04-10/11/24 (had previous reaction to Monoferric and does not respond to venofer) IM B12 at home monthly HPI Ilsa returns for follow up. Labs dated 02/03/25 showed hemoglobin normal at 11.9, MCV 89.3, ferritin 33.5 , TIBC elevated at 397 , transferrin saturation down to 14.7%. She has been very fatigued, having leg cramps as well. She could tell it was time for iron. 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 Current Outpatient Medications Medication Sig cyanocobalamin 1,000 mcg/mL Inject 1 mL intramuscularly once every month. Syringe with Needle, Disp, (SYRINGE 3CC/21GX1 ) 3 mL 21 gauge x 1 syrg 1 Syringe once every month. No current facility-administered medications for this visit. ALLERGIES Allergen Reactions Codeine Hives Monoferric [Ferric * Other: See Comments Chest palpations with flushing, hot all over REVIEW OF SYSTEMS GENERAL: No weight loss, malaise or fevers.+ see HPI HEENT: Negative for frequent or significant headaches, No changes in hearing or vision, no nose bleeds or other nasal problems NECK: Negative for lumps, goiter, pain and significant neck swelling RESPIRATORY: Negative for cough, wheezing or shortness of breath. CARDIOVASCULAR: Negative for chest pain, leg swelling or palpitations. GI: Negative for abdominal discomfort, blood in stools or black stools or change in bowel habits MUSCULOSKELETAL: Negative for joint pain or swelling, back pain or muscle pain. SKIN: Negative for lesions, rash, and itching. PSYCH: Negative for sleep disturbance, mood disorder and recent psychosocial stressors. HEMATOLOGY/LYMPHOLOGY: Negative for prolonged bleeding, bruising easily or swollen nodes. NEURO: No history of headaches, syncope, paralysis, seizures or tremors All other reviewed and negative other than HPI. PHYSICAL EXAM: BP 109/85 Pulse 87 Temp 36.2 ?C (97.2 ?F) (Temporal) Resp 20 Ht 170.2 cm (5' 7.01 ) Wt (!) 159.7 kg (352 lb 1.2 oz) LMP 02/28/2025 SpO2 95% BMI 55.13 kg/m? No exam LAB: Hemoglobin (g/dL) Date Value 02/03/2025 11.9 05/21/2021 9.9 Hematocrit (%) Date Value 02/03/2025 36.9 05/21/2021 33.4 WBC (k/uL) Date Value 02/03/2025 6.13 05/21/2021 6.89 Platelet Count (k/uL) Date Value 02/03/2025 196 05/21/2021 241 Latest Reference Range AND Units 01/25/24 09:01 05/09/24 09:02 06/20/24 10:08 02/03/25 10:29 Folate >4.7 ng/mL 8.5 Ferritin 14.7 - 205.1 ng/mL 177.0 11.8 (L) 183.0 33.5 Iron 41 - 186 ug/dL 65 26 (L) 90 56 TIBC 232 - 386 ug/dL 288 394 (H) 318 397 (H) Transferrin Saturation 15.0 - 57.0 % 22.6 6.6 (L) 28.3 14.1 (L) (L): Data is abnormally low (H): Data is abnormally high ASSESSMENT/PLAN: 1. Iron deficiency anemia, unspecified iron deficiency anemia type - ICD9: 280.9, ICD10: D50.9 (primary diagnosis) She has a history of recurrrent iron deficiency anemia. She has an allergy to monoferric and does not respond to venofer. Last injectafer infusion was 05/26/2024. She is now symptomatic again and iron levels are low. Will give injectafer x 2 and recheck labs in April at her request. 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 2. History of bariatric surgery - ICD9: V45.86, ICD10: Z98.84 3. 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 B12 deficiency - ICD9: 281.1, ICD10: D53.1 Continue monthly B12 injections at home Sandra Garcia PA-C CC: Brennon Woody DO I spent a total of 21 minutes on the date of the service which included preparing to see the patient, [id number] patient care, completing clinical documentation, performing a medically appropriate examination, counseling and educating the patient/family/caregiver, ordering medications, tests, or procedures, independently interpreting results (not separately reported), communicating results to the patient/family/caregiver, and care coordination (not separately reported).[facility]06-10-2025 History of Present illness Narrative* Sandra Garcia PA-C - 02/28/2025 1:33 PM EDT Date of Service: February 21, 2025 (Elements copied from my note dated October 04, 2024 have been reviewed and updated where appropriate, and all reflect current assessment and medical decision making during today's encounter, February 21, 2025) CC: Follow up Diagnosis: Iron deficiency anemia B12 deficiency S/p bariatric surgery Treatment History: Last IV ferric carboxymaltose (Injectafer) given 10/04-10/11/24 (had previous reaction to Monoferric and does not respond to venofer) IM B12 at home monthly HPI Ilsa returns for follow up. Labs dated 02/03/25 showed hemoglobin normal at 11.9, MCV 89.3, ferritin 33.5 , TIBC elevated at 397 , transferrin saturation down to 14.7%. She has been very fatigued, having leg cramps as well. She could tell it was time for iron. 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 Current Outpatient Medications Medication Sig cyanocobalamin 1,000 mcg/mL Inject 1 mL intramuscularly once every month. Syringe with Needle, Disp, (SYRINGE 3CC/21GX1 ) 3 mL 21 gauge x 1 syrg 1 Syringe once every month. No current facility-administered medications for this visit. ALLERGIES Allergen Reactions Codeine Hives Monoferric [Ferric * Other: See Comments Chest palpations with flushing, hot all over REVIEW OF SYSTEMS GENERAL: No weight loss, malaise or fevers.+ see HPI HEENT: Negative for frequent or significant headaches, No changes in hearing or vision, no nose bleeds or other nasal problems NECK: Negative for lumps, goiter, pain and significant neck swelling RESPIRATORY: Negative for cough, wheezing or shortness of breath. CARDIOVASCULAR: Negative for chest pain, leg swelling or palpitations. GI: Negative for abdominal discomfort, blood in stools or black stools or change in bowel habits MUSCULOSKELETAL: Negative for joint pain or swelling, back pain or muscle pain. SKIN: Negative for lesions, rash, and itching. PSYCH: Negative for sleep disturbance, mood disorder and recent psychosocial stressors. HEMATOLOGY/LYMPHOLOGY: Negative for prolonged bleeding, bruising easily or swollen nodes. NEURO: No history of headaches, syncope, paralysis, seizures or tremors All other reviewed and negative other than HPI. PHYSICAL EXAM: BP 109/85 Pulse 87 Temp 36.2 C (97.2 F) (Temporal) Resp 20 Ht 170.2 cm (5' 7.01 ) Wt (!) 159.7 kg (352 lb 1.2 oz) LMP 02/28/2025 SpO2 95% BMI 55.13 kg/m No exam LAB: Hemoglobin (g/dL) Date Value 02/03/2025 11.9 05/21/2021 9.9 Hematocrit (%) Date Value 02/03/2025 36.9 05/21/2021 33.4 WBC (k/uL) Date Value 02/03/2025 6.13 05/21/2021 6.89 Platelet Count (k/uL) Date Value 02/03/2025 196 05/21/2021 241 Latest Reference Range & Units 01/25/24 09:01 05/09/24 09:02 06/20/24 10:08 02/03/25 10:29 Folate >4.7 ng/mL 8.5 Ferritin 14.7 - 205.1 ng/mL 177.0 11.8 (L) 183.0 33.5 Iron 41 - 186 ug/dL 65 26 (L) 90 56 TIBC 232 - 386 ug/dL 288 394 (H) 318 397 (H) Transferrin Saturation 15.0 - 57.0 % 22.6 6.6 (L) 28.3 14.1 (L) (L): Data is abnormally low (H): Data is abnormally high ASSESSMENT/PLAN: 1. Iron deficiency anemia, unspecified iron deficiency anemia type - ICD9: 280.9, ICD10: D50.9 (primary diagnosis) She has a history of recurrrent iron deficiency anemia. She has an allergy to monoferric and does not respond to venofer. Last injectafer infusion was 05/26/2024. She is now symptomatic again and iron levels are low. Will give injectafer x 2 and recheck labs in April at her request. 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 2. History of bariatric surgery - ICD9: V45.86, ICD10: Z98.84 3. 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 B12 deficiency - ICD9: 281.1, ICD10: D53.1 Continue monthly B12 injections at home Sandra Garcia PA-C CC: Brennon Woody DO I spent a total of 21 minutes on the date of the service which included preparing to see the patient, [id number] patient care, completing clinical documentation, performing a medically appropriate examination, counseling and educating the patient/family/caregiver, ordering medications, tests, or p rocedures, independently interpreting results (not separately reported), communicating results to the patient/family/caregiver, and care coordination (not separately reported). [facility] Telephone encounter Note * Telephone Encounter - Myranda Herrera - 02/07/2025 9:15 AM EDT Patient has been scheduled for RV with Sandra and injectafer on 02/21 and another dose on 02/28. Patient notified of dates/times. Patient needs AM appts and was informed this still requires authorization. Myranda Herrera [facility]05-20-2025 Miscellaneous Notes* Telephone Encounter - Myranda Herrera - 02/07/2025 9:15 AM EDT Patient has been scheduled for RV with Sandra and injectafer on 02/21 and another dose on 02/28. Patient notified of dates/times. Patient needs AM appts and was informed this still requires authorization. Myranda Herrera * Telephone Encounter - Justo Gambino RN - 02/06/2025 9:03 AM EDT VM left with MM message and recommendation. Encouraged to call with any additional questions/concerns. Aware PSS to call with appt Pharm: please place injectofer orders Roslyn/Marilyn: Please call to schedule Justo Gambino RN documented in this encounterTr[facility]05-19-2025 Telephone encounter Note * Telephone Encounter - Justo Gambino RN - 02/06/2025 9:03 AM EDT VM left with MM message and recommendation. Encouraged to call with any additional questions/concerns. Aware PSS to call with appt Pharm: please place injectofer orders Roslyn/Marilyn: Please call to schedule Justo Gambino RN [facility]05-16-2025 Telephone encounter Note* Telephone Encounter - Justo Gambino RN - 02/03/2025 8:50 AM EDT Pt notified. She is coming to [place] today and will come in at 1030 to have rest of labs completed. Pt added to lab schedule Justo Gambino RN [facility]05-16-2025 Miscellaneous Notes* Telephone Encounter - Justo Gambino RN - 02/03/2025 8:50 AM EDT Pt notified. She is coming to [place] today and will come in at 1030 to have rest of labs completed. Pt added to lab schedule Justo Gambino RN * Telephone Encounter - Sandra Garcia PA-C - 02/03/2025 8:40 AM EDT Please call and advise patient that we received only a B12 result from [facility]. WE call them and they said no other labs were done. If patient wishes to [facility] [place] [facility] and have the restof her labs redrawn, please fax the remaining orders to them and ensure they receive all orders. Otherwise she is welcome to come here to have them drawn. Sandra Garcia PA-C documented in this encounterTr[facility]05-16-2025 Telephone encounter Note * Telephone Encounter - Sandra Garcia PA-C - 02/03/2025 8:40 AM EDT Please call and advise patient that we received only a B12 result from [facility]. WE call them and they said no other labs were done. If patient wishes to go back to [place] [facility] and have the restof her labs redrawn, please fax the remaining orders to them and ensure they receive all orders. Otherwise she is welcome to come here to have them drawn. Sandra Garcia PA-C [facility]01-14-2025 NoteHNO ID: [id number] Author: KERI TOWNSEND RN Service: ? Author Type: Registered Nurse Type: Progress Notes Filed: 10/04/2024 11:20 Note Text: Order clarification per pharmacy that injecafer is to be given IVP due to IVF shortage [facility]eri Townsend RNOhio[facility]01-14-2025 History of Present illness Narrative* Keri Townsend RN - 10/04/2024 10:26 AM EST Order clarification per pharmacy that injecafer is to be given IVP due to IVF shortage Keri Townsend RN documented in this encounterTr[facility]01-14-2025 History of Present illness Narrative* Sandra Garcia PA-C - 10/04/2024 9:30 AM EST Date of Service: October 04, 2024 (Elements copied from my note dated June 20, 2024 have been reviewed and updated where appropriate, and all reflect current assessment and medical decision making during today's encounter, 10/04/2024) CC: Follow up Diagnosis: Iron deficiency anemia B12 deficiency S/p bariatric surgery Treatment History: Last IV ferric carboxymaltose (Injectafer) given 08/14/2023 (had previous reaction to Monoferric and does not respond to venofer) IM B12 at home monthly HPI Ilsa returns for follow up. Recent labs show her hemoglobin is down to 11.7, MCV 87.3, ferritin 18, iron saturation 10%. She is here to get IV iron. She has had fatigue, cramps and heart palpitations. She knew she needed iron. Current Outpatient Medications Medication Sig cyanocobalamin 1,000 mcg/mL Inject 1 mL intramuscularly once every month. Syringe with Needle, Disp, (SYRINGE 3CC/21GX1 ) 3 mL 21 gauge x 1 syrg 1 Syringe once every month. No current facility-administered medications for this visit. ALLERGIES Allergen Reactions Codeine Hives Monoferric [Ferric * Other: See Comments Chest palpations with flushing, hot all over REVIEW OF SYSTEMS GENERAL: No weight loss, malaise or fevers., HEENT: Negative for frequent or significant headaches, No changes in hearing or vision, no nose bleeds or other nasal problems NECK: Negative for lumps, goiter, pain and significant neck swelling RESPIRATORY: Negative for cough, wheezing or shortness of breath. CARDIOVASCULAR: Negative for chest pain, leg swelling or palpitations. GI: Negative for abdominal discomfort, blood in stools or black stools or change in bowel habits MUSCULOSKELETAL: Negative for joint pain or swelling, back pain or muscle pain. SKIN: Negative for lesions, rash, and itching. PSYCH: Negative for sleep disturbance, mood disorder and recent psychosocial stressors. HEMATOLOGY/LYMPHOLOGY: Negative for prolonged bleeding, bruising easily or swollen nodes. NEURO: No history of headaches, syncope, paralysis, seizures or tremors All other reviewed and negative other than HPI. PHYSICAL EXAM: BP 164/90 Pulse 90 Temp 36.2 C (97.2 F) (Temporal) Resp 18 Ht 170.2 cm (5' 7.01 ) Wt (!) 157.4 kg (346 lb 14.7 oz) LMP 09/26/2024 SpO2 100% BMI 54.32 kg/m General: Alert and oriented, no distress, pleasant and cooperative. Heart: Regular, normal S1 and S2, no murmurs, rubs, or gallops Lungs: Clear to auscultation bilaterally Abdomen: Benign Extremities: Feet/ankles without edema, posterior tibial pulses full and symmetrical LAB: See labs in epic from [place] ASSESSMENT/PLAN: 1. Iron deficiency anemia, unspecified iron deficiency anemia type - ICD9: 280.9, ICD10: D50.9 (primary diagnosis) She has a history of recurrrent iron deficiency anemia. She has an allergy to monoferric and does not respond to venofer. Last injectafer infusion was 05/26/2024. She is now symptomatic again and iron levels are low. Will give injectafer x 2 and recheck labs in about 4 months and see us after if ironis needed. Lab orders printed for patient for [facility]. 2. History of bariatric surgery - ICD9: V45.86, ICD10: Z98.84 3. 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 B12 deficiency - ICD9: 281.1, ICD10: D53.1 Continue monthly B12 injections at home Sandra Garcia PA-C I spent a total of 20 minutes on the date of the service which included preparing to see the patient, [id number] patient care, completing clinical documentation, performing a medically appropriate examination, counseling and educating the patient/family/caregiver, ordering medications, tests, or p rocedures, independently interpreting results (not separately reported), communicating results to the patient/family/caregiver, and care coordination (not separately reported). CC: Brennon Woody DO documented in this encounterTr[facility]01-14-2025 NoteHNO ID: [id number] Author: SANDRA GARCIA PA-C Service: ? Author Type: Physician Biotechnologist Type: Progress Notes Filed: 10/04/2024 09:54 Note Text: Date of Service: October 04, 2024 (Elements copied from my note dated June 20, 2024 have been reviewed and updated where appropriate, and all reflect current assessment and medical decision making during today's encounter, 10/04/2024) CC: Follow up Diagnosis: Iron deficiency anemia B12 deficiency S/p bariatric surgery Treatment History: Last IV ferric carboxymaltose (Injectafer) given 08/14/2023 (had previous reaction to Monoferric and does not respond to venofer) IM B12 at home monthly HPI Ilsa returns for follow up. Recent labs show her hemoglobin is down to 11.7, MCV 87.3, ferritin 18, iron saturation 10%. She is here to get IV iron. She has had fatigue, cramps and heart palpitations. She knew she needed iron. Current Outpatient Medications Medication Sig cyanocobalamin 1,000 mcg/mL Inject 1 mL intramuscularly once every month. Syringe with Needle, Disp, (SYRINGE 3CC/21GX1 ) 3 mL 21 gauge x 1 syrg 1 Syringe once every month. No current facility-administered medications for this visit. ALLERGIES Allergen Reactions Codeine Hives Monoferric [Ferric * Other: See Comments Chest palpations with flushing, hot all over REVIEW OF SYSTEMS GENERAL: No weight loss, malaise or fevers., HEENT: Negative for frequent or significant headaches, No changes in hearing or vision, no nose bleeds or other nasal problems NECK: Negative for lumps, goiter, pain and significant neck swelling RESPIRATORY: Negative for cough, wheezing or shortness of breath. CARDIOVASCULAR: Negative for chest pain, leg swelling or palpitations. GI: Negative for abdominal discomfort, blood in stools or black stools or change in bowel habits MUSCULOSKELETAL: Negative for joint pain or swelling, back pain or muscle pain. SKIN: Negative for lesions, rash, and itching. PSYCH: Negative for sleep disturbance, mood disorder and recent psychosocial stressors. HEMATOLOGY/LYMPHOLOGY: Negative for prolonged bleeding, bruising easily or swollen nodes. NEURO: No history of headaches, syncope, paralysis, seizures or tremors All other reviewed and negative other than HPI. PHYSICAL EXAM: BP 164/90 Pulse 90 Temp 36.2 ?C (97.2 ?F) (Temporal) Resp 18 Ht 170.2 cm (5' 7.01 ) Wt (!) 157.4 kg (346 lb 14.7 oz) LMP 09/26/2024 SpO2 100% BMI 54.32 kg/m? General: Alert and oriented, no distress, pleasant and cooperative. Heart: Regular, normal S1 and S2, no murmurs, rubs, or gallops Lungs: Clear to auscultation bilaterally Abdomen: Benign Extremities: Feet/ankles without edema, posterior tibial pulses full and symmetrical LAB: See labs in epic from [place] ASSESSMENT/PLAN: 1. Iron deficiency anemia, unspecified iron deficiency anemia type - ICD9: 280.9, ICD10: D50.9 (primary diagnosis) She has a history of recurrrent iron deficiency anemia. She has an allergy to monoferric and does not respond to venofer. Last injectafer infusion was 05/26/2024. She is now symptomatic again and iron levels are low. Will give injectafer x 2 and recheck labs in about 4 months and see us after if iron is needed. Lab orders printed for patient for [facility]. 2. History of bariatric surgery - ICD9: V45.86, ICD10: Z98.84 3. 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 B12 deficiency - ICD9: 281.1, ICD10: D53.1 Continue monthly B12 injections at home Sandra Garcia PA-C I spent a total of 20 minutes on the date of the service which included preparing to see the patient, [id number] patient care, completing clinical documentation, performing a medically appropriate examination, counseling and educating the patient/family/caregiver, ordering medications, tests, or procedures, independently interpreting results (not separately reported), communicating results to the patient/family/caregiver, and care coordination (not separately reported). CC: Brennon Woody, [facility]01-06-2025 Telephone encounter Note * Telephone Encounter - Myranda Herrera - 09/26/2024 2:21 PM EST Patient has been scheduled and notified. Thanks! Myranda Herrera [facility]01-06-2025 Miscellaneous Notes* Telephone Encounter - Myranda Herrera - 09/26/2024 2:21 PM EST Patient has been scheduled and notified. Thanks! Myranda Herrera * Telephone Encounter - Sandra Garcia PA-C - 09/26/2024 11:59 AM EST sure * Telephone Encounter - Myranda Herrera - 09/26/2024 11:29 AM EST Did you want to see her same day prior? Myranda Herrera * Telephone Encounter - Demetra Jean RPh - 09/26/2024 11:15 AM EST Orders placed and per Filomena Telles no non formulary approval is needed for injectafer. Yoan Jean, PharmD, BCOP * Telephone Encounter - Sandra Garcia PA-C - 09/26/2024 8:40 AM EST Please inform her she needs more IV iron. She requires infectafer that will need special approval from pharmacy and orders will need placed by pharmacy. Sandra Garcia PA-C * Telephone Encounter - Jo Ann Vargas - 09/26/2024 8:37 AM EST Labs are in chart under the lab tab. * Telephone Encounter - Myranda Herrera - 09/23/2024 11:55 AM EST I did explain this to patient, she still insisted they be sent to [place]. Myranda Herrera * Telephone Encounter - Sandra Garcia PA-C - 09/23/2024 11:50 AM EST I am sorry she is aggravated about her appointments. Unfortunately, we have a 24 hour turn around time on our iron labs. She is more than welcome to get them done elsewhere, however, be advised, theydo not always send us results in an efficient manner. Sandra Garcia PA-C * Telephone Encounter - Myranda Herrera - 09/23/2024 11:17 AM EST Patient calls very aggravated about her upcoming appointments and she needs scheduled for Iron. Sheis scheduled for lab and follow up with Sandra on 10/10 and states she should have been due in August (however follow up instructions were given for September). She's feeling really run down and knows she will now need Iron. She states it's silly for her to drive a half hour just for labs and for Sandra to review and tell her she needs Iron. She would like all appointments on the same day. She requested her lab orders be faxed to [facility] - fax [phone]. Faxed lab orders September 23, 2024 11:27 AM She wants Sandra to review these results and then set her up for Iron if indicated. If Sandra wants to see me that's fine, but I'm not wasting an extra trip to come back for Iron . Sandra: Please watch for results - I will forward to Selena to obtain incase we do not receive - I noted our fax number to send. Will also need Iron orders placed and await for approval if so. Thanks! Myranda Herrera documented in this encounterTr[facility]01-[facility]-2025 Telephone encounter Note * Telephone Encounter - Sandra Garcia PA-C - 09/26/2024 11:59 AM EST sure [facility]01-06-2025 Telephone encounter Note* Telephone Encounter - Myranda Herrera - 09/26/2024 11:29 AM EST Did you want to see her same day prior? Myranda Herrera [facility]01-06-2025 Telephone encounter Note* Telephone Encounter - Demetra Jean RPh - 09/26/2024 11:15 AM EST Orders placed and per Filomena Telles no non formulary approval is needed for shreyaafeisrael Jean, PharmD, BCOP [facility] Work Phone: [phone] Telephone encounter Note* Telephone Encounter - Sandra Garcia PA-C - 09/26/2024 8:40 AM EST Please inform her she needs more IV iron. She requires infectafer that will need special approval from pharmacy and orders will need placed by pharmacy. Sandra Garcia PA-C [facility]01-06-2025 Telephone encounter Note* Telephone Encounter - Jo Ann Vargas - 09/26/2024 8:37 AM EST Labs are in chart under the lab tab. [facility]01-03-2025 Telephone encounter Note* Telephone Encounter - Myranda Herrera - 09/23/2024 11:55 AM EST I did explain this to patient, she still insisted they be sent to [place]. Myranda Herrera [facility]01-03-2025 Telephone encounter Note* Telephone Encounter - Sandra Garcia PA-C - 09/23/2024 11:50 AM EST I am sorry she is aggravated about her appointments. Unfortunately, we have a 24 hour turn around time on our iron labs. She is more than welcome to get them done elsewhere, however, be advised, theydo not always send us results in an efficient manner. Sandra Garcia PA-C [facility]01-03-2025 Telephone encounter Note* Telephone Encounter - Myranda Herrera - 09/23/2024 11:17 AM EST Patient calls very aggravated about her upcoming appointments and she needs scheduled for Iron. Sheis scheduled for lab and follow up with Sandra on 10/10 and states she should have been due in August (however follow up instructions were given for September). She's feeling really run down and knows she will now need Iron. She states it's silly for her to drive a half hour just for labs and for Sandra to review and tell her she needs Iron. She would like all appointments on the same day. She requested her lab orders be faxed to [facility] - fax [phone]. Faxed lab orders September 23, 2024 11:27 AM She wants Sandra to review these results and then set her up for Iron if indicated. If Sandra wants to see me that's fine, but I'm not wasting an extra trip to come back for Iron . Sandra: Please watch for results - I will forward to Selena to obtain incase we do not receive - I noted our fax number to send. Will also need Iron orders placed and await for approval if so. Thanks! Myranda Herrera [facility]10-01-2024 Telephone encounter Note* Telephone Encounter - Justo Gambino RN - 06/21/2024 9:03 AM EDT Pt aware and agreeable to plan of care. Pt denies questions, needs or concerns at this time. Justo Gambino RN [facility]10-01-2024 Telephone encounter Note* Telephone Encounter - Justo Gambino RN - 06/21/2024 9:03 AM EDT ----- Message from Sandra Garcia PA-C sent at 06/21/2024 7:45 AM EDT ----- Please call with normal iron levels. No need for IV iron at this time. [facility]10-01-2024 Miscellaneous Notes* Telephone Encounter - Justo Gambino RN - 06/21/2024 9:03 AM EDT Pt aware and agreeable to plan of care. Pt denies questions, needs or concerns at this time. Justo Gambino RN * Telephone Encounter - Justo Gambino RN - 06/21/2024 9:03 AM EDT ----- Message from Sandra Garcia PA-C sent at 06/21/2024 7:45 AM EDT ----- Please call with normal iron levels. No need for IV iron at this time. documented in this encounterTr[facility]09-30-2024 Telephone encounter Note * Telephone Encounter - Myranda Herrera - 06/20/2024 10:39 AM EDT Patient did not want to schedule appointments when she was here today. She states she will call [facility] to schedule appts at her convenience. Myranda Herrera [facility]09-30-2024 Miscellaneous Notes* Telephone Encounter - Myranda Herrera - 06/20/2024 10:39 AM EDT Patient did not want to schedule appointments when she was here today. She states she will call [facility] to schedule appts at her convenience. Myranda Herrera documented in [facility]Tr[facility] History of Present illness Narrative* Sandra Garcia PA-C - 06/20/2024 10:30 AM EDT Date of Service: June 20, 2024 ((Elements copied from my note dated December 06 have been reviewed and updated where appropriate, andall reflect current assessment and medical decision making during today's encounter, June 20, 2024) CC: Follow up Diagnosis: Iron deficiency anemia B12 deficiency S/p bariatric surgery Treatment History: Last IV ferric carboxymaltose (Injectafer) given 08/14/2023 (had previous reaction to Monoferric and does not respond to venofer) IM B12 at home monthly HPI Ilsa returns for follow up after getting IV iron last month. She could tell she needed iron because of cramping in hips, sides and amira horses in her legs. She is feeling better now. No bleedingor new complaints. 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 Current Outpatient Medications Medication Sig cyanocobalamin 1,000 mcg/mL Inject 1 mL intramuscularly once every month. Syringe with Needle, Disp, (SYRINGE 3CC/21GX1 ) 3 mL 21 gauge x 1 syrg 1 Syringe once every month. No current facility-administered medications for this visit. ALLERGIES Allergen Reactions Codeine Hives Monoferric [Ferric * Other: See Comments Chest palpations with flushing, hot all over REVIEW OF SYSTEMS GENERAL: No weight loss, malaise or fevers., HEENT: Negative for frequent or significant headaches, No changes in hearing or vision, no nose bleeds or other nasal problems NECK: Negative for lumps, goiter, pain and significant neck swelling RESPIRATORY: Negative for cough, wheezing or shortness of breath. CARDIOVASCULAR: Negative for chest pain, leg swelling or palpitations. GI: Negative for abdominal discomfort, blood in stools or black stools or change in bowel habits MUSCULOSKELETAL: Negative for joint pain or swelling, back pain or muscle pain. SKIN: Negative for lesions, rash, and itching. PSYCH: Negative for sleep disturbance, mood disorder and recent psychosocial stressors. HEMATOLOGY/LYMPHOLOGY: Negative for prolonged bleeding, bruising easily or swollen nodes. NEURO: No history of headaches, syncope, paralysis, seizures or tremors All other reviewed and negative other than HPI. PHYSICAL EXAM: BP 138/84 Pulse 78 Temp 36.6 C (97.9 F) (Temporal) Resp 16 Wt (!) 147 kg (324 lb 1.2 oz) LMP 09/05/2022 SpO2 100% BMI 50.75 kg/m General: Alert and oriented, no distress, pleasant and cooperative. Heart: Regular, normal S1 and S2, no murmurs, rubs, or gallops Lungs: Clear to auscultation bilaterally Abdomen: Benign Extremities: Feet/ankles without edema, posterior tibial pulses full and symmetrical LAB: Hemoglobin (g/dL) Date Value 06/20/2024 12.7 05/21/2021 9.9 Hematocrit (%) Date Value 06/20/2024 38.3 05/21/2021 33.4 WBC (k/uL) Date Value 06/20/2024 6.39 05/21/2021 6.89 Platelet Count (k/uL) Date Value 06/20/2024 177 05/21/2021 241 ASSESSMENT/PLAN: 1. Iron deficiency anemia, unspecified iron deficiency anemia type - ICD9: 280.9, ICD10: D50.9 (primary diagnosis) She has a history of recurrrent iron deficiency anemia. She has an allergy to monoferric and does not respond to venofer. Last injectafer infusion was 05/26/2024. Symptoms improved and hemoglobin improved. Waiting for iron levels. If normal, will plan to see back in about 4 months with repeat labs. 2. History of bariatric surgery - ICD9: V45.86, ICD10: Z98.84 3. 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 B12 deficiency - ICD9: 281.1, ICD10: D53.1 Continue monthly B12 injections at home, refilled today Sandra Garcia PA-C CC: Brennon Woody, I spent a total of 20 minutes on the date of the service which included preparing to see the patient, [id number] patient care, completing clinical documentation, performing a medically appropriate examination, counseling and educating the patient/family/caregiver, ordering medications, tests, or p rocedures, independently interpreting results (not separately reported), communicating results to the patient/family/caregiver, and care coordination (not separately reported). documented in this encounterTr[facility] NoteHNO ID: [id number] Author: SANDRA GARCIA PA-C Service: ? Author Type: Physician Biotechnologist Type: Progress Notes Filed: 06/20/2024 10:45 Note Text: Date of Service: June 20, 2024 ((Elements copied from my note dated December 06 have been reviewed and updated where appropriate, and all reflect current assessment and medical decision making during today's encounter, June 20, 2024) CC: Follow up Diagnosis: Iron deficiency anemia B12 deficiency S/p bariatric surgery Treatment History: Last IV ferric carboxymaltose (Injectafer) given 08/14/2023 (had previous reaction to Monoferric and does not respond to venofer) IM B12 at home monthly HPI Ilsa returns for follow up after getting IV iron last month. She could tell she needed iron because of cramping in hips, sides and amira horses in her legs. She is feeling better now. No bleeding or new complaints. 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 Current Outpatient Medications Medication Sig cyanocobalamin 1,000 mcg/mL Inject 1 mL intramuscularly once every month. Syringe with Needle, Disp, (SYRINGE 3CC/21GX1 ) 3 mL 21 gauge x 1 syrg 1 Syringe once every month. No current facility-administered medications for this visit. ALLERGIES Allergen Reactions Codeine Hives Monoferric [Ferric * Other: See Comments Chest palpations with flushing, hot all over REVIEW OF SYSTEMS GENERAL: No weight loss, malaise or fevers., HEENT: Negative for frequent or significant headaches, No changes in hearing or vision, no nose bleeds or other nasal problems NECK: Negative for lumps, goiter, pain and significant neck swelling RESPIRATORY: Negative for cough, wheezing or shortness of breath. CARDIOVASCULAR: Negative for chest pain, leg swelling or palpitations. GI: Negative for abdominal discomfort, blood in stools or black stools or change in bowel habits MUSCULOSKELETAL: Negative for joint pain or swelling, back pain or muscle pain. SKIN: Negative for lesions, rash, and itching. PSYCH: Negative for sleep disturbance, mood disorder and recent psychosocial stressors. HEMATOLOGY/LYMPHOLOGY: Negative for prolonged bleeding, bruising easily or swollen nodes. NEURO: No history of headaches, syncope, paralysis, seizures or tremors All other reviewed and negative other than HPI. PHYSICAL EXAM: BP 138/84 Pulse 78 Temp 36.6 ?C (97.9 ?F) (Temporal) Resp 16 Wt (!) 147 kg (324 lb 1.2 oz) LMP 09/05/2022 SpO2 100% BMI 50.75 kg/m? General: Alert and oriented, no distress, pleasant and cooperative. Heart: Regular, normal S1 and S2, no murmurs, rubs, or gallops Lungs: Clear to auscultation bilaterally Abdomen: Benign Extremities: Feet/ankles without edema, posterior tibial pulses full and symmetrical LAB: Hemoglobin (g/dL) Date Value 06/20/2024 12.7 05/21/2021 9.9 Hematocrit (%) Date Value 06/20/2024 38.3 05/21/2021 33.4 WBC (k/uL) Date Value 06/20/2024 6.39 05/21/2021 6.89 Platelet Count (k/uL) Date Value 06/20/2024 177 05/21/2021 241 ASSESSMENT/PLAN: 1. Iron deficiency anemia, unspecified iron deficiency anemia type - ICD9: 280.9, ICD10: D50.9 (primary diagnosis) She has a history of recurrrent iron deficiency anemia. She has an allergy to monoferric and does not respond to venofer. Last injectafer infusion was 05/26/2024. Symptoms improved and hemoglobin improved. Waiting for iron levels. If normal, will plan to see back in about 4 months with repeat labs. 2. History of bariatric surgery - ICD9: V45.86, ICD10: Z98.84 3. 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 B12 deficiency - ICD9: 281.1, ICD10: D53.1 Continue monthly B12 injections at home, refilled today Sandra Garcia PA-C CC: Brennon Woody, I spent a total of 20 minutes on the date of the service which included preparing to see the patient, [id number] patient care, completing clinical documentation, performing a medically appropriate examination, counseling and educating the patient/family/caregiver, ordering medications, tests, or procedures, independently interpreting results (not separately reported), communicating results to the patient/family/caregiver, and care coordination (not separately reported).[facility]08-23-2024 Procedure note [facility]08-21-2024 Telephone encounter Note* Telephone Encounter - Myranda Herrera - 05/11/2024 1:53 PM EDT Patient called back and scheduled Injectafer 05/19 and 05/26 and her next follow up on 06/20. Appointment dates and times coordinated through her work schedule. Patient is all set, Thanks! Myranda Herrera [facility]08-21-2024 Miscellaneous Notes* Telephone Encounter - Myranda Herrera - 05/11/2024 1:53 PM EDT Patient called back and scheduled Injectafer 05/19 and 05/26 and her next follow up on 06/20. Appointment dates and times coordinated through her work schedule. Patient is all set, Thanks! Myranda Herrera * Telephone Encounter - Myranda Herrera - 05/11/2024 1:23 PM EDT Call placed to patient - got a loud ring noise and no one was there and call dropped x2. Will try patient at a later time. Myranda Herrera * Telephone Encounter - Sandra Garcia PA-C - 05/10/2024 11:29 AM EDT 6-8 weeks after she gets the iron Sandra Jackie Garcia PA-C * Telephone Encounter - Justo Gambino RN - 05/10/2024 11:13 AM EDT Pt aware and agreeable to Injectofer x 2 doses Pharm: please place orders MM: when would you like to repeat labs/follow up? PSS: Please call to schedule Justo Gambino RN * Telephone Encounter - Sandra Garcia PA-C - 05/10/2024 10:49 AM EDT Please call with low iron levels. She will benefit from iv iron if she approves. She is allergic tomonoferric and didn't respond to venofer in the past. She will need injectafer x 2. Please ask pharmacy to put the orders in because I cannot * Telephone Encounter - Justo Gambino, BERYL - 05/10/2024 9:44 AM EDT Sandra, please verify need for IV Iron and advise follow up. Pt will need IV Iron orders. Thank you, Justo * Telephone Encounter - Myranda Herrera - 05/09/2024 11:09 AM EDT Patient was scheduled for follow up and possible IV Iron with Sandra tomorrow. Patient came in todayto get her labs drawn and wanted to cancel her follow up appointment tomorrow and wait until her results come back to determine her next follow up and if she will need Iron. Cancelled appointment - Please advise future follow up when labs are resulted. Thanks! Myranda Herrera documented [facility]Tr[facility] Telephone encounter Note * Telephone Encounter - Myranda Herrera - 05/11/2024 1:23 PM EDT Call placed to patient - got a loud ring noise and no one was there and call dropped x2. Will try patient at a later time. Myranda Herrera [facility]08-20-2024 Telephone encounter Note* Telephone Encounter - Sandra Garcia PA-C - 05/10/2024 11:29 AM EDT 6-8 weeks after she gets the iron Sandra Garcia PA-C [facility]08-20-2024 Telephone encounter Note* Telephone Encounter - Justo Gambino RN - 05/10/2024 11:13 AM EDT Pt aware and agreeable to Injectofer x 2 doses Pharm: please place orders MM: when would you like to repeat labs/follow up? PSS: Please call to schedule Justo Gambino RN [facility]08-20-2024 Telephone encounter Note* Telephone Encounter - Sandra Garcia PA-C - 05/10/2024 10:49 AM EDT Please call with low iron levels. She will benefit from iv iron if she approves. She is allergic tomonoferric and didn't respond to venofer in the past. She will need injectafer x 2. Please ask pharmacy to put the orders in because I cannot [facility]08-20-2024 Telephone encounter Note* Telephone Encounter - Justo Gambino RN - 05/10/2024 9:44 AM EDT Sandra, please verify need for IV Iron and advise follow up. Pt will need IV Iron orders. Thank you, Justo [facility]08-19-2024 Telephone encounter Note* Telephone Encounter - Myranda Herrera - 05/09/2024 11:09 AM EDT Patient was scheduled for follow up and possible IV Iron with Sandra tomorrow. Patient came in todayto get her labs drawn and wanted to cancel her follow up appointment tomorrow and wait until her results come back to determine her next follow up and if she will need Iron. Cancelled appointment - Please advise future follow up when labs are resulted. Thanks! Myranda Herrera [facility]08-12-2024 Telephone encounter Note* Telephone Encounter - Josephine Amin MA - 05/02/2024 9:51 AM EDT Patient coming in Thursday05/09/24 for follow up labs. Please add lab orders. Thanks. Josephine Amin MA [facility]08-12-2024 Telephone encounter Note* Telephone Encounter - Josephine Amin MA - 05/02/2024 9:49 AM EDT Patient coming in Thursday05/09/24 for follow up treatment. Please add lab orders. Thanks. Josephine Amin MA [facility]05-07-2024 Telephone encounter Note* Telephone Encounter - Justo Gambino RN - 01/26/2024 12:22 PM EDT Pt informed of MM message and denies any questions, needs or concerns at this time. Appointment verified. Justo Gambino RN [facility]05-07-2024 Miscellaneous Notes* Telephone Encounter - Justo Gambino RN - 01/26/2024 12:22 PM EDT Pt informed of MM message and denies any questions, needs or concerns at this time. Appointment verified. Justo Gambino RN * Telephone Encounter - Justo Gambino RN - 01/26/2024 12:20 PM EDT ----- Message from Sandra Garcia PA-C sent at 01/26/2024 12:15 PM EDT ----- Please all with good iron levels documented in this encounterTr[facility]05-[facility]-2024 Telephone encounter Note * Telephone Encounter - Justo Gambino RN - 01/26/2024 12:20 PM EDT ----- Message from Sandra Garcia PA-C sent at 01/26/2024 12:15 PM EDT ----- Please all with good iron levels [facility]04-01-2024 Miscellaneous Notes* Telephone Encounter - Josephine Amin MA - 05/02/2024 9:51 AM EDT Patient coming in Thursday05/09/24 for follow up labs. Please add lab orders. Thanks. Josephine Amin MA documented in this encounterTr[facility]04-[facility]-2024 Miscellaneous Notes* Telephone Encounter - Josephine Amin MA - 05/02/2024 9:49 AM EDT Patient coming in Thursday05/09/24 for follow up treatment. Please add lab orders. Thanks. Josephine Amin MA documented in this encounterTr[facility]03-19-2024 Miscellaneous Notes* Telephone Encounter - Myranda Herrera - 12/08/2023 11:51 AM EDT Patient has been scheduled for Injectafer on 12/20 and 12/27 -- date preference per patient's schedule.Thanks! Myranda Herrera * Telephone Encounter - Justo Gambino RN - 12/08/2023 11:22 AM EDT Pt informed of need for IV Injectofer and is agreeable to poc. She will await scheduling to call for appts. She denies any questions, needs or concerns at this time. PSS: Please call to schedule Justo Gambino, RN * Telephone Encounter - Demetra Jean RPh - 12/08/2023 10:28 AM EDT Images from the original note were not included. Orders placed. Previous PT non-formulary approval on file: PSS: Please schedule accordingly for Injectafer Monty CabralesD, BCOP * Telephone Encounter - Sandra Garcia PA-C - 12/08/2023 7:46 AM EDT Please call and advise that her iron levels are low. I would recommend injectafer x 2. PHARM: She is allergic to monoferric and didn't respond to venofer in the past so pharmacy will have to get approval to use injectafer because I believe it is not on formulary. Please also place orders for me since I cannot put in injectafer. Sandra Garcia PA-C documented in this encounterTr[facility]03-18-[facility]24 History of Present illness Narrative* Sandra Garcia PA-C - 12/07/2023 9:30 AM EDT Date of Service: December 07, 2023 ((Elements copied from my note dated August 28 2023, have been reviewed and updated where appropriate, and all reflect current assessment and medical decision making during today's encounter, December 07, 2023) CC: Follow up Diagnosis: Iron deficiency anemia B12 deficiency S/p bariatric surgery Treatment History: Last IV ferric carboxymaltose (Injectafer) given 08/14/2023 (had previous reaction to Monoferric and does not respond to venofer) IM B12 at home monthly HPI Ilsa returns for 3 month follow up. She has felt well since her last iron infusions in 07/2024. Denies any significant fatigue, bleeding, restless legs, leg cramps or pica. Current Outpatient Medications Medication Sig cyanocobalamin 1,000 mcg/mL Inject 1 mL intramuscularly once every month. Syringe with Needle, Disp, (SYRINGE 3CC/21GX1 ) 3 mL 21 gauge x 1 syrg 1 Syringe once every month. No current facility-administered medications for this visit. ALLERGIES Allergen Reactions Codeine Hives Monoferric [Ferric * Other: See Comments Chest palpations with flushing, hot all over REVIEW OF SYSTEMS GENERAL: No weight loss, malaise or fevers., HEENT: Negative for frequent or significant headaches, No changes in hearing or vision, no nose bleeds or other nasal problems NECK: Negative for lumps, goiter, pain and significant neck swelling RESPIRATORY: Negative for cough, wheezing or shortness of breath. CARDIOVASCULAR: Negative for chest pain, leg swelling or palpitations. GI: Negative for abdominal discomfort, blood in stools or black stools or change in bowel habits MUSCULOSKELETAL: Negative for joint pain or swelling, back pain or muscle pain. SKIN: Negative for lesions, rash, and itching. PSYCH: Negative for sleep disturbance, mood disorder and recent psychosocial stressors. HEMATOLOGY/LYMPHOLOGY: Negative for prolonged bleeding, bruising easily or swollen nodes. NEURO: No history of headaches, syncope, paralysis, seizures or tremors All other reviewed and negative other than HPI. PHYSICAL EXAM: BP 153/80 Pulse 85 Temp 36.7 C (98 F) (Temporal) Resp 16 Ht 170.2 cm (5' 7.01 ) Wt (!) 145.2 kg (320 lb 1.7 oz) LMP 09/05/2022 SpO2 97% BMI 50.12 kg/m General: Alert and oriented, no distress, pleasant and cooperative. Heart: Regular, normal S1 and S2, no murmurs, rubs, or gallops Lungs: Clear to auscultation bilaterally Abdomen: Benign Extremities: Feet/ankles without edema, posterior tibial pulses full and symmetrical LAB: Hemoglobin (g/dL) Date Value 12/07/2023 11.9 05/21/2021 9.9 Hematocrit (%) Date Value 12/07/2023 36.5 05/21/2021 33.4 WBC (k/uL) Date Value 12/07/2023 5.53 05/21/2021 6.89 Platelet Count (k/uL) Date Value 12/07/2023 230 05/21/2021 241 ASSESSMENT/PLAN: 1. Iron deficiency anemia, unspecified iron deficiency anemia type - ICD9: 280.9, ICD10: D50.9 (primary diagnosis) She has a history of recurrrent iron deficiency anemia. She has an allergy to monoferric and does not respond to venofer. Her hemoglobin is stable today. Will await iron studies and give additional iron if needed. Otherwise, she will return end of January/early February for repeat labs and additional iron if needed. 2. History of bariatric surgery - ICD9: V45.86, ICD10: Z98.84 3. 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 B12 deficiency - ICD9: 281.1, ICD10: D53.1 Continue monthly B12 injections at home Sandra Garcia PA-C CC: Brennon Woody DO documented in this encounterTr[facility]12[facility] Evaluation note* Encounter Date Diagnosis Assessment Notes Treatment Notes Treatment Clinical Notes Aug, Pernicious anemia (ICD-10 - D51.0) Continue B12 injections monthly - malabsorption due to remote hx of bariatric surgery Aug, Elevated BP without diagnosis of hypertension (ICD-10 - R03.0) This patient is instructed to consume a healthy, low-fat, low-salt diet. They are also encouraged to continue exercise to achieve/maintain a normal BMI. Patient is instructed on home BP measurements: - rest for 5 minutes w/o talking- positioned w/ feet on floor and arm supported- average best 2/3 readings w/ goal < 135/85 Continue checking at home and update office w/ results Aug, Morbid (severe) obesity due to excess calories (ICD-10 - E66.01) This patient has been instructed on a low-fat, high-fiber diet. They are instructed to reduce calories, portion sizes and snacks. It is recommended that they exercise for 30 minutes, 3-5 times weekly. Continue to titrate Semiglutide monthly Aug, Body mass index [BMI] 50.0-59.9, adult (ICD-10 - Z68.43) [employer] Other [id number] Miscellaneous Notes* Telephone Encounter - Justo Gambino RN - 08/31/2023 9:28 AM EST Pt aware of MM message. She denies any questions, needs or concerns at this time. Justo Gambino RN * Telephone Encounter - Justo Gambino RN - 08/31/2023 9:28 AM EST ----- Message from Sandra Garcia PA-C sent at 08/31/2023 8:00 AM EST ----- Please call with normal iron levels documented in this encounterTr[facility]12-08-2023 History of Present illness Narrative* Sandra Garcia PA-C - 08/28/2023 8:42 AM EST Date of Service: 08/28/23 ((Elements copied from my note dated March 10, 2023, have been reviewed and updated where appropriate, and all reflect current assessment and medical decision making during today's encounter, 2022) CC Iron deficiency anemia B12 deficiency S/p bariatric surgery HPI Ilsa returns for follow up and repeat labs. Since her last visit in March 2023, she has required Injectafter x 2 doses 08/07/2023 and 08/14/2023. Her cramping has improved. She feels good today. Current Outpatient Medications Medication Sig cyanocobalamin 1,000 mcg/mL Inject 1 mL intramuscularly once every month. Syringe with Needle, Disp, (SYRINGE 3CC/21GX1 ) 3 mL 21 gauge x 1 syrg 1 Syringe once every month. No current facility-administered medications for this visit. ALLERGIES Allergen Reactions Codeine Hives Monoferric [Ferric * Other: See Comments Chest palpations with flushing, hot all over REVIEW OF SYSTEMS GENERAL: No weight loss, malaise or fevers., HEENT: Negative for frequent or significant headaches, No changes in hearing or vision, no nose bleeds or other nasal problems NECK: Negative for lumps, goiter, pain and significant neck swelling RESPIRATORY: Negative for cough, wheezing or shortness of breath. CARDIOVASCULAR: Negative for chest pain, leg swelling or palpitations. GI: Negative for abdominal discomfort, blood in stools or black stools or change in bowel habits MUSCULOSKELETAL: Negative for joint pain or swelling, back pain or muscle pain. SKIN: Negative for lesions, rash, and itching. PSYCH: Negative for sleep disturbance, mood disorder and recent psychosocial stressors. HEMATOLOGY/LYMPHOLOGY: Negative for prolonged bleeding, bruising easily or swollen nodes. NEURO: No history of headaches, syncope, paralysis, seizures or tremors All other reviewed and negative other than HPI. PHYSICAL EXAM: BP 153/92 Pulse 78 Temp 36.6 C (97.9 F) (Temporal) Resp 16 Ht 170.2 cm (5' 7.01 ) Wt (!) 148.1 kg (326 lb 9.6 oz) LMP 09/05/2022 SpO2 100% BMI 51.14 kg/m General: Alert and oriented, no distress, pleasant and cooperative. Heart: Regular, normal S1 and S2, no murmurs, rubs, or gallops Lungs: Clear to auscultation bilaterally Abdomen: Benign Extremities: Feet/ankles without edema, posterior tibial pulses full and symmetrical LAB: Hemoglobin (g/dL) Date Value 08/28/2023 11.9 05/21/2021 9.9 Hematocrit (%) Date Value 08/28/2023 37.0 05/21/2021 33.4 WBC (k/uL) Date Value 08/28/2023 4.87 05/21/2021 6.89 Platelet Count (k/uL) Date Value 08/28/2023 181 05/21/2021 241 ASSESSMENT/PLAN: 1. Iron deficiency anemia, unspecified iron deficiency anemia type - ICD9: 280.9, ICD10: D50.9 (primary diagnosis) She has a history of recurrrent iron deficiency anemia. She has an allergy to monoferric and does not respond to venofer. She required Injectafer x 2 doses about 2 weeks ago and her anemia has improved and her symptoms resolved. Follow up on iron levels. Return in 3 months for repeat labs and follow up. 2. History of bariatric surgery - ICD9: V45.86, ICD10: Z98.84 3. 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 B12 deficiency - ICD9: 281.1, ICD10: D53.1 Continue monthly B12 injections at home Sandra Garcia PA-C CC: Brennon Woody DO documented in this encounterTr[facility]-07-[facility]23 Miscellaneous Notes* Telephone Encounter - Myranda Herrera - 07/28/2023 1:18 PM EST Patient has been scheduled for 08/07 and 08/14 and notified. Thanks! Myranda Herrera * Telephone Encounter - Doris Amin RN - 07/28/2023 12:57 PM EST Please call and schedule the patient for 2 doses of injectafer preferably on Tuesday 08/07 and Tuesday 08/14 as we still need to get it authorized. Thanks Ketty Amin RN * Telephone Encounter - Demetra Jean RPh - 07/28/2023 12:25 PM EST Images from the original note were not included. Formulary exception request approved by Dr Jasen Disla via email 07/28/23. * Telephone Encounter - Demetra Jean RPh - 07/27/2023 4:32 PM EST Sent email to Dr Disla for a non formulary exception to be able to give the injectafer. Will notify of response. Thanks Yoan Jean, PharmD, BCOP * Telephone Encounter - Nara Bustamante RN - 07/27/2023 9:29 AM EST Pt notified and agrees with plan of injectafer. Pharmacy can you please place orders and send to MM for signature? PSS: Please call pt and schedule for Injectafer x 2 weekly doses. Thanks! Nara Bustamante RN * Telephone Encounter - Nara Bustamante RN - 07/27/2023 9:29 AM EST ----- Message from Sandra Garcia PA-C sent at 07/27/2023 8:05 AM EST ----- Please call and inform patient that she does need more IV iron. I believe we need to use injectaferfor her because she did not tolerate venofer. Please ask pharmacy to put in the orders because injectafer is not an option for me. Please have her see me the day of her first infusion. documented in this encounterTr[facility]09-26-2023 Evaluation note* Encounter Date Diagnosis Assessment Notes Treatment Notes Treatment Clinical Notes May, Morbid (severe) obesity due to excess calories (ICD-10 - E66.01) [facility] Other 09-21-2023 Evaluation note* Encounter Date Diagnosis Assessment Notes Treatment Notes Treatment Clinical Notes May, Wellness examination (ICD-10 - Z00.00) Healthy diet and exercise. Reviewed age-appropriate preventive testing recommended. May, Pernicious anemia (ICD-10 - D51.0) Continue B12 supplements May, Iron deficiency anemia secondary to inadequate dietary iron intake (ICD-10 - D50.8) Continue Fe infusions per Hematology May, Morbid (severe) obesity due to excess calories (ICD-10 - E66.01) This patient has been instructed on a low-fat, high-fiber diet. They are instructed to reduce calories, portion sizes and snacks. It is recommended that they exercise for 30 minutes, 3-5 times weekly. Discussed use of GLP-1 inhibitors and Adipex May, Body mass index [BMI] 50.0-59.9, adult (ICD-10 - Z68.43) May, Screening mammogram for breast cancer (ICD-10 - Z12.31) Instructed patient on monthly SBE and yearly mammograms. May, Screening for colon cancer (ICD-10 - Z12.11) Due for screening colonoscopy - last scope 5 years ago - mother w/ hx of CRC [facility] Other 09-21-2023 Evaluation note* Encounter Date Diagnosis Assessment Notes Treatment Notes Treatment Clinical Notes May, Morbid (severe) obesity due to excess calories (ICD-10 - E66.01) [facility] Other 06-21-2023 Miscellaneous Notes* Telephone Encounter - Justo Gambino RN - 03/11/2023 8:49 AM EDT Pt aware of MM message and denies any further questions, needs or concerns at this time. Justo Gambino RN * Telephone Encounter - Sandra Garcia PA-C - 03/11/2023 7:52 AM EDT Please call patient with improved iron levels. No need for additional IV iron at this time Sandra Garcia PA-C documented in this encounterTr[facility]06-20-2023 History of Present illness Narrative* Sandra Garcia PA-C - 03/10/2023 11:00 AM EDT Date of Service: 03/10/23 ((Elements copied from my note dated February 05, 2023, have been reviewed and updated where appropriate, and all reflect current assessment and medical decision making during today's encounter, March 10, 2023) CC Iron deficiency anemia B12 deficiency S/p bariatric surgery HPI Ilsa was able to receive 2 doses of injectafer. She feels much better. Her symptoms have resolved. Current Outpatient Medications Medication Sig cyanocobalamin 1,000 mcg/mL Inject 1 mL intramuscularly once every month. Syringe with Needle, Disp, (SYRINGE 3CC/21GX1 ) 3 mL 21 gauge x 1 syrg 1 Syringe once every month. No current facility-administered medications for this visit. ALLERGIES Allergen Reactions Codeine Hives Monoferric [Ferric * Other: See Comments Chest palpations with flushing, hot all over REVIEW OF SYSTEMS GENERAL: No weight loss, malaise or fevers., HEENT: Negative for frequent or significant headaches, No changes in hearing or vision, no nose bleeds or other nasal problems NECK: Negative for lumps, goiter, pain and significant neck swelling RESPIRATORY: Negative for cough, wheezing or shortness of breath. CARDIOVASCULAR: Negative for chest pain, leg swelling or palpitations. GI: Negative for abdominal discomfort, blood in stools or black stools or change in bowel habits MUSCULOSKELETAL: Negative for joint pain or swelling, back pain or muscle pain. SKIN: Negative for lesions, rash, and itching. PSYCH: Negative for sleep disturbance, mood disorder and recent psychosocial stressors. HEMATOLOGY/LYMPHOLOGY: Negative for prolonged bleeding, bruising easily or swollen nodes. NEURO: No history of headaches, syncope, paralysis, seizures or tremors All other reviewed and negative other than HPI. PHYSICAL EXAM: BP 163/84 Pulse 68 Temp 36.3 C (97.3 F) (Temporal) Resp 16 Ht 170.2 cm (5' 7.01 ) Wt (!) 148.6 kg (327 lb 9.6 oz) LMP 09/05/2022 SpO2 98% BMI 51.30 kg/m General: Alert and oriented, no distress, pleasant and cooperative. Heart: Regular, normal S1 and S2, no murmurs, rubs, or gallops Lungs: Clear to auscultation bilaterally Abdomen: Benign Extremities: Feet/ankles without edema, posterior tibial pulses full and symmetrical LAB: Hemoglobin (g/dL) Date Value 03/10/2023 11.6 05/21/2021 9.9 Hematocrit (%) Date Value 03/10/2023 37.6 05/21/2021 33.4 WBC (k/uL) Date Value 03/10/2023 4.03 05/21/2021 6.89 Platelet Count (k/uL) Date Value 03/10/2023 191 05/21/2021 241 ASSESSMENT/PLAN: 1. Iron deficiency anemia, unspecified iron deficiency anemia type - ICD9: 280.9, ICD10: D50.9 (primary diagnosis) She has a history of recurrrent iron deficiency anemia. She has an allergy to monoferric and does not respond to venofer. She recently had injectafer X 2 doses with a nice improvement in symptoms andhemoglobin. Will watch for her iron studies and give additional iron if needed. Otherwise she will return in 6 months for repeat labs. 2. History of bariatric surgery - ICD9: V45.86, ICD10: Z98.84 3. 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 B12 deficiency - ICD9: 281.1, ICD10: D53.1 Continue monthly B12 injections at home Sandra Garcia PA-C CC: Brennon Woody DO documented in this encounterTr[facility]05-02-2023 Miscellaneous Notes* Telephone Encounter - Myranda Herrera - 01/20/2023 2:22 PM EDT Patient has been scheduled per Marilyn Herrera * Telephone Encounter - Myranda Herrera - 01/13/2023 2:18 PM EDT Call placed to patient, no answer. Left message to call back to schedule for iron. Myranda Herrera * Telephone Encounter - Reese Meek MD - 01/09/2023 3:30 PM EDT 3 weeks * Telephone Encounter - Myranda Herrera - 01/09/2023 1:43 PM EDT How many doses would you like? Myranda Herrera * Telephone Encounter - Reese Meek MD - 01/09/2023 1:26 PM EDT Order placed * Telephone Encounter - Rosalinda Virk RN - 01/09/2023 10:19 AM EDT Informed pt of Dr Meek's message. Pt verbalized understanding and is agreeable to plan. PSS: Please schedule pt for Venofer. She is out of town until February 01. [facility]: Please place orders for after February 01. Rosalinda Virk RN * Telephone Encounter - Rosalinda Virk RN - 01/09/2023 8:46 AM EDT ----- Message from Mackenzie Tobin RN sent at 01/08/2023 2:25 PM EDT ----- ----- Message ----- From: Reese Meek MD Sent: 01/08/2023 7:45 AM EDT To: Mackenzie Tobin RN Please let her know that she needs Venofer. Let me know if she agrees and will place orders documented in this encounterTr[facility]01-03-2023 Miscellaneous Notes* Telephone Encounter - Rosalinda Virk RN - 09/23/2022 1:28 PM EST Informed pt of Dr Meek's message. Pt verbalized understanding and denies further needs at this time. Rosalinda Virk RN * Telephone Encounter - Rosalinda Virk RN - 09/23/2022 1:10 PM EST ----- Message from Mackenzie Tobin RN sent at 09/23/2022 1:08 PM EST ----- ----- Message ----- From: Reese Meek MD Sent: 09/20/2022 8:57 AM EST To: Mackenzie Tobin RN Please let know Iron levels are all good. documented in this encounterTr[facility]12-30-2022 History of Present illness Narrative* Reese Meek MD - 09/19/2022 10:15 AM EST CC Iron deficiency anemia B12 deficiency S/p bariatric surgery HPI Ilsa Fernandez is a 47 year old female who presents in follow up. Doing better after Iron infusions. Continue on her monthly B12 injections at home Current Outpatient Medications Medication Sig Syringe with Needle, Disp, (SYRINGE 3CC/21GX1 ) 3 mL 21 gauge x 1 syrg 1 Syringe once every month. cyanocobalamin 1,000 mcg/mL Inject 1 mL intramuscularly once every month. No current facility-administered medications for this visit. ALLERGIES Allergen Reactions Codeine Hives Monoferric [Ferric * Other: See Comments Chest palpations with flushing, hot all over REVIEW OF SYSTEMS GENERAL: No weight loss, malaise or fevers., SEE HPI HEENT: Negative for frequent or significant headaches, No changes in hearing or vision, no nose bleeds or other nasal problems NECK: Negative for lumps, goiter, pain and significant neck swelling RESPIRATORY: Negative for cough, wheezing or shortness of breath. CARDIOVASCULAR: Negative for chest pain, leg swelling or palpitations. GI: Negative for abdominal discomfort, blood in stools or black stools or change in bowel habits MUSCULOSKELETAL: Negative for joint pain or swelling, back pain or muscle pain. SKIN: Negative for lesions, rash, and itching. PSYCH: Negative for sleep disturbance, mood disorder and recent psychosocial stressors. HEMATOLOGY/LYMPHOLOGY: Negative for prolonged bleeding, bruising easily or swollen nodes. NEURO: No history of headaches, syncope, paralysis, seizures or tremors All other reviewed and negative other than HPI. PHYSICAL EXAM: BP 170/100 Pulse 73 Temp 36.3 C (97.3 F) Resp 16 Ht 173 cm (5' 8.11 ) Wt (!) 153 kg (337 lb 3.2 oz) LMP 09/05/2022 SpO2 98% BMI 51.11 kg/m General Appearance: alert and oriented, appearing in no acute distress Skin: skin color, texture, turgor normal, no suspicious rashes or lesions. Head: normal. Lungs: good air exchange overall Heart: RRR Abdomen: No obvious evidence of rebound tenderness or guarding Extremities: Extremities normal. No deformities, edema, or skin discoloration. Psychiatric: the patient has an appropriate affect Hemoglobin (g/dL) Date Value 09/19/2022 11.7 05/21/2021 9.9 Hematocrit (%) Date Value 09/19/2022 36.3 05/21/2021 33.4 WBC (k/uL) Date Value 09/19/2022 5.51 05/21/2021 6.89 Platelet Count (k/uL) Date Value 09/19/2022 193 05/21/2021 241 ASSESSMENT/PLAN: 1. Iron deficiency anemia, unspecified iron deficiency anemia type - ICD9: 280.9, ICD10: D50.9 (primary diagnosis) Improved after IV Iron infusion and repeat parameters in 4 months. 2. History of bariatric surgery - ICD9: V45.86, ICD10: Z98.84 3. 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 B12 deficiency - ICD9: 281.1, ICD10: D53.1 Continue monthly B12 injections at home Reese Meek MD CC: Brennon Woody, I spent a total of 15 minutes on the date of the service which included preparing to see the patient, [id number] patient care, completing clinical documentation, obtaining and/or reviewing separately obtained history, performing a medically appropriate examination and ordering medications, tests, or procedures. documented in this encounterTr[facility]12-16-2022 Miscellaneous Notes* Telephone Encounter - Izzy Rogers MA - 09/05/2022 11:14 AM EST Patient has an appt on 09/19/22. Would you like labs, if so place orders. Izzy Rogers MA documented in this encounterTrinity [facility]10-03-2022 Miscellaneous Notes* Telephone Encounter - Myranda Herrera - 06/23/2022 4:21 PM EDT Patient requested Injectafer be scheduled for the end of June. She is scheduled for 07/15 and 07/22. Myranda Herrera * Telephone Encounter - Justo Gambino RN - 06/23/2022 3:58 PM EDT Pt notified and agreeable to Injectofer x 2 per recommendation. MM: Please order PSS: please call pt and schedule. Justo Gambino RN * Telephone Encounter - Justo Gambino RN - 06/23/2022 3:57 PM EDT ----- Message from Sandra Garcia PA-C sent at 06/23/2022 11:47 AM EDT ----- Please call. Iron levels have improved, however, not completely normalized. She may benefit from additional Injectafer X 2 doses if she agrees. Sandra Garcia PA-C documented in this encounterTrinity [facility]09-30-2022 History of Present illness Narrative* Sandra Garcia PA-C - 06/20/2022 10:30 AM EDT (Elements copied from Dr. Meek's note dated February 04, 2022, have been reviewed and updated where appropriate, and all reflect current assessment and medical decision making during today's encounter, June 20, 2022) CC Iron deficiency anemia B12 deficiency S/p bariatric surgery HPI Ilsa returns for follow up after receiving Injectafer x 2 in April 2022. She has noticed improvement in her ankle swelling and maybe her fatigue is better. She denies any bleeding. She does continue her B12 injections at home as well. Current Outpatient Medications Medication Sig Syringe with Needle, Disp, (SYRINGE 3CC/21GX1 ) 3 mL 21 gauge x 1 syrg 1 Syringe once every month. cyanocobalamin 1,000 mcg/mL Inject 1 mL intramuscularly once every month. No current facility-administered medications for this visit. ALLERGIES Allergen Reactions Codeine Hives Monoferric [Ferric * Other: See Comments Chest palpations with flushing, hot all over REVIEW OF SYSTEMS GENERAL: No weight loss, malaise or fevers., SEE HPI HEENT: Negative for frequent or significant headaches, No changes in hearing or vision, no nose bleeds or other nasal problems NECK: Negative for lumps, goiter, pain and significant neck swelling RESPIRATORY: Negative for cough, wheezing or shortness of breath. CARDIOVASCULAR: Negative for chest pain, leg swelling or palpitations. GI: Negative for abdominal discomfort, blood in stools or black stools or change in bowel habits MUSCULOSKELETAL: Negative for joint pain or swelling, back pain or muscle pain. SKIN: Negative for lesions, rash, and itching. PSYCH: Negative for sleep disturbance, mood disorder and recent psychosocial stressors. HEMATOLOGY/LYMPHOLOGY: Negative for prolonged bleeding, bruising easily or swollen nodes. NEURO: No history of headaches, syncope, paralysis, seizures or tremors All other reviewed and negative other than HPI. PHYSICAL EXAM: BP 177/96 Pulse 86 Temp 36.8 C (98.2 F) (Temporal) Resp 16 Ht 173 cm (5' 8.11 ) Wt (!) 150.6 kg (332 lb) LMP 11/19/2020 SpO2 98% BMI 50.32 kg/m General: Alert and oriented, no distress, pleasant and cooperative. Heart: Regular, normal S1 and S2, no murmurs, rubs, or gallops Lungs: Clear to auscultation bilaterally Abdomen: Benign Extremities: Feet/ankles without edema, posterior tibial pulses full and symmetrical Hemoglobin (g/dL) Date Value 06/20/2022 10.0 05/21/2021 9.9 Hematocrit (%) Date Value 06/20/2022 31.4 05/21/2021 33.4 WBC (k/uL) Date Value 06/20/2022 5.33 05/21/2021 6.89 Platelet Count (k/uL) Date Value 06/20/2022 216 05/21/2021 241 ASSESSMENT/PLAN: 1. Iron deficiency anemia, unspecified iron deficiency anemia type - ICD9: 280.9, ICD10: D50.9 (primary diagnosis) Hemoglobin improving after injectefer. She didn't seem to respond well to venofer. At this time we will await her iron stores and if necessary give additional injecter. Will plan to see her back in 3months for follow up and repeat labs. 2. History of bariatric surgery - ICD9: V45.86, ICD10: Z98.84 3. 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 B12 deficiency - ICD9: 281.1, ICD10: D53.1 Continue monthly B12 injections at home Sandra Garcia PA-C CC: Brennon Woody DO documented in this encounterTr[facility]09-14-2022 Miscellaneous Notes* Telephone Encounter - Izzy Rogers MA - 06/04/2022 12:56 PM EDT Patient has an appt on 06/20/22. If labs are needed please place orders. Izzy Rogers MA documented in this encounterTrinity [facility]07-22-2022 Miscellaneous Notes* Telephone Encounter - Marilyn Orosco - 04/11/2022 11:49 AM EDT Scheduled for 2 injectafers q week. Follow up scheduled 6 weeks after last injectafer * Telephone Encounter - Filomena Telles RPh - 04/11/2022 9:52 AM EDT Injectafer orders in and approved for non-formulary use. Will submit PA once she gets scheduled. Thanks, Filomena Telles RPh * Telephone Encounter - Reese Meek MD - 04/10/2022 4:26 PM EDT agree * Telephone Encounter - Sandra Garcia PA-C - 04/10/2022 3:32 PM EDT 6 weeks following injectafer would be a good time to see her Sandra Garcia PA-C * Telephone Encounter - Marilyn Correia Sec - 04/10/2022 1:52 PM EDT I will call Ilsa to schedule her for injectafer. When should she be scheduled for a follow up? Her last appt with A[facility] was on 02-04-22. Her appt with Jessy on 04-02-22 was canceled by the patient. Please advise. Thank you * Telephone Encounter - Sandra Garcia PA-C - 04/10/2022 12:[address] Meek would like to try Injectafer since she doesn't seem to respond well or long enough to venofer and she is allergic to monoferric. Can you add the injectafer regimen and see if itcan get approved? PSS: please call and schedule for IV iron Triage: please inform patient of need for additional IV iron Sandra Garcia PA-C * Telephone Encounter - Reese Meek MD - 04/10/2022 8:20 AM EDT Yes, if we can * Telephone Encounter - Sandra Garcia PA-C - 04/10/2022 8:12 AM EDT Patient had allergic reaction to monoferic--chest palpitations and flushing. Do you want Injectaferpossibly or a different iron formulation? Sandra Garcia PA-C * Telephone Encounter - Sandra Garcia PA-C - 04/10/2022 8:12 AM EDT ----- Message from Reese Meek MD sent at 04/09/2022 7:02 PM EDT ----- Do you think that we can give her monoferric instead. That would be great if we can documented in this encounterTrinity [facility]06-07-2022 History of Present illness Narrative* China Miller RN - 02/25/2022 9:45 AM EDT . documented in this encounterTrinity Health [facility]05-24-2022 Miscellaneous Notes* Telephone Encounter - Jessy Baez APRN.CNP - 02/11/2022 10:22 AM EDT The following approved medication requests have been transmitted electronically. Signed Prescriptions Disp Refills Syringe with Needle, Disp, (SYRINGE 3CC/21GX1 ) 3 mL 21 gauge x 1 syrg 12 Each 0 Si Syringe once every month. ALVARO: No Authorizing Provider: JESSY BAEZ cyanocobalamin 1,000 mcg/mL 12 Each 0 Sig: Inject 1 mL intramuscularly once every month. ALVARO: No Authorizing Provider: JESSY BAEZ APRN.CONSTRUCTION REPRESENTATIVE * Telephone Encounter - Keri Townsend RN - 02/11/2022 10:18 AM EDT Patient has requested a refill of B12. Rx are pended to be filled at [facility] per patient Keri Townsend RN documented in this encounterTrinity [facility]05-17-2022 History of Present illness Narrative* Reese Meek MD - 02/04/2022 10:17 AM EDT CC Iron deficiency anemia B12 deficiency S/p bariatric surgery HPI Ilsa Fernandez is a 47 year old female who presents in follow up. She states that her fatigue is somewhat improved although states he is still tired. Denies any melena or hematochezia. Continue on her monthly B12 injections at home Current Outpatient Medications Medication Sig Syringe with Needle, Disp, (SYRINGE 3CC/21GX1 ) 3 mL 21 gauge x 1 syrg 1 Syringe once every month. cyanocobalamin 1,000 mcg/mL Inject 1 mL intramuscularly once every month. No current facility-administered medications for this visit. ALLERGIES Allergen Reactions Codeine Hives Monoferric [Ferric * Other: See Comments Chest palpations with flushing, hot all over REVIEW OF SYSTEMS GENERAL: No weight loss, malaise or fevers., SEE HPI HEENT: Negative for frequent or significant headaches, No changes in hearing or vision, no nose bleeds or other nasal problems NECK: Negative for lumps, goiter, pain and significant neck swelling RESPIRATORY: Negative for cough, wheezing or shortness of breath. CARDIOVASCULAR: Negative for chest pain, leg swelling or palpitations. GI: Negative for abdominal discomfort, blood in stools or black stools or change in bowel habits MUSCULOSKELETAL: Negative for joint pain or swelling, back pain or muscle pain. SKIN: Negative for lesions, rash, and itching. PSYCH: Negative for sleep disturbance, mood disorder and recent psychosocial stressors. HEMATOLOGY/LYMPHOLOGY: Negative for prolonged bleeding, bruising easily or swollen nodes. NEURO: No history of headaches, syncope, paralysis, seizures or tremors All other reviewed and negative other than HPI. PHYSICAL EXAM: BP 180/83 Pulse 79 Temp 36.6 C (97.8 F) (Temporal) Resp 20 Ht 173 cm (5' 8.11 ) Wt (!) 152.5 kg (336 lb 3.2 oz) LMP 11/19/2020 SpO2 100% BMI 50.95 kg/m General Appearance: alert and oriented, appearing in no acute distress Skin: skin color, texture, turgor normal, no suspicious rashes or lesions. Head: normal. Lungs: good air exchange overall Heart: RRR Abdomen: No obvious evidence of rebound tenderness or guarding Extremities: Extremities normal. No deformities, edema, or skin discoloration. Psychiatric: the patient has an appropriate affect Hemoglobin (g/dL) Date Value 02/04/2022 8.3 05/21/2021 9.9 Hematocrit (%) Date Value 02/04/2022 28.9 05/21/2021 33.4 WBC (k/uL) Date Value 02/04/2022 6.67 05/21/2021 6.89 Platelet Count (k/uL) Date Value 02/04/2022 252 05/21/2021 241 ASSESSMENT/PLAN: 1. Iron deficiency anemia, unspecified iron deficiency anemia type - ICD9: 280.9, ICD10: D50.9 (primary diagnosis) Continues to demonstrate microcytosis and a hemoglobin of 8.3 although slightly improved. She will need additional Venofer. We will schedule for 4 more infusion in addition to what she had received before. 2. History of bariatric surgery - ICD9: V45.86, ICD10: Z98.84 3. 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 B12 deficiency - ICD9: 281.1, ICD10: D53.1 Continue monthly B12 injections at home Reese Meek MD CC: Brennon Woody DO I spent a total of 15 minutes on the date of the service which included preparing to see the patient, [id number] patient care, completing clinical documentation, obtaining and/or reviewing separately obtained history, performing a medically appropriate examination and ordering medications, tests, or procedures. documented in this encounterTrinity Health [facility]04-04-2022 History of Present illness Narrative* China Miller RN - 12/23/2021 9:39 AM EDT . documented in this encounterTrinity [facility]02-01-2018 History general Narrative - Reported* Type Description Date Medical History B12 deficiency Medical History Fe deficiency Surgical History Bariatric surgery Surgical History EGD 10/2017 Surgical History Colonoscopy, polypectomy 10/2017 Surgical History Surgical History Tubal ligation Surgical History Ovarian cystectomy Surgical History [facility] History see surgical history [place] [employer] Other Evaluation note* Diagnosis Iron deficiency anemia, unspecified iron deficiency anemia type- Primary History of bariatric surgery Bariatric surgery status documented in this encounter [facility] note* Diagnosis Iron deficiency anemia, unspecified iron deficiency anemia type- Primary History of bariatric surgery Bariatric surgery status documented in this encounter [facility] note* Diagnosis Iron deficiency anemia, unspecified iron deficiency anemia type- Primary History of bariatric surgery Bariatric surgery status documented in this encounter [facility] note* Diagnosis Iron deficiency anemia, unspecified iron deficiency anemia type- Primary documented in this encounter [facility] note* Diagnosis Iron deficiency anemia, unspecified iron deficiency anemia type- Primary History of bariatric surgery Bariatric surgery status documented in this encounter [facility] note* Diagnosis Iron deficiency anemia, unspecified iron deficiency anemia type History of bariatric surgery Bariatric surgery status documented in this encounter [facility] note* Diagnosis Iron deficiency anemia, unspecified iron deficiency anemia type- Primary History of bariatric surgery Bariatric surgery status 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 B12 deficiency Other vitamin B12 deficiency anemia documented in this encounter [facility] note* Diagnosis Iron deficiency anemia, unspecified iron deficiency anemia type- Primary documented in this encounter [facility] note* Diagnosis Iron deficiency anemia, unspecified iron deficiency anemia type- Primary documented in this encounter [facility] note* Diagnosis Iron deficiency anemia, unspecified iron deficiency anemia type History of bariatric surgery Bariatric surgery status documented in this encounter [facility] noteNo [employer] Other Evaluation note* Diagnosis Iron deficiency anemia, unspecified iron deficiency anemia type- Primary History of bariatric surgery Bariatric surgery status documented in this encounter [facility] note* Diagnosis Iron deficiency anemia, unspecified iron deficiency anemia type- Primary History of bariatric surgery Bariatric surgery status documented in this encounter [facility] note* Diagnosis Iron deficiency anemia, unspecified iron deficiency anemia type- Primary History of bariatric surgery Bariatric surgery status 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 B12 deficiency Other vitamin B12 deficiency anemia [facility]* Diagnosis Iron deficiency anemia, unspecified iron deficiency anemia type History of bariatric surgery Bariatric surgery status [facility]* Diagnosis Iron deficiency anemia, unspecified iron deficiency anemia type- Primary History of bariatric surgery Bariatric surgery status [facility]* Diagnosis Iron deficiency anemia, unspecified iron deficiency anemia type- Primary [facility] noteNo assessment information availableSelect [facility] Work Phone: Evaluation note* Diagnosis History of bariatric surgery- Primary Bariatric surgery status Iron deficiency anemia, unspecified iron deficiency anemia type documented in this encounter [facility] note* Diagnosis History of bariatric surgery- Primary Bariatric surgery status Iron deficiency anemia, unspecified iron deficiency anemia type documented in this encounter [facility] note* Diagnosis Iron deficiency anemia, unspecified iron deficiency anemia type History of bariatric surgery Bariatric surgery status [facility]* Diagnosis Iron deficiency anemia, unspecified iron deficiency anemia type- Primary History of bariatric surgery Bariatric surgery status 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 B12 deficiency Other vitamin B12 deficiency anemia documented in this encounter [facility] note* Diagnosis History of bariatric surgery- Primary Bariatric surgery status Iron deficiency anemia, unspecified iron deficiency anemia type [facility]* Diagnosis Iron deficiency anemia, unspecified iron deficiency anemia type- Primary History of bariatric surgery Bariatric surgery status 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 B12 deficiency Other vitamin B12 deficiency anemia [facility]* Diagnosis History of bariatric surgery- Primary Bariatric surgery status Iron deficiency anemia, unspecified iron deficiency anemia type documented in this encounter [facility] note* Diagnosis History of bariatric surgery- Primary Bariatric surgery status Iron deficiency anemia, unspecified iron deficiency anemia type [facility] Author Teresa Burks [facility] May 13, 2024 8:45am Note Date/Time May 13, 2024 8: 15am [facility] [address] [place] [address] Gastroenterology H&P Signed Patient: Ilsa Fernandez MR#: [id number] : 1975 Acct:[id number] Age/Sex: 49 / F Adm Date: 4 Loc: Room: Type: [facility] Attending Dr: Teresa Burks MD Copies to: DO Teresa Ruiz MD~ Date of Service: 05/13/2024 HISTORY & PHYSICAL: Patient's history with special attention to the cardiovascular, pulmonary systems and the current problem was reviewed with the patient immediately prior to the procedure. Present medications and doses reviewed in the EMR. Allergies and pertinent laboratory tests were also reviewedat this time in the EMR. The physical examination, as below, was then performed. Indication, assessment and HPI: 49-year-old female with history of colonic polyps and family history of colon cancer(mother) here for surveillance colonoscopy Family history of GI malignancy? Yes PHYSICAL EXAMINATION General appearance: NAD Skin: No jaundice Head: NC/AT Eyes: Anicteric Neck: Supple Lungs: Normal respiratory effort, no use of accessory muscles Abdomen: nondistended Neuro: Ox3. REVIEW OF SYSTEMS Constitutional: Denies malaise, fevers Cardiovascular: Denies chest pain, palpitations Respiratory: Denies shortness of breath, wheezing Gastrointestinal: As per HPI Genitourinary: Denies dysuria, polyuria Musculoskeletal: Denies joint swelling, joint stiffness Neurological: Denies confusion, numbness, tingling Endocrine: Denies fatigue Written informed consent obtained from the patient. Risks (including but not limited to perforation, infection, bloating, bleeding, need for emergent surgeryand loss of life), benefits and alternatives explained and questions answered. The patient verbalized understanding. Based on history patient is an appropriate candidate for the procedure. Teresa Burks M.D. Documented By: Teresa Burks MD 05/13/2414 Signed By: <Electronically signed by Teresa Burks MD> 05/13/24 0845 [facility] Work Phone: [employer] for referral (narrative)No reason for referral information availableKing[facility] [place] Work Phone: Reason for visit Narrative* Fay Prior Authorization (Routine) - Pending Review Specialty Diagnoses / Procedures Referred By Contac t Referred To Contact Diagnoses History of bariatric surgery Iron deficiency anemia, unspecified iron deficiency anemia type Procedures INJ FERRIC CARBOXYMALTOS 1MG Sandra Garcia PA-C [address] [place] [address] [place] [address] Phone: tel: fax: Sandra Garcia PA-C [address] [place] [address] [place] [address] Phone: tel: fax: Referral ID Status Reason Start Date Expiration Date V isits Requested Visits Authorized [id number] Pending Review 02/13/2025 09/20/2025 0 99 [facility]* Fay Prior Authorization (Routine) - Authorized Specialty Diagnoses / Procedures Referred By Contac t Referred To Contact Diagnoses History of bariatric surgery Iron deficiency anemia, unspecified iron deficiency anemia type Procedures INJ FERRIC CARBOXYMALTOS 1MG Sandra Garcia PA-C [address] [place] [address] [place] [address] Phone: tel: fax: Sandra Garcia PA-C [address] [place] [address] [place] [address] Phone: tel: fax: Referral ID Status Reason Start Date Expiration Date V [employer] Requested Visits Authorized [id number] Authorized 02/13/2025 09/20/2025 0 99 [facility] Medications Administered Section Inactive Administered Medications - up to 3 most recent administrations Medication Order MAR Action Action Date Dose Rate Site acetaminophen 650 mg tab(s) (TYLENOL) 650 mg, ORAL, ONCE, 1 dose, On Thu12/16/21 at 0930, Give 30 minutes prior to infusion. No more than 4000 mg of acetaminophen should be given per day (FROM ALL SOURCES), If ordered PRN for pain, patient/guardian may elect to receive this medication for higher pain levels if preferred: N/A Given 12/16/2021 9:35 AM EDT 650 mg diphenhydrAMINE 50 mg (BENADRYL) 50 mg, ORAL, ONCE, 1 dose, On Thu12/16/21 at 0930, Give 30 minutes prior to infusion. Given 12/16/2021 9:35 AM EDT 50 mg iron sucrose 200 mg in NaCl 0.9% 100 mL (VENOFER) 200 mg, INTRAVENOUS, at 400 mL/hr, Administer over 15 Minutes, ONCE, 1 dose, On Thu12/16/21 at 0930, Please conduct a 30 minute post dose observation. TV 120 mL New Bag/Syringe/Bottle 12/16/2021 10:00 AM EDT 200 mg 400 mL/hr methylPREDNISolone sod succinate(PF) 100 mg injection (SOLU-Medrol) 100 mg, INTRAVENOUS, ONCE, 1 dose, On Thu12/16/21 at 0930, Give prior to chemotherapy. Given 12/16/2021 9:35 AM EDT 100 mg Inactive Administered Medications - up to 3 most recent administrations Medication Order MAR Action Action Date Dose Rate Site iron sucrose 200 mg in NaCl 0.9% 100 mL (VENOFER) 200 mg, INTRAVENOUS, at 400 mL/hr, Administer over 15 Minutes, ONCE, 1 dose, On Thu12/23/21 at 1000, Please conduct a 30 minute post dose observation. TV 120 mL New Bag/Syringe/Bottle 12/23/2021 10:00 AM EDT 200 mg 400 mL/hr methylPREDNISolone sod succinate(PF) 100 mg injection (SOLU-Medrol) 100 mg, INTRAVENOUS, ONCE, 1 dose, On Thu12/23/21 at 1000, Give prior to chemotherapy. Given 12/23/2021 9:39 AM EDT 100 mg Inactive Administered Medications - up to 3 most recent administrations Medication Order MAR Action Action Date Dose Rate Site acetaminophen 650 mg tab(s) (TYLENOL) 650 mg, ORAL, ONCE, 1 dose, On Thu12/30/21 at 0930, Give 30 minutes prior to infusion. No more than 4000 mg of acetaminophen should be given per day (FROM ALL SOURCES), If ordered PRN for pain, patient/guardian may elect to receive this medication for higher pain levels INSTEAD of the opioid, if preferred: N/A Given 12/30/2021 9:38 AM EDT 650 mg diphenhydrAMINE 50 mg (BENADRYL) 50 mg, ORAL, ONCE, 1 dose, On Thu12/30/21 at 0930, Give 30 minutes prior to infusion. Given 12/30/2021 9:38 AM EDT 50 mg iron sucrose 200 mg in NaCl 0.9% 100 mL (VENOFER) 200 mg, INTRAVENOUS, at 400 mL/hr, Administer over 15 Minutes, ONCE, 1 dose, On Thu12/30/21 at 0930, Please conduct a 30 minute post dose observation. TV 120 mL New Bag/Syringe/Bottle 12/30/2021 10:05 AM EDT 200 mg 400 mL/hr methylPREDNISolone sod succinate(PF) 100 mg injection (SOLU-Medrol) 100 mg, INTRAVENOUS, ONCE, 1 dose, On Thu12/30/21 at 0930, Give prior to chemotherapy. Given 12/30/2021 9:40 AM EDT 100 mg Inactive Administered Medications - up to 3 most recent administrations Medication Order MAR Action Action Date Dose Rate Site acetaminophen 650 mg tab(s) (TYLENOL) 650 mg, ORAL, ONCE, 1 dose, On Thu02/04/22 at 1100, Give 30 minutes prior to infusion. No more than 4000 mg of acetaminophen should be given per day (FROM ALL SOURCES), If ordered PRN for pain, patient/guardian may elect to receive this medication for higher pain levels INSTEAD of the opioid, if preferred: N/A Given 02/04/2022 10:49 AM EDT 650 mg diphenhydrAMINE 50 mg (BENADRYL) 50 mg, ORAL, ONCE, 1 dose, On Thu02/04/22 at 1100, Give 30 minutes prior to infusion. Given 02/04/2022 10:50 AM EDT 50 mg iron sucrose 200 mg in NaCl 0.9% 100 mL (VENOFER) 200 mg, INTRAVENOUS, at 440 mL/hr, Administer over 15 Minutes, ONCE, 1 dose, On Thu02/04/22 at 1130, Please conduct a 30 minute post dose observation. New Bag/Syringe/Bottle 02/04/2022 11:19 AM EDT 200 mg 440 mL/hr methylPREDNISolone sod succinate(PF) 100 mg injection (SOLU-Medrol) 100 mg, INTRAVENOUS, ONCE, 1 dose, On Thu02/04/22 at 1100, Give prior to chemotherapy. Given 02/04/2022 11:05 AM EDT 100 mg Inactive Administered Medications - up to 3 most recent administrations Medication Order MAR Action Action Date Dose Rate Site iron sucrose 200 mg in NaCl 0.9% 100 mL (VENOFER) 200 mg, INTRAVENOUS, at 400 mL/hr, Administer over 15 Minutes, ONCE, 1 dose, On Thu02/11/22 at 1000, Please conduct a 30 minute post dose observation. New Bag/Syringe/Bottle 02/11/2022 10:11 AM EDT 200 mg 400 mL/hr methylPREDNISolone sod succinate(PF) 100 mg injection (SOLU-Medrol) 100 mg, INTRAVENOUS, ONCE, 1 dose, On Thu02/11/22 at 1000, Give prior to chemotherapy. Given 02/11/2022 9:56 AM EDT 100 mg Inactive Administered Medications - up to 3 most recent administrations Medication Order MAR Action Action Date Dose Rate Site iron sucrose 200 mg in NaCl 0.9% 100 mL (VENOFER) 200 mg, INTRAVENOUS, at 400 mL/hr, Administer over 15 Minutes, ONCE, 1 dose, On Thu02/18/22 at 0900, Please conduct a 30 minute post dose observation. New Bag/Syringe/Bottle 02/18/2022 9:19 AM EDT 200 mg 400 mL/hr methylPREDNISolone sod succinate(PF) 100 mg injection (SOLU-Medrol) 100 mg, INTRAVENOUS, ONCE, 1 dose, On Thu02/18/22 at 0900, Give prior to chemotherapy. Given 02/18/2022 9:03 AM EDT 100 mg Inactive Administered Medications - up to 3 most recent administrations Medication Order MAR Action Action Date Dose Rate Site iron sucrose 200 mg in NaCl 0.9% 100 mL (VENOFER) 200 mg, INTRAVENOUS, at 440 mL/hr, Administer over 15 Minutes, ONCE, 1 dose, On Thu02/25/22 at 0930, Please conduct a 30 minute post dose observation. Appr. Total volume: 120 mL New Bag/Syringe/Bottle 02/25/2022 10:00 AM EDT 200 mg 440 mL/hr methylPREDNISolone sod succinate(PF) 100 mg injection (SOLU-Medrol) 100 mg, INTRAVENOUS, ONCE, 1 dose, On Thu02/25/22 at 0930, Give prior to chemotherapy. Given 02/25/2022 9:45 AM EDT 100 mg Inactive Administered Medications - up to 3 most recent administrations Medication Order MAR Action Action Date Dose Rate Site ferric carboxymaltose 750 mg in NaCl 0.9% 250 mL (INJECTAFER) 750 mg (set by rule on 04/10/2022 1:19 PM), INTRAVENOUS, Administer over 30 Minutes, ONCE, 1 dose, On Thu05/14/22 at 1030, Approx Total Volume: 290 mL Maximum dose is 750 mg EXP: 05/16/22 1030 Room Temp New Bag/Syringe/Bottle 05/14/2022 10:57 AM EDT 750 mg Inactive Administered Medications - up to 3 most recent administrations Medication Order MAR Action Action Date Dose Rate Site ferric carboxymaltose 750 mg in NaCl 0.9% 250 mL (INJECTAFER) 750 mg (set by rule on 04/10/2022 1:19 PM), INTRAVENOUS, Administer over 30 Minutes, ONCE, 1 dose, On Thu05/21/22 at 1030, Approx Total Volume: 290 mL Maximum dose is 750 mg New Bag/Syringe/Bottle 05/21/2022 10:32 AM EDT 750 mg Inactive Administered Medications - up to 3 most recent administrations Medication Order MAR Action Action Date Dose Rate Site ferric carboxymaltose 750 mg in NaCl 0.9% 250 mL (INJECTAFER) 750 mg (set by rule on 06/23/2022 11:46 AM), INTRAVENOUS, Administer over 30 Minutes, ONCE, 1 dose, On Thu07/15/22 at 1130, Approx Total Volume: 290 mL Maximum dose is 750 mg EXP: 07/17/2022@1130 Room Temp New Bag/Syringe/Bottle 07/15/2022 11:28 AM EDT 750 mg Inactive Administered Medications - up to 3 most recent administrations Medication Order MAR Action Action Date Dose Rate Site ferric carboxymaltose 750 mg in NaCl 0.9% 250 mL (INJECTAFER) 750 mg (set by rule on 06/23/2022 11:46 AM), INTRAVENOUS, Administer over 30 Minutes, ONCE, 1 dose, On Thu07/22/22 at 1100, Approx Total Volume: 290 mL Maximum dose is 750 mg New Bag/Syringe/Bottle 07/22/2022 11:11 AM EDT 750 mg Inactive Administered Medications - up to 3 most recent administrations Medication Order MAR Action Action Date Dose Rate Site ferric carboxymaltose 750 mg in NaCl 0.9% 250 mL (INJECTAFER) 750 mg (set by rule on 02/05/2023 3:38 PM), INTRAVENOUS, Administer over 30 Minutes, ONCE, 1 dose, On Thu02/19/23 at 0930, Approx Total Volume: 290 mL Maximum dose is 750 mg New Bag/Syringe/Bottle 02/19/2023 9:45 AM EDT 750 mg Inactive Administered Medications - up to 3 most recent administrations Medication Order MAR Action Action Date Dose Rate Site ferric carboxymaltose 750 mg in NaCl 0.9% 250 mL (INJECTAFER) 750 mg (set by rule on 07/27/2023 12:47 PM), INTRAVENOUS, Administer over 30 Minutes, ONCE, 1 dose, On Thu08/07/23 at 1100, Approx Total Volume: 290 mL Maximum dose is 750 mg New Bag/Syringe/Bottle 08/07/2023 10:44 AM EST 750 mg Inactive Administered Medications - up to 3 most recent administrations Medication Order MAR Action Action Date Dose Rate Site ferric carboxymaltose 750 mg in NaCl 0.9% 250 mL (INJECTAFER) 750 mg (set by rule on 07/27/2023 12:47 PM), INTRAVENOUS, Administer over 30 Minutes, ONCE, 1 dose, On Thu08/14/23 at 0900, Approx Total Volume: 290 mL Maximum dose is 750 mg EXP: 08/14/23 1700 New Bag/Syringe/Bottle 08/14/2023 9:18 AM EST 750 mg Summary Purpose Family History Relationship Condition Age at Onset Recorded Date/T humera father Diabetes mellitus Unknown mother Unknown Malignant neoplasm Unknown Malignant neoplasm of colon Unknown Advance Directives Advance Directive Response Recorded Date/ Time Advance Directives No October 11:46am Date Activated Date Inactivated Comments 10/11/2013 11:42 AM 10/11/2013 2:42 PM Chief Complaint and Reason for Visit Chief Complaint Amb Documentation Family hx of colon cancer Family hx of colon cancer Chief Complaint Admit Date CC Gastro Follow Up May 04, 2025 3: 17pm Rash May 16, 2025 9: 19am Chief Complaint Admit Date CC Gastro Follow Up May 04, 2025 3: 17pm Rash May 16, 2025 9: 19am Rash June 05, 2025 3:09pm Reason for Visit Admit Date Contact dermatitis May 16, 2025 9: 19am Obesity June 05, 2025 3:09pm Pruritic rash June 05, 2025 3:09pm Screening mammogram for breast cancer Se ptember 2024 3:09pm Wellness examination June 05 3:09pm Additional Source Comments Source Comments (unrecognize d section and content) In the event this informatio n is protected by the Federal Confidentiality of Alcohol and Drug Abuse Patient Records regulations: The Federal rules restrict any use of the information to criminally investigate or prosecute any alcohol or drug abuse patient.[facility] the event this information is protected by the Federal Confidentiality of Alcohol and Drug Abuse Patient Records regulations: The Federal rules restrict any use of the information to criminally investigate or prosecute any alcohol or drug abuse patient.[facility] Campus[facility] the event this information is protected by the Federal Confidentiality of Alcohol and Drug Abuse Patient Records regulations: The Federal rules restrict any use of the information to criminally investigate or prosecute any alcohol or drug abuse patient.[facility] Campus[facility] the event this information is protected by the Federal Confidentiality of Alcohol and Drug Abuse Patient Records regulations: The Federal rules restrict any use of the information to criminally investigate or prosecute any alcohol or drug abuse patient.[facility] CampusIn the event this information is protected by the Federal Confidentiality of Alcohol and Drug Abuse Patient Records regulations: The Federal rules restrict any use of the information to criminally investigate or prosecute any alcohol or drug abuse patient.[facility] CampusIn the event this information is protected by the Federal Confidentiality of Alcohol and Drug Abuse Patient Records regulations: The Federal rules restrict any use of the information to criminally investigate or prosecute any alcohol or drug abuse patient.[facility] CampusIn the event this information is protected by the Federal Confidentiality of Alcohol and Drug Abuse Patient Records regulations: The Federal rules restrict any use of the information to criminally investigate or prosecute any alcohol or drug abuse patient.[facility] the event this information is protected by the Federal Confidentiality of Alcohol and Drug Abuse Patient Records regulations: The Federal rules restrict any use of the information to criminally investigate or prosecute any alcohol or drug abuse patient.[facility] Campus[facility] the event this information is protected by the Federal Confidentiality of Alcohol and Drug Abuse Patient Records regulations: The Federal rules restrict any use of the information to criminally investigate or prosecute any alcohol or drug abuse patient.[facility] Campus[facility] the event this information is protected by the Federal Confidentiality of Alcohol and Drug Abuse Patient Records regulations: The Federal rules restrict any use of the information to criminally investigate or prosecute any alcohol or drug abuse patient.[facility] Campus[facility] the event this information is protected by the Federal Confidentiality of Alcohol and Drug Abuse Patient Records regulations: The Federal rules restrict any use of the information to criminally investigate or prosecute any alcohol or drug abuse patient.[facility] CampusIn the event this information is protected by the Federal Confidentiality of Alcohol and Drug Abuse Patient Records regulations: The Federal rules restrict any use of the information to criminally investigate or prosecute any alcohol or drug abuse patient.[facility] CampusIn the event this information is protected by the Federal Confidentiality of Alcohol and Drug Abuse Patient Records regulations: The Federal rules restrict any use of the information to criminally investigate or prosecute any alcohol or drug abuse patient.[facility] CampusIn the event this information is protected by the Federal Confidentiality of Alcohol and Drug Abuse Patient Records regulations: The Federal rules restrict any use of the information to criminally investigate or prosecute any alcohol or drug abuse patient.[facility] CampusIn the event this information is protected by the Federal Confidentiality of Alcohol and Drug Abuse Patient Records regulations: The Federal rules restrict any use of the information to criminally investigate or prosecute any alcohol or drug abuse patient.[facility] CampusIn the event this information is protected by the Federal Confidentiality of Alcohol and Drug Abuse Patient Records regulations: The Federal rules restrict any use of the information to criminally investigate or prosecute any alcohol or drug abuse patient.[facility] CampusIn the event this information is protected by the Federal Confidentiality of Alcohol and Drug Abuse Patient Records regulations: The Federal rules restrict any use of the information to criminally investigate or prosecute any alcohol or drug abuse patient.[facility] CampusIn the event this information is protected by the Federal Confidentiality of Alcohol and Drug Abuse Patient Records regulations: The Federal rules restrict any use of the information to criminally investigate or prosecute any alcohol or drug abuse patient.[facility] CampusIn the event this information is protected by the Federal Confidentiality of Alcohol and Drug Abuse Patient Records regulations: The Federal rules restrict any use of the information to criminally investigate or prosecute any alcohol or drug abuse patient.[facility] CampusIn the event this information is protected by the Federal Confidentiality of Alcohol and Drug Abuse Patient Records regulations: The Federal rules restrict any use of the information to criminally investigate or prosecute any alcohol or drug abuse patient.[facility] CampusIn the event this information is protected by the Federal Confidentiality of Alcohol and Drug Abuse Patient Records regulations: The Federal rules restrict any use of the information to criminally investigate or prosecute any alcohol or drug abuse patient.[facility] CampusIn the event this information is protected by the Federal Confidentiality of Alcohol and Drug Abuse Patient Records regulations: The Federal rules restrict any use of the information to criminally investigate or prosecute any alcohol or drug abuse patient.[facility] CampusIn the event this information is protected by the Federal Confidentiality of Alcohol and Drug Abuse Patient Records regulations: The Federal rules restrict any use of the information to criminally investigate or prosecute any alcohol or drug abuse patient.[facility] CampusIn the event this information is protected by the Federal Confidentiality of Alcohol and Drug Abuse Patient Records regulations: The Federal rules restrict any use of the information to criminally investigate or prosecute any alcohol or drug abuse patient.[facility] CampusIn the event this information is protected by the Federal Confidentiality of Alcohol and Drug Abuse Patient Records regulations: The Federal rules restrict any use of the information to criminally investigate or prosecute any alcohol or drug abuse patient.[facility] CampusIn the event this information is protected by the Federal Confidentiality of Alcohol and Drug Abuse Patient Records regulations: The Federal rules restrict any use of the information to criminally investigate or prosecute any alcohol or drug abuse patient.[facility] CampusIn the event this information is protected by the Federal Confidentiality of Alcohol and Drug Abuse Patient Records regulations: The Federal rules restrict any use of the information to criminally investigate or prosecute any alcohol or drug abuse patient.[facility] CampusIn the event this information is protected by the Federal Confidentiality of Alcohol and Drug Abuse Patient Records regulations: The Federal rules restrict any use of the information to criminally investigate or prosecute any alcohol or drug abuse patient.[facility] CampusIn the event this information is protected by the Federal Confidentiality of Alcohol and Drug Abuse Patient Records regulations: The Federal rules restrict any use of the information to criminally investigate or prosecute any alcohol or drug abuse patient.[facility] CampusIn the event this information is protected by the Federal Confidentiality of Alcohol and Drug Abuse Patient Records regulations: The Federal rules restrict any use of the information to criminally investigate or prosecute any alcohol or drug abuse patient.[facility] CampusIn the event this information is protected by the Federal Confidentiality of Alcohol and Drug Abuse Patient Records regulations: The Federal rules restrict any use of the information to criminally investigate or prosecute any alcohol or drug abuse patient.[facility] CampusIn the event this information is protected by the Federal Confidentiality of Alcohol and Drug Abuse Patient Records regulations: The Federal rules restrict any use of the information to criminally investigate or prosecute any alcohol or drug abuse patient.[facility] CampusIn the event this information is protected by the Federal Confidentiality of Alcohol and Drug Abuse Patient Records regulations: The Federal rules restrict any use of the information to criminally investigate or prosecute any alcohol or drug abuse patient.[facility] CampusIn the event this information is protected by the Federal Confidentiality of Alcohol and Drug Abuse Patient Records regulations: The Federal rules restrict any use of the information to criminally investigate or prosecute any alcohol or drug abuse patient.[facility] CampusIn the event this information is protected by the Federal Confidentiality of Alcohol and Drug Abuse Patient Records regulations: The Federal rules restrict any use of the information to criminally investigate or prosecute any alcohol or drug abuse patient.[facility] CampusIn the event this information is protected by the Federal Confidentiality of Alcohol and Drug Abuse Patient Records regulations: The Federal rules restrict any use of the information to criminally investigate or prosecute any alcohol or drug abuse patient.[facility] CampusIn the event this information is protected by the Federal Confidentiality of Alcohol and Drug Abuse Patient Records regulations: The Federal rules restrict any use of the information to criminally investigate or prosecute any alcohol or drug abuse patient.[facility] CampusIn the event this information is protected by the Federal Confidentiality of Alcohol and Drug Abuse Patient Records regulations: The Federal rules restrict any use of the information to criminally investigate or prosecute any alcohol or drug abuse patient.[facility] CampusIn the event this information is protected by the Federal Confidentiality of Alcohol and Drug Abuse Patient Records regulations: The Federal rules restrict any use of the information to criminally investigate or prosecute any alcohol or drug abuse patient.[facility] CampusIn the event this information is protected by the Federal Confidentiality of Alcohol and Drug Abuse Patient Records regulations: The Federal rules restrict any use of the information to criminally investigate or prosecute any alcohol or drug abuse patient.[facility] CampusIn the event this information is protected by the Federal Confidentiality of Alcohol and Drug Abuse Patient Records regulations: The Federal rules restrict any use of the information to criminally investigate or prosecute any alcohol or drug abuse patient.[facility] CampusIn the event this information is protected by the Federal Confidentiality of Alcohol and Drug Abuse Patient Records regulations: The Federal rules restrict any use of the information to criminally investigate or prosecute any alcohol or drug abuse patient.[facility] CampusIn the event this information is protected by the Federal Confidentiality of Alcohol and Drug Abuse Patient Records regulations: The Federal rules restrict any use of the information to criminally investigate or prosecute any alcohol or drug abuse patient.[facility] CampusIn the event this information is protected by the Federal Confidentiality of Alcohol and Drug Abuse Patient Records regulations: The Federal rules restrict any use of the information to criminally investigate or prosecute any alcohol or drug abuse patient.[facility] CampusIn the event this information is protected by the Federal Confidentiality of Alcohol and Drug Abuse Patient Records regulations: The Federal rules restrict any use of the information to criminally investigate or prosecute any alcohol or drug abuse patient.[facility] CampusIn the event this information is protected by the Federal Confidentiality of Alcohol and Drug Abuse Patient Records regulations: The Federal rules restrict any use of the information to criminally investigate or prosecute any alcohol or drug abuse patient.[facility] CampusIn the event this information is protected by the Federal Confidentiality of Alcohol and Drug Abuse Patient Records regulations: The Federal rules restrict any use of the information to criminally investigate or prosecute any alcohol or drug abuse patient.[facility] CampusIn the event this information is protected by the Federal Confidentiality of Alcohol and Drug Abuse Patient Records regulations: The Federal rules restrict any use of the information to criminally investigate or prosecute any alcohol or drug abuse patient.[facility] CampusIn the event this information is protected by the Federal Confidentiality of Alcohol and Drug Abuse Patient Records regulations: The Federal rules restrict any use of the information to criminally investigate or prosecute any alcohol or drug abuse patient.[facility] CampusIn the event this information is protected by the Federal Confidentiality of Alcohol and Drug Abuse Patient Records regulations: The Federal rules restrict any use of the information to criminally investigate or prosecute any alcohol or drug abuse patient.[facility] CampusIn the event this information is protected by the Federal Confidentiality of Alcohol and Drug Abuse Patient Records regulations: The Federal rules restrict any use of the information to criminally investigate or prosecute any alcohol or drug abuse patient.[facility] CampusIn the event this information is protected by the Federal Confidentiality of Alcohol and Drug Abuse Patient Records regulations: The Federal rules restrict any use of the information to criminally investigate or prosecute any alcohol or drug abuse patient.[facility] CampusIn the event this information is protected by the Federal Confidentiality of Alcohol and Drug Abuse Patient Records regulations: The Federal rules restrict any use of the information to criminally investigate or prosecute any alcohol or drug abuse patient.[facility] CampusIn the event this information is protected by the Federal Confidentiality of Alcohol and Drug Abuse Patient Records regulations: The Federal rules restrict any use of the information to criminally investigate or prosecute any alcohol or drug abuse patient.[facility] Reason for Visit (unrecogniz ed section and content) Specialty Diagnoses / Procedures Referred By Elena t Referred To Contact Diagnoses Iron deficiency anemia, unspecified iron deficiency anemia type History of bariatric surgery Procedures IRON SUCROSE INJECTION PER 1 MG Sandra Garcia PA-C [address] [address] [facility] Treat Evelia [address] [place] [address] Referral ID Status Reason Start Date Expiration Date V isits Requested Visits Authorized [id number] Authorized 05/22/2021 09/20/2022 99 99 Reason Comments Anemia follow up Reason Onset Date Comments Refill Request 02/11/2022 Reason Comments Results Specialty Diagnoses / Procedures Referred By Elena t Referred To Contact Diagnoses Iron deficiency anemia, unspecified iron deficiency anemia type History of bariatric surgery Procedures INJ FERRIC CARBOXYMALTOS 1MG Reese Meek MD [address] [place], [place] [id number] Berry James [place] [address] [place] [place] [address] Referral ID Status Reason Start Date Expiration Date V isits Requested Visits Authorized [id number] Authorized 04/10/2022 09/20/2022 99 99 Reason Comments Anemia 4 month follow up Reason Comments Lab Orders Reason Comments Results Appointment Reason Comments Anemia 3 month follow up Specialty Diagnoses / Procedures Referred By Elena t Referred To Contact Diagnoses Iron deficiency anemia, unspecified iron deficiency anemia type History of bariatric surgery Procedures IRON SUCROSE INJECTION PER 1 MG Reese Meek MD [address] [place] [id number] [facility] Evelia [address] [place] [place] [address] Referral ID Status Reason Start Date Expiration Date Visits Re quested Visits Authorized [id number] Closed 01/09/2023 09/20/2023 0 99 Reason Onset Date Comments Refill Request 02/23/2023 Reason Comments Anemia 1 month follow up Reason Comments Appointment Specialty Diagnoses / Procedures Referred By Contac t Referred To Contact Diagnoses Iron deficiency anemia, unspecified iron deficiency anemia type History of bariatric surgery Procedures INJ FERRIC CARBOXYMALTOS 1MG Sandra Garcia PA-C [address] [facility] [place] [address] [facility] Treat Evelia [address] [place] [address] Referral ID Status Reason Start Date Expiration Date V isits Requested Visits Authorized [id number] Authorized 07/27/2023 09/20/2023 99 99 Reason Comments Anemia 6 month follow up Reason Comments Anemia Follow up Referral ID Status Reason Start Date Expiration Date V isits Requested Visits Authorized [id number] Authorized 12/08/2023 09/20/2024 1 99 Specialty Diagnoses / Procedures Referred By Contac t Referred To Contact Diagnoses History of bariatric surgery Iron deficiency anemia, unspecified iron deficiency anemia type Procedures INJ FERRIC CARBOXYMALTOS 1MG Sandra Garcia PA-C [address] [place] [address] [facility] Treat Evelia [address] [place] [address] Referral ID Status Reason Start Date Expiration Date V isits Requested Visits Authorized [id number] Authorized 05/10/2024 09/20/2024 0 99 Reason Comments Iron Appointment Referral ID Status Reason Start Date Expiration Date V isits Requested Visits Authorized [id number] Authorized 09/26/2024 09/20/2025 0 99 Reason Onset Date Comments injectofer orders 02/06/2025 Care Teams (unrecognized sec tion and content) Rug Cutter Relationship Specialty Start Date End Date Brennon Woody, DO [address] [place] [address] PCP - General Internal Medicine 09/15/17 Rug Cutter Relationship Specialty Start Date End Date Brennon Woody, DO [address] [place] [address] PCP - General Internal Medicine 09/15/17 Rug Cutter Relationship Specialty Start Date End Date Brennon Woody, DO [address] [place] [address] PCP - General Internal Medicine 09/15/17 Rug Cutter Relationship Specialty Start Date End Date Brennon Woody, DO [address] [place] [address] PCP - General Internal Medicine 09/15/17 Rug Cutter Relationship Specialty Start Date End Date Brennon Woody, DO [address] [place] [address] PCP - General Internal Medicine 09/15/17 Rug Cutter Relationship Specialty Start Date End Date Brennon Woody, DO [address] [place] [address] PCP - General Internal Medicine 09/15/17 Rug Cutter Relationship Specialty Start Date End Date Brennon Woody, DO [address] [place] [address] PCP - General Internal Medicine 09/15/17 Rug Cutter Relationship Specialty Start Date End Date Brennon Woody, DO [address] [place] [address] PCP - General Internal Medicine 09/15/17 Rug Cutter Relationship Specialty Start Date End Date Brennon Woody, DO [address] [place] [address] PCP - General Internal Medicine 09/15/17 Rug Cutter Relationship Specialty Start Date End Date Brennon Woody, DO [address] [place] [address] PCP - General Internal Medicine 09/15/17 Rug Cutter Relationship Specialty Start Date End Date Brennon Woody, DO [address] [place] [address] PCP - General Internal Medicine 09/15/17 Rug Cutter Relationship Specialty Start Date End Date Brennon Woody, DO [address] [place] [address] PCP - General Internal Medicine 09/15/17 Rug Cutter Relationship Specialty Start Date End Date Brennon Woody, DO [address] [place] [address] PCP - General Internal Medicine 09/15/17 Rug Cutter Relationship Specialty Start Date End Date Brennon Woody, DO [address] [place] [address] PCP - General Internal Medicine 09/15/17 Rug Cutter Relationship Specialty Start Date End Date Brennon Woody, DO [address] [place] [address] PCP - General Internal Medicine 09/15/17 Rug Cutter Relationship Specialty Start Date End Date Brennon Woody, DO [address] [place] [address] PCP - General Internal Medicine 09/15/17 Rug Cutter Relationship Specialty Start Date End Date Brennon Woody, DO [address] [place] [address] PCP - General Internal Medicine 09/15/17 Rug Cutter Relationship Specialty Start Date End Date Brennon Woody, DO [address] [place] [address] PCP - General Internal Medicine 09/15/17 Rug Cutter Relationship Specialty Start Date End Date Brennon Woody, DO [address] [place] [address] PCP - General Internal Medicine 09/15/17 Rug Cutter Relationship Specialty Start Date End Date Brennon Woody DO [address] [place] [facility] [place] [address] PCP - General Internal Medicine 09/15/17 Rug Cutter Relationship Specialty Start Date End Date Brennon Woody DO [address] [place] [facility] [address] PCP - General Internal Medicine 09/15/17 Rug Cutter Relationship Specialty Start Date End Date Brennon Woody DO [address] [place] [facility] [place] [address] PCP - General Internal Medicine 09/15/17 Rug Cutter Relationship Specialty Start Date End Date Brennon Woody DO [address] [place] [facility] [place] [address] PCP - General Internal Medicine 09/15/17 Rug Cutter Relationship Specialty Start Date End Date Brennon Woody DO [address] [place] [facility] [place] [address] PCP - General Internal Medicine 09/15/17 Rug Cutter Relationship Specialty Start Date End Date Brennon Woody DO [address] [place] [facility] [place] [address] PCP - General Internal Medicine 09/15/17 Rug Cutter Relationship Specialty Start Date End Date Brennon Woody DO [address] [place] [facility] [place] [address] PCP - General Internal Medicine 09/15/17 Rug Cutter Relationship Specialty Start Date End Date Brennon Woody DO [address] [place] [address] PCP - General Internal Medicine 09/15/17 Team Status: Active Member Role Status Dates Brenonn Woody DO Primary Care Provider Active Team Status: Active Member Role Status Dates Brennon Woody DO Primary Care Provider Active Start: February 23, 2024 KARYN Boothe Attending Provider Active St art: February 23, 2024 Team Status: Active Member Role Status Dates Brennon Woody DO Primary Care Provider Active Start: May 09, 2024 Sandra Garcia PA-C Attending Provider Active Start: May 09, 2024 Team Status: Inactive Member Role Status Dates Brennon Woody DO Primary Care Provider Active Start: May 13, 2024 End: May 13, 2024 Teresa Burks MD Attending Provider Active Start: May 13, 2024 End: May 13, 2024 Team Status: Active Member Role Status Dates Brennon Woody DO Primary Care Provider Active Start: May 13, 2024 Teresa Burks MD Attending Provider, Other Provider Active Start: May 13, 2024 Rug Cutter Relationship Specialty Start Date End Date Brennon Woody DO [address] [place] [address] PCP - General Internal Medicine 09/15/17 Rug Cutter Relationship Specialty Start Date End Date Brennon Woody DO [address] [place] [address] PCP - General Internal Medicine 09/15/17 Rug Cutter Relationship Specialty Start Date End Date Jesus Alberto Mcclain MD [address] [place] [id number] PCP - General 10/03/13 Rug Cutter Relationship Specialty Start Date End Date Brennon Woody DO [address] [place] [address] PCP - General Internal Medicine 09/15/17 Rug Cutter Relationship Specialty Start Date End Date Brennon Woody DO [address] [place] [facility] [place] [address] PCP - General Internal Medicine 09/15/17 Rug Cutter Relationship Specialty Start Date End Date Brennon Woody DO [address] [place] [facility] [place] [address] PCP - General Internal Medicine 09/15/17 Rug Cutter Relationship Specialty Start Date End Date Jesus Alberto Mcclain MD [address] [place] [facility] [id number] PCP - General 10/03/13 Rug Cutter Relationship Specialty Start Date End Date Brennon Woody DO [address] [place] [facility] [place] [address] PCP - General Internal Medicine 09/15/17 Rug Cutter Relationship Specialty Start Date End Date Brennon Woody DO [address] [place] [facility] [place] [address] PCP - General Internal Medicine 09/15/17 Rug Cutter Relationship Specialty Start Date End Date Brennon Woody DO [address] [place] [facility] [place] [address] PCP - General Internal Medicine 09/15/17 Rug Cutter Relationship Specialty Start Date End Date Brennon Woody DO [address] [place] [facility] [place] [address] PCP - General Internal Medicine 09/15/17 Team Status: Active Member Role Status Colin Woody DO Primary Care Provider Active Start: May 04, 2025 Teresa Burks MD Attending Provider Active Start: May 04, 2025 Team Status: Active Member Role Status Dates Brennon Woody DO Primary Care Provider Active Start: May 09, 2025 Sandra Garcia PA-C Attending Provider Active Start: May 09, 2025 Team Status: Inactive Member Role Status Dates Brennon Woody DO Primary Care Provider Active Start: May 16, 2025 End: May 16, 2025 Debra Nogueira APRN Attending Provider Active Start: May 16, 2025 End: May 16, 2025 Team Status: Inactive Member Role Status Dates Brennon Woody DO Primary Care Provider Active Start: June 05, 2025 End: June 05, 2025 Brennon Woody DO Attending Provider Active Sta rt: June 05, 2025 End: June 05, 2025 INFORMATION SOURCE (unrecogn ized section and content) DATE CREATED AUTHOR 12/25/2021 [facility] DATE CREATED AUTHOR AUTHOR'S ORGANIZ ATION 05/28/2024 [facility] DATE CREATED AUTHOR AUTHOR'S ORGANIZ ATION 02/01/2025 [facility] DATE CREATED AUTHOR AUTHOR'S ORGANIZ ATION 05/13/2025 [facility] Inactive Administered Medications - up to 3 most recent administrations Administered Medications (un recognized section and content) Medication Order MAR Action Action Date Dose Rate Site ferric carboxymaltose 750 mg in NaCl 0.9% 250 mL (INJECTAFER) 750 mg (set by rule on 12/08/2023 10:27 AM), INTRAVENOUS, Administer over 30 Minutes, ONCE, 1 dose, On Thu12/21/23 at 0930, Approx Total Volume: 290 mL Maximum dose is 750 mg EXP: 12/23/2023 0915 RT New Bag/Syringe/Bottle 12/21/2023 9:25 AM EDT 750 mg Inactive Administered Medications - up to 3 most recent administrations Medication Order MAR Action Action Date Dose Rate Site ferric carboxymaltose 750 mg in NaCl 0.9% 250 mL (INJECTAFER) 750 mg (set by rule on 12/08/2023 10:27 AM), INTRAVENOUS, Administer over 30 Minutes, ONCE, 1 dose, On Thu12/28/23 at 1000, Approx Total Volume: 290 mL Maximum dose is 750 mg EXP: 12/28/2023 1740 RT New Bag/Syringe/Bottle 12/28/2023 10:00 AM EDT 750 mg Goals (unrecognized section and content) Goals may be documented in a n alternate section FOR RECORDS PERTAINING TO PATIENTS WHO ARE OR HAVE BEEN ENROLLED IN A CHEMICAL DEPENDENCY/SUBSTANCEABUSE PROGRAM, SOME INFORMATION MAY BE OMITTED. This clinical summary was aggregated from multiple sources. Caution should be exercised in using it in the provision of clinical care. This summary normalizes information from multiple sources, and as a consequence, information in this document may materially change the coding, format and clinical context of patient data. In addition, data may be omitted in some cases. CLINICAL DECISIONS SHOULD BE BASED ON THE PRIMARY CLINICAL RECORDS. [email or web address] [email or web address] provides no warranty or guarantee of the accuracy or completeness of information in this document.
[2025-06-23 09:45] LABS: Hematocrit 36.8 % (36.0-48.0); Hemoglobin 12.0 g/dL (12.0-16.0); Immature Granulocytes Abs Auto 0.07 10^3/uL (0.00-0.03); Immature Granulocytes Pct Auto 1.2 % (0.0-0.5); Lymphocytes Absolute Auto 1.1 10^3/uL (1.2-3.8); Mean Corpuscular HGB Conc 32.6 g/dL (29.9-35.2); Mean Corpuscular Hemoglobin 29.4 pg (26.7-34.0); Mean Corpuscular Volume 90.2 fL (81.0-99.0); Platelet Count 240 10^3/uL (150-450); Red Blood Count 4.08 10^6/uL (4.20-5.40); White Blood Count 5.9 10^3/uL (4.0-11.0)
[2025-06-23 10:35] LABS: Alanine Aminotransferase 46 U/L (14-59); Albumin Globulin Ratio 1.0; Albumin Level 3.7 g/dL (3.4-5.0); Alkaline Phosphatase 82 U/L (46-116); Anion Gap 14.4; Aspartate Amino Transferase 23 U/L (15-37); Blood Urea Nitrogen 9.0 mg/dL (7.0-18.0); Calcium 8.9 mg/dL (8.5-10.1); Carbon Dioxide 25.7 mmol/L (21.0-32.0); Chloride 104 mmol/L (98-107); Cholesterol 206 mg/dL (<=200); Estimated GFR (African America >60 (>=60 mL/min/1.73m^2); Estimated GFR (Non-African Ame >60 (>=60 mL/min/1.73m^2); Globulin 3.6 g/dL; Glucose 92 mg/dL (74-106); HDL Cholesterol 56 mg/dL (40-60); Potassium 4.1 mmol/L (3.5-5.1); Sodium 140 mmol/L (136-145); Thyroid Stimulating Hormone 3.752 uIU/mL (0.358-3.740); Total Protein 7.3 g/dL (6.4-8.2); Triglycerides 108 mg/dL (<=150); VLDL CHOLESTEROL 21.6 mg/dL
== END 2025-06-23 09:21 | disposition home or self-care (01) ==
PROVIDERS: PCP Internal Medicine; Visit Provider Internal Medicine
DX: Z00.00 Encounter for general adult medical examination without abnormal findings (principal)
CPT/HCPCS: 36415; 80053; 80061; 84443; 85025

== ENCOUNTER 2025-07-31 08:00 | Outpatient (OUT) | payer OTHER, SELFPAY ==
--- NOTE | 2025-07-31 08:03 | MM_ITS ---
Patient Name: SANDRO FERNANDEZ MR#: [id number] : 1975 Exam Date: 07/31/2025 Ordering Doctor: DR HANNAH WOODY D.O. RADIOLOGY REPORT PROCEDURE: MM TOMOSYNTHESIS SCREENING BI COMPARISON: MM TOMOSYNTHESIS SCREENING BI, 07/24/2023. MG MAMM SCREEN CE W CAD, 07/14/2017. MG MAMM SCREEN CE W CAD, 11/25/2007. INDICATIONS: Screening Calculator Name NCI Breast Cancer Risk Assessment Tool 5 Year Breast Cancer Risk 1.10% Lifetime Breast Cancer Risk 9.70% Personal Breast Cancer No Personal Ovarian Cancer No Treatments None Family Cancers Mother with colon cancer at age 48. LOCATION: [facility] BREAST COMPOSITION: The breasts are heterogeneously dense, which may obscure small masses. FINDINGS: RIGHT BREAST: No significant suspicious finding. LEFT BREAST: No significant suspicious finding. DIAGNOSTIC CATEGORY 1--NEGATIVE. NO CHANGE FROM COMPARISON ASSESSMENT. RECOMMENDATIONS: ROUTINE MAMMOGRAM AND CLINICAL EVALUATION IN 12 MONTHS. Dictated by: Jos Burks MD on 07/31/2025 at 10:59 Approved by: Jos Burks MD on 07/31/2025 at 11:05
--- OUTSIDE RECORDS SUMMARY | 2025-07-31 08:04 | XMS_ITS | Clinical Summary ---
Author Organization [facility] Address [address] [place] [id number] Care Team Providers Care Labor Representative Name Role Phone Brennon Zambrano DO Primary Care Provider Allergies Active AllergyReactionsCriticalityNoted ShzfGlvvaazkXqzipqdJureu21/03/2018Ferric DerisomaltoseOther: See Yjkkfxqw15/20/2021 Chest palpations with flushing, hot all over Medications MedicationSigDispense QuantityRefillsLast FilledStart DateEnd DateStatus Syringe with Needle, Disp, (SYRINGE 3CC/21GX1 ) 3 mL 21 gauge x 1 syrg Indications:Iron deficiency anemia, unspecified iron deficiency anemia type, History of bariatric surgery1 Syringe once every month. 12 Each 4Active cyanocobalamin 1,000 mcg/mL Indications:Iron deficiency anemia, unspecified iron deficiency anemia type, History of bariatric surgeryInject 1 mL intramuscularly once every month. 12 Each 4Active Active Problems ProblemNoted DateDiagnosed DateIron deficiency wwlnid3509/23/2017History of bariatric mlzsuno0909/23/2017Intermittent palpitationsLightheadednessParoxysmal supraventricular tachycardiaElevated blood pressure reading in office without diagnosis of hypertension Encounters DateTypeDepartmentCare LkgcEkdstlcigvu82/20/2025Results Follow-Up Hematology/Oncology [address] [place] [address] [place] [address] Sandra Raphael, PAVianeyC 05/09/2025Travelfrom Last 3 Months Immunizations ImmunizationAdministration DatesNext DueCOVID-19 original vaccine, age 12+ yr, monovalent (PFIZER-BIONTVal[employer] - PURPLE TOP)02/06/2021,01/02/2021 Family History Medical HistoryRelationCommentsDiabetesFatherColon CancerMotherRelationStatus CommentsFatherMotherDeceased (Age 50) Social History Tobacco UseTypesPacks/DayYears UsedDateSmoking Tobacco: NeverPassive Smoke Exposure: PastSmokeless Tobacco: Never Tobacco Cessation:Counseling Given: Not Answered Alcohol UseStandard Drinks/WeekCommentsYes0 (1 standard drink = 0.6 oz pure alcohol)social onlyPHQ-2AnswerDate RecordedPHQ-2 dzobk243rea Deprivation IndexAnswerDate RecordedNational Score (1-100), lower number is lower elal456602/05/2023State Score (1-10), lower number is lower sxoq108 Data from: https://www.neighborhoodatlas.medicine.[facility].edu/. Last address used for amhxrawokvo[address] [facility] [address]/05/2023CommentsNoSex and Gender InformationValueDate RecordedSex Assigned at BirthNot on fileLegal SexFemale 09/15/2017 3:33 PM ESTGender IdentityNot on fileSexual OrientationNot on file Last Filed Vital Signs Vital SignReadingTime TakenCommentsBlood Abptjhba543/8293803/07/2025 11:43 AM EDT Zgpwd367303/07/2025 10:20 AM ATGSrxotbqhvtx37.6 ??C (97.9 ??F)03/07/2025 10:20 AM EDTRespiratory Ppvd850003/07/2025 10:20 AM EDTOxygen Xaofclkudl19%03/07/2025 10:20 AM EDTInhaled Oxygen Concentration--Rdmwpg224.7 kg (352 lb 1.2 oz)02/28/2025 1:19 PM PESXhqabd221.2 cm (5' 7.01 )02/28/2025 1:19 PM EDTBody Mass Index55.13 02/28/2025 1:19 PM EDT Plan of Treatment DateTypeDepartmentCare Team (Latest Contact Info)Khqdcgcqgnz29/19/2025 10:00 AM ESTOffice Visit [facility] [address] [place] [address] [place] [address] lab08/23/2025 10:30 AM ESTVisit (SP) Office Hematology/Oncology [address] [address] Sandra Raphael, PA-C [address] [place] [address] [place] [address] 3 month follow up08/23/2025 10:45 AM ESTInfusion Center Hematology/Oncology [address] [place] [address] [place] [address] follow up and InjectaferHealth MaintenanceDue DateLast DoneCommentsAnxiety Nqbkrvlrg14/24/1992Depression Eltatgjsf11/24/1992HIV Lsgylegcq44/24/1992 Hepatitis C Fmkrmwdix23/24/1992DTaP,Tdap,Td Vaccine (1 - Tdap)1993 Hepatitis B Vaccine (1 of 3 - 19+ 3-dose series)1993Cervical Cancer Eiqpetoql66/24/1995Mammogram Kwhikuupe49/24/2014CT Vpmljuyxfnah31/24/2019 Cologuard (FIT-DNA)01/12/20198651Nmnwuzeyekj85/24/2019Colorectal Cancer Screening 2019Fecal Occult Blood2019Lipid Rrvqzapoz08/24/2019Sigmoidoscopy 2019Pneumococcal Vaccine: 50+ (1 of 1 - PCV)01/13/2024Shingrix Vaccine (1 of 2)01/13/2024ovid-19 Vaccine (3 - season)/, 01/02/2021Influenza Vaccine (#1)2025Diabetes Jyfobbrss59/19/2028 05/09/2025, 02/03/2025, 09/24/2024, Additional history exists Procedures Procedure NamePriorityDate/TimeAssociated DiagnosisCommentsVITAMIN B12 BLOOD Slwlqrl0805/09/2025 11:26 AM EDT Iron deficiency anemia, unspecified iron deficiency anemia type History of bariatric surgery 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 B12 deficiency FOLATE EXJHJXtvtgig86/19/2025 11:26 AM EDT Iron deficiency anemia, unspecified iron deficiency anemia type History of bariatric surgery 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 B12 deficiency FERRITIN SVJXrjynfx18/19/2025 11:26 AM EDT Iron deficiency anemia, unspecified iron deficiency anemia type History of bariatric surgery 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 B12 deficiency CBC + HXOJDbkglhw02/19/2025 11:26 AM EDT Iron deficiency anemia, unspecified iron deficiency anemia type History of bariatric surgery 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 B12 deficiency COMPREHENSIVE METABOLIC DNUXBEryynro71/19/2025 11:26 AM EDT Iron deficiency anemia, unspecified iron deficiency anemia type History of bariatric surgery 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 B12 deficiency IRON + KAGPBrecgxa46/19/2025 11:26 AM EDT Iron deficiency anemia, unspecified iron deficiency anemia type History of bariatric surgery 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 B12 deficiency from Last 3 Months Results * VITAMIN B12 (05/09/2025 11:26 AM EDT)ComponentValueRef RangeTest Method Analysis TimePerformed AtPathologist SignatureVitamin [id number] - 1,245 pg/mL 05/09/2025 6:52 PM EDK[facility] LABSpecimen (Source) Anatomical Location / LateralityCollection Method / VolumeCollection Time Received TimeBloodBLOOD SPECIMEN / UnknownVenipuncture / Gjauwpq7805/09/2025 11:26 AM EDT05/09/2025 11:26 AM EDT Narrative Authorizing ProviderResult TypeResult StatusMinzoë BRYANT-CLABORATORYFinal ResultPerforming OrganizationAddressCity/State/ZIP CodePhone Number [facility] [address] * IRON AND TIBC (05/09/2025 11:26 AM EDT)ComponentValueRef RangeTest Method Analysis TimePerformed AtPathologist PwnpancohUwve7117 - 186 ug/dL05/09/2025 6:36 PM EDTCPROM[facility] JXKFRLE039065 - 386 ug/dL05/09/2025 6:36 PM EDKET[facility] LABTransferrin Cfbmajqhin10.115.0 - 57.0 %05/09/2025 6:36 PM [facility] LABSpecimen (Source) Anatomical Location / LateralityCollection Method / VolumeCollection Time Received TimeBloodBLOOD SPECIMEN / UnknownVenipuncture / Zwadtfe7205/09/2025 11:26 AM EDT05/09/2025 11:26 AM EDT Narrative Authorizing ProviderResult TypeResult StatusMinzoë Tia Ijeoma PA-CLABORATORYFinal ResultPerforming OrganizationAddressCity/State/ZIP CodePhone Number [facility] [address] [place] [phone], * FOLATE, SERUM (05/09/2025 11:26 AM EDT)ComponentValueRef RangeTest Method Analysis TimePerformed AtPathologist SignatureFolate9.3>4.7 ng/mL05/09/2025 6:52 PM [facility] LABSpecimen (Source)Anatomical Location / LateralityCollection Method / VolumeCollection TimeReceived Time BloodBLOOD SPECIMEN / UnknownVenipuncture / Nmbbwoe9805/09/2025 11:26 AM EDT 05/09/2025 11:26 AM EDT Narrative Authorizing ProviderResult TypeResult StatusSandra Tia Ijeoma PA-CLABORATORYFinal ResultPerforming OrganizationAddressCity/State/ZIP CodePhone Number [facility] [address] [place] [id number], [place] * FERRITIN (05/09/2025 11:26 AM EDT)ComponentValueRef RangeTest MethodAnalysis TimePerformed AtPathologist GczylyfjfKndixufh757.014.7 - 205.1 ng/mL05/09/2025 6:52 PM EDKET[facility] LABSpecimen (Source)Anatomical Location / LateralityCollection Method / VolumeCollection TimeReceived Time BloodBLOOD SPECIMEN / UnknownVenipuncture / Ntudnja4605/09/2025 11:26 AM EDT 05/09/2025 11:26 AM EDT Narrative Authorizing ProviderResult TypeResult StatusSandra Tia Ijeoma PA-CLABORATORYFinal ResultPerforming OrganizationAddressCity/State/ZIP CodePhone Number [facility] [address] [place] [address], [place] * (ABNORMAL) COMPREHENSIVE METABOLIC PANEL (05/09/2025 11:26 AM EDT)Component ValueRef RangeTest MethodAnalysis TimePerformed AtPathologist Signature Protein, Total6.66.3 - 8.0 g/dL05/09/2025 11:50 AM EDTNORTOAST HILL[facility] & [facility] LABAlbumin4.03.9 - 4.9 g/dL05/09/2025 11:[address] [facility] LABCalcium, Total9.38.5 - 10.2 mg/dL05/09/2025 11:[address] [facility] LABBilirubin, Total0.50.2 - 1.3 mg/dL 05/09/2025 11:[address] [facility] LABAlkaline Ycffmykklwf2853 - 123 U/L05/09/2025 11:[address] [facility] IBEJIU7544 - 35 U/L05/09/2025 11:[address] [facility] RMANCB762 - 38 U/L05/09/2025 11:50 AM [facility]TCAMDEN [facility] SVBClokgxu027(H)74 - 99 mg/dL05/09/2025 11:50 AM EDMARY [facility] LABComment: The [place] Diabetes Association (ADA) provides guidance for cutoff values for fasting glucose andrandom glucose. The ADA defines fasting as no [...] Standards of Medical Care in Diabetes 2016, [place] [employer]. Diabetes Care. 2016.39(Suppl 1). BUN87 - 21 mg/dL05/09/2025 11:50 AM [facility] Creatinine0.720.58 - 0.96 mg/dL05/09/2025 11:50 AM [facility] KJZSrrjiu649079 - 144 mmol/L05/09/2025 11:50 AM [facility] LABPotassium4.33.7 - 5.1 mmol/L05/09/2025 11:50 AM [facility]TCAM[facility] NDEVsgtzlsg55492 - 107 mmol/L05/09/2025 11:50 AM EDT [facility] ALVZI02920 - 30 mmol/L05/09/2025 11:50 AM EDT [facility] LABAnion Gap98 - 15 mmol/L05/09/2025 11:50 AM [facility] LABEstimated Glomerular Filtration Mxmh673 >=60 mL/min/1.73m 05/09/2025 11:50 AM [facility] LABComment:Estimated Glomerular Filtration Rate (eGFR) is calculated using the 2020 CKD-EPI creatinine equation. This equation utilizes serum creatinine, sex, and age as parameters. The creatinine assay has traceable calibration to isotope dilution- mass spectrometry. Refer to KDIGO guidelines for clinical interpretation. In patients with unstable renal function, e.g. those with acute kidney injury, the eGFRmay not accurately reflect actual GFR.Specimen (Source)Anatomical Location / LateralityCollection Method / VolumeCollection TimeReceived TimeBloodBLOOD SPECIMEN / UnknownVenipuncture / Qizqrqm4105/09/2025 11:26 AM EDT05/09/2025 11:26 AM EDT Narrative Authorizing ProviderResult TypeResult StatusMinzoë BRYANT-CLABORATORYFinal ResultPerforming OrganizationAddressCity/State/ZIP CodePhone Number [facility] [address] [place] [address] * COMPLETE BLOOD COUNT AND DIFFERENTIAL (05/09/2025 11:26 AM EDT)ComponentValue Ref RangeTest MethodAnalysis TimePerformed AtPathologist SignatureWBC6.253.70 - 11.00 k/uL05/09/2025 11:[address] [facility] LABRBC 3.953.90 - 5.20 m/05/09/2025 11:[address] [facility] ORVAoxpjkfmxk10.811.5 - 15.5 g/dL05/09/2025 11:[address] [facility] EVABtzdyzrjzf85.136.0 - 46.0 %05/09/2025 11:30 AM EDTCAM[facility] CKQYNN52.480.0 - 100.0 [place]05/09/2025 11:30 AM EDT [facility] VCDUGQ08.926.0 - 34.0 pg05/09/2025 11:30 AM ED[facility] WABCRTK85.730.5 - 36.0 g/dL05/09/2025 11:30 AM ED[facility] LABRDW-CV14.511.5 - 15.0 % 05/09/2025 11:30 AM ED[facility] LABPlatelet Pgtni251 150 - 400 k/05/09/2025 11:30 AM ED[facility] LABMPV 9.79.0 - 12.7 [place]05/09/2025 11:[address] [facility] Neutrophils %74.2%05/09/2025 11:[address] [facility] Abs Neut4.631.45 - 7.50 k/05/09/2025 11:30 AM ED[facility] LABLymphocytes %16.6%05/09/2025 11:30 AM [facility] LABAbs Lymph1.041.00 - 4.00 k/05/09/2025 11:30 AM EDTNOWEBSTER [facility] LABMonocytes %5.0%05/09/2025 11:30 AM [facility] LABAbs Mono0.31<0.87 /05/09/2025 11:30 AM EDT [facility] LABEosinophils %2.2%05/09/2025 11:30 AM EDT [facility] LABAbs Eosin0.14<0.46 /05/09/2025 11:[address] [facility] LABBasophils %0.6%05/09/2025 11:30 AM ED[facility] LABAbs Baso0.04<0.11 /05/09/2025 11:30 AM [facility] LABImmature Granulocytes %1.4% 05/09/2025 11:30 AM ED[facility] LABAbs Immature Gran 0.09<0.10 /05/09/2025 11:30 AM ED[facility] LABNRBC 0.0/100 WBC05/09/2025 11:30 AM [facility] Absolute nRBC<0.01<0.01 /05/09/2025 11:30 AM [facility] LABDiff TuhhKwxy51/19/2025 11:30 AM [facility] LABSpecimen (Source)Anatomical Location / LateralityCollection Method / VolumeCollection TimeReceived TimeBloodBLOOD SPECIMEN / UnknownVenipuncture / Tknppgz1805/09/2025 11:26 AM EDT05/09/2025 11:26 AM EDT Narrative Authorizing ProviderResult TypeResult StatusMinzoë Raphael PA-CLABORATORYFinal ResultPerforming OrganizationAddressCity/State/ZIP CodePhone Number [facility] [address] [place] [address] from Last 3 Months Insurance Care Teams Team MemberRelationshipSpecialtyStart DateEnd Date Brennon Zambrano DO [address] [place] [address] PCP - GeneralInternal Kgrptthb43/26/17
--- OUTSIDE RECORDS SUMMARY | 2025-07-31 08:04 | XMS_ITS | Clinical Summary ---
Author Organization [facility] Address [address], [address] [place] [address] Care Team Providers Care Balloon Artist Name Role Phone Rema Marquez MD Primary Care Provider [phone] Allergies Active AllergyReactionsCriticalityNoted WcfxTpsuhhkaHbzlzktQhixu46/17/2013 Medications MedicationSigDispense QuantityRefillsLast FilledStart DateEnd DateStatus Multiple Vitamins-Minerals (MULTIVITAMIN PO) Indications:Pelvic painTake by mouth.Active IRON, FERROUS GLUCONATE, PO Indications:Pelvic painTake by mouth.Active Active Problems No known active problems Family History Medical HistoryRelationNameCommentsDiabetesFatherColon CancerMotherHypertension MotherRelationNameStatusCommentsFatherAliveMotherDeceased Social History Tobacco UseTypesPacks/DayYears UsedDateSmoking Tobacco: NeverSmokeless Tobacco: NeverAlcohol UseStandard Drinks/WeekCommentsYes0 (1 standard drink = 0.6 oz pure alcohol)CommentsNoSex and Gender InformationValueDate RecordedSex Assigned at BirthNot on fileLegal CnyUjwfpj20/10/2013 2:04 PM ESTGender Identity Not on fileSexual OrientationNot on file Last Filed Vital Signs Vital SignReadingTime TakenCommentsBlood Batmpzzy895/7407 1:02 PM EDT Akslh6147 12:18 PM LYXJipwcqjwbvp93.1 ??C (98.8 ??F)10/11/2013 11:50 AM ESTRespiratory Clov5893 12:18 PM ESTOxygen Rixbhhumqi36%10/11/2013 12:18 PM ESTInhaled Oxygen Concentration--Qqvgti210.8 kg (295 lb)04/06/2017 1:02 PM MGBEqftpg697.2 cm (5' 7 )04/06/2017 1:02 PM EDTBody Mass Index46. 1:02 PM EDT Plan of Treatment Health MaintenanceDue DateLast DoneCommentsDepression Drhopf4901/12/1986HIV screen 1989Hepatitis C ffldpr6501/13/1992DTaP/Tdap/Td vaccine (1 - Tdap)1993 Hepatitis B vaccine (1 of 3 - 19+ 3-dose series)1993HPV (without or with Pap)01/13/2004Breast cancer yczayu6301/12/20147440Lshaiz63/24/2014Colonoscopy 2019Colorectal Cancer Vvunyl2301/12/2019FIT/FOBT: Average risk2019 Fecal-DNA (Cologuard): Average risk2019Sigmoidoscopy/CT colonography 2019Cervical cancer fppytp8204/06/2020Pap smear04/06/, 09/06/2013Pneumococcal 50+ years Vaccine (1 of 1 - PCV)01/13/2024Shingles vaccine (1 of 2)01/13/2024Flu vaccine (#1)5COVID-19 Vaccine ( - 2023- season)2025Hepatitis A vaccineAged OutNo longer eligible based on patient's age to complete this topicHib vaccineAged OutNo longer eligible based on patient's age to complete this topicMeningococcal (ACWY) vaccineAged OutNo longer eligible based on patient's age to complete this topicMeningococcal B vaccineAged OutNo longer eligible based on patient's age to complete this topic Polio vaccineAged OutNo longer eligible based on patient's age to complete this topic Procedures Procedure NamePriorityDate/TimeAssociated DiagnosisCommentsGYN CYTOLOGYRoutine 04/06/2017 12:15 PM EDT from Last 3 Months or Most Recently Relevant to Health Maintenance Results * CURBING STONECUTTER Cytology (04/06/2017 12:15 PM EDT)ComponentValueRef RangeTest Method Analysis TimePerformed AtPathologist SignatureCytology Report(NOTE) [id number] [facility] ??[facility] ANATOMIC PATHOLOGY [address] [place] [address]. ??[place] [address] GYNECOLOGIC CYTOLOGY REPORT Patient Name: SANDRO FERNANDEZ. MR#: [id number] Specimen #[id number] Source: 1: Cervical material, (ThinPrep vial, Imaging-assisted review) Clinical History Z01.419 Routine grain blender exam without abnormal findings High Risk HPV DNA testing is requested if the diagnosis is ASC-US LMP: ??03/21/2017 INTERPRETATION Cervical material, (ThinPrep vial, Imaging-assisted review): Specimen Adequacy: ?Satisfactory for evaluation. ?-Endocervical/transformation zone component is absent. Descriptive Diagnosis: ?Negative for intraepithelial lesion or malignancy. Fungal organisms morphologically consistent with Jessica species. Application Development Specialist: ?? NORRIS Santiago(ASCP) Electronically Signed Out /04/09/2017 04/09/2017 12:00 AM [facility] LABSpecimen (Source) Anatomical Location / LateralityCollection Method / VolumeCollection Time Received Time04/06/2017 12:15 PM EDT04/07/2017 12:15 PM EDT Narrative Authorizing ProviderResult TypeResult StatusWetiffanie Samuels MDPATHOLOGY/CYTOLOGY ORDERABLESFinal ResultPerforming OrganizationAddressCity/State/ZIP CodePhone Number [facility] [address] [place] [address], [facility] [phone] from Last 3 Months or Most Recently Relevant to Health Maintenance Insurance * Guarantor: Sandro Fernandez TypeRelation to PatientDate of BirthPhone Billing AddressPersonal/EbvsjlYkyf1975 [address] [address] Advance Directives * Full Code (Latest Code Status on File) Date ActivatedDate InactivatedComments10/11/2013 11:42 AM10/11/2013 2:42 PM Care Teams Team MemberRelationshipSpecialtyStart DateEnd Date Rema Marquez MD [address] [place] [id number] PCP - General10/03/13
--- OUTSIDE RECORDS SUMMARY | 2025-07-31 08:05 | XMS_ITS | CCD ---
Author Organization [facility] Care Team Providers Care Rfid Engineer Name Role Phone Brennon Zambrano DO Primary Care Provider DR SANDRA CASTILLO Attending Unavailable DR SANDRA CASTILLO Consulting Unavailable DR SANDRA CASTILLO Admitting Unavailable DR BRENNON ZAMBRANO Primary Care Unavailable Brennon Zambrano DO Primary Care Provider Brennon Zambrano DO Primary Care Provider Brennon Zambrano Unavailable Herman Bender Unavailable Brennon Zambrano DO Primary Care Provider DO Brennon Zambrano Primary Care Provider MD Vitaliy Imcarmel Attending Provider Brennon Zambrano Primary Care Unavailable Vitaliy Imcarmel Attending Unavailable Vitaliy Imcarmel Admitting Unavailable Jesus Alberto Mcclain MD Primary Care Provider [phone] JOSE, SANDRA M Referring Unavailable JESUS ALBERTO [...] ANNALISE, BRENNON E Primary Care Unavailable Brennon Zambrano DO Primary Care Provider Teresa Burks MD Attending Provider Sandra Raphael PA-C Attending Provider [phone] Debra Nogueira APRN Attending Provider [phone] Brennon Zambrano DO Attending Provider Allergies Allergy ClassificationReported Allergen(s)Allergy TypeDate of OnsetReaction(s) Facility (20 sources)Codeine; Translations: [CODEINE]Drug Gxauijt97-99-4333[facility] (20 sources)ferric derisomaltose; Translations: [FERRIC DERISOMALTOSE]Drug Lwbhoeh12-49-8897Evbma: See CommentsUniversity Hospitals Health System (1 source)MonoferricDrug allergy (disorder)94-76-3866ElhOhiohealth [facility] (1 source)CodeineDrug Umgbmko77-29-9962OvswjgpmnDayton Va Medical Center Rep[facility] (1 source)ferric derisomaltoseDrug allergy (disorder)19-26-6054IjadesduzDayton Va Medical Center Repository Medications Current Medications MedicationDrug Class(es)DatesSig (Normalized)Sig (Original)0.25 MG, 0.5 MG Dose 3 ML semaglutide 0.68 MG/ML Pen Injector [Ozempic] (1 source)Start: 35-27-7829Bsruzzw (0.25 or 0.5 MG/DOSE) 2 MG/3ML 0.25mg Subcutaneous weekly for 28 days May, Active0.5 ML semaglutide 0.5 MG/ML Auto-Injector [Wegovy] (4 sources)Start: 33-33-2186jtnenl 0.5 mL by subcutaneous injection every week Wegovy 0.25 MG/0.5ML 0.5 mL Subcutaneous weekly for 30 days May, Active IRON, FERROUS GLUCONATE, PO (2 sources)IRON, FERROUS GLUCONATE, PO Indications: Pelvic pain Take by mouth. ActiveMultiple Vitamins-Minerals (MULTIVITAMIN PO) (2 sources)Multiple Vitamins-Minerals (MULTIVITAMIN PO) Indications: Pelvic pain Take by mouth. Activeozempic (0.25 or 0.5 mg/dose) 2 mg/3ml solution pen-injector (2 sources)Start: 94-59-1036Irccmee (0.25 or 0.5 MG/DOSE) 2 MG/3ML 0.25mg Subcutaneous weekly for 28 days May, Activepermethrin 50 mg/ml topical cream (1 source)PyrethroidStart: 47-17-0818Hwmianiklv 5 % cream Active 1 APPLIC TOPICAL Q14D 60 June 05, 2025 12:00am apply from neck down and wash off 8 hours later, second treatment 14 days after first treatment Complies with drug therapyVitamin B-12 1000 MCG/15ML (3 sources)Vitamin B-12 1000 MCG/15ML 1 ML injection once monthly Activevitamin b12 1 mg/ml injectable solution (20 sources)Vitamin M44Byalv: 12-27-2020 End: 65-82-2580zvfnpc 1 mL by intramuscular injection every monthcyanocobalamin 1,000 mcg/mL Indications: Iron deficiency anemia, unspecified iron deficiency anemiatype , History of bariatric surgery Inject 1 mL intramuscularly once every month. 12 Each 06/20/2024 ActiveStart: 80-88-0191Pgrfxtkjtbhkos (Vitamin B-12) 1,000 mcg/mL solution Active 1000 MG IM EVERY 4 WEEKS November 12, 2017 1:00am Complies with drug therapyStart: 41-87-1908Zxcvkmsbyoobiy (Vitamin B-12) Active 1000 MG IM EVERY 4 WEEKS November 12, 2017 1:00amVitamin B-12 1000 MCG/15ML 1 ML injection once monthly ActiveVitamin B-12 1000 MCG/15ML 1 ML injection once monthly ActiveComment on above:Inject 1 mL intramuscularly once every month. Completed/Discontinued Medications MedicationDrug Class(es)DatesSig (Normalized)Sig (Original)Hov2694-Mrc Dyr-Ejgj-Utt-Asb-C (3 sources)Osmotic Laxative, Vitamin CStart: 02-29-2024 End: 65-69-0746qaag 1 dose by mouth once rxqadAgn1190-Vhl Avx-Ttke-Hlk-Asb-C (Plenvu) 140-9-5.2 gram powder in packet, sequential Discontinued 140 ML PO .COMPLEX 1 1 February 29, 2024 12:00am May 13, 2024 7:35am First dose at 4pm the day before colonoscopy, Second dose at 11pm the night before the colonoscopy 15 ml ferric carboxymaltose 50 mg/ml injection (2 sources)Start: 10-11-2024 End: 79-28-0483075 mg (set by rule on 09/26/2024 9:24 AM), INTRAVENOUS, ONCE, 1 dose, On Thu10/11/24 at 1000, Maximum dose is 750 mg Administer as slow IV push at a rate of ~100 mg/minute.Start: 10-04-2024 End: 42-10-7115372 mg (set by rule on 09/26/2024 9:24 AM), INTRAVENOUS, ONCE, 1 dose, On Thu10/04/24 at 1000, Maximum dose is 750 mg Administer as slow IV push at a rate of ~100 mg/minute.ferric carboxymaltose 750 mg in NaCl 0.9% 250 mL (INJECTAFER) (4 sources)Start: 03-07-2025 End: 97-97-7017565 mg, INTRAVENOUS, Administer over 30 Minutes, ONCE, 1 dose, On Thu03/07/25 at 1030, Approximate Total Volume: 300 mLStart: 02-28-2025 End: 75-08-6067193 mg, INTRAVENOUS, Administer over 30 Minutes, ONCE, 1 dose, On Thu02/28/25 at 1430, Approximate Total Volume: EXP: 1430 03/03/25 Start: 05-26-2024 End: 21-89-8135099 mg (set by rule on 05/10/2024 11:18 AM), INTRAVENOUS, Administer over 30 Minutes, ONCE, 1 dose, On Thu05/26/24 at 1000, Approx Total Volume: 290 mL Maximum dose is 750 mgStart: 05-19-2024 End: 06-84-7757747 mg (set by rule on 05/10/2024 11:18 AM), INTRAVENOUS, Administer over 30 Minutes, ONCE, 1 dose, On Thu05/19/24 at 1030, Approx Total Volume: 290 mL Maximum dose is 750 mghydrOXYzine hydrochloride 25 mg oral tablet (1 source)AntihistamineStart: 05-16-2025 End: 76-35-3004qfhu 1 tablet by mouth three times daily as neededHydroxyzine Hcl 25 mg tablet Discontinued 25 MG PO Three times daily as needed for itching May 16, 2025 12:00am June 05, 2025 3:36pmpredniSONE 20 mg oral tablet (1 source)Start: 05-16-2025 End: 04-73-0737yxuq 3 tablets by mouth once daily, then take 2 tablets by mouth once daily, then take 1 tablet by mouth once dailyPrednisone 20 mg tablet Discontinued 20 MG PO .COMPLEX 24 May 16, 2025 12:00am June 05, 2025 3:36pm Take 3 tabs po daily x 4 days, then take 2 tabs po daily x 4 days, then take 1 tab po daily x 4 days.Semaglutide (3 sources)Start: 02-23-2024 End: 76-96-4316Lugyyemkoth (Ozempic) 0.25 mg or 0.5 mg (2 mg/3 mL) pen injector Discontinued 0.25 MG SUBCUT every week February 23, 2024 12:00am May 16, 2025 9:24amStart: 87-10-7177Pvmdatfioah (Ozempic) 0.25 mg or 0.5 mg (2 mg/3 mL) pen injector Active 0.25 MG SUBCUT every week February 23, 2024 12:00am Problems Active Problems Problem ClassificationProblemDateDocumented DateEpisodic/ChronicAllergic reactions (2 sources)Contact dermatitis; Translations: [Unspecified contact dermatitis, unspecified cause]37-65-0852XucvlbtlCnndwol dysrhythmias (20 sources)Paroxysmal supraventricular tachycardia; Translations: [Supraventricular tachycardia]51-30-2290QsfywgfVzxzmbh dysrhythmias (20 sources)Intermittent palpitations; Translations: [Palpitations]09-18-2017 EpisodicConditions associated with dizziness or vertigo (20 sources)Lightheadedness; Translations: [Dizziness and giddiness]09-18-2017 EpisodicDeficiency and other anemia (4 sources)Anemia, unspecified; Translations: [ANEMIA UNSPECIFIED]Onset: 34-02-6571QmuyueavAlgntnakuf and other anemia (5 sources)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 B>12< deficiency; Translations: [Other megaloblastic anemias, not elsewhere classified]EpisodicDeficiency and other anemia (8 sources)Pernicious anemia; Translations: [Vitamin B12 deficiency anemia due to intrinsic factor deficiency]90-55-5781SciyyrjlOdbuobdkue and other anemia (6 sources)Iron deficiency anemia secondary to inadequate dietary iron intake; Translations: [Other iron deficiency anemias]EpisodicDeficiency and other anemia (2 sources)Vitamin B12 deficiency anemia due to intrinsic factor deficiency EpisodicDeficiency and other anemia (1 source)Other iron deficiency anemiasEpisodicDeficiency and other anemia (3 sources)Anemia; Translations: [Anemia, unspecified]06-33-5118NceragjyXluiejl on above:Problem List clean-up per request of Phys. EHR CmteDeficiency and other anemia (3 sources)Other megaloblastic anemias, not elsewhere classified; Translations: [Other megaloblastic anemias, not elsewhere classified]Onset: 06-44-2981Nhsbbfeq Other circulatory disease (20 sources)Elevated blood-pressure reading without diagnosis of hypertension; Translations: [Elevated blood-pressure reading, without diagnosis of hypertension]67-16-7037BxfbbqdiDkugw circulatory disease (1 source)Elevated blood-pressure reading, without diagnosis of hypertension EpisodicOther inflammatory condition of skin (2 sources)Pruritic rash; Translations: [Other prurigo]67-15-7596OesyhancSwmvy nutritional; endocrine; and metabolic disorders (6 sources)Severe obesity; Translations: [Morbid (severe) obesity due to excess calories]ChronicOther nutritional; endocrine; and metabolic disorders (6 sources)Body mass index 40+ - severely obese; Translations: [Body mass index (BMI) 50.0-59.9, adult]ChronicOther nutritional; endocrine; and metabolic disorders (4 sources)Morbid (severe) obesity due to excess caloriesChronicOther nutritional; endocrine; and metabolic disorders (2 sources)Body mass index (BMI) 50.0-59.9, adultChronicOther nutritional; endocrine; and metabolic disorders (2 sources)Obesity; Translations: [Obesity, unspecified]65-20-6907HwnxbleVxita screening for suspected conditions (not mental disorders or infectious disease) (5 sources)Encounter for screening mammogram for malignant neoplasm of breast; Translations: [Encounter for screening for malignant neoplasm of colon]Onset: 65-85-8112MhewrrlyLpecqpzx codes; unclassified (4 sources)Family history of cancer of colon; Translations: [Family history of malignant neoplasm of digestiveorgans]Episodic Past or Other Problems Problem ClassificationProblemDateDocumented DateEpisodic/ChronicDeficiency and other anemia (20 sources)Iron deficiency anemia; Translations: [Iron deficiency anemia, unspecified]Onset: 79-97-4517YheekssySfnhjdjhjf and other anemia (3 sources)Iron deficiency anemia, unspecified; Translations: [Iron deficiency anemia, unspecified]Onset: 36-45-4356YgxzpfrwZxcoh gastrointestinal disorders (20 sources)History of bariatric surgical procedure; Translations: [Bariatric surgery status]Onset: 66-06-2945KbheqkaqAnmsa gastrointestinal disorders (3 sources)Bariatric surgery status; Translations: [Bariatric surgery status] Onset: 21-64-9608Ahquyeff Results Test NameValueInterpretationReference RangeFacilityBasophils Auto (Bld) [#/Vol] Ordered By: SANDRA RAPHAEL on 49-97-4798Hgclwsexz (Bld) [#/Vol]0.04 10*3/uL<0.11 [facility] CenterBasophils/100 WBC Auto (Bld)Ordered By: SANDRA RAPHAEL on 98-58-2464Pnuqganko/100 WBC (Bld)0.6 %[facility] CenterBlood manual differential comment interpretation narrativeOrdered By: SANDRA RAPHAEL on 02-00-5613Qnxnza differential comment Addison (Bld) [Interp]Auto [facility] CenterCB W Auto Differential panel (Bld)on 92-83-1192Ldeexkzdt (Bld) [#/Vol]0.04 10*3/uLNormal<0.11CMercy Health Allen Hospital on above:Order Comment: Specimen Type: BLOOD SPECIMENOrdering Facility: [facility] Address:[address] [place] [address]Waxqclian By: #### 28655-5 ####[facility] LABCLIA [id number] [place], [place] [address]Epdadabjf/100 WBC (Bld)0.6 % NormalTrumbull Regional Medical Center on above:Order Comment: Specimen Type: BLOOD SPECIMENOrdering Facility: [facility] Address:[address] [place], [place] [address]Performed By: #### 00951-9 ####[facility] LABIA [id number] [place] [address] Differential cell count method Nom (Bld)AutoNormalClevelAtrium Health Carolinas Medical Center Comment on above:Order Comment: Specimen Type: BLOOD SPECIMENOrdering Facility: [facility] Address:[address] [place] [address] Performed By: #### 85882-0 ####[facility] LABCLIA [id number] [place], [place] [address]Uhqckvwaheb (Bld) [#/Vol]0.14 10*3/uLNormal<0.46The Jewish HospitalComaspirus [facility] on above:Order Comment: Specimen Type: BLOOD SPECIMENOrdering Facility: [facility] Address:[address] [place], [place] [address]Performed By: #### 42525-3 ####[facility] LABIA [id number] [place], [place] [address]Qmyssscnhej/100 WBC (Bld)2.2 %NormalThe Jewish HospitalComment on above:Order Comment: Specimen Type: BLOOD SPECIMENOrdering Facility: [facility] Address:[address] [place], [place] [address]Performed By: #### 84362-5 ####[facility] LABIA [id number] [place], [place] [address]Bewngdvclxx distribution width (RBC) [Ratio]14.5 %Nmfpkm46.5-15.0[facility] on above: Order Comment: Specimen Type: BLOOD SPECIMENOrdering Facility: [facility] Address:[address] [place], [place] [address]Performed By: #### 65886- 8 ####[facility] LABIA [id number] [place], [place] [address]Kzakxwevfa (Bld) [Volume fraction]36.1 %Bwzxok54.0-46.0 [facility] on above:Order Comment: Specimen Type: BLOOD SPECIMENOrdering Facility: [facility] Address:[address] [place], [place] [address]Performed By: #### 00922-1 ####[facility] LABIA [id number] [place], [place] [address]Pyecigptsn (Bld) [Mass/Vol]11.8 g/qQZctisq22.5-15.5CMercy Health Allen Hospital on above: Order Comment: Specimen Type: BLOOD SPECIMENOrdering Facility: [facility] Address:[address] [place], [place] [address]Performed By: #### 08401- 8 ####[facility] LABIA [id number] [place], [place] [address]Akgyvrog granulocytes (Bld) [#/Vol]0.09 10*3/uLNormal <0.10[facility] on above:Order Comment: Specimen Type: BLOOD SPECIMENOrdering Facility: [facility] Address:[address] [place], [place] [address]Performed By: #### 43885-4 ####[facility] LABIA [id number] [place], [place] [address]Illmiswl granulocytes/100 WBC (Bld)1.4 %NormalTrumbull Regional Medical Center on above: Order Comment: Specimen Type: BLOOD SPECIMENOrdering Facility: [facility] Address:[address] [place], [place] [address]Performed By: #### 89018- 8 ####[facility] LABIA [id number] [place], [place] [address]Gvnriwnaptt (Bld) [#/Vol]1.04 10*3/uLNormal1.00-4.00 [facility] on above:Order Comment: Specimen Type: BLOOD SPECIMENOrdering Facility: [facility] Address:[address] [place], [place] [address]Performed By: #### 47089-5 ####[facility] LABIA [id number] [place], [place] [address]Tavxhgxvezk/100 WBC (Bld)16.6 %NormalTrumbull Regional Medical Center on above:Order Comment: Specimen Type: BLOOD SPECIMENOrdering Facility: [facility] Address:[address] [place], [place] [address]Performed By: #### 42586-9 ####[facility] LABCLIA [id number] [place], [place] [address]OCN (RBC) [Entitic mass]29.9 zcAmzjkl78.0-34.0[facility] on above:Order Comment: Specimen Type: BLOOD SPECIMENOrdering Facility: [facility] Address:[address] [place], [place] [address]Performed By: #### 50351-3 ####[facility] LABIA [id number] [place], [place] [address]EVRP (RBC) [Mass/Vol]32.7 g/dMZpoedl95.5-36.0[facility] on above: Order Comment: Specimen Type: BLOOD SPECIMENOrdering Facility: [facility] Address:[address] [place], [place] [address]Performed By: #### 34216- 8 ####[facility] LABCLIA [id number] [place], [place] [address]ISB (RBC) [Entitic vol]91.4 nXRwfuqr50.0-100.0[facility] on above:Order Comment: Specimen Type: BLOOD SPECIMENOrdering Facility: [facility] Address:[address] [place], [place] [address]Performed By: #### 59350-4 ####[facility] LABIA [id number] [place], [place] [address]Ltupvuqnb (Bld) [#/Vol]0.31 10*3/uLNormal<0.87[facility] on above:Order Comment: Specimen Type: BLOOD SPECIMENOrdering Facility: [facility] Address:[address] [place], [place] [address]Performed By: #### 22895- 8 ####[facility] LABCLIA [id number] [place], [place] [address]Lrsfkzqza/100 WBC (Bld)5.0 %NormalTrumbull Regional Medical Center on above:Order Comment: Specimen Type: BLOOD SPECIMENOrdering Facility: [facility] Address:[address] [place], [place] [address]Performed By: #### 12052-7 ####[facility] LABCLIA [id number] [place], [place] [address]Muutxdnatci (Bld) [#/Vol]4.63 10*3/uLNormal1.45-7.50[facility] on above:Order Comment: Specimen Type: BLOOD SPECIMENOrdering Facility: [facility] Address:[address] [place], [place] [address]Performed By: #### 70071-3 ####[facility] LABCLIA [id number] [place], [place] [address]Amynmxqedbu/100 WBC (Bld)74.2 %NormalTrumbull Regional Medical Center on above:Order Comment: Specimen Type: BLOOD SPECIMENOrdering Facility: [facility] Address:[address] [place], [place] [address]Performed By: #### 27690-1 ####[facility] LABIA [id number] [place], [place] [address]Dldxurxkl RBC (Bld) [#/Vol] 10*3/uLNormal<0.01[facility] on above:Order Comment: Specimen Type: BLOOD SPECIMENOrdering Facility: [facility] Address:[address] [place], [place] [address]Performed By: #### 68455-0 ####[facility] LABCLIA [id number] [place], [place] [address]Sljojyiom RBC/100 WBC (Bld) [Ratio]0.0 /100 WBCNormal [facility] on above:Order Comment: Specimen Type: BLOOD SPECIMENOrdering Facility: [facility] Address:[address] [place], [place] [address]Performed By: #### 07505-7 ####[facility] LABCLIA [id number] [place], [place] [address]Afjchazd mean volume (Bld) [Entitic vol]9.7 fLNormal9.0-12.7CMercy Health [facility] Hospital on above:Order Comment: Specimen Type: BLOOD SPECIMENOrdering Facility: [facility] Address:[address] [place] [address] Performed By: #### 11741-5 ####[facility] LABCLIA [id number] [place], [place] [address]Declbfmvr (Bld) [#/Vol]153 10*3/xKSswfch231-131UnohjndnhTrumbull Regional Medical Center on above:Order Comment: Specimen Type: BLOOD SPECIMENOrdering Facility: [facility] Address:[address] [place], [place] [address]Performed By: #### 05997-9 ####[facility] LABCLIA [id number] [place], [place] [address]PUQ (Bld) [#/Vol]3.95 10*6/uLNormal3.90-5.20[facility] on above:Order Comment: Specimen Type: BLOOD SPECIMENOrdering Facility: [facility] Address:[address] [place], [place] [address]Performed By: #### 97044-0 ####[facility] LABCLIA [id number] [place], [place] [address]ANY (Bld) [#/Vol]6.25 10*3/uLNormal3.70-11.00[facility] on above: Order Comment: Specimen Type: BLOOD SPECIMENOrdering Facility: [facility] Address:[address] [place], [place] [address]Performed By: #### 28508- 8 ####[facility] LABCLIA [id number] [place], [place] [address]Jfoiobabwooiq metabolic 2000 panelon 71-32-9924Iahshtw [Mass/Vol]4.0 g/dLNormal3.9-4.9CMercy [facility] on above:Order Comment: Specimen Type: BLOOD SPECIMENOrdering Facility: [facility] Address:[address] [place], [place] [address]Performed By: #### 65126- 8 ####[facility] LABCLIA [id number] [place], [place] [address]BXG [Catalytic activity/Vol]99 U/UJgqqch87-548JdbogvswlTrumbull Regional Medical Center on above:Order Comment: Specimen Type: BLOOD SPECIMENOrdering Facility: [facility] Address:[address] [place], [place] [address]Performed By: #### 78032-5 ####[facility] LABCLIA [id number] [place], [place] [address]MQV [Catalytic activity/Vol]17 U/LNormal7-38[facility] on above:Order Comment: Specimen Type: BLOOD SPECIMENOrdering Facility: [facility] Address:[address] [place], [place] [address]Performed By: #### 94519- 8 ####[facility] LABCLIA [id number] [place], [place] [address]Jujge gap [Moles/Vol]9 mmol/LNormal8-15[facility] on above:Order Comment: Specimen Type: BLOOD SPECIMENOrdering Facility: [facility] Address:[address] [place], [place] [address]Performed By: #### 29514-9 ####[facility] LABCLIA [id number] MARIBEL CHERIEAGUILAHELEN KELLER HOSPITALOtiliaLEBANON, [place] [address]MUI [Catalytic activity/Vol]19 U/ESbcxdn77-50QljclwhlcTrumbull Regional Medical Center on above:Order Comment: Specimen Type: BLOOD SPECIMENOrdering Facility: [facility] Address:[address] [place], [place] [address]Performed By: #### 67559-2 ####[facility] LABCLIA [id number] [place] [address] Bilirubin [Mass/Vol]0.5 mg/dLNormal0.2-1.3CMercy Health [facility] Hospital on above:Order Comment: Specimen Type: BLOOD SPECIMENOrdering Facility: [facility] Address:[address] [place], [place] [address]Performed By: #### 54640-3 ####[facility] LABCLIA [id number] MARIBEL CHERIEAGUILATUCS[place], [place] [address]Ykingxn [Mass/Vol]9.3 mg/dLNormal8.5-10.2CMercy Health [facility] Hospital on above:Order Comment: Specimen Type: BLOOD SPECIMENOrdering Facility: [facility] Address:[address] [place], [place] [address]Performed By: #### 85008-0 ####[facility] LABCLIA [id number] MARIBLEST. ANTHONY HOSPITALAGUILATUCSON, [place] [address]Hrklvind [Moles/Vol]104 mmol/PVxgpcc40-122TdozhwmekTrumbull Regional Medical Center on above: Order Comment: Specimen Type: BLOOD SPECIMENOrdering Facility: [facility] Address:[address] [place], [place] [address]Performed By: #### 80154- 8 ####[facility] LABCLIA [id number] [facility]ITALRY [place]ERIE [place]TU[place], [place] [address]UK3 [Moles/Vol]25 mmol/AYprxhn99-28LqgyvwwyaTrumbull Regional Medical Center on above:Order Comment: Specimen Type: BLOOD SPECIMENOrdering Facility: [facility] Address:[address] [place], [place] [address]Performed By: #### 01818-3 ####[facility] LABCLIA [id number] [place], [place] [address]Xeovppitfm [Mass/Vol]0.72 mg/dL Normal0.58-0.96[facility] on above:Order Comment: Specimen Type: BLOOD SPECIMENOrdering Facility: [facility] Address:[address] [place], [place] [address]Performed By: #### 12923-9 ####[facility] LABIA [id number] [place], [place] [address]zPIFrj SerPlBld CKD-EPI [id number] mL/min/1.73m???Normal>=60 [facility] on above:Order Comment: Specimen Type: BLOOD SPECIMENOrdering Facility: [facility] Address:[address] [place], [place] [address]Result Comment: Estimated Glomerular Filtration Rate (eGFR) is calculated using the 2020 CKD-EPI creatinine equation. This equation utilizes serum creatinine, sex, and age as parameters. The creatinine assay has traceable calibration to isotope dilution-mass spectrometry. Refer to KDIGO guidelines for clinical interpretation. In patients with unstable renal function, e.g. those with acute kidney injury, the eGFR may not accurately reflect actual GFR.Performed By: #### 93217-1 ####[facility] LABIA [id number] [place], [place] [address]Ypombff [Mass/Vol]141 mg/qGNtie78-71GfaqqqbllTrumbull Regional Medical Center on above:Order Comment: Specimen Type: BLOOD SPECIMENOrdering Facility: [facility] Address:[address] [place], [place] [address]Result Comment: The [place] [employer] (ADA) provides guidance for cutoff values for fast ing glucose and random glucose. The ADA defines [...] Standards of Medical Care in Diabetes 2016, [place] [employer]. Diabetes Care. 2016.39(Suppl 1).Performed By: #### 49138-3 ####[facility] LABCLIA [id number] [place], [place] [address]Uoaihtqzb [Moles/Vol]4.3 mmol/LNormal3.7-5.1CMercy Health Allen Hospital on above:Order Comment: Specimen Type: BLOOD SPECIMENOrdering Facility: [facility] Address:[address] [place], [place] [address]Performed By: #### 70289-1 ####[facility] LABIA [id number] [place], [place] [address]Eekmwos [Mass/Vol]6.6 g/dLNormal6.3-8.0[facility] on above:Order Comment: Specimen Type: BLOOD SPECIMENOrdering Facility: [facility] Address:[address] [address] [place], [place] [address]Performed By: #### 25460- 8 ####[facility] LABCLIA [id number] [place], [place] [address]Cddgjj [Moles/Vol]138 mmol/HCnbdte240-630HogxgfzamTrumbull Regional Medical Center on above:Order Comment: Specimen Type: BLOOD SPECIMENOrdering Facility: [facility] Address:[address] [place], [place] [address]Performed By: #### 35736-6 ####[facility] LABCLIA [id number] [place], [place] [address]Qjem nitrogen [Mass/Vol]8 mg/dL Normal7-21[facility] ClevelandComment on above:Order Comment: Specimen Type: BLOOD SPECIMENOrdering Facility: [facility] Address:[address] [place], [place] [address]Performed By: #### 13487-3 ####[facility] LABCLIA [id number] [place] [address] Eosinophils/100 WBC Auto (Bld)Ordered By: SANDRA RAPHAEL on 05-09-2025 Eosinophils/100 WBC (Bld)2.2 %[facility] Medical CenterErythrocyte distribution width Auto (RBC) [Ratio]Ordered By: SANDRA RAPHAEL on 05-09-2025 Erythrocyte distribution width (RBC) [Ratio]14.5 %11.5-15.0[facility] CenterFerritin SerPl-mCncon 83-41-1837Zubjhwty [Mass/Vol]164.0 ng/mL Qecigf50.7-205.1CNorwalk Memorial HospitalComment on above:Order Comment: Specimen Type: BLOOD SPECIMENOrdering Facility: [facility] Address:[address] [place], [place] [address]Performed By: #### 2284-8, 67240-1, 2276-4, 2131-9 ####[facility] LABIA [id number] [place] [address] [place] OF AMERICAFolate SerPl-mCncon 07-10-6690Hirbaw [Mass/Vol]9.3 ng/mLNormal>4.7CMercy Health Allen Hospital on above:Order Comment: Specimen Type: BLOOD SPECIMENOrdering Facility: [facility] Address:[address] [place] [address] Performed By: #### 2284-8, 71422-0, 6-4, 9 ####[facility] LABIA [id number] [place] [address] [place] OF AMERICAGlomerular filtration rate [Volume Rate/Area] in Serum, Plasma or Blood by CreatinineOrdered By: SANDRA RAPHAEL on 69-13-8768Ntlttwcoch filtration rate [Volume Rate/Area] in Serum, Plasma or Blood by Qtcmtnddbz628 mL/min/1.73m???>=60[facility] Medical CenterComment on above:Estimated Glomerular Filtration Rate (eGFR) is calculated using the 2020 CKD-EPI creatinine equation. This equation utilizes serum creatinine, sex, and age as parameters. The creatinine assay has traceable calibration to isotope dilution- mass spectrometry. Refer to KDIGO guidelines for clinical interpretation. In patients with unstable renal function, e.g. those with acute kidney injury, the eGFRmay not accurately reflect actual GFR.Hematocrit Auto (Bld) [Volume fraction]Ordered By: SANDRA RAPHAEL on 00-87-2870Fmrncojnaa (Bld) [Volume fraction]36.1 %36.0-46.0[facility] Medical CenterHemoglobin [Mass/volume] in BloodOrdered By: SANDRA RAPHAEL on 60-44-2707Hmoxhneedw (Bld) [Mass/Vol]11.8 g/dL11.5-15.5FShelby Memorial HospitalIron and Iron binding capacity panelon 42-22-5655Qdjp [Mass/Vol]87 ug/kXZlcipd31-727XkvyhctipTrumbull Regional Medical Center on above:Order Comment: Specimen Type: BLOOD SPECIMENOrdering Facility: [facility] Address:[address] [place], [place] [address]Performed By: #### 2284-8, 35338-1, 2275-12, 2132-05 ####[facility] [id number] [place] [address] [place] OF AMERICAIron binding capacity [Mass/Vol] 310 ug/tUDvyiji818-691FliifatotTrumbull Regional Medical Center on above:Order Comment: Specimen Type: BLOOD SPECIMENOrdering Facility: [facility] Address:[address] [place], [place] [address]Performed By: #### 2284-8, 80151-7, 2275-12, 2132-05 ####[facility] LABIA [id number] [address] [address] [place] OF AMERICAIron/TIBC [Molar ratio]28.1 %Ktnccp03.0-57.0[facility] on above:Order Comment: Specimen Type: BLOOD SPECIMENOrdering Facility: [facility] Address:[address] [place], [place] [address]Performed By: #### 2284- 8, 11710-8, 2276-4, 2132-9 ####[facility] LABCLIA [id number] [place] [address] [place] AMERICAIron binding capacity [Mass/volume] in Serum or PlasmaOrdered By: SANDRA RAPHAEL on 01-94-7030Gbtj binding capacity [Mass/Vol]310 ug/mS832-878NugksmkgrDayton Va Medical CenterIron saturation [Mass Fraction] in Serum or PlasmaOrdered By: SANDRA RAPHAEL on 64-57-1463Relb saturation [Mass fraction]28.1 %15.0-57.0 [facility] CenterLaboratory - Chemistry and Chemistry - challengeOrdered By: SANDRA RAPHAEL on 00-67-4162Sbznvfo [Mass/Vol]4.0 g/dL3.9-4.9 [facility] CenterALP [Catalytic activity/Vol]99 U/L34-123 [facility] CenterALT [Catalytic activity/Vol]17 U/L7-38[facility] CenterAST [Catalytic activity/Vol]19 U/U60-68VfmpnmcolDayton Va Medical CenterBilirubin [Mass/Vol]0.5 mg/dL0.2-1.3FShelby Memorial HospitalCalcium [Mass/Vol]9.3 mg/dL8.5-10.2FShelby Memorial Hospital Chloride [Moles/Vol]104 mmol/N76-978ZwasihnjoDayton Va Medical CenterCO2 [Moles/Vol]25 mmol/U90-74VvtkwbxzoDayton Va Medical CenterCobalamin (Vitamin B12) [Mass/Vol]411 pg/vE010-6806CjgjizjdiDayton Va Medical CenterCreatinine [Mass/Vol]0.72 mg/dL0.58-0.96[facility] CenterFerritin [Mass/Vol]164.0 ng/mL14.7-205.1FShelby Memorial HospitalGlucose [Mass/Vol]141 mg/wNXefe39-93QxlxxckmuDayton Va Medical CenterComment on above: The [place] Diabetes Association (ADA) provides guidance for cutoff [...] hyperglycemia or hyperglycemic crisis, random plasma glucose resultsgreater than or equal to 200 mg/dL meet the criteria for diagnosis of diabetes.Reference: [employer] in Diabetes 2016, [place] Diabetes Association. Diabetes Care. 2016.39(Suppl 1).Iron [Mass/Vol]87 ug/mF79-709GyfxwflttDayton Va Medical Center Potassium [Moles/Vol]4.3 mmol/L3.7-5.1FMarymount Hospitalodium [Moles/Vol]138 mmol/J015-789TgpnhldnyDayton Va Medical CenterUrea nitrogen [Mass/Vol]8 mg/dL7-21[facility] CenterLaboratory - Hematology and Cell countsOrdered By: SANDRA RAPHAEL on 43-71-1312Qzlvrmmhjuy (Bld) [#/Vol] 0.14 10*3/uL<0.46[facility] Medical CenterImmature granulocytes (Bld) [#/Vol]0.09 10*3/uL<0.10[facility] Medical CenterImnvture granulocytes/100 WBC (Bld)1.4 %[facility] Medical CenterLeukocytes [#/volume] corrected for nucleated erythrocytes in Blood by Automated coun Ordered By: SANDRA RAPHAEL on 86-03-8464RCF corrected for nucl RBC Auto (Bld) [#/Vol]6.25 k/uL3.70-11.00[facility] Medical CenterLymphocytes Auto (Bld) [#/Vol]Ordered By: SANDRA RAPHAEL on 06-62-1608Alirkbgsjom (Bld) [#/Vol]1.04 10*3/uL1.00-4.00[facility] Medical CenterLymphocytes/100 WBC Auto (Bld) Ordered By: SANDRA RAPHAEL on 52-48-3162Mnsmomyjfvw/100 WBC (Bld)16.6 %[facility] Medical CenterMCH Auto (RBC) [Entitic mass]Ordered By: SANDRA RAPHAEL on 53-95-9489PSK (RBC) [Entitic mass]29.9 pg26.0-34.0[facility] Medical CenterMCHC Auto (RBC) [Mass/Vol]Ordered By: SANDRA RAPHAEL on 59-91-5529WAAK (RBC) [Mass/Vol]32.7 g/dL30.5-36.0[facility] CenterMCV Auto (RBC) [Entitic vol]Ordered By: SANDRA RAPHAEL on 06-09-3759THC (RBC) [Entitic vol]91.4 fL80.0-100.0[facility] Medical CenterMonocytes Auto (Bld) [#/Vol]Ordered By: SANDRA RAPHAEL on 49-19-3311Werejkfrb (Bld) [#/Vol]0.31 10*3/uL<0.87[facility] Medical CenterMonocytes/100 WBC Auto (Bld)Ordered By: SANDRA RAPHAEL on 71-33-4921Tnsslgnzh/100 WBC (Bld)5.0 %[facility] Neutrophils Auto (Bld) [#/Vol]Ordered By: SANDRA RAPHAEL on 63-88-6473Dhuolqqeajy (Bld) [#/Vol]4.63 10*3/uL1.45-7.50[facility] Neutrophils/100 WBC Auto (Bld)Ordered By: SANDRA RAPHAEL on 05-09-2025 Neutrophils/100 WBC (Bld)74.2 %[facility] CenterNo Panel InformationOrdered By: SANDRA RAPHAEL on 04-21-7873Btrgph0.3 ng/mL>4.7FShelby Memorial HospitalNucleated RBC Auto (Bld) [#/Vol]Ordered By: SANDRA RAPHAEL on 74-18-2863Qfrhystsg RBC (Bld) [#/Vol]10*3/uL<0.01[facility] Medical CenterNucleated erythrocytes [Presence] in Blood by Automated countOrdered By: SANDRA RAPHAEL on 87-49-5888Turvfgiqd RBC Auto Ql (Bld)0.0 /100{WBC}[facility] Medical CenterPlatelet mean volume Auto (Bld) [Entitic vol]Ordered By: SANDRA RAPHAEL on 78-83-6482Nrzpmlpc mean volume (Bld) [Entitic vol]9.7 fL9.0-12.7 [facility] CenterPlatelets Auto (Bld) [#/Vol]Ordered By: SANDRA RAPHAEL on 11-40-9952Ylyubqred (Bld) [#/Vol]153 10*3/lQ138-221DswzrlzseDayton Va Medical CenterProtein [Mass/volume] in Serum or PlasmaOrdered By: SANDRA RAPHAEL on 59-52-2416Zskfplm [Mass/Vol]6.6 g/dL6.3-8.0[facility] RBC Auto (Bld) [#/Vol]Ordered By: SANDRA RAPHAEL on 54-32-2354BKK (Bld) [#/Vol] 3.95 10*6/uL3.90-5.20UC Healtherum or plasma anion gap determinationOrdered By: SANDRA RAPHAEL on 95-57-8119Wdhzn gap [Moles/Vol]9 mmol/L 8-15[facility] Medical CenterVit B12 SerPl-mCncon 88-08-8234Bhbodxqiq (Vitamin B12) [Mass/Vol]411 pg/dZWysvnf990-7709RldgnxhiiMercy Health Allen Hospital on above:Order Comment: Specimen Type: BLOOD SPECIMENOrdering Facility: [facility] Address:[address] [place] [address] Performed By: #### 2284-8, 66438-4, 2276-4, 2132-9 ####[facility] LABCLIA [id number] [facility] [id number] [place] [address] [place] OF AMERICACNOVSPon 94-70-7558FSKQYOUrqlb (SP) Office ([place]) ILSA FERNANDEZ ([id number]) 1975 F Date Time Provider Department 02/28/25 1:30 PM SANDRA RAPHAEL During your visit today, we recorded the following information about you: Temperature Pulse Respiration Blood pressure 97.2 degrees 87/minute 20/minute 109/85 Weight Height Last Period 159.7 kg 1.702 m 02/28/25 Sandra Raphael PA-C 02/28/2025 1:52 PM Signed Date of [...] Continue monthly B12 injections at home Sandra Raphael PA-C CC: Brennon Zambrano, I spent a total of 21 minutes on the date of the service which included preparing to see the patient, xnza-oy-pvxs patient care, completing clinical documentation, performing a medically appropriate examination, counseling and educating the patient/family/caregiver, ordering medications, tests, or procedures, independently interpreting results (not separately reported), communicating results to the patient/family/caregiver, and care coordination (not separately reported). Allergies As of Date: 02/28/2025 Noted Allergy Reaction CODEINE (more content not included)...NormalThe Jewish HospitalCNPNon 70-67-4975LSJRYcmwtzmnw (NCCAP) ILSA FERNANDEZ ([id number]) 1975 F Date Time Provider Department 02/28/25 SANDRA RAPHAEL During your visit today, we recorded the following information about you: Marilyn Andrew 03/10/2025 11:50 AM Addendum Marilyn Andrew 03/10/2025 11:51 AM Addendum Labs scheduled for 05-09-25 Follow up based on these results Justo Gambino RN 05/10/2025 10:41 AM Addendum Sandra Raphael PA-C to [facility] Triage Pool (Selected Message) 05/10/25 7:55 AM [...] 09/23/2017 Encounter Status:Closed by JUSTO GAMBINO on 05/11/25NormalCleveland [facility] W Auto Differential panel (Bld)on 35-94-3126Gypshboce (Bld) [#/Vol] 0.03 10*3/uLNormal<0.11CMercy Health Allen Hospital on above:Order Comment: Specimen Type: BLOOD SPECIMENOrdering Facility: [facility] Address:[address] [place], [place] [address]Performed By: #### 21643-4 ####[facility] LABCLIA [id number] [place], [place] [address]Ggsdyqbrf/100 WBC (Bld)0.5 %NormalTrumbull Regional Medical Center on above:Order Comment: Specimen Type: BLOOD SPECIMENOrdering Facility: [facility] Address:[address] [place], [place] [address]Performed By: #### 21536-7 ####[facility] LABCLIA [id number] [place], [place] [address]Uihcnppcalfa cell count method Nom (Bld)AutoNormalCMercy Health Allen Hospital on above:Order Comment: Specimen Type: BLOOD SPECIMENOrdering Facility: [facility] Address:[address] [place], [place] [address]Performed By: #### 53699-5 ####[facility] LABCLIA [id number] [place], [place] [address]Qcaezzvmcrp (Bld) [#/Vol]0.14 10*3/uLNormal<0.46[facility] on above:Order Comment: Specimen Type: BLOOD SPECIMENOrdering Facility: [facility] Address:[address] [place], [place] [address]Performed By: #### 61341-6 ####[facility] LABCLIA [id number] [place], [place] [address]Yqfkuhtgxnp/100 WBC (Bld)2.3 %NormalTrumbull Regional Medical Center on above:Order Comment: Specimen Type: BLOOD SPECIMENOrdering Facility: [facility] Address:[address] [place], [place] [address]Performed By: #### 49340-9 ####[facility] LABCLIA [id number] [place], [place] [address]Zlqhxvjkeut distribution width (RBC) [Ratio]13.7 %Normal 11.5-15.0[facility] on above:Order Comment: Specimen Type: BLOOD SPECIMENOrdering Facility: [facility] Address:[address] [place], [place] [address]Performed By: #### 34377-7 ####[facility] LABIA [id number] [place] [address] Hematocrit (Bld) [Volume fraction]36.9 %Unhiuf28.0-46.0[facility] on above:Order Comment: Specimen Type: BLOOD SPECIMENOrdering Facility: [facility] Address:[address] [place], [place] [address]Performed By: #### 08654-4 ####[facility] LABIA [id number] [place], [place] [address]Peyuajwont (Bld) [Mass/Vol]11.9 g/bZNzuoxx25.5-15.5CMercy Health Allen Hospital on above:Order Comment: Specimen Type: BLOOD SPECIMENOrdering Facility: [facility] Address:[address] [place], [place] [address]Performed By: #### 74749-4 ####[facility] LABIA [id number] [place], [place] [address]Sfumfprn granulocytes (Bld) [#/Vol]0.08 10*3/uLNormal <0.10[facility] on above:Order Comment: Specimen Type: BLOOD SPECIMENOrdering Facility: [facility] Address:[address] [place], [place] [address]Performed By: #### 27146-5 ####[facility] LABIA [id number] [place], [place] [address]Rsjyprpq granulocytes/100 WBC (Bld)1.3 %NormalTrumbull Regional Medical Center on above: Order Comment: Specimen Type: BLOOD SPECIMENOrdering Facility: [facility] Address:[address] [place], [place] [address]Performed By: #### 83628- 8 ####[facility] LABCLIA [id number] [place], [place] [address]Bmuudnepeuc (Bld) [#/Vol]1.32 10*3/uLNormal1.00-4.00 [facility] on above:Order Comment: Specimen Type: BLOOD SPECIMENOrdering Facility: [facility] Address:[address] [place], [place] [address]Performed By: #### 27428-4 ####[facility] LABIA [id number] [place], [place] [address]Hmvohbywcyz/100 WBC (Bld)21.5 %NormalTrumbull Regional Medical Center on above:Order Comment: Specimen Type: BLOOD SPECIMENOrdering Facility: [facility] Address:[address] [place], [place] [address]Performed By: #### 29080-9 ####[facility] LABCLIA [id number] [place], [place] [address]EYG (RBC) [Entitic mass]28.8 qyNttkhe36.0-34.0[facility] on above:Order Comment: Specimen Type: BLOOD SPECIMENOrdering Facility: [facility] Address:[address] [place], [place] [address]Performed By: #### 43776-5 ####[facility] LABCLIA [id number] [place], [place] [address]RBGL (RBC) [Mass/Vol]32.2 g/tSOzthwr46.5-36.0[facility] on above: Order Comment: Specimen Type: BLOOD SPECIMENOrdering Facility: [facility] Address:[address] [place], [place] [address]Performed By: #### 36919- 8 ####[facility] LABCLIA [id number] [place], [place] [address]XMM (RBC) [Entitic vol]89.3 fVNxmosl41.0-100.0[facility] on above:Order Comment: Specimen Type: BLOOD SPECIMENOrdering Facility: [facility] Address:[address] [place], [place] [address]Performed By: #### 51846-6 ####[facility] LABIA [id number] [place], [place] [address]Vumcsxcyq (Bld) [#/Vol]0.43 10*3/uLNormal<0.87[facility] on above:Order Comment: Specimen Type: BLOOD SPECIMENOrdering Facility: [facility] Address:[address] [place], [place] [address]Performed By: #### 46150- 8 ####[facility] LABIA [id number] [place], [place] [address]Jwcgdilgv/100 WBC (Bld)7.0 %NormalTrumbull Regional Medical Center on above:Order Comment: Specimen Type: BLOOD SPECIMENOrdering Facility: [facility] Address:[address] [place], [place] [address]Performed By: #### 07447-9 ####[facility] LABIA [id number] [place], [place] [address]Nhxubjnnbru (Bld) [#/Vol]4.13 10*3/uLNormal1.45-7.50[facility] on above:Order Comment: Specimen Type: BLOOD SPECIMENOrdering Facility: [facility] Address:[address] [place], [place] [address]Performed By: #### 89436-1 ####[facility] LABCLIA [id number] [place], [place] [address]Zebswcjfrnu/100 WBC (Bld)67.4 %NormalTrumbull Regional Medical Center on above:Order Comment: Specimen Type: BLOOD SPECIMENOrdering Facility: [facility] Address:[address] [place], [place] [address]Performed By: #### 23329-5 ####[facility] LABCLIA [id number] [place], [place] [address]Itnvjxchv RBC (Bld) [#/Vol] 10*3/uLNormal<0.01[facility] on above:Order Comment: Specimen Type: BLOOD SPECIMENOrdering Facility: [facility] Address:[address] [place], [place] [address]Performed By: #### 68440-5 ####[facility] LABCLIA [id number] [place], [place] [address]Gznodglvn RBC/100 WBC (Bld) [Ratio]0.0 /100 WBCNormal [facility] on above:Order Comment: Specimen Type: BLOOD SPECIMENOrdering Facility: [facility] Address:[address] [place], [place] [address]Performed By: #### 86302-7 ####[facility] LABIA [id number] [place], [place] [address]Ugtexnat mean volume (Bld) [Entitic vol]10.1 fLNormal9.0-12.7CMercy Health Allen Hospital on above:Order Comment: Specimen Type: BLOOD SPECIMENOrdering Facility: [facility] Address:[address] [place] [address] Performed By: #### 11322-5 ####[facility] LABCLIA [id number] [place], [place] [address]Gxpcwwkrb (Bld) [#/Vol]196 10*3/mRZyeeyh258-004TkaacotvtTrumbull Regional Medical Center on above:Order Comment: Specimen Type: BLOOD SPECIMENOrdering Facility: [facility] Address:[address] [place], [place] [address]Performed By: #### 26167-5 ####[facility] LABCLIA [id number] [place], [place] [address]MEK (Bld) [#/Vol]4.13 10*6/uLNormal3.90-5.20[facility] on above:Order Comment: Specimen Type: BLOOD SPECIMENOrdering Facility: [facility] Address:[address] [place] [address]Cpdmishpc By: #### 14321-0 ####MARIANA [facility] LABCLIA [id number] [place], [place] [address]AWB (Bld) [#/Vol]6.13 10*3/uLNormal3.70-11.00[facility] on above: Order Comment: Specimen Type: BLOOD SPECIMENOrdering Facility: [facility] Address:[address] [place] [address]Pzzywyyyu By: #### 91616- 8 ####MARIANA [facility] LABCLIA [id number] [place], [place] [address]FAJTyk 41-01-4570MNYOLwurlmnoo ([place]MASA) ILSA FERNANDEZ ([id number]) 1975 F Date Time Provider Department 02/03/25 SANDRA RAPHAEL HEMASA During your visit today, we recorded the following information about you: Sandra Raphael PA-C 02/03/2025 8:41 AM Signed Please call [...] here to have them drawn. BERRY Pierce Natalie RN 02/03/2025 8:51 AM Signed Pt notified. She is coming to [place] today and will come in at 1030 to have rest of labs completed. Pt added to lab schedule Justo Gambino RN Allergies As of Date: 02/03/2025 Noted Allergy Reaction CODEINE 09/23/2017 4 - Hives MONOFERRIC (FERRIC DERISOMALTOSE) 06/10/2021 14 - Other: See Comments Comments: Chest palpations with flushing, hot all over Date Reviewed: 02/03/2025 Reviewed by: Sandra Raphael PA-C - Fully Assessed Reason for Visit: [...] 09/23/2017 Encounter Status:Closed by JUSTO GAMBINO on 02/03/25NormalCNorwalk Memorial HospitalComprehensive metabolic 2000 panelon 04-77-2232Laqbyev [Mass/Vol]4.4 g/dLNormal3.9-4.9CMercy Health Allen Hospital on above:Order Comment: Specimen Type: BLOOD SPECIMENOrdering Facility: [facility] Address:[address] [place], [place] [address]Xtnkhiqge By: #### 03089-7 ####[facility] LABCLIA [id number] [place], [place] [address]JIF [Catalytic activity/Vol]88 U/MRipxpk20-812JsrpzmazwTrumbull Regional Medical Center on above:Order Comment: Specimen Type: BLOOD SPECIMENOrdering Facility: [facility] Address:[address] [place], [place] [address]Nakhfuyhy By: #### 12384-5 ####[facility] LABCLIA [id number] [place] [address]EXP [Catalytic activity/Vol]13 U/LNormal7-38[facility] on above:Order Comment: Specimen Type: BLOOD SPECIMENOrdering Facility: [facility] Address:[address] [place], [place] [address]Performed By: #### 59400- 8 ####[facility] LABCLIA [id number] [facility] HARDINGBANNER BEHAVIORAL HEALTH HOSPITALBILLLA [place], [place] [address]Rpoem gap [Moles/Vol]10 mmol/LNormal8-15[facility] on above:Order Comment: Specimen Type: BLOOD SPECIMENOrdering Facility: [facility] Address:[address] [place], [place] [address]Performed By: #### 95528-3 ####[facility] LABCLIA [id number] [facility] BRADBANNER BEHAVIORAL HEALTH HOSPITALBILLLA [place], [place] [address]ZTQ [Catalytic activity/Vol]14 U/ZXfmshn89-61ZrxnjbssfTrumbull Regional Medical Center on above:Order Comment: Specimen Type: BLOOD SPECIMENOrdering Facility: [facility] Address:[address] [place], [place] [address]Performed By: #### 90769-1 ####[facility] LABCLIA [id number] [facility]ADBANNER BE[facility] [place] [address] Bilirubin [Mass/Vol]0.4 mg/dLNormal0.2-1.3CMercy Health Allen Hospital on above:Order Comment: Specimen Type: BLOOD SPECIMENOrdering Facility: [facility] Address:[address] [place], [place] [address]Performed By: #### 86921-5 ####[facility] LABCLIA [id number] [facility]ADBANNER BEHAVIOR[facility] HEALTH HOSPITALBILLLA [place], [place] [address]Tnsstut [Mass/Vol]9.6 mg/dLNormal8.5-10.2CMercy Health Allen Hospital on above:Order Comment: Specimen Type: BLOOD SPECIMENOrdering Facility: [facility] Address:[address] [place], [place] [address]Performed By: #### 65884-4 ####[facility] LABCLIA [id number] [place], [place] [address]Fjtscuaw [Moles/Vol]103 mmol/OZszvzi01-483YsbrybvuuTrumbull Regional Medical Center on above: Order Comment: Specimen Type: BLOOD SPECIMENOrdering Facility: [facility] Address:[address] [place], [place] [address]Performed By: #### [id number]- 8 ####[facility] LABCLIA [id number] [place], [place] [id number] [Moles/Vol]25 mmol/LDxhlwp09-19RsxsjuqqiTrumbull Regional Medical Center on above:Order Comment: Specimen Type: BLOOD SPECIMENOrdering Facility: [facility] Address:[address] [place], [place] [address]Performed By: #### [id number] ####[facility] LABCLIA [id number] [place], [place] [address]Aiurwsqbir [Mass/Vol]0.71 mg/dL Normal0.58-0.96[facility] on above:Order Comment: Specimen Type: BLOOD SPECIMENOrdering Facility: [facility] Address:[address] [place], [place] [address]Performed By: #### 78026-8 ####[facility] LABCLIA [id number] [place], [place] [address]Adizdifhyb and Glomerular filtration rate.predicted panel (S/P/Bld)103 mL/min/1.73m???Normal>=60[facility] on above:Order Comment: Specimen Type: BLOOD SPECIMENOrdering Facility: [facility] Address:[address] [place], [place] [address]Result Comment: Estimated Glomerular Filtration Rate (eGFR) is calculated using the 2020 CKD-EPI creatinine equation. This equation utilizes serum creatinine, sex, and age as parameters. The creatinine assay has traceable calibration to isotope dilution- mass spectrometry. Refer to KDIGO guidelines for clinical interpretation. In patients with unstable renal function, e.g. those with acute kidney injury, the eGFR may not accurately reflect actual GFR.Performed By: #### 53562-7 ####[facility] LABCLIA [id number] [place], [place] [address]Ynfkrmr [Mass/Vol]97 mg/fWOioafo68-19QwtuvmqahTrumbull Regional Medical Center on above:Order Comment: Specimen Type: BLOOD SPECIMENOrdering Facility: [facility] Address:[address] [place] [address]Nlmmsd Comment: The [place] [employer] (ADA) provides guidance for cutoff values for fasting glucose and random glucose. The ADA defines fasting as no caloric intake for at least 8 hours. Fasting plasma glucose results between 100 to 125 mg/dL indicate increased risk for diabetes (prediab etes). Fasting plasma glucose results greater than or [...] Standards of Medical Care in Diabetes 2016, [place] [employer]. Diabetes Care. 2016.39(Suppl 1).Performed By: #### 75179-5 ####[facility] LABCLIA [id number] [place], [place] [address]Ewnfwaian [Moles/Vol]4.4 mmol/LNormal3.7-5.1CMercy Health [facility] on above:Order Comment: Specimen Type: BLOOD SPECIMENOrdering Facility: [facility] Address:[address] [place], [place] [address]Lbixdxaqd By: #### 89898-0 ####[facility] LABCLIA [id number] [place], [place] [address]Pqbdqkg [Mass/Vol]6.9 g/dLNormal6.3-8.0[facility] on above:Order Comment: Specimen Type: BLOOD SPECIMENOrdering Facility: [facility] Address:[address] [place], [place] [address]Performed By: #### 01063- 8 ####[facility] LABCLIA [id number] [place], [place] [address]Lgeohk [Moles/Vol]138 mmol/PVilbvx794-797ZrhwreutoTrumbull Regional Medical Center on above:Order Comment: Specimen Type: BLOOD SPECIMENOrdering Facility: [facility] Address:[address] [place], [place] [address]Performed By: #### 10390-8 ####[facility] LABCLIA [id number] [place], [place] [address]Xevj nitrogen [Mass/Vol]28 mg/dLHigh7-21[facility] on above:Order Comment: Specimen Type: BLOOD SPECIMENOrdering Facility: [facility] Address:[address] [place], [place] [address]Performed By: #### 34120-0 ####[facility] LABCLIA [id number] [place] [address] Ferritin SerPl-mCncon 10-67-9912Ejpvgtwq [Mass/Vol]33.5 ng/lYXvwwrn70.7-205.1 [facility] on above:Order Comment: Specimen Type: BLOOD SPECIMENOrdering Facility: [facility] Address:[address] [place], [place] [address]Performed By: #### 2284-8, 34848-7, 2276-4 ####[facility] LABCLIA [id number] [facility] [id number] [place] [address] [place] OF AMERICAFolate SerPl-mCncon 07-69-1668Gbqrkx [Mass/Vol]8.5 ng/mLNormal>4.7CMercy Health [facility] on above:Order Comment: Specimen Type: BLOOD SPECIMENOrdering Facility: [facility] Address:[address] [place], [place] [address]Performed By: #### 2284-8, 09545-1, 2275-4 ####[facility] LABCLIA [id number] [place] [address] [place] OF AMERICAIron and Iron binding capacity panelon 47-08-1390Iexh [Mass/Vol]56 ug/lIPtkmyr73-151QixwtpezuThe Jewish Hospital Comment on above:Order Comment: Specimen Type: BLOOD SPECIMENOrdering Facility: [facility] Address:[address] [place] [address] Performed By: #### 2284-8, 11336-6, 2275-12 ####[facility] LABIA [id number] [address] STATES OF AMERICAIron binding capacity [Mass/Vol]397 ug/jNHexy174-075QtojpswzxThe Jewish HospitalComment on above:Order Comment: Specimen Type: BLOOD SPECIMENOrdering Facility: [facility] Address:[address] [place], [place] [address]Performed By: #### 2284-8, 58803-5, 2275-12 ####[facility] LABIA [id number] [place] [address] [place] AMERICAIron/TIBC [Molar ratio]14.1 %Low15.0-57.0[facility] Comment on above:Order Comment: Specimen Type: BLOOD SPECIMENOrdering Facility: [facility] Address:[address] [place] [address] Performed By: #### 2284-8, 06188-8, 2275-12 ####[facility] LABIA [id number] [place] [id number] [place] STATES OF AMERICAVitamin B12on 78-78-5835Bllthjlnk (Vitamin B12) [Mass/Vol]340 pg/mLNormal 232-1245Galion Community HospitalComment on above:Performed By: #### B12 #### [place] [id number] Lead Mason Tender: Mehdi Taylor [place] [id number] (SP) Office ([place]) JIMILSA M ([id number]) 1975 F Date Time Provider Department 10/04/24 9:30 AM SANDRA RAPHAELASA During your visit today, we recorded the following information about you: Temperature Pulse Respiration Blood pressure 97.2 degrees 90/minute 18/minute 164/90 Weight Height Last Period 157.4 kg 1.702 m 09/26/24 Sandra Raphael PA-C 10/04/2024 9:54 AM Signed Date of [...] symmetrical LAB: See labs in epic from [place] ASSESSMENT/PLAN: 1. Iron deficiency anemia, unspecified iron [...] needed. Lab orders printed for patient for [facility]. 2. History of bariatric surgery - ICD9: V45.86, ICD10: Z98.84 3. 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 B12 deficiency - ICD9: 281.1, ICD10: D53.1 Continue monthly B12 injections at home Sandra Raphael PA-C I spent a total of 20 minutes on the date of the service which included preparing to see the patient, pjdv-mx-wdti patient care, completing clinical documentation, performing a medically appropriate examination, counseling and educating the patient/family/caregiver, ordering medications, tests, or procedures, independently interpreting results (not separately reported), communicating results to the patient/family/caregiver, and care coordination (not separately reported). CC: Brennon Zambrano, DO Allergies As of Date: 10/04/2024 Noted Allergy Reaction CODEINE 09/23/2017 4 - Hives MONOFERRIC (FERRIC DERISOMALTOSE) 06/10/2021 14 - Other: See Comments Comments: Chest palpations with flushing, hot all over Date Reviewed: 10/04/2024 Reviewed by: Sandra Raphael PA-C - Fully Assessed Reason for Visit: Anemia [6] Cmt: Follow up Primary Visit Diagnosis:Iron deficiency anemia, unspecified iron deficiency anemia type [D50.9] Other Visit Diagnoses:History of bariatric surgery [Z98.84] 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 B12 deficiency [D53.1] Orde (more content not included)...NormalRegency Hospital Cleveland East with Auto Differentialon 09-72-2572Fqofpkbdp (Bld) [#/Vol]0.06 10*3/uLBon Secours Mercy HealthBasophils/100 WBC (Bld)1 %0 - 2 %[facility] HealthEosinophils (Bld) [#/Vol]0.14 10*3/uLBon Secours Mercy HealthEosinophils/100 WBC (Bld)2 %1 - 4 % [facility] Mercy HealthErythrocyte distribution width (RBC) [Ratio]13.0 %11.8 - 14.4 %[facility] HealthHematocrit (Bld) [Volume fraction]36.3 %36.3 - 47.1 %[facility] HealthHemoglobin (Bld) [Mass/Vol]11.7 g/dLLow11.9 - 15.1 g/dLBon Secours Mercy HealthImmature granulocytes (Bld) [#/Vol]0.03 10*3/uLBon Secours Mercy HealthImmature granulocytes/100 WBC (Bld)1 %Xspm6Xdd Secours Mercy HealthInterpretation and review of laboratory resultsAbnormalBon [facility] – [facility] Jewish HospitalLymphocytes/100 WBC (Bld)22 %Low24 - 43 %[facility] Lymphocytes/100 WBC (Bld)1.34 %[facility] CenterH (RBC) [Entitic mass] 28.1 pg25.2 - 33.5 pgBon [facility] HospitalHC (RBC) [Mass/Vol]32.2 g/dL28.4 - 34.8 g/dLBon [facility] Valley HospitalV (RBC) [Entitic vol]87.3 fL82.6 - 102.9 fL [facility] SystemMonocytes/100 WBC (Bld)8 %3 - 12 %[facility] SystemMonocytes/100 WBC (Bld)0.47 %[facility] SystemNeutrophils/100 WBC (Bld)66 %High36 - 65 %[facility] SystemNucleated RBC/100 WBC (Bld) [Ratio]0.0 %0.0 per 100 WBCInova Health SystemPlatelet mean volume (Bld) [Entitic vol]10.5 fL8.1 - 13.5 fLInova Health SystemPlatelets (Bld) [#/Vol] 246 10*3/uLBon Mercy Health – The Jewish HospitalRBC (Bld) [#/Vol]4.16 10*6/uL3.95 - 5.11 m/uL [facility] SystemSegmented neutrophils/100 WBC (Bld)4.01 %[facility] Health SystemWBC other (Bld) [#/Vol]6.1Bon SecProHealth Memorial Hospital OconomowocCBC with Diffon 14-73-7528Lew. Basophil0.06 k/uLNormal0.00-0.20[facility] Hospitalcy [facility] HospiceComment on above:Performed By: #### CP, CDP #### [facility] [address] [place] [address] Lead Mason Tender: Estuardo Sena MD #### WILLIAM GRULLON #### [place] [id number] [place] [address] Lead Mason Tender: Jemima Wyatt.Imm.Granulocyte0.03 k/uLNormal0.00-0.30[facility] Community HospitalComment on above:Performed By: #### GREY, CDP #### [address] [place], [place] 2915383 Lead Mason Tender: Estuardo Sena MD #### MITCHEL, NELLI #### [address] [phone] Lead Mason Tender: Jemima Wyatt.Neutrophil (Seg)4.01 k/uLNormal1.50-8.10 [facility] HospitalComment on above:Performed By: #### GREY, CDP #### [address] [place], [place] 1037483 Lead Mason Tender: Estuardo Sena MD #### MITCHEL, NELLI #### [address] [address] Lead Mason Tender: Mehdi Taylor MDBasophils/100 WBC (Bld)1 %Normal0-2MKettering Health SpringfieldComment on above:Performed By: #### GREY, CDP #### [address] [place], [place] 7282183 Lead Mason Tender: Estuardo Sena MD #### MITCHEL, FERI #### [address] [address] Lead Mason Tender: Mehdi Taylor MDEosinophils (Bld) [#/Vol]0.14 10*3/uLNormal 0.00-0.44[facility] Community HospitalComaspirus ironwood hospital on above:Performed By: #### GREY, CDP #### [address] [place], [place] 0498783 Lead Mason Tender: Estuardo Sena MD #### MITCHEL, NELLI #### [address] [id number] Lead Mason Tender: Mehdi Taylor MDEosinophils/100 WBC (Bld)2 %Normal1-4[facility] HospitalComment on above:Performed By: #### CP, CDP #### [address] [place], [place] 2595683 Lead Mason Tender: Estuardo Sena MD #### MITCHEL, FERI #### [address] [phone] Lead Mason Tender: Mehdi Taylor MDErythrocyte distribution width (RBC) [Ratio]13.0 %Spjwlg53.8-14.4[facility] Community HospitalComment on above:Performed By: #### CP, CDP #### [address] [place] 2672983 Lead Mason Tender: Estuardo Sena MD #### MITCHEL, FERI #### [address] [address] Lead Mason Tender: Mehdi Taylor MDHematocrit (Bld) [Volume fraction]36.3 %Normal 36.3-47.1Mthe university of toledo medical centery Connecticut HospiceComment on above:Performed By: #### CP, CDP #### [address] [place] 267[address]83 Lead Mason Tender: Estuardo Sena MD #### MITCHEL, FERI #### [address] [address] Lead Mason Tender: Mehdi Taylor MDHemoglobin (Bld) [Mass/Vol]11.7 g/dLLow11.9-15.1 [facility] HospitalComment on above:Performed By: #### CP, CDP #### [address] [place], [place] 0527883 Lead Mason Tender: Estuardo Sena MD #### MITCHEL, FERI #### [address] [address] Lead Mason Tender: Mehdi Taylor MDImmature granulocytes/100 WBC (Bld)1 %Xpzb9HviuvGalion Community HospitalComaspirus ironwood hospital on above:Performed By: #### CP, CDP #### [address] [place] [address] Lead Mason Tender: Estuardo Sena MD #### MITCHEL, FERI #### [address] [address] Lead Mason Tender: Mehdi Taylor MDLymphocytes (Bld) [#/Vol]1.34 10*3/uLNormal 1.10-3.70[facility] HospitalComment on above:Performed By: #### GREY, CDP #### [address] [place] [address] Lead Mason Tender: Estuardo Sena MD #### MITCHEL, FERI #### [address] [address] Lead Mason Tender: Mehdi Taylor MDLymphocytes/100 WBC (Bld)22 %War52-49KwjmzGalion Community HospitalComaspirus ironwood hospital on above:Performed By: #### GREY, CDP #### [address] [place] [address] Lead Mason Tender: Estuardo Snea MD #### MITCHEL, FERI #### [address] [address] Lead Mason Tender: JAMEL WyattCH (RBC) [Entitic mass]28.1 erXgoteb61.2-33.5 [facility] HospitalComaspirus ironwood hospital on above:Performed By: #### GREY, CDP #### [address] [place] [address] Lead Mason Tender: Estuardo Sena MD #### MITCHEL, FERI #### [address] [id number] Lead Mason Tender: JAMEL WyattCHC (RBC) [Mass/Vol]32.2 g/gMChholf72.4-34.8 [facility] HospitalComment on above:Performed By: #### CP, CDP #### [address] [place] 2672983 Lead Mason Tender: Estuardo Sena MD #### MITCHEL, FERI #### [address] [address] Lead Mason Tender: Mehdi Taylor MDMCV (RBC) [Entitic vol]87.3 kBMlkkeh68.6-102.9 [facility] HospitalComment on above:Performed By: #### GREY, CDP #### [address] [place] 2672983 Lead Mason Tender: Estuardo Sena MD #### MITCHEL, FERI #### [place] [address] Lead Mason Tender: JAMEL Wyattonocytes (Bld) [#/Vol]0.47 10*3/uLNormal 0.10-1.20[facility] HospitalComment on above:Performed By: #### GREY, CDP #### [address] [place] [address] Lead Mason Tender: Estuardo Sena MD #### MITCHEL, FERI #### [address] [address] Lead Mason Tender: Mehdi Taylor MDMonocytes/100 WBC (Bld)8 %Normal3-12[facility] HospitalComment on above:Performed By: #### CP, CDP #### [address] [place] [phone] ( Lead Mason Tender: Estuardo Sena MD #### MITCHEL, FERI #### [place] [address] [place], [place] [phone] Lead Mason Tender: Mehdi Taylor MDNeutrophil (Seg)66 %Pgom93-80PkmpqWhite Hospital on above:Performed By: #### CP, CDP #### [address] [place], [place] 0559[address] Lead Mason Tender: Estuardo Sena MD #### FEMARGARITO, FERI #### [address] [address] Lead Mason Tender: Mehdi Taylor MDNRBC Automated0.0 per 100 WBCNormal0.0[facility] on above:Performed By: #### CP, CDP #### [address] [place], [place] 3454783 Lead Mason Tender: Estuardo Sena MD #### MITCHEL, FERI #### [address] [address] Lead Mason Tender: Marily Wyatt mean volume (Bld) [Entitic vol]10.5 fL Normal8.1-13.5[facility] on above:Performed By: #### CP, CDP #### [address] [place], [place] 6[address] Lead Mason Tender: Estuardo Sena MD #### MITCHEL, FERI #### [address] [address] Lead Mason Tender: Adolfo Wyatttenannette (Bld) [#/Vol]246 10*3/gLBawqzl891-500 [facility] on above:Performed By: #### CP, CDP #### [address] [place], [place] 9082583 Lead Mason Tender: Estuardo Sena MD #### MITCHEL, FERI #### [address] [place] [address] Lead Mason Tender: NOLA Wyatt ([facility]) [#/Vol]4.16 10*6/uLNormal3.95-5.11 [facility] HospitalComment on above:Performed By: #### CP, CDP #### [address] [place], [place] 7932283 Lead Mason Tender: Estuardo Sena MD #### MITCHEL, FERI #### [place] [address] [place] [address] Lead Mason Tender: Mehdi Taylor MDW ([facility]) [#/Vol]6.1 10*3/uLNormal3.5-11.3[facility] [place] HospitalComment on above:Performed By: #### CP, CDP #### [address] [place] 267[address]83 Lead Mason Tender: Estuardo Sena MD #### MITCHEL, FERI #### [address] [address] Lead Mason Tender: IVANNA Wyattsalt lake regional medical center Metabolic Profon 12-67-5907Ztjarxj [Mass/Vol]4.0 g/dLNormal3.5-5.2[facility] [place] HospitalComment on above:Performed By: #### GREY, CDP #### [address] [place] 2672983 Lead Mason Tender: Estuardo Sena MD #### MITCHEL, FERI #### [address] [address] Lead Mason Tender: Mehdi Taylor MDAlbumin/Glob Ratio1.0Wlyueo2.0-2.5[facility] HospitalComment on above:Performed By: #### CP, CDP #### [address] [place], [place] 4995383 Lead Mason Tender: Estaurdo Sena MD #### FEMARGARITO, FERI #### [facility] [address] [place] [address] Lead Mason Tender: Jose Alejandro Wyatt Phos88 U/QMbylby39-744MhbczGalion Community HospitalComment on above:Performed By: #### CP, CDP #### [address] [place], [place] 6846983 Lead Mason Tender: Estuardo Sena MD #### MITCHEL, FERI #### [address] [address] Lead Mason Tender: Mehdi Taylor MDALT [Catalytic activity/Vol]12 U/FDwgdfy76-64 [facility] HospitalComment on above:Performed By: #### CP, CDP #### [address] [place], [place] 2917983 Lead Mason Tender: Estuardo Sena MD #### MITCHEL, FERI #### [address] [address] Lead Mason Tender: [place] Wyatt gap [Moles/Vol]10 mmol/LNormal9-16[facility] HospitalComment on above:Performed By: #### CP, CDP #### [address] [place], [place] 7734583 Lead Mason Tender: Estuardo Sena MD #### MITCHEL, FERI #### [facility] [address] [place] [address] Lead Mason Tender: Mehdi Taylor MDAST [Catalytic activity/Vol]17 U/MHttxbi80-15 [facility] HospitalComaspirus ironwood hospital on above:Performed By: #### CP, CDP #### [address] [place] [address] Lead Mason Tender: Estuardo Sena MD #### MITCHEL, FERI #### [address] [address] Lead Mason Tender: Mehdi Taylor MDBilirubin [Mass/Vol]0.3 mg/dLNormal0.00-1.20 [facility] HospitalComment on above:Performed By: #### CP, CDP #### [address] [place], [place] 3681783 Lead Mason Tender: Estuardo Sena MD #### MITCHEL, FERI #### [address] [address] Lead Mason Tender: Mehdi Taylor MDBUN/CRE Nharl52Rorsuh1-32Duvkb [facility] Comment on above:Performed By: #### GREY, CDP #### [address] [place] [address] Lead Mason Tender: Estuardo Sena MD #### MITCHEL, FERI #### [address] [address] Lead Mason Tender: IVANNA Wyattalcium [Mass/Vol]8.9 mg/dLNormal8.6-10.4[facility] HospitalComment on above:Performed By: #### GREY, CDP #### [address] [place], [place] 3632583 Lead Mason Tender: Estuardo Sena MD #### MITCHEL, FERI #### [address] [address] Lead Mason Tender: IVANNA Wyatthloride [Moles/Vol]103 mmol/QFlbbcl65-269RrfmuGalion Community HospitalComment on above:Performed By: #### GREY, CDP #### [address] [place], [place] 6697883 Lead Mason Tender: Estuardo Sena MD #### MITCHEL, FERI #### [address] [address] Lead Mason Tender: Mehdi Taylor MDCO2 [Moles/Vol]25 mmol/XJcrcgc27-92UnnnfGalion Community HospitalComaspirus ironwood hospital on above:Performed By: #### GREY, CDP #### [address] [place], [place] 2650983 Lead Mason Tender: Estuardo Sena MD #### MITCHEL, WILLIAM #### [place] [address] [place], [place] 5903508 Lead Mason Tender: IVANNA Wyattreatinine [Mass/Vol]0.7 mg/dLNormal0.50-0.90 [facility] HospitalComaspirus ironwood hospital on above:Performed By: #### GREY, CDP #### [address] [place] [address] Lead Mason Tender: Estuardo Sena MD #### MITCHEL, WILLIAM #### [address] [phone] Lead Mason Tender: Mehdi Taylor MDGFR/1.73 sq M.predicted among non-blacks MDRD (S/P/Bld) [Vol rate/Area]mL/min/{1.73_m2}Normal>60[facility] HospitalComaspirus ironwood hospital on above:Result Comment: These results are not intended for [...] or following therapy that affects renal tubular secretion.Performed By: #### GREY, CDP #### [address] [place], [place] 9822983 Lead Mason Tender: Estuardo Sena MD #### MITCHEL, NELLI #### [place] [address] [place], [place] 5138808 Lead Mason Tender: Mehdi Taylor MDGlucose [Mass/Vol]86 mg/gKMhpbac18-36CogzdKettering Health SpringfieldComment on above:Performed By: #### CP, CDP #### [address] [place] [address]83 Lead Mason Tender: Estuardo Sena MD #### MITCHEL, FERI #### [address] [phone] Lead Mason Tender: FLOR Wyattotassium [Moles/Vol]4.6 mmol/LNormal3.7-5.3 [facility] HospitalComment on above:Performed By: #### CP, CDP #### [address] [place] 2672983 Lead Mason Tender: Estuardo Sena MD #### MITCHEL, FERI #### [place] [address] Lead Mason Tender: Mehdi Taylor MDProtein [Mass/Vol]6.7 g/dLNormal6.6-8.7[facility] HospitalComment on above:Performed By: #### GREY, CDP #### [address] [place] [address]83 Lead Mason Tender: Estuardo Sena MD #### MITCHEL, FERI #### [place] [address] Lead Mason Tender: Mehdi Taylor MDSodium [Moles/Vol]138 mmol/TVryduq238-559WebneGalion Community HospitalComment on above:Performed By: #### CP, CDP #### [address] [place] 2672983 Lead Mason Tender: Estuardo Sena MD #### FEMARGARITO, FERI #### [address] [address] Lead Mason Tender: Mehdi Taylor MDUrea nitrogen [Mass/Vol]11 mg/dLNormal6-20[facility] HospitalComment on above:Performed By: #### CP, CDP #### [facility] [address] [place] [address] Lead Mason Tender: Estuardo Sena MD #### WILLIAM GRULLON #### [facility] [address] [place], [place] 0117308 Lead Mason Tender: Mehdi Taylor [facility] – ENIDomprehensive Metabolic Panelon 09-24-2024 Albumin [Mass/Vol]4.0 g/dL3.5 - 5.2 g/dLBon [facility] HealthAlbumin/Globulin [Mass ratio]1.5 {ratio}1.0 - 2.5Bon SecMerged with Swedish Hospitaly HealthALP [Catalytic activity/Vol]88 U/L35 - 104 U/LBon SecOchsner [facility] HealthALT [Catalytic activity/Vol]12 U/L10 - 35 U/LBon [facility] HealthAnion gap [Moles/Vol]10 mmol/L9 - 16 mmol/LBon SecMerged with Swedish Hospitaly HealthAST [Catalytic activity/Vol]17 U/L10 - 35 U/LBon Secours Centervilley HealthBilirubin [Mass/Vol]0.3 mg/dL0.00 - 1.20 mg/dL Bon SecOchsner [facility] HealthCalcium [Mass/Vol]8.9 mg/dL8.6 - 10.4 mg/dLBon [facility] HealthChloride [Moles/Vol]103 mmol/L98 - 107 mmol/LBon [facility] HealthCO2 [Moles/Vol]25 mmol/L20 - 31 mmol/LBon [facility] HealthCreatinine [Mass/Vol]0.7 mg/dL0.50 - 0.90 mg/dLBon [facility] HealthEst, Glom Filt Rate- PINFBon [facility] Jewish HospitalComment on above: These results are not intended [...] therapy that affects renal tubular secretion. Glucose [Mass/Vol]86 mg/dL74 - 99 mg/dLBon [facility] Jewish HospitalPotassium [Moles/Vol]4.6 mmol/L3.7 - 5.3 mmol/LBon [facility] HealthProtein [Mass/Vol] 6.7 g/dL6.6 - 8.7 g/dLBon [facility] Jewish HospitalSodium [Moles/Vol]138 mmol/L136 - 145 mmol/LBon [facility] Jewish HospitalUrea nitrogen [Mass/Vol]11 mg/dL6 - 20 mg/dL Inova Health SystemUrea nitrogen/Creatinine [Mass ratio]16 mg/mg9 - 20Bon [facility] HospitalBon [facility] Jewish HospitalFerritinon 95-12-7782Gsnmfsjm [Mass/Vol]18 ng/mL15 - 150 ng/mLBon [facility] Jewish HospitalComment on above: FERRITIN Reference Ranges: Adult Males 20 - 60 years: 30 - 400 ng/mL Adult females 17 - 60 years: 13 - 150 ng/mL Adults greater than 60 years: no established reference range Pediatrics: no established reference range Ferritin [Mass/Vol]18 ng/kYGmdcau97-140HfhqfGalion Community HospitalComaspirus ironwood hospital on above: Result Comment: FERRITIN Reference Ranges: Adult Males 20 - 60 years: 30 - 400 ng/mL Adult females 17 - 60 years: 13 - 150 ng/mL Adults greater than 60 years: no established reference range Pediatrics: no established reference rangePerformed By: #### CP, CDP #### [facility] [address] [place] [address] [place] [address] Lead Mason Tender: Estuardo Sena MD #### WILLIAM GRULLON #### [facility] [address] [place] [address] Lead Mason Tender: Ml Wyatt Cap.on 09-24-2024% Fe Vxsqzfpoav87 %Mzv96-52QwltrGalion Community HospitalComaspirus ironwood hospital on above:Performed By: #### CP, CDP #### [address] [place] [address] Lead Mason Tender: Estuardo Sena MD #### FEBC, FERI #### [address] [address] Lead Mason Tender: Mehdi Taylor MDIron [Mass/Vol]38 ug/gDDneefo56-972EtzhcGalion Community HospitalComaspirus ironwood hospital on above:Performed By: #### CP, CDP #### [address] [place], [place] 8397383 Lead Mason Tender: Estuardo Sena MD #### FEBC, FERI #### [address] [address] Lead Mason Tender: Phoebe Wyatt Fe Binding Bee795 ug/fOEtnipz208-594KaplfGalion Community HospitalComaspirus ironwood hospital on above:Performed By: #### CP, CDP #### [address] [place], [place] 7[address]83 Lead Mason Tender: Estuardo Sena MD #### FEMARGARITO, FERI #### [address] [address] Lead Mason Tender: Mehdi Taylor MDUnbound Fe Bind Gyv400 ug/wSWspk831-339ZuwqsGalion Community HospitalComaspirus ironwood hospital on above:Performed By: #### CP, CDP #### [address] [place], [place] 9274983 Lead Mason Tender: Estuardo Sena MD #### FEBC, FERI #### [address] [address] Lead Mason Tender: Ml Wyatt and Joshua 94-16-4577Semzsotyctowus and review of laboratory resultsAbnormalBon Secours Centervilley HealthIron [Mass/Vol]38 ug/dL37 - 145 ug/dLBon Secours Centervilley HealthIron binding capacity [Mass/Vol]392 ug/dL250 - 450 ug/dLBon Secours Centervilley HealthIron saturation [Mass fraction]10 % Low20 - 55 %[facility]cy MluyfvIYVJ170 ug/lEYoxt888 - 347 ug/dLBon [facility] – The Jewish HospitalNo Panel Informationon 08-93-8667Yki [facility] Hospitalotilia [facility] Wexner Medical CenterCNPNon 79-12-9404SHCPIlhwjlyrs (NCCAP) ILSA FERNANDEZ ([id number]) 1975 F Date Time Provider Department 09/23/24 SANDRA RAPHAEL During your visit today, we recorded the following information about you: Myranda Mishra 09/23/2024 11:38 AM Addendum Patient calls very [...] be faxed to [facility] - fax [phone]. Faxed lab orders September 23, 2024 11:27 [...] for approval if so. Thanks! Sandra Danielle, BERRY 09/23/2024 11:52 AM Signed I am sorry [...] she still insisted they be sent to [place]. Myranda Epstein Mrc, Jo Ann L 09/26/2024 8:37 AM Signed Labs are in chart under the lab tab. Sandra Raphael PA-C 09/26/2024 8:41 AM Signed Please inform her she needs more IV iron. She requires infectafer that will need special approval from pharmacy and orders will need placed by pharmacy. BERRY Pierce Kathryn, [facility] 09/26/2024 11:16 AM Signed Orders placed and per Filomena Telles no non formulary approval is needed for injectafer. Yoan Jean, MontyD, BCOP Myranda Mishra 09/26/2024 11:29 AM Signed Did you want to see her same day prior? Sandra Danielle PA-C 09/26/2024 11:59 AM Signed sure Myranda Mishra 09/26/2024 2:21 PM Signed Patient has been scheduled and notified. Thanks! Myranda Mishra Allergies As of Date: 09/23/2024 Noted Allergy Reaction CODEINE 09/23/2017 4 - Hives MONOFERRIC (FERRIC DERISOMALTOSE) 06/10/2021 14 - Other: See Comments Comments: Chest palpations with flushing, hot all over Date Reviewed: 09/23/2024 Reviewed by: Sandra Raphael PA-C - Fully Assessed Reason for Visit: [...] surgery [Z98.84] 09/23/2017 Encounter Status:Closed by MYRANDA MISHRA on 09/26/24[facility] SystemCNCRUZon [id number] (HEMASA) ILSA FERNANDEZ ([id number]) 1975 F Date Time Provider Department 06/21/24 JUSTO GAMBINO During your visit today, we recorded the following information about you: Justo Gambino RN 06/21/2024 9:03 AM Signed ----- Message from Sandra Raphael PA-C sent at 06/21/2024 7:45 AM EDT [...] over Date Reviewed: 06/20/2024 Reviewed by: Sandra Raphael PA-C - Fully Assessed Reason for Visit: [...] 09/23/2017 Encounter Status:Closed by JUSTO GAMBINO on 06/21/24NormalCMount [facility] W Auto Differential panel (Bld)on 10-98-9387Trluqegng (Bld) [#/Vol] 0.05 10*3/uLNormal<0.11CMercy Health [facility] Hospital on above:Order Comment: Specimen Type: BLOOD SPECIMENOrdering Facility: [facility] Address:[address] [place], [place] [address]Performed By: #### 52998-6 ####[facility] LABCLIA [id number] [place], [place] [address]Gbsmwdbiu/100 WBC (Bld)0.8 %NormalTrumbull Regional Medical Center on above:Order Comment: Specimen Type: BLOOD SPECIMENOrdering Facility: [facility] Address:[address] [place], [place] [address]Performed By: #### 14248-3 ####[facility] LABCLIA [id number] [place], [place] [address]Rtbepouubpaw cell count method Nom (Bld)AutoNormGrand Lake Joint Township District [facility] on above:Order Comment: Specimen Type: BLOOD SPECIMENOrdering Facility: [facility] Address:[address] [place], [place] [address]Performed By: #### 12560-8 ####[facility] LABCLIA [id number] [place], [place] [address]Svahwqklkjy (Bld) [#/Vol]0.10 10*3/uLNormal<0.46[facility] on above:Order Comment: Specimen Type: BLOOD SPECIMENOrdering Facility: [facility] Address:[address] [place], [place] [address]Performed By: #### 27227-3 ####[facility] LABIA [id number] [place], [place] [address]Fshnxuklzpn/100 WBC (Bld)1.6 %NormalTrumbull Regional Medical Center on above:Order Comment: Specimen Type: BLOOD SPECIMENOrdering Facility: [facility] Address:[address] [place], [place] [address]Performed By: #### 38327-7 ####[facility] LABIA [id number] [place], [place] [address]Zjakpmsahgs distribution width (RBC) [Ratio]17.0 %High 11.5-15.0[facility] on above:Order Comment: Specimen Type: BLOOD SPECIMENOrdering Facility: [facility] Address:[address] [place], [place] [address]Performed By: #### 78908-0 ####[facility]IA [id number] [place] [address] Hematocrit (Bld) [Volume fraction]38.3 %Kyfsry45.0-46.0[facility] on above:Order Comment: Specimen Type: BLOOD SPECIMENOrdering Facility: [facility] Address:[address] [place], [place] [address]Performed By: #### 18435-6 ####[facility] LABIA [id number] [place], [place] [address]Hclqnktqzt (Bld) [Mass/Vol]12.7 g/gOCqjpdj57.5-15.5CMercy Health Allen Hospital on above:Order Comment: Specimen Type: BLOOD SPECIMENOrdering Facility: [facility] Address:[address] [place], [place] [address]Performed By: #### 94493-7 ####[facility] LABIA [id number] [place], [place] [address]Dxqporyw granulocytes (Bld) [#/Vol]0.03 10*3/uLNormal <0.10[facility] on above:Order Comment: Specimen Type: BLOOD SPECIMENOrdering Facility: [facility] Address:[address] [place], [place] [address]Performed By: #### 07673-8 ####[facility] LABCLIA [id number] [place], [place] [address]Sdjqlado granulocytes/100 WBC (Bld)0.5 %NormalTrumbull Regional Medical Center on above: Order Comment: Specimen Type: BLOOD SPECIMENOrdering Facility: [facility] Address:[address] [place], [place] [address]Performed By: #### 44367- 8 ####[facility] LABCLIA [id number] [place], [place] [address]Lesxpjkglzc (Bld) [#/Vol]1.49 10*3/uLNormal1.00-4.00 [facility] on above:Order Comment: Specimen Type: BLOOD SPECIMENOrdering Facility: [facility] Address:[address] [place], [place] [address]Performed By: #### 34938-1 ####[facility] LABIA [id number] [place], [place] [address]Vmswxvdvlmn/100 WBC (Bld)23.3 %NormalTrumbull Regional Medical Center on above:Order Comment: Specimen Type: BLOOD SPECIMENOrdering Facility: [facility] Address:[address] [place], [place] [address]Performed By: #### 89639-9 ####[facility] LABCLIA [id number] [place], [place] [address]AWA (RBC) [Entitic mass]28.2 ysYaliha33.0-34.0[facility] on above:Order Comment: Specimen Type: BLOOD SPECIMENOrdering Facility: [facility] Address:[address] [place], [place] [address]Performed By: #### 96843-6 ####[facility] LABCLIA [id number] [place], [place] [address]DONN (RBC) [Mass/Vol]33.2 g/xSPbdsvd94.5-36.0[facility] on above: Order Comment: Specimen Type: BLOOD SPECIMENOrdering Facility: [facility] Address:[address] [place], [place] [address]Performed By: #### 45985- 8 ####[facility] LABCLIA [id number] [place], [place] [address]JBV (RBC) [Entitic vol]84.9 sHFrfoki82.0-100.0[facility] on above:Order Comment: Specimen Type: BLOOD SPECIMENOrdering Facility: [facility] Address:[address] [place], [place] [address]Performed By: #### 66010-1 ####[facility] LABIA [id number] [place], [place] [address]Kwytxcjjd (Bld) [#/Vol]0.47 10*3/uLNormal<0.87[facility] on above:Order Comment: Specimen Type: BLOOD SPECIMENOrdering Facility: [facility] Address:[address] [place], [place] [address]Performed By: #### 30480- 8 ####[facility] LABCLIA [id number] [place], [place] [address]Wuywimiuo/100 WBC (Bld)7.4 %NormalTrumbull Regional Medical Center on above:Order Comment: Specimen Type: BLOOD SPECIMENOrdering Facility: [facility] Address:[address] [place], [place] [address]Performed By: #### 60310-6 ####[facility] LABIA [id number] [place], [place] [address]Qftnytobedm (Bld) [#/Vol]4.25 10*3/uLNormal1.45-7.50[facility] on above:Order Comment: Specimen Type: BLOOD SPECIMENOrdering Facility: [facility] Address:[address] [place], [place] [address]Performed By: #### 97648-2 ####[facility] LABCLIA [id number] [place], [place] [address]Meonbnsbqhi/100 WBC (Bld)66.4 %NormalTrumbull Regional Medical Center on above:Order Comment: Specimen Type: BLOOD SPECIMENOrdering Facility: [facility] Address:[address] [place], [place] [address]Performed By: #### 06168-8 ####[facility] LABCLIA [id number] [place], [place] [address]Kapnnrytu RBC (Bld) [#/Vol] 10*3/uLNormal<0.01[facility] on above:Order Comment: Specimen Type: BLOOD SPECIMENOrdering Facility: [facility] Address:[address] [place], [place] [address]Performed By: #### 50296-3 ####[facility] LABCLIA [id number] [place], [place] [address]Jlcpkxttf RBC/100 WBC (Bld) [Ratio]0.0 /100 WBCNormal [facility] on above:Order Comment: Specimen Type: BLOOD SPECIMENOrdering Facility: [facility] Address:[address] [place], [place] [address]Performed By: #### 29147-6 ####[facility] LABCLIA [id number] [place], [place] [address]Erdkgunp mean volume (Bld) [Entitic vol]9.9 fLNormal9.0-12.7CMercy Health [facility] Hospital on above:Order Comment: Specimen Type: BLOOD SPECIMENOrdering Facility: [facility] Address:[address] [place] [address] Performed By: #### 70442-6 ####[facility] LABCLIA [id number] [place], [place] [address]Vnvbjcyph (Bld) [#/Vol]177 10*3/rEUbhajv810-613RksudylfjTrumbull Regional Medical Center on above:Order Comment: Specimen Type: BLOOD SPECIMENOrdering Facility: [facility] Address:[address] [place], [place] [address]Performed By: #### 07362-7 ####[facility] LABCLIA [id number] [place], [place] [address]EIM (Bld) [#/Vol]4.51 10*6/uLNormal3.90-5.20[facility] on above:Order Comment: Specimen Type: BLOOD SPECIMENOrdering Facility: [facility] Address:[address] [place], [place] [address]Performed By: #### 76637-6 ####[facility] LABIA [id number] [place], [place] [address]ZWG (Bld) [#/Vol]6.39 10*3/uLNormal3.70-11.00[facility] on above: Order Comment: Specimen Type: BLOOD SPECIMENOrdering Facility: [facility] Address:[address] [place], [place] [address]Performed By: #### 37897- 8 ####[facility] LABIA [id number] [place], [place] [address]CEMOROlw 35-76-2116EKJLUYArjvz (SP) Office (HEMASA) ILSA FERNANDEZ ([id number]) 1975 F Date Time Provider Department 06/20/24 10:30 AM SANDRA RAPHAEL During your visit today, we recorded the following information about you: Temperature Pulse Respiration Blood pressure 97.9 degrees 78/minute 16/minute 138/84 Weight 147 kg Sandra Raphael PA-C 06/20/2024 10:45 AM Signed Date of [...] have a horse show from 06/30-07/17/2024 in [place]. Current Outpatient Medications Medication Sig cyanocobalamin 1,000 [...] B12 injections at home, refilled today Sandra Raphael PA-C CC: Brennon Zambrano, DO I spent a total of 20 minutes on the date of the service which included preparing to see the patient, osyd-it-qnbf patient care, completing clinical documentation, performing a medically appropriate examination, counseling and educating the patient/family/caregiver, ordering medications, tests, or procedures, independently interpreting results (not separately reported), communicating results to the patient/family/caregiver, and care coordination (not separately reported). Allergies As of Date: 06/20/2024 Noted Allergy Reaction CODEINE 09/23/2017 4 - Hives MONOFERRIC (FERRIC DERISOMALTOSE) 06/10/2021 14 - Other: See Comments Comments: Chest palpations with flushing, hot all over Date Reviewed: 06/20/2024 Reviewed by: Sandra Raphael PA-C - Fully Assessed Visit Diagnoses:Iron deficiency anemia, unspecified iron deficiency anemia type [D50.9] History of (more content not included)...NormalThe Jewish HospitalCNPNon 27-85-3678WLLZIajbxvamk (NCCAP) ILSA FERNANDEZ ([id number]) 1975 F Date Time Provider Department 06/20/24 SANDRA RAPHAEL NCCLUCILLE During your visit today, we recorded the following information about you: Myranda Mishra 06/20/2024 10:40 AM Signed Patient did not want to schedule appointments when she was here today. She states she will call our office to schedule appts at her convenience. Myranda Mishra Allergies As of Date: 06/20/2024 Noted Allergy [...] surgery [Z98.84] 09/23/2017 Encounter Status:Closed by MYRANDA MISHRA on 06/20/24NormalCThe University of Toledo Medical Centerprehensive metabolic 2000 panelon 36-42-5161Dhelwmj [Mass/Vol]4.5 g/dLNormal3.9-4.9CMercy Health [facility] Hospital on above:Order Comment: Specimen Type: BLOOD SPECIMENOrdering Facility: [facility] Address:[address] [place], [place] [address]Performed By: #### 41263-2 ####[facility] LABCLIA [id number] [place], [place] [address]FMK [Catalytic activity/Vol]94 U/ETsakch81-549UjlizzsgjTrumbull Regional Medical Center on above:Order Comment: Specimen Type: BLOOD SPECIMENOrdering Facility: [facility] Address:[address] [place], [place] [address]Performed By: #### 11838-6 ####[facility] LABCLIA [id number] [place], [place] [address]NDV [Catalytic activity/Vol]11 U/LNormal7-38[facility] on above:Order Comment: Specimen Type: BLOOD SPECIMENOrdering Facility: [facility] Address:[address] [place], [place] [address]Performed By: #### 02314- 8 ####[facility] LABCLIA [id number] [place], [place] [address]Hxlqt gap [Moles/Vol]10 mmol/LNormal8-15[facility] on above:Order Comment: Specimen Type: BLOOD SPECIMENOrdering Facility: [facility] Address:[address] [place], [place] [address]Performed By: #### 69463-0 ####[facility] LABCLIA [id number] [place], [place] [address]SOP [Catalytic activity/Vol]11 U/ZSqm55-64EjucjdjhbTrumbull Regional Medical Center on above:Order Comment: Specimen Type: BLOOD SPECIMENOrdering Facility: [facility] Address:[address] [place], [place] [address]Performed By: #### 67018-9 ####[facility] LABCLIA [id number] [place] [address] Bilirubin [Mass/Vol]0.3 mg/dLNormal0.2-1.3CMercy Health [facility] Hospital on above:Order Comment: Specimen Type: BLOOD SPECIMENOrdering Facility: [facility] Address:[address] [place], [place] [address]Performed By: #### 43681-8 ####[facility] LABCLIA [id number] [place], [place] [address]Xsilwfk [Mass/Vol]9.5 mg/dLNormal8.5-10.2CMercy Health [facility] Hospital on above:Order Comment: Specimen Type: BLOOD SPECIMENOrdering Facility: [facility] Address:[address] [place], [place] [address]Performed By: #### 03315-6 ####[facility] LABCLIA [id number] [place], [place] [address]Zpocdijk [Moles/Vol]107 mmol/HXyvyuf80-967VfekttxzmTrumbull Regional Medical Center on above: Order Comment: Specimen Type: BLOOD SPECIMENOrdering Facility: [facility] Address:[address] [place], [place] [address]Performed By: #### 73598- 8 ####[facility] LABCLIA [id number] [place], [place] [address]VE6 [Moles/Vol]23 mmol/XVryuhy81-16DkdmtedhgTrumbull Regional Medical Center on above:Order Comment: Specimen Type: BLOOD SPECIMENOrdering Facility: [facility] Address:[address] [place], [place] [address]Performed By: #### 22532-7 ####[facility] LABCLIA [id number] [place], [place] [address]Skstrfoeqp [Mass/Vol]0.78 mg/dL Normal0.58-0.96[facility] on above:Order Comment: Specimen Type: BLOOD SPECIMENOrdering Facility: [facility] Address:[address] [place], [place] [address]Performed By: #### 45428-2 ####[facility] LABCLIA [id number] [place], [place] [address]Wdcmdeioqv and Glomerular filtration rate.predicted panel (S/P/Bld)93 mL/min/1.73m???Normal>=60[facility] on above:Order Comment: Specimen Type: BLOOD SPECIMENOrdering Facility: [facility] Address:[address] [place], [place] [address]Result Comment: Estimated Glomerular Filtration Rate (eGFR) is calculated using the 2020 CKD-EPI creatinine equation. This equation utilizes serum creatinine, sex, and age as parameters. The creatinine assay has traceable calibration to isotope dilution- mass spectrometry. Refer to KDIGO guidelines for clinical interpretation. In patients with unstable renal function, e.g. those with acute kidney injury, the eGFR may not accurately reflect actual GFR.Performed By: #### 57380-1 ####[facility] LABCLIA [id number] [place], [place] [address]Uhbwwjk [Mass/Vol]96 mg/sXFoknzp95-51ItjuxzphvTrumbull Regional Medical Center on above:Order Comment: Specimen Type: BLOOD SPECIMENOrdering Facility: [facility] Address:[address] [place], [place] [address]Result Comment: The [place] Diabetes Association (ADA) provides guidance for cutoff values for fasting glucose and random glucose. The ADA defines fasting as no caloric intake for at least 8 hours. Fasting plasma glucose results between 100 to 125 mg/dL indicate increased risk for diabetes (prediab etes). Fasting plasma glucose results greater than or [...] Standards of Medical Care in Diabetes 2016, [place] Diabetes Association. Diabetes Care. 2016.39(Suppl 1).Performed By: #### 16898-2 ####[facility] LABCLIA [id number] [place], [place] [address]Ugobjdbzu [Moles/Vol]4.9 mmol/LNormal3.7-5.1CMercy Health [facility] Hospital on above:Order Comment: Specimen Type: BLOOD SPECIMENOrdering Facility: [facility] Address:[address] [place], [place] [address]Performed By: #### 97575-8 ####[facility] LABCLIA [id number] [place], [place] [address]Bzpfhrc [Mass/Vol]7.3 g/dLNormal6.3-8.0[facility] on above:Order Comment: Specimen Type: BLOOD SPECIMENOrdering Facility: [facility] Address:[address] [place], [place] [address]Performed By: #### 94554- 8 ####[facility] LABCLIA [id number] [place], [place] [address]Bxxqec [Moles/Vol]140 mmol/MGwoorf618-152GcjbfnospTrumbull Regional Medical Center on above:Order Comment: Specimen Type: BLOOD SPECIMENOrdering Facility: [facility] Address:[address] [place], [place] [address]Performed By: #### 72011-1 ####[facility] LABCLIA [id number] [place], [place] [address]Qddd nitrogen [Mass/Vol]12 mg/dLNormal7-21[facility] on above:Order Comment: Specimen Type: BLOOD SPECIMENOrdering Facility: [facility] Address:[address] [place], [place] [address]Performed By: #### 02019-5 ####[facility] LABCLIA [id number] [place], [place] [address]Gxtzscpi SerPl-mCncon 17-13-8880Tfxvsudl [Mass/Vol]183.0 ng/jTBxrjkn73.7-205.1CNorwalk Memorial HospitalComment on above:Order Comment: Specimen Type: BLOOD SPECIMENOrdering Facility: [facility] Address:[address] [place], [place] [address]Performed By: #### 61855-2, 2275-12 ####[facility] LABCLIA [id number] [place] [address] [place] OF AMERICAIron and Iron binding capacity panelon 75-29-3301Qvrl [Mass/Vol]90 ug/vRFoaefr66-227XxdrkzayhThe Jewish Hospital Comment on above:Order Comment: Specimen Type: BLOOD SPECIMENOrdering Facility: [facility] Address:[address] [place] [address] Performed By: #### 51170-3, 2275-12 ####[facility] LABCLIA [id number] [place] [address] [place] Iron binding capacity [Mass/Vol]318 ug/qLVqbdsi888-797GbeyqyqnyThe Jewish Hospital Comment on above:Order Comment: Specimen Type: BLOOD SPECIMENOrdering Facility: [facility] Address:[address] [place] [address] Performed By: #### 44431-5, 2275-12 ####[facility] LABCLIA [id number] [place] [address] [place] Iron/TIBC [Molar ratio]28.3 %Okrbjd24.0-57.0The Jewish HospitalComment on above:Order Comment: Specimen Type: BLOOD SPECIMENOrdering Facility: [facility] Address:[address] [place], [place] [address]Performed By: #### 50130-8, 2275- ####[facility] LABCLIA [id number] [facility] [id number] [place] [address] [place] AMERICAHCG ( test) IA.rapid Ql (U)Ordered By: Teresa Burks on 56-62-7626KNG ( test) Ql (U) NegativeDayton Va Medical CenterHCG,Urineon 46-37-1314Efup HCG ( test) Ql (U)NegativeNoAsheville Specialty Hospital Physician GroupComment on above:Result Comment: PERFORMED BY: [place] [address] PATHOLOGIST [employer] SAMANTHA RODRIGUEZ M.D.Performed By: #### UHCG #### [place] [address] USALon 14-17-6796EOpliazis: [id number] Received: 05/16/24 Status: SOUT Req Num: [id number] Spec Type: Surgical Subm Dr: Teresa Burks MD Tissues: A Colon Biopsy (CECAL POLYP) B Colon Biopsy (ASCENDING POLYP) C Colon Biopsy (TRANSVERSE POLYP) D Colon Biopsy (DESCENDING POLYP) Procedures: HE/8, Gross/Micro L4/4 Age/ Patient Sex Location Account Attending Physician Ilsa Fernandez 49/F [id number] Teresa Burks MD SPEC NUM: [id number] RECD: 05/16/24 STATUS: AMANDA REQ NUM: [id number] CARYN: 05/13/24- [facility] DR: Teresa Burks MD ENTERED: 05/16/[address] [facility] [address]: SPEC TYPE: Surgical DEPT: S [...] submitted in toto in cassette A1. Specimen: [id number] Received: 05/16/24 Status: AMANDA Atkins Num: [id number] Spec Type: Surgical Subm Dr: Teresa Burks MD Tissues: A Colon Biopsy (CECAL POLYP) B Colon Biopsy (ASCENDING POLYP) C Colon Biopsy (TRANSVERSE POLYP) D Colon Biopsy (DESCENDING POLYP) Procedures: ANN/Horace, Gross/Micro L4/4 Patient: JimIlsa [id number] (Continued) Specimen: [id number] Received: 05/16/24 (Continued) Gross Description (Continued) Signed (signature on file) Libertad Mendes MD 05/18/24 1524 Specimen: [id number] Received: 05/16/24 Status: AMANDA Atkins Num: [id number] Spec Type: Surgical Subm Dr: Teresa Burks MD Tissues: A Colon Biopsy (CECAL POLYP) B Colon Biopsy (ASCENDING POLYP) C Colon Biopsy (TRANSVERSE POLYP) D Colon Biopsy (DESCENDING POLYP) Procedures: HE/Horace, Gross/Micro L4/4 Patient: Ilsa Fernandez [id number] (Continued) Specimen: [id number] Received: 05/16/24 (Continued) Gross Description (Continued) Part [...] entirely submitted in cassette D1. CPT Codes 14081z9 Specimen: [id number] Received: 05/16/24 Status: AMANDA Atkins Num: [id number] Spec Type: Surgical Subm Dr: Teresa Burks MD Tissues: A Colon Biopsy (CECAL POLYP) B Colon Biopsy (ASCENDING POLYP) C Colon Biopsy (TRANSVERSE POLYP) D Colon Biopsy (DESCENDING POLYP) Procedures: Rylie MARIN/Ophelia L4/4 Patient: Ilsa Fernandez [id number] (Continued) Signed (signature on file) Libertad Mendes MD 05/18/24 1524[facility] Physician GroupBasophils Auto (Bld) [#/Vol]on 43-57-9632Xyvioglwi (Bld) [#/Vol]0.05 10*3/uL<0.11Dayton Va Medical CenterBasophils/100 WBC Auto (Bld)on 75-46-0691Zmtlpylow/100 WBC (Bld)1.0 % [facility] Va Medical CenterBlood manual differential comment interpretation narrativeon 65-35-5211Opuihr differential comment Addison (Bld) [Interp]AutoDayton Va Medical CenterCBC W Auto Differential panel (Bld) on 27-80-9697Odexzfdza (Bld) [#/Vol]0.05 10*3/uLNINFUniversity Hospitals Health System Basophils/100 WBC (Bld)1.0 %[facility] Hospit[facility] Health SystemDifferential cell count method Nom (Bld)AutoCleveland ClinicEosinophils (Bld) [#/Vol]0.07 10*3/uLNINFUniversity Hospitals Health SystemEosinophils/100 WBC (Bld)1.4 %[facility] Hospitals Health SystemErythrocyte distribution width (RBC) [Ratio]13.0 %11.5 - 15.0 %[facility] Hospitals Health SystemHematocrit (Bld) [Volume fraction]32.9 %Low36.0 - 46.0 %[facility] Hospitals Health SystemHemoglobin (Bld) [Mass/Vol]10.7 g/dLLow11.5 - 15.5 g/dLUniversity Hospitals Health SystemImmature granulocytes (Bld) [#/Vol]0.03 10*3/uLNINFUniversity Hospitals Health SystemImmature granulocytes/100 WBC (Bld)0.6 %[facility] Health SystemInterpretation and review of laboratory resultsAbnormalClevelCleveland Clinic [facility] Lymphocytes (Bld) [#/Vol]1.24 10*3/uLUniversity Hospitals Health SystemLymphocytes/100 WBC (Bld) 25.1 %[facility] HospitalH (RBC) [Entitic mass]27.3 pg26.0 - 34.0 pgCBlanchard Valley Health System Blanchard [facility] HospitalHC (RBC) [Mass/Vol]32.5 g/dL30.5 - 36.0 g/dLUniversity Hospitals Health SystemMCV (RBC) [Entitic vol]83.9 fL80.0 - 100.0 fLClevelnovant health presbyterian medical [facility] ClinicMonocytes (Bld) [#/Vol]0.39 10*3/uLNINFUniversity Hospitals Health SystemMonocytes/100 WBC (Bld)7.9 %[facility] Neutrophils (Bld) [#/Vol]3.16 10*3/uLUniversity Hospitals Health SystemNeutrophils/100 WBC (Bld) 64.0 %[facility] SystemNucleated RBC (Bld) [#/Vol]NINFClevelCleveland Clinic [facility]ron GeneralNucleated RBC/100 WBC (Bld) [Ratio]0.0 %/100 WBCUniversity Hospitals Health SystemPlatelet mean volume (Bld) [Entitic vol]10.0 fL9.0 - 12.7 fLClevelCleveland Clinic Akron GeneralPlatelets (Bld) [#/Vol]241 10*3/uLUniversity Hospitals Health SystemRBC (Bld) [#/Vol]3.92 10*6/uL3.90 - 5.20 m/[facility] HospitalWBC (Bld) [#/Vol]4.94 10*3/uLMercy Health Perrysburg HospitalComprehensive metabolic 2000 panelOrdered By: Lizeth Gunter on 96-42-3475Qdnnwgz [Mass/Vol]4.2 g/dL3.9 - 4.9 g/dLSouth Mills ClinicALP [Catalytic activity/Vol]89 U/L34 - 123 U/L [facility]ALT [Catalytic activity/Vol]9 U/L7 - 38 U/LCleveland ClinicAnion gap [Moles/Vol]11 mmol/L8 - 15 mmol/LCleveland ClinicAST [Catalytic activity/Vol]11 U/LLow13 - 35 U/LCleveland ClinicBilirubin [Mass/Vol]0.4 mg/dL 0.2 - 1.3 mg/dLSouth Mills ClinicCalcium [Mass/Vol]9.4 mg/dL8.5 - 10.2 mg/dL [facility] ClinicChloride [Moles/Vol]104 mmol/L98 - 107 mmol/LCleveland ClinicCO2 [Moles/Vol]24 mmol/L22 - 30 mmol/LCleveland ClinicCreatinine [Mass/Vol]0.89 mg/dL0.58 - 0.96 mg/dLUniversity Hospitals Health SystemGFR/1.73 sq M.predicted among non-blacks MDRD (S/P/Bld) [Vol rate/Area]79 mL/min/{1.73_m2}- PINFCCleveland Clinic South Pointe HospitalComment on above:Estimated Glomerular Filtration Rate (eGFR) is calculated using the 2020 CKD-EPI creatinine equation. This equation utilizes serum creatinine, sex, and age as parameters. The creatinine assay has traceable calibration to isotope dilution-mass spectrometry. Refer to KDIGO guidelines for clinical inte rpretation. In patients with unstable renal function, e.g. those with acute kidney injury, the eGFRmay not accurately reflect actual GFR.Glucose [Mass/Vol] 92 mg/dL74 - 99 mg/dLUniversity Hospitals Health SystemComment on above:The [place] Diabetes Association (ADA) provides guidance for cutoff [...] Standards of Medical Care in Diabetes 2016, [place] [employer]. Diabetes Care. 2016.39(Suppl 1). Interpretation and review of laboratory resultsAbnormalCleveland ClinicPotassium [Moles/Vol]4.4 mmol/L3.7 - 5.1 mmol/LCleveland ClinicProtein [Mass/Vol]6.6 g/dL 6.3 - 8.0 g/dLSouth Mills ClinicSodium [Moles/Vol]139 mmol/L136 - 144 mmol/L [facility] Health SystemUrea nitrogen [Mass/Vol]12 mg/dL7 - 21 mg/dLThe Jewish Hospital ClinicEosinophils/100 WBC Auto (Bld)on 19-02-9275Oupadzzvuju/100 WBC (Bld)1.4 %[facility] CenterErythrocyte distribution width Auto (RBC) [Ratio]on 42-24-7213Wfnqeqjqbqq distribution width (RBC) [Ratio]13.0 % 11.5-15.0[facility] CenterFERRITINon 70-75-1623Zbwgmhcl [Mass/Vol]11.8 ng/mLLow14.7 - 205.1 ng/mLClevelnovant health presbyterian medical center ClinicFerritin [Mass/Vol]on 24-53-3649Zdyqbznfyllvop and review of laboratory resultsAbnormalCleveland Veterans Health AdministrationHematocrit Auto (Bld) [Volume fraction]on 05-09-2024 Hematocrit (Bld) [Volume fraction]32.9 %Low36.0-46.0[facility] CenterHemoglobin [Mass/volume] in Bloodon 95-02-6064Wzmjyimcgv (Bld) [Mass/Vol] 10.7 g/dLLow11.5-15.5FShelby Memorial HospitalIron and Iron binding capacity panelon 24-95-8959Nrbmbdlyxqhpvl and review of laboratory results AbnormalSouth Mills ClinicIron [Mass/Vol]26 ug/dLLow41 - 186 ug/dLUniversity Hospitals Health System Iron binding capacity [Mass/Vol]394 ug/jCEnua494 - 386 ug/dLUniversity Hospitals Health System Iron/TIBC [Molar ratio]6.6 %Low15.0 - 57.0 %[facility] HospitalIron binding capacity [Mass/volume] in Serum or Plasmaon 68-94-9397Livo binding capacity [Mass/Vol]394 ug/dWJtvc326-402AtmwxnpxpDayton Va Medical CenterIron saturation [Mass Fraction] in Serum or Plasmaon 87-58-4615Rjnk saturation [Mass fraction]6.6 %Low15.0-57.0[facility] CenterLaboratory - Chemistry and Chemistry - challengeon 06-31-3241Wxnnskm [Mass/Vol]4.2 g/dL 3.9-4.9[facility] CenterALP [Catalytic activity/Vol]89 U/L34-123 [facility] CenterALT [Catalytic activity/Vol]9 U/L7-38[facility] CenterAST [Catalytic activity/Vol]11 U/NXeg58-48AdlblxyudDayton Va Medical CenterBilirubin [Mass/Vol]0.4 mg/dL0.2-1.3FShelby Memorial HospitalCalcium [Mass/Vol]9.4 mg/dL8.5-10.2FShelby Memorial HospitalChloride [Moles/Vol]104 mmol/Q18-357JzxcmtrwvDayton Va Medical CenterCO2 [Moles/Vol]24 mmol/O49-00MjkjoxyrfDayton Va Medical CenterCreatinine [Mass/Vol] 0.89 mg/dL0.58-0.96[facility] CenterFerritin [Mass/Vol]11.8 ng/mLLow14.7-205.1FShelby Memorial HospitalGlucose [Mass/Vol]92 mg/dL 74-99[facility] CenterComment on above:The [place] Diabetes Association (ADA) provides guidance for cutoff [...] hyperglycemia or hyperglycemic crisis, random plasma glucose resultsgreater than or equal to 200 mg/dL meet the criteria for diagnosis of diabetes.Reference: Standardsof Medical Care in Diabetes 2016, [place] Diabetes Association. Diabetes Care. 2016.39(Suppl 1). Iron [Mass/Vol]26 ug/aZNrt38-439IprvbuywzDayton Va Medical CenterPotassium [Moles/Vol]4.4 mmol/L3.7-5.1FMarymount Hospitalodium [Moles/Vol] 139 mmol/S460-925JggypmelaDayton Va Medical CenterUrea nitrogen [Mass/Vol]12 mg/dL7-21[facility] CenterLaboratory - Hematology and Cell countson 72-35-2259Peuuqnllkoe (Bld) [#/Vol]0.07 10*3/uL<0.46[facility] CenterImmature granulocytes (Bld) [#/Vol]0.03 10*3/uL<0.10[facility] CenterImmature granulocytes/100 WBC (Bld)0.6 %[facility] CenterLeukocytes [#/volume] corrected for nucleated erythrocytes in Blood by Automated counon 95-77-9287JPD corrected for nucl RBC Auto (Bld) [#/Vol]4.94 k/uL3.70-11.00[facility] Lymphocytes Auto (Bld) [#/Vol]on 74-97-8358Txdgezumrjg (Bld) [#/Vol]1.24 10*3/uL 1.00-4.00[facility] CenterLymphocytes/100 WBC Auto (Bld)on 50-91-4181Zkwvmmhpjlo/100 WBC (Bld)25.1 %[facility] HospitalH Auto (RBC) [Entitic mass]on 15-30-9657QAC (RBC) [Entitic mass]27.3 pg26.0-34.0 [facility] CenterMCHC Auto (RBC) [Mass/Vol]on 83-55-2870PXLT (RBC) [Mass/Vol]32.5 g/dL30.5-36.0[facility] CenterMCV Auto (RBC) [Entitic vol]on 90-00-4193GQY (RBC) [Entitic vol]83.9 fL80.0-100.0 [facility] CenterMonocytes Auto (Bld) [#/Vol]on 05-09-2024 Monocytes (Bld) [#/Vol]0.39 10*3/uL<0.87[facility] Monocytes/100 WBC Auto (Bld)on 12-42-6180Qamllwjcw/100 WBC (Bld)7.9 %[facility] CenterNeutrophils Auto (Bld) [#/Vol]on 31-86-9210Nlhonufcxhp (Bld) [#/Vol]3.16 10*3/uL1.45-7.50[facility] Neutrophils/100 WBC Auto (Bld)on 74-70-2293Slqvvbzkben/100 WBC (Bld)64.0 % [facility] CenterNo Panel Informationon 58-98-1032Zovlbhdxa GFR (CKD-EPI)79 mL/min/1.73m???>=60[facility] CenterComment on above:Estimated Glomerular Filtration Rate (eGFR) is calculated using the 2020 CKD-EPI creatinine equation. This equation utilizes serum creatinine, sex, and age as parameters. The creatinine assay has traceable calibration to isotope dilution-mass spectrometry. Refer to KDIGO guidelines for clinical inte rpretation. In patients with unstable renal function, e.g. those with acute kidney injury, the eGFRmay not accurately reflect actual GFR.Nucleated RBC Auto (Bld) [#/Vol]on 57-47-7843Kuglzkzou RBC (Bld) [#/Vol]10*3/uL<0.01[facility] CenterNucleated erythrocytes [Presence] in Blood by Automated counton 35-49-6946Dchdjfdzl RBC Auto Ql (Bld)0.0 /100{WBC}[facility] CenterPlatelet mean volume Auto (Bld) [Entitic vol]on 67-77-6020Jsgoqbdw mean volume (Bld) [Entitic vol]10.0 fL9.0-12.7FShelby Memorial Hospital Platelets Auto (Bld) [#/Vol]on 67-72-9896Zrbokknlj (Bld) [#/Vol]241 10*3/uL 150-400[facility] CenterProtein [Mass/volume] in Serum or Plasma on 72-70-1689Cevuydn [Mass/Vol]6.6 g/dL6.3-8.0[facility] RBC Auto (Bld) [#/Vol]on 73-12-0493LLC (Bld) [#/Vol]3.92 10*6/uL3.90-5.20 [facility] Healtherum or plasma anion gap determinationon 00-46-9722Cioqb gap [Moles/Vol]11 mmol/L8-15[facility] CenterCBC W Auto Differential panel (Bld)on 83-65-1862Zxsexvdfl (Bld) [#/Vol]0.05 10*3/uL <0.11 k/uLSouth Mills ClinicBasophils/100 WBC (Bld)0.9 %[facility] Differential cell count method Nom (Bld)AutoCleveland ClinicEosinophils (Bld) [#/Vol]0.11 10*3/uL<0.46 k/uLSouth Mills ClinicEosinophils/100 WBC (Bld)2.0 % [facility] SystemErythrocyte distribution width (RBC) [Ratio]14.2 %11.5 - 15.0 % [facility] SystemHematocrit (Bld) [Volume fraction]36.3 %36.0 - 46.0 %[facility] SystemHemoglobin (Bld) [Mass/Vol]11.7 g/dL11.5 - 15.5 g/dLUniversity Hospitals Health System Immature granulocytes (Bld) [#/Vol]<0.10 k/uLUniversity Hospitals Health SystemImmature granulocytes/100 WBC (Bld)0.4 %[facility] SystemLymphocytes (Bld) [#/Vol]1.15 10*3/uL1.00 - 4.00 k/uLUniversity Hospitals Health SystemLymphocytes/100 WBC (Bld)20.9 %[facility] HospitalH (RBC) [Entitic mass]27.8 pg26.0 - 34.0 pgClevelMarshall Regional Medical CenterHC (RBC) [Mass/Vol]32.2 g/dL30.5 - 36.0 g/dLElyria Memorial HospitalV (RBC) [Entitic vol]86.2 fL80.0 - 100.0 fLCleveland ClinicMonocytes (Bld) [#/Vol]0.36 10*3/uL<0.87 k/uL [facility] SystemMonocytes/100 WBC (Bld)6.5 %[facility] SystemNeutrophils (Bld) [#/Vol]3.82 10*3/uL1.45 - 7.50 k/uLUniversity Hospitals Health SystemNeutrophils/100 WBC (Bld)69.3 %[facility] SystemNucleated RBC (Bld) [#/Vol]<0.01 k/uLUniversity Hospitals Health SystemNucleated RBC/100 WBC (Bld) [Ratio]0.0 /100 WBCUniversity Hospitals Health SystemPlatelet mean volume (Bld) [Entitic vol]10.1 fL9.0 - 12.7 fLCleveland ClinicPlatelets (Bld) [#/Vol]193 10*3/uL150 - 400 k/uLUniversity Hospitals Health SystemRBC (Bld) [#/Vol]4.21 10*6/uL3.90 - 5.20 m/uLUniversity Hospitals Health SystemWBC (Bld) [#/Vol]5.51 10*3/uL3.70 - 11.00 k/uLUniversity Hospitals Health SystemComprehensive metabolic 2000 panelon 48-00-0985Bvfhaxr [Mass/Vol]4.3 g/dL 3.9 - 4.9 g/dLSouth Mills ClinicALP [Catalytic activity/Vol]96 U/L34 - 123 U/L [facility] ClinicALT [Catalytic activity/Vol]11 U/L7 - 38 U/LCleveland Clinic Anion gap [Moles/Vol]10 mmol/L9 - 18 mmol/LCleveland ClinicAST [Catalytic activity/Vol]13 U/L13 - 35 U/LCleveland ClinicBilirubin [Mass/Vol]0.5 mg/dL0.2 - 1.3 mg/dLSouth Mills ClinicCalcium [Mass/Vol]9.1 mg/dL8.5 - 10.2 mg/dLSouth Mills ClinicChloride [Moles/Vol]101 mmol/L97 - 105 mmol/LCleveland ClinicCO2 [Moles/Vol]25 mmol/L22 - 30 mmol/LCleveland ClinicCreatinine [Mass/Vol]0.69 mg/dL0.58 - 0.96 mg/dLUniversity Hospitals Health SystemEstimated Glomerular Filtration Ybwr645 mL/min/1.73m>=60 mL/min/1.73mCleveland ClinicGlucose [Mass/Vol]99 mg/dL74 - 99 mg/dLUniversity Hospitals Health SystemPotassium [Moles/Vol]4.2 mmol/L3.7 - 5.1 mmol/LCleveland ClinicProtein [Mass/Vol]6.5 g/dL6.3 - 8.0 g/dLSouth Mills ClinicSodium [Moles/Vol] 136 mmol/L136 - 144 mmol/LCleveland [facility] Medical CenterUrea nitrogen [Mass/Vol]8 mg/dL7 - 21 mg/dLUniversity Hospitals Health SystemFERRITIN BLDon 72-13-8789Rvdjdbxm [Mass/Vol]68.3 ng/mL14.7 - 205.1 ng/mLCleveland Sleepy Eye Medical CenterIron and Iron binding capacity panelon 09-19-2022 Iron [Mass/Vol]62 ug/dL41 - 186 ug/dLUniversity Hospitals Health SystemIron binding capacity [Mass/Vol]336 ug/dL232 - 386 ug/dLUniversity Hospitals Health SystemIron/TIBC [Molar ratio]18.5 % 15.0 - 57.0 %[facility] SystemCB W Auto Differential panel (Bld)on 94-67-8354Hdf Immature Gran0.04 k/uL<0.10 k/uLSouth Mills ClinicBasophils (Bld) [#/Vol]0.04 10*3/uL<0.11 k/uLCleCleveland Clinic Euclid HospitalBasophils/100 WBC (Bld)0.8 %[facility] Differential cell count method Nom (Bld)AutoCleveland ClinicEosinophils (Bld) [#/Vol]0.08 10*3/uL<0.46 k/uLUniversity Hospitals Health SystemEosinophils/100 WBC (Bld)1.5 % [facility] SystemErythrocyte distribution width (RBC) [Ratio]22.0 %High11.5 - 15.0 %[facility] SystemHematocrit (Bld) [Volume fraction]31.4 %Low36.0 - 46.0 % [facility] SystemHemoglobin (Bld) [Mass/Vol]10.0 g/dLLow11.5 - 15.5 g/dLUniversity Hospitals Health SystemImmature Gran %0.8 %[facility] SystemLymphocytes (Bld) [#/Vol]1.19 10*3/uL 1.00 - 4.00 k/uLUniversity Hospitals Health SystemLymphocytes/100 WBC (Bld)22.3 %[facility] MCH (RBC) [Entitic mass]27.0 pg26.0 - 34.0 pgCleveland [facility]leton Municipal HospitalHC (RBC) [Mass/Vol]31.8 g/dL30.5 - 36.0 g/dLUniversity Hospitals Health SystemMCV (RBC) [Entitic vol]84.9 fL80.0 - 100.0 fLCleveland ClinicMonocytes (Bld) [#/Vol]0.30 10*3/uL<0.87 k/uL [facility] SystemMonocytes/100 WBC (Bld)5.6 %[facility] SystemNeutrophils (Bld) [#/Vol]3.68 10*3/uL1.45 - 7.50 k/uLCleCleveland Clinic Euclid HospitalNeutrophils/100 WBC (Bld)69.0 %[facility] SystemNucleated RBC (Bld) [#/Vol]<0.01 k/uLSouth Mills ClinicNucleated RBC/100 WBC (Bld) [Ratio]0.0 /100 WBCSouth Mills ClinicPlatelet mean volume (Bld) [Entitic vol]10.2 fL9.0 - 12.7 fLCleveland ClinicPlatelets (Bld) [#/Vol]216 10*3/uL150 - 400 k/uLUniversity Hospitals Health SystemRBC (Bld) [#/Vol]3.70 10*6/uLLow3.90 - 5.20 m/uLSouth Mills ClinicWBC (Bld) [#/Vol]5.33 10*3/uL3.70 - 11.00 k/uLUniversity Hospitals Health SystemComprehensive metabolic 2000 panelon 21-12-1740Ouqjwcs [Mass/Vol]4.3 g/dL 3.9 - 4.9 g/dLSouth Mills ClinicALP [Catalytic activity/Vol]78 U/L34 - 123 U/L [facility] ClinicALT [Catalytic activity/Vol]13 U/L7 - 38 U/LClevelCleveland Clinic [facility] Anion gap [Moles/Vol]12 mmol/L9 - 18 mmol/LCleveland ClinicAST [Catalytic activity/Vol]16 U/L13 - 35 U/LCleveland ClinicBilirubin [Mass/Vol]0.3 mg/dL0.2 - 1.3 mg/dLSouth Mills ClinicCalcium [Mass/Vol]8.7 mg/dL8.5 - 10.2 mg/dLSouth Mills ClinicChloride [Moles/Vol]102 mmol/L97 - 105 mmol/LCleveland ClinicCO2 [Moles/Vol]22 mmol/L22 - 30 mmol/LCleveland ClinicCreatinine [Mass/Vol]0.67 mg/dL0.58 - 0.96 mg/dLUniversity Hospitals Health SystemEstimated Glomerular Filtration Wlsd749 mL/min/1.73m>=60 mL/min/1.73mCleveland ClinicGlucose [Mass/Vol]166 mg/pUWwvs77 - 99 mg/dLUniversity Hospitals Health SystemPotassium [Moles/Vol]4.1 mmol/L3.7 - 5.1 mmol/L [facility] ClinicProtein [Mass/Vol]6.3 g/dL6.3 - 8.0 g/dLSouth Mills ClinicSodium [Moles/Vol]136 mmol/L136 - 144 mmol/LCleveland ClinicUrea nitrogen [Mass/Vol]8 mg/dL7 - 21 mg/dLUniversity Hospitals Health SystemPRBC LEUKOREDUCEDon 09-10-3133BIVB LEUKOREDUCED Cross Match Result Compatible Unit Blood Type O Pos Unit Number [id number] Status Information Transfused Product ID Red Blood Cells Product Code [id number] Health PrebleComment on above:Performed By: #### TNS, PRBC #### [facility] [address] [address] [address] Summer RubalcavaHEMOGLOBIN AND HEMATOCRITon 00-42-7671Bhnlokjjfj (Bld) [Volume fraction]26.0 %Critically low36.0-48.0The [facility] HospitalComment on above: Performed By: #### HGBHCT #### [facility] [address] [address] [address] Summer RubalcavaHemoglobin (Bld) [Mass/Vol]7.2 g/dLCritically low12.0-16.0The [facility] HospitalComment on above:Performed By: #### HGBHCT #### [facility] [address] [address] [address] Summer RubalcavaTYPE AND SCREENon 09-13-8026UYTS AND SCREENNegativeKettering Health PrebleComment on above:Performed By: #### TNS, PRBC #### [facility] [address] [place] [address] Dr. Summer Rubalcava Vital Signs Date TimeVital SignValuePerforming YjpzzrganDbkrqzdw89-69-1919 15:41-0400Body idyqpv273.18 cmBenjamin Ball DO Work Phone: [facility]09-15-2025 15:41-0400 Body mass index (BMI) [Ratio]57 kg/a6Khbfpkgh Ball DO Work Phone: [facility]09-15-2025 15:41-0400 Body cdptiy117.16 kgBenjamin Ball DO Work Phone: [facility]09-15-2025 15:41-0400 Diastolic blood tzngigqv39 mm[Hg]Brennon Ball DO Work Phone: [phone] [place], [place] 6314609-15-2025 15:41-0400 Heart rate96 /minBenjamin Ball DO Work Phone: [phone] [place], [place] 6314609-15-2025 15:41-0400 Respiratory rate12 /minBenjamin Ball DO Work Phone: [phone] [place], [place] 6314609-15-2025 15:41-0400 Systolic blood xflywauw822 mm[Hg]Brennon Ball DO Work Phone: [phone] [place], [place] 6314608-26-2025 09:21-0400 Body srxamp309.18 cmBenjamin Ball DO Work Phone: [phone] [place], [place] 6314608-26-2025 09:21-0400 Body mass index (BMI) [Ratio]57.3 kg/d7Rdbcighl Ball DO Work Phone: [phone] [place], [place] 6314608-26-2025 09:21-0400 Body tshpsrydrfq85.9 [degF]Brennon Ball DO Work Phone: [phone] [place], [place] 6314608-26-2025 09:21-0400 Body tersxc051.01 kgBenjamin Ball DO Work Phone: [phone] [place], [place] 6314608-26-2025 09:21-0400 Diastolic blood aqthkndr43 mm[Hg]Brennon Ball DO Work Phone: [phone] [place], [place] 6314608-26-2025 09:21-0400 Heart qkem956 /minBenjamin Ball DO Work Phone: [phone] [place], [place] 6314608-26-2025 09:21-0400 Respiratory rate18 /minBenjamin Ball DO Work Phone: [phone] [place], [place] 6314608-26-2025 09:21-0400 SaO2% (BldA) [Mass fraction]97 %Brennon Ball DO Work Phone: [phone] [place], [place] 6314608-26-2025 09:21-0400 Systolic blood nnkedstr095 mm[Hg]Brennon Ball DO Work Phone: [facility]06-17-2025 11:43-0400 Diastolic blood larhwivl531 mm[Hg]Chair [place] Work Phone: [facility]06-17-2025 11:43-0400Systolic blood dhejcygr301 mm[Hg]Chair [place] Work Phone: [facility]06-17-2025 10:20-0400Body temperature 97.9 [degF]Chair [place] Work Phone: [facility]06-17-2025 10:20-0400Heart rate76 /min Chair [place] Work Phone: [facility]06-17-2025 10:20-0400Respiratory rate 16 /minChair Evelia Work Phone: [facility]06-17-2025 10:20-0981IgV3% (BldA) [Mass fraction]98 %Chair Evelia Work Phone: [facility]06-10-2025 13:19-0400Body vuotoz350.2 cmMindy Jose PA-C Work Phone: [facility]06-10-2025 13:19-0400Body mass index (BMI) [Ratio]55.13 kg/f4Ogyhy Jose PA-C Work Phone: [facility]06-10-2025 13:19-0400Body temperature 97.2 [degF]Sandra Jose PA-C Work Phone: [facility]06-10-2025 13:19-0400Body yktjve310.7 kgMindy Jose PA-C Work Phone: [facility]06-10-2025 13:19-0400Diastolic blood rtiusjdf72 mm[Hg]Sandra Jose PA-C Work Phone: [facility]06-10-2025 13:19-0400Heart rate87 /min Sandra Nolaner PA-C Work Phone: [facility]06-10-2025 13:19-0400Respiratory rate 20 /minSnadra Nolaner PA-C Work Phone: [facility]06-10-2025 13:19-0889MmV0% (BldA) [Mass fraction]95 %Sandra Nolaner PA-C Work Phone: [facility]06-10-2025 13:19-0400Systolic blood yhuwrdxf332 mm[Hg]Sandra Nolaner PA-C Work Phone: [facility]01-21-2025 09:33-0500Body temperature 98.1 [degF]Chair Evelia Work Phone: [facility]01-21-2025 09:33-0500Diastolic blood pyskrsbm71 mm[Hg]Chair [place] Work Phone: [facility]01-21-2025 09:33-0500Heart rate67 /min Chair Evelia Work Phone: [facility]01-21-2025 09:33-0500Respiratory rate 18 /minChair Evelia Work Phone: [facility]01-21-2025 09:33-3070YkQ9% (BldA) [Mass fraction]96 %Chair Evelia Work Phone: [facility]01-21-2025 09:33-0500Systolic blood sujnujdl690 mm[Hg]Chair Evelia Work Phone: [facility]01-14-2025 11:18-0500Diastolic blood olyzundi59 mm[Hg]Chair Evelia Work Phone: [facility]01-14-2025 11:18-0500Heart rate62 /min Chair [place] Work Phone: [facility]01-14-2025 11:18-0500Respiratory rate 18 /minChair Evelia Work Phone: [facility]01-14-2025 11:18-5441IyR0% (BldA) [Mass fraction]97 %Chair Evelia Work Phone: [facility]01-14-2025 11:18-0500Systolic blood oekpaeha622 mm[Hg]Chair Evelia Work Phone: [facility]01-14-2025 09:38-0500Diastolic blood amblmplw11 mm[Hg]Sandra Jose PA-C Work Phone: [facility]01-14-2025 09:38-0500Systolic blood nxoakoyb201 mm[Hg]Sandra Jose PA-C Work Phone: [facility]01-14-2025 09:31-0500Body .2 cmMindy Jose PA-C Work Phone: [facility]01-14-2025 09:31-0500Body mass index (BMI) [Ratio]54.32 kg/w7Dcwej Jose PA-C Work Phone: [facility]01-14-2025 09:31-0500Body temperature 97.2 [degF]Sandra Jose PA-C Work Phone: [facility]01-14-2025 09:31-0500Body wtymjx966.36 kgMindy Jose PA-C Work Phone: [facility]01-14-2025 09:31-0500Heart rate90 /min Sandra Jose PA-C Work Phone: [facility]01-14-2025 09:31-0500Respiratory rate 18 /minMindy Jose PA-C Work Phone: [facility]01-14-2025 09:31-0104UmS1% (BldA) [Mass fraction]100 %Sandra Jose PA-C Work Phone: [facility]09-30-2024 10:10-0400Body mass index (BMI) [Ratio]50.75 kg/h5Huehx Jose PA-C Work Phone: [facility]09-30-2024 10:10-0400Body temperature 97.9 [degF]Sandra Jose PA-C Work Phone: [facility]09-30-2024 10:10-0400Body kg Sandra Jose PA-C Work Phone: [facility]09-30-2024 10:10-0400Diastolic blood wvqoegvl78 mm[Hg]Sandra Jose PA-C Work Phone: [facility]09-30-2024 10:10-0400Heart rate78 /min Sandra Jose PA-C Work Phone: [facility]09-30-2024 10:10-0400Respiratory rate 16 /minMindy Jose PA-C Work Phone: [facility]09-30-2024 10:10-8665PjA2% (BldA) [Mass fraction]100 %Sandra Jose PA-C Work Phone: [facility]09-30-2024 10:10-0400Systolic blood mm[Hg]Sandra Jose PA-C Work Phone: [facility]09-05-2024 10:00-0400Diastolic blood siotsnka48 mm[Hg]Chair [place] Work Phone: [facility]09-05-2024 10:00-0400Heart rate88 /min Chair [place] Work Phone: [facility]09-05-2024 10:00-0400Respiratory rate 18 /minChair [place] Work Phone: [address] [place] [address]-05-2024 10:00-2463DiT1% (BldA) [Mass fraction]99 %Chair Evelia Work Phone: [facility]09-05-2024 10:00-0400Systolic blood jlelgbwj732 mm[Hg]Chair Evelia Work Phone: [facility]08-29-2024 10:00-0400Body temperature 98.1 [degF]Chair [place] Work Phone: [facility]08-29-2024 10:00-0400Diastolic blood xkmtiuwb34 mm[Hg]Chair Evelia Work Phone: [facility]08-29-2024 10:00-0400Heart rate73 /min Chair Evelia Work Phone: [facility]08-29-2024 10:00-0400Respiratory rate 16 /minChair Evelia Work Phone: [facility]08-29-2024 10:00-5211NzF4% (BldA) [Mass fraction]98 %Chair Evelia Work Phone: [facility]08-29-2024 10:00-0400Systolic blood mm[Hg]Chair Evelia Work Phone: [facility]08-23-2024 09:20-0400Diastolic blood wwmzkewj21 mm[Hg]DO Brennon Ball Work Phone: [facility]08-23-2024 09:20-0400 Heart rate72 /minDO Brennon Ball Work Phone: [facility]08-23-2024 09:20-0400 Respiratory rate16 /minDO Brennon Ball Work Phone: [facility]08-23-2024 09:20-0400 SaO2% (BldA) [Mass fraction]97 %DO Brennon Ball Work Phone: [facility]08-23-2024 09:20-0400 Systolic blood muydrgtk500 mm[Hg]DO Brennon Ball Work Phone: [facility]08-23-2024 07:31-0400 Body hwojxm298.18 cmDO Brennon Ball Work Phone: [facility]08-23-2024 07:31-0400 Body ewpdit918.61 kgDO Brennon Ball Work Phone: [facility]04-08-2024 11:05-0400 Diastolic blood hcuplfxs38 mm[Hg]Chair Evelia Work Phone: [facility]04-08-2024 11:05-0400Heart rate69 /min Chair Evelia Work Phone: [facility]04-08-2024 11:05-0400Respiratory rate 16 /minChair [place] Work Phone: [facility]04-08-2024 11:05-0400Systolic blood peeejffu985 mm[Hg]Chair [place] Work Phone: [facility]04-08-2024 09:25-0400Body temperature 98.01 [degF]Chair [place] Work Phone: [facility]04-08-2024 09:25-1770RyH8% (BldA) [Mass fraction]99 %Chair [place] Work Phone: [facility]04-01-2024 09:15-0400Diastolic blood oantcgsb88 mm[Hg]Chair [place] Work Phone: [facility]04-01-2024 09:15-0400Heart rate74 /min Chair [place] Work Phone: [facility]04-01-2024 09:15-0400Respiratory rate 18 /minChair [place] Work Phone: [facility]04-01-2024 09:15-1966KoE2% (BldA) [Mass fraction]98 %Chair [place] Work Phone: [facility]04-01-2024 09:15-0400Systolic blood iibpeqvq546 mm[Hg]Chair [place] Work Phone: [facility]03-18-2024 09:23-0400Body taojyl751.2 cmMindy Jose PA-C Work Phone: [facility]03-18-2024 09:23-0400Body temperature 98.01 [degF]Sandra Jose PA-C Work Phone: [facility]03-18-2024 09:23-0400Body blgalu731.2 kgMinzoë Jose PA-C Work Phone: [facility]03-18-2024 09:23-0400Diastolic blood srtnuwyg76 mm[Hg]Sandra Jose PA-C Work Phone: [facility]03-18-2024 09:23-0400Heart rate85 /min Sandra Jose PA-C Work Phone: [place] [address]-18-2024 09:23-0400Respiratory rate 16 /minMinzoë Jose PA-C Work Phone: [facility]03-18-2024 09:23-9385KqP4% (BldA) [Mass fraction]97 %Sandra Jose PA-C Work Phone: [facility]03-18-2024 09:23-0400Systolic blood yoblvcgi063 mm[Hg]Sandra Jose PA-C Work Phone: [facility]12-15-2023 09:30-0500Body bfrfyk804.18 cmBenjamin Ball Other [employer] Other 12-15-2023 09:30-0500Body mass index (BMI) [Ratio] 50.49 kg/h6Yziekfpa Ball Other [employer] Other 12-15-2023 09:30-0500Body otckiq830.24 kgBenjamin Ball Other [employer] Other 12-15-2023 09:30-0500Diastolic blood vmfvyxut73 mm[Hg] Brennon [facility] [employer] Other 12-15-2023 09:30-0500Respiratory rate12 /minBenkay Zambrano Other [place] [employer] Other 12-15-2023 09:30-0500Systolic blood utiqidlu090 mm[Hg] Brennon [facility]br[facility] [employer] Other 12-08-2023 08:43-0500Body munciq265.2 cmMindy Jose PA-C Work Phone: [facility]12-08-2023 08:43-0500Body temperature 97.9 [degF]Sandra Jose PA-C Work Phone: [facility]12-08-2023 08:43-0500Body .15 kgMindy Jose PA-C Work Phone: [facility]12-08-2023 08:43-0500Diastolic blood ybqmphkj35 mm[Hg]Sandra Jose PA-C Work Phone: [facility]12-08-2023 08:43-0500Heart rate78 /min Sandra Jose PA-C Work Phone: [facility]12-08-2023 08:43-0500Respiratory rate 16 /minMindy Jose PA-C Work Phone: [facility]12-08-2023 08:43-3165YpT6% (BldA) [Mass fraction]100 %Sandra Jose PA-C Work Phone: [facility]12-08-2023 08:43-0500Systolic blood tyimywzy734 mm[Hg]Sandra Jose PA-C Work Phone: [facility]11-24-2023 10:18-0500Diastolic blood biiwehoo97 mm[Hg]Chair [place] Work Phone: [place] [address]-24-2023 10:18-0500Systolic blood caxogwug680 mm[Hg]Chair [place] Work Phone: [place] [address]-24-2023 09:00-0500Body temperature 97.7 [degF][place]air [place] Work Phone: [place] [address]-24-2023 09:00-0500Heart rate99 /min Chair [place] Work Phone: [place] [address]-24-2023 09:00-0500Respiratory rate 18 /minChair [place] Work Phone: [place] [address]-24-2023 09:00-8264OiN8% (BldA) [Mass fraction]98 %Chair [place] Work Phone: [place] [address]-17-2023 11:49-0500Diastolic blood ezotcsql94 mm[Hg]Chair [place] Work Phone: [facility]11-17-2023 11:49-0500Systolic blood tygnyzvt203 mm[Hg]Chair [place] Work Phone: [place] [address]-17-2023 10:35-0500Body temperature 98.49 [degF]Chair [place] Work Phone: [place] [address]-17-2023 10:35-0500Heart rate91 /min Chair E[place]ia Work Phone: [place] [address]-17-2023 10:35-0500Respiratory rate 18 /minChair Evelia Work Phone: [place] [address]-17-2023 10:35-5260EzM8% (BldA) [Mass fraction]100 %Chair [place] Work Phone: [facility]09-21-2023 11:00-0400Body qhuzqr980.18 cmBenjamin Ball Other [place] [employer] Other 09-21-2023 11:00-0400Body mass index (BMI) [Ratio] 52.62 kg/k8Kmldtrvs Ball Other [facility] [employer] Other 09-21-2023 11:00-0400Body .41 kgBenjamin Ball Other [facility] [employer] Other 09-21-2023 11:00-0400Diastolic blood stmogjum519 mm[Hg]Brennon Ball Other [facility] [employer] Other 09-21-2023 11:00-0400Respiratory rate12 /minBenjamin Ball Other [facility] [employer] Other 09-21-2023 11:00-0400Systolic blood hphlopwp724 mm[Hg] Brennon Ball Other [place] [employer] Other 06-20-2023 10:54-0400Body hiljwi138.2 cmMindy Jose PA-C Work Phone: [facility]06-20-2023 10:54-0400Body temperature 97.3 [degF]Sandra Jose PA-C Work Phone: [facility]06-20-2023 10:54-0400Body fiabzb789.6 kgMindy Jose PA-C Work Phone: [facility]06-20-2023 10:54-0400Diastolic blood hnbdnfuk18 mm[Hg]Sandra Jose PA-C Work Phone: [facility]06-20-2023 10:54-0400Heart rate68 /min Sandra Jose PA-C Work Phone: [facility]06-20-2023 10:54-0400Respiratory rate 16 /minMindy Jose PA-C Work Phone: [place] [address]-20-2023 10:54-3066BcN8% (BldA) [Mass fraction]98 %Sandra Jose PA-C Work Phone: [facility]06-20-2023 10:54-0400Systolic blood mm[Hg]Sandra Jose PA-C Work Phone: [facility]06-01-2023 09:31-0400Body temperature 98.29 [degF]Chair [place] Work Phone: [facility]06-01-2023 09:31-0400Diastolic blood xuwqksry75 mm[Hg]Chair [place] Work Phone: [facility]06-01-2023 09:31-0400Heart rate67 /min Chair [place] Work Phone: [facility]06-01-2023 09:31-0400Respiratory rate 18 /minChair Evelia Work Phone: [facility]06-01-2023 09:31-2763SyA7% (BldA) [Mass fraction]99 %Chair [place] Work Phone: [facility]06-01-2023 09:31-0400Systolic blood qejlixnw198 mm[Hg]Chair [place] Work Phone: [facility]12-30-2022 09:59-0500Body vgzhfu958 cm Reese Meek MD Work Phone: [facility]12-30-2022 09:59-0500Body temperature 97.3 [degF]Reese Meek MD Work Phone: [facility]12-30-2022 09:59-0500Body yghuym354.95 kgReese Meek MD Work Phone: [facility]12-30-2022 09:59-0500Diastolic blood tttfodnq251 mm[Hg]Reese Meek MD Work Phone: [facility]12-30-2022 09:59-0500Heart rate73 /min Reese Meek MD Work Phone: [facility]12-30-2022 09:59-0500Respiratory rate 16 /minReese Meek MD Work Phone: [facility]12-30-2022 09:59-2253YkO1% (BldA) [Mass fraction]98 %Reese Meek MD Work Phone: [facility]12-30-2022 09:59-0500Systolic blood etchogdv350 mm[Hg]Reese Meek MD Work Phone: [facility]11-01-2022 10:35-0400Body temperature 98.1 [degF]Chair [place] Work Phone: [facility]11-01-2022 10:35-0400Diastolic blood uizqfljp37 mm[Hg]Chair [place] Work Phone: [facility]11-01-2022 10:35-0400Heart rate76 /min Chair [place] Work Phone: [place] [address]-01-2022 10:35-0400Respiratory rate 18 /minChair [place] Work Phone: [facility]11-01-2022 10:35-9996WuQ2% (BldA) [Mass fraction]97 %Chair [place] Work Phone: [facility]11-01-2022 10:35-0400Systolic blood urjunigr987 mm[Hg]Chair [place] Work Phone: [facility]10-25-2022 11:07-0400Body temperature 98.01 [degF]Chair [place] Work Phone: [facility]10-25-2022 11:07-0400Diastolic blood gkdydygq69 mm[Hg]Chair [place] Work Phone: [facility]10-25-2022 11:07-0400Heart rate74 /min Chair [place] Work Phone: [facility]10-25-2022 11:07-0400Respiratory rate 18 /minChair Evelia Work Phone: [facility]10-25-2022 11:07-2097OsY1% (BldA) [Mass fraction]98 %Chair [place] Work Phone: [facility]10-25-2022 11:07-0400Systolic blood hwtsrowk866 mm[Hg]Chair [place] Work Phone: [facility]09-30-2022 10:17-0400Body cm Sandra Jose PA-C Work Phone: [facility]09-30-2022 10:17-0400Body temperature 98.2 [degF]Sandra Jose PA-C Work Phone: [facility]09-30-2022 10:17-0400Body sndwic367.59 kgMindy Jose PA-C Work Phone: [facility]09-30-2022 10:17-0400Diastolic blood rpbfugdk65 mm[Hg]Sandra Jose PA-C Work Phone: [facility]09-30-2022 10:17-0400Heart rate86 /min Sandra Jose PA-C Work Phone: [facility]09-30-2022 10:17-0400Respiratory rate 16 /minMindy Jose PA-C Work Phone: [facility]09-30-2022 10:17-7358GdM9% (BldA) [Mass fraction]98 %Sandra Jose PA-C Work Phone: [facility]09-30-2022 10:17-0400Systolic blood dgnumqsq442 mm[Hg]Sandra Jose PA-C Work Phone: [facility]08-31-2022 11:38-0400Diastolic blood vhklnepw00 mm[Hg]Chair [place] Work Phone: [facility]08-31-2022 11:38-0400Systolic blood ygdfzdvz240 mm[Hg]Chair [place] Work Phone: [place] [address]-31-2022 10:04-0400Body temperature 97.59 [degF]Chair [place] Work Phone: [facility]08-31-2022 10:04-0400Heart rate76 /min Chair [place] Work Phone: [facility]08-31-2022 10:04-0400Respiratory rate 18 /minChair Evelia Work Phone: [facility]08-31-2022 10:04-7952PcP8% (BldA) [Mass fraction]98 %Chair [place] Work Phone: [facility]08-24-2022 12:00-0400Diastolic blood bheajuwg61 mm[Hg]Chair [place] Work Phone: [facility]08-24-2022 12:00-0400Systolic blood zsmzxwoj992 mm[Hg]Chair [place] Work Phone: [facility]08-24-2022 10:28-0400Body temperature 98.1 [degF]Chair [place] Work Phone: [facility]08-24-2022 10:28-0400Heart rate81 /min Chair [place] Work Phone: [facility]08-24-2022 10:28-0400Respiratory rate 18 /minChair Evelia Work Phone: [facility]08-24-2022 10:28-8772RyR7% (BldA) [Mass fraction]99 %Chair [place] Work Phone: [facility]06-07-2022 09:20-0400Body temperature 98.1 [degF]Chair [place] Work Phone: [facility]06-07-2022 09:20-0400Diastolic blood isqgcxlw01 mm[Hg]Chair [place] Work Phone: [facility]06-07-2022 09:20-0400Heart rate84 /min Chair [place] Work Phone: [facility]06-07-2022 09:20-0400Respiratory rate 16 /minChair Evelia Work Phone: [facility]06-07-2022 09:20-1389LbF3% (BldA) [Mass fraction]97 %Chair [place] Work Phone: [facility]06-07-2022 09:20-0400Systolic blood ofnnktro017 mm[Hg]Chair [place] Work Phone: [facility]05-31-2022 08:37-0400Body temperature 97.59 [degF]Chair [place] Work Phone: [facility]05-31-2022 08:37-0400Diastolic blood dqosbesz08 mm[Hg]Chair [place] Work Phone: [facility]05-31-2022 08:37-0400Heart rate73 /min Chair [place] Work Phone: [facility]05-31-2022 08:37-0400Respiratory rate 16 /minChair [place] Work Phone: [facility]05-31-2022 08:37-5823KbQ2% (BldA) [Mass fraction]99 %Chair [place] Work Phone: [facility]05-31-2022 08:37-0400Systolic blood qcvwonqw653 mm[Hg]Chair [place] Work Phone: [facility]05-24-2022 10:57-0400Diastolic blood mm[Hg]Chair [place] Work Phone: [facility]05-24-2022 10:57-0400Heart rate73 /min Chair E[place] Work Phone: [facility]05-24-2022 10:57-0400Respiratory rate 18 /minChair Evelia Work Phone: [facility]05-24-2022 10:57-5718QvD1% (BldA) [Mass fraction]97 %Chair [place] Work Phone: [facility]05-24-2022 10:57-0400Systolic blood fvcanqdt208 mm[Hg]Chair [place] Work Phone: [facility]05-24-2022 09:30-0400Body temperature 97.11 [degF]Chair [place] Work Phone: [facility]05-17-2022 09:50-0400Body qfhqua205 cm Reese Meek MD Work Phone: [facility]05-17-2022 09:50-0400Body temperature 97.81 [degF]Reese Meek MD Work Phone: [facility]05-17-2022 09:50-0400Body gmpqae611.5 kgReese Meek MD Work Phone: [facility]05-17-2022 09:50-0400Diastolic blood utjwhvvv15 mm[Hg]Reese Meek MD Work Phone: [facility]05-17-2022 09:50-0400Heart rate79 /min Reese Meek MD Work Phone: [place] [address]-17-2022 09:50-0400Respiratory rate 20 /minReese Meek MD Work Phone: [place] [address]-17-2022 09:50-4115PqK5% (BldA) [Mass fraction]100 %Reese Meek MD Work Phone: [facility]05-17-2022 09:50-0400Systolic blood lxxvfubt672 mm[Hg]Reese Meek MD Work Phone: [place] [address]-11-2022 09:45-0400Body temperature 98.2 [degF]Chair Evel[place] Work Phone: [place] [address]-11-2022 09:45-0400Diastolic blood vyniaysr42 mm[Hg]Chair E[place] Work Phone: [place] [address]-11-2022 09:45-0400Heart rate85 /min Chair Evelia Work Phone: [place] [address]-11-2022 09:45-0400Respiratory rate 20 /minChair Evelia Work Phone: [place] [address]-11-2022 09:45-2181QxJ9% (BldA) [Mass fraction]98 %Chair Evelia Work Phone: [place] [address]-11-2022 09:45-0400Systolic blood mcveemlh307 mm[Hg]Chair Evel[place] Work Phone: [facility]04-04-2022 10:48-0400Diastolic blood etnfrglf27 mm[Hg]Chair E[place] Work Phone: [facility]04-04-2022 10:48-0400Heart rate71 /min Chair Evel[place] Work Phone: [facility]04-04-2022 10:48-0400Respiratory rate 18 /minChair Evelia Work Phone: [place] [address]-04-2022 10:48-3966VpC8% (BldA) [Mass fraction]98 %Chair Evelia Work Phone: [place] [address]-04-2022 10:48-0400Systolic blood gxaazxzp514 mm[Hg]Chair Evelia Work Phone: [place] [address]-04-2022 09:20-0400Body temperature 98.4 [degF]Chair [place] Work Phone: [place] [address]-28-2022 09:17-0400Body temperature 98.01 [degF]Chair Evelia Work Phone: [facility]03-28-2022 09:17-0400Diastolic blood tmqhlzjy70 mm[Hg]Chair Evel[place] Work Phone: [facility]03-28-2022 09:17-0400Heart rate77 /min Chair Evel[place] Work Phone: [facility]03-28-2022 09:17-0400Respiratory rate 16 /minChair Eevlia Work Phone: [facility]03-28-2022 09:17-7677LuK0% (BldA) [Mass fraction]98 %Chair [place] Work Phone: [facility]03-28-2022 09:17-0400Systolic blood mqdzdcyn785 mm[Hg][facility] [place] Work Phone: [facility] Encounters Encounter DateEncounter TypeCare ProviderFacilityStart: 06-05-2025 End: 17-89-7820tqzrtvwakzJzphtbrk Ball DO Work Phone: [facility] Work Phone: Start: 06-05-2025 End: 36-16-2977Dredceq encounter procedureBenluismoustapha Zambrano [facility] Work Phone: Start: 06-05-2025 End: 73-72-7422Nkxsmxz encounter statusBenjamin [facility]nalise [facility] Company[facility]art: 33-10-1652Glcovwu encounter statusBenjamin Ball DO Work Phone: [facility]: 05-16-2025 End: 58-16-2730qcsnohqgniFotaozyt Ball DO Work Phone: [facility] Work Phone: Start: 05-16-2025 End: 61-88-4247Fmojqfn encounter procedureDebra Weber READING SPECIALIST-[facility] Work Phone: Start: 99-10-2203Ejo-patient / Non-visitSANDRA Weber PA-C-[facility] Work Phone: Start: 05-09-2025 End: 01-43-4833pbpqmybpwqUDXJPVLG E BALLFacility:[facility]tart: 55-90-0893Coi-patient / Non-visitSoheilad Vitaliy RODRIGUEZ-[facility] Work Phone: Start: 03-07-2025 End: 07-64-5799Agnondkzx to same day surgery centerChair Evelia Work Phone: Hematology/OncologyComment on above:History of bariatric surgery (Primary Dx); Iron deficiency anemia, unspecified iron deficiency anemia typeStart: 03-07-2025 End: 37-32-7431jtmrruuqfaJajnw 14 E[place] Work Phone: Hematology/OncologyStart: 03-07-2025 End: 27-22-4750aucsquqyvaHKXQG M MUSSERFacility:[facility] Hospitaltart: 02-28-2025 End: 50-05-8545Keluyizss to same day surgery centerChair [place] Work Phone: Hematology/OncologyComment on above:History of bariatric surgery (Primary Dx); Iron deficiency anemia, unspecified iron deficiency anemia typeStart: 02-28-2025 End: 16-04-3559Looyeiunn encounterSandra Raphael PA-C Work Phone: Cancer Appts MCComment on above:ResultsStart: 02-28-2025 End: 59-78-2120Fofrzj outpatient visit 15 minutesSandra Raphael PA-C Work Phone: Hematology/OncologyComment on above:Iron deficiency anemia, unspecified iron deficiency anemia type (Primary Dx); History of bariatric surgery; 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 B12 deficiencyStart: 02-28-2025 End: 05-17-7957krcpzmfngdTxirx 16 [place] Work Phone: Hematology/OncologyStart: 02-06-2025 End: 63-06-3245Nxhrnz-up encounterSandra Raphael PA-C Work Phone: Hematology/OncologyComment on above:injectofer orders Start: 02-03-2025 End: 88-48-9711Ayhytegdt encounterSandra Raphael PA-C Work Phone: Hematology/OncologyComment on above:ResultsStart: 02-03-2025 End: 37-95-2096zbppfsvmzhBAJBDSNJ E BALLFacility:[facility] HospitalStart: 01-31-2025 End: 54-44-8059lwlfbqrsswPQNPOTri [facility] HospitalStart: 01-31-2025 End: 01-23-7312Osefjuinij hospital visit by Ayde Mcclain MD Work Phone: [facility] LABStart: 10-11-2024 End: 26-79-8539Slpkuxqdp to same day surgery [facility] Evelia Work Phone: Hematology/OncologyComment on above:History of bariatric surgery (Primary Dx); Iron deficiency anemia, unspecified iron deficiency anemia typeStart: 10-11-2024 End: 01-55-9279tiwomdqtzsKtrpe [employer] Evel[place] Work Phone: Hematology/OncologyStart: 10-04-2024 End: 37-61-9498Cxzmmnbai to same day surgery centerChair Evelia Work Phone: Hematology/OncologyComment on above:History of bariatric surgery (Primary Dx); Iron deficiency anemia, unspecified iron deficiency anemia typeStart: 10-04-2024 End: 43-62-4744qxhaambpqjBvhtt 13 E[place] Work Phone: Hematology/OncologyStart: 10-04-2024 End: 80-89-3966Cwxnqn outpatient visit 15 minutesSandra Raphael PA-C Work Phone: Hematology/OncologyComment on above:Iron deficiency anemia, unspecified iron deficiency anemia type (Primary Dx); History of bariatric surgery; 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 B12 deficiencyStart: 09-24-2024 End: 82-76-4087jwmvnrycgyBGYHQ Tia HALLEMarianela Levyfin HospitalStart: 09-24-2024 End: 74-44-9249Jqngbignjm hospital visit by Ayde Mcclain MD Work Phone: mthz LaboratoryStart: 09-23-2024 End: 03-07-4904Wqiintozr encounterSandra Raphael PA-C Work Phone: Cancer Appts MCComment on above:Iron AppointmentStart: 06-21-2024 End: 48-98-4343Temvvxnmw encounterJusto Gambino RNHematology/OncologyComment on above:ResultsStart: 06-20-2024 End: 24-44-1302Gplgxfwmq encounterSandra BRYANT-C Work Phone: Canjss Appts MCComment on above:AppointmentStart: 06-20-2024 End: 55-16-8785Zukrxz outpatient visit 15 minutesSandra BRYANT-Asha Work Phone: Hematology/OncologyComment on above:Iron deficiency anemia, unspecified iron deficiency anemia type; History of bariatric surgeryStart: 06-20-2024 End: 15-27-3819zolztxjwnpOSUMG M MUSSERFacility:[facility] Hospitaltart: 05-26-2024 End: 73-68-4779Opbkzutiv to same day surgery centerChair [facility] Work Phone: Hematology/OncologyComment on above:History of bariatric surgery (Primary Dx); Iron deficiency anemia, unspecified iron deficiency anemia typeStart: 05-26-2024 End: 61-90-2276djoebdweflIfgjw 13 [place] Work Phone: Hematology/OncologyStart: 05-19-2024 End: 74-31-7405Kiehtakat to same day surgery centerChair [facility] Work Phone: Hematology/OncologyComment on above:History of bariatric surgery (Primary Dx); Iron deficiency anemia, unspecified iron deficiency anemia typeStart: 05-19-2024 End: 30-40-7979dymweuyhnlMlibp Anshu Horton Work Phone: Hematology/OncologyStart: 68-77-7544Hbi-patient / Non-visitDO Brennon Zambrano Work Phone: [facility] Gastroenterology Work Phone: Start: 05-13-2024 End: 98-87-0160Qhkhdmssq to same day surgery centerDO Brennon Zambrano Work Phone: [facility] Work Phone: Start: 05-13-2024 End: 16-22-2753gtrdffdtnaLV Brennon Zambrano Work Phone: [facility] Work Phone: Start: 05-09-2024 End: 54-41-7260Gtbxefpfa encounterSandra Raphael PA-C Work Phone: Cancer Appts MCComment on above:AppointmentStart: 21-57-9167Itc-patient / Non-visitDO Brennon Zambrano Work Phone: [facility] Work Phone: Start: 05-02-2024 End: 98-65-5189Pemdjuckg encounterSandra BRYANT-Asha Work Phone: Hematology/OncologyComment on above:Lab OrdersStart: 43-94-6765Fgz-patient / Non-visitDO Brennon Zambrano Work Phone: [facility] Work Phone: Start: 00-24-6994Kbwmljsjb encounterJusto Gambino RN Hematology/OncologyComment on above:ResultsStart: 12-28-2023 End: 01-11-7181Iticlhjdk to same day surgery [facility] Evelia Work Phone: Hematology/OncologyComment on above:Iron deficiency anemia, unspecified iron deficiency anemia type (Primary Dx); History of bariatric surgeryStart: 12-28-2023 End: 20-32-3868lbcpqdfkglQtkrm 14 [place] Work Phone: SANDUSKYStart: 12-21-2023 End: 50-57-4495Wqxpybdkl to same day surgery centerChair Horton Work Phone: Hematology/OncologyComment on above:Iron deficiency anemia, unspecified iron deficiency anemia type (Primary Dx); History of bariatric surgeryStart: 12-21-2023 End: 64-37-1339bzrohgkgjsUbacw 13 [place] Work Phone: SANDUSKYStart: 45-18-6080Bjpxbgern encounterSandra Raphael PA-C Work Phone: Hematology/OncologyComment on above:ResultsStart: 12-07-2023 End: 23-42-6033Riuvsugqz to same day surgery centerSandra Raphael PA-C Work Phone: Hematology/OncologyComment on above:Iron deficiency anemia, unspecified iron deficiency anemia type; History of bariatric surgeryStart: 12-07-2023 End: 77-63-2233Ljsmcmq encounter procedureSandra Raphael PA-C Work Phone: SANDUSKYStart: 09-17-2023 End: 25-87-9839ovqrjazcelVjzqrdb [employer] Other [employer] Other Start: 60-85-8890Jedivrgqz encounterCamyaw Bruno Referral CoordinatorStart: 09-04-2023 End: 02-67-3731jnrpizrjuuXfkfygzj Ball Other [employer] Other Start: 62-04-2098Scfnvq outpatient visit 15 minutes Brennon Zambrano [facility] ClinicStart: 67-22-2270Pgiwddyht encounterJusto Gambino RNHematology/OncologyComment on above:ResultsStart: 08-28-2023 End: 50-61-9156Lqgfytsse to same day surgery centerSandra Raphael PA-C Work Phone: Hematology/OncologyComment on above:Iron deficiency anemia, unspecified iron deficiency anemia type (Primary Dx); History of bariatric surgery; 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 B12 deficiencyStart: 08-28-2023 End: 50-50-4138Dsgsopa encounter procedureSandra Tia Jose [employer]ART Work Phone: SANDUSKYStart: 08-14-2023 End: 47-13-0715Ogogxupsx to same day surgery centerChair [facility] Work Phone: Hematology/OncologyComment on above:Iron deficiency anemia, unspecified iron deficiency anemia type (Primary Dx); History of bariatric surgeryStart: 08-14-2023 End: 95-73-5635zzfxctrcurTtnct 15 [facility] Work Phone: SANDUSKYStart: 08-07-2023 End: 34-05-3278Xvxwkjxcb to same day surgery centerChair [facility] Work Phone: Hematology/OncologyComment on above:Iron deficiency anemia, unspecified iron deficiency anemia type (Primary Dx); History of bariatric surgeryStart: 08-07-2023 End: 61-75-8327tmikcqmoeqTczqc 15 [facility] Work Phone: SANDUSKYStart: 84-33-1583Pbklpnsyv encounterNara Bustamante RNHematology/OncologyComment on above:AppointmentStart: 06-16-2023 End: 83-58-1366gmaqzxgiihPkrpcmey Ball Other nort [employer] Other Start: 80-13-6123Ipvuldzdj encounterBekoko Zambrano Medical ClinicStart: 06-12-2023 End: 95-02-3365giqjqnuxjvXiqnwxph Ball Other noVendigi [employer] Other Start: 75-20-8537Qavroggfj encounterBekoko Zambrano Medical ClinicStart: 06-11-2023 End: 96-18-2489ydeiqnpxkkHlyuhwxn Ball Other [facility] [employer] Other Start: 83-26-7940Kqxqbhnrt for general adult medical examination without abnormal findingsBrennon Zambrano Medical ClinicStart: 01-98-4178Clhzahuc preventive med est patient 40-64yrsBenkay [facility]brano Medical ClinicStart: 09-17-8884Fmszywfhq encounterBekoko Zambrano Medical ClinicStart: 04-34-9483mlfhfswaiaGqxve M Musser PA-C Work Phone: Hematology/OncologyComment on above:OzempicStart: 55-29-4467Zctxaftiw encounterSandra Raphael PA-C Work Phone: Hematology/OncologyComment on above:ResultsStart: 03-10-2023 End: 54-58-5407Abgokgadv to same day surgery centerSandra Raphael PA-C Work Phone: Hematology/OncologyComment on above:Iron deficiency anemia, unspecified iron deficiency anemia type (Primary Dx); History of bariatric surgery; 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 B12 deficiencyStart: 03-10-2023 End: 91-74-3160Driaatw encounter procedureSandra Raphael PA-C Work Phone: SANDUSKYStart: 19-27-8067SuevhbXwrvd Karamlou MD Work Phone: Hematology/OncologyComment on above:Refill Request Start: 02-19-2023 End: 61-24-2668Dcvpypxga to same day surgery [facility] Work Phone: Hematology/OncologyComment on above:Iron deficiency anemia, unspecified iron deficiency anemia type (Primary Dx); History of bariatric surgeryStart: 02-19-2023 End: 12-33-8709peculjkqkmPbhhv [facility] Work Phone: SANDUSKYStart: 81-95-7589Ksepkgneq encounterRosalinda Virk RNHematology/OncologyComment on above:ResultsStart: 24-47-8833Rgaurnjnl encounterRosalinda Virk RNHematology/OncologyComment on above:ResultsStart: 09-19-2022 End: 50-81-8628riiugrwjbaMtnwe Karamlou MD Work Phone: Hematology/OncologyComment on above:Iron deficiency anemia, unspecified iron deficiency anemia type (Primary Dx)Start: 09-19-2022 End: 52-68-1746Pvfpjdd encounter Sarabjit Meek MD Work Phone: SANDUSKYStart: 19-02-4071Jlyyaezyr encounterSandra Raphael PA-C Work Phone: Hematology/OncologyComment on above:Lab OrdersStart: 07-22-2022 End: 11-81-0865Zpbxawvef to same day surgery centerChair [facility] Work Phone: Hematology/OncologyComment on above:Iron deficiency anemia, unspecified iron deficiency anemia type (Primary Dx); History of bariatric surgeryStart: 07-22-2022 End: 48-06-4191fhkvbiaaiwBmcih 15 [facility] Work Phone: SANDUSKYStart: 07-15-2022 End: 93-75-7097Dunkhswhz to same day surgery centerChair [facility] Work Phone: Hematology/OncologyComment on above:Iron deficiency anemia, unspecified iron deficiency anemia type (Primary Dx); History of bariatric surgeryStart: 07-15-2022 End: 81-74-2981faefihazywFknsj 15 [facility] Work Phone: SANDUSKYStart: 47-34-8760Ywxeuprcz encounterJusto Gambino RNHematology/OncologyComment on above:Results; AppointmentStart: 06-20-2022 End: 49-72-6058Epxggvphn to same day surgery Diana Raphael PA-C Work Phone: Hematology/OncologyComment on above:Iron deficiency anemia, unspecified iron deficiency anemia type (Primary Dx); History of bariatric surgery; 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 B12 deficiencyStart: 06-20-2022 End: 65-77-5243Nrcamqy encounter procedureSandra Raphael PA-C Work Phone: SANDUSKYStart: 72-53-5171Ajcpejhom encounterSandra BRYANT-C Work Phone: Hematology/OncologyComment on above:Lab OrdersStart: 05-21-2022 End: 44-25-4922Rzjkszlnu to same day surgery centerChair [facility] Work Phone: Hematology/OncologyComment on above:Iron deficiency anemia, unspecified iron deficiency anemia type (Primary Dx); History of bariatric surgeryStart: 05-21-2022 End: 74-42-1307ruaqqzjvvpHcghl 13 [facility] Work Phone: SANDUSKYStart: 05-14-2022 End: 57-43-2092Djxgihxac to same day surgery centerChair [facility] Work Phone: Hematology/OncologyComment on above:Iron deficiency anemia, unspecified iron deficiency anemia type (Primary Dx); History of bariatric surgeryStart: 05-14-2022 End: 45-52-1688vjnyjluzwcPoans 13 [facility] Work Phone: SANDUSKYStart: 40-76-8383Scjdknxtg encounterSandra BRYANTEmpower Futures Work Phone: Hematology/OncologyComment on above:ResultsStart: 02-25-2022 End: 61-06-1871Jnidxicgb to same day surgery centerChair [facility] Work Phone: Hematology/OncologyComment on above:Iron deficiency anemia, unspecified iron deficiency anemia type (Primary Dx); History of bariatric surgeryStart: 02-25-2022 End: 85-51-9839oihupbqryoQbrql 18 [place] Work Phone: SANDUSKYStart: 02-18-2022 End: 65-45-9201Rerrqxxyx to same day surgery centerChair [place] Work Phone: Hematology/OncologyComment on above:Iron deficiency anemia, unspecified iron deficiency anemia type (Primary Dx); History of bariatric surgeryStart: 02-18-2022 End: 13-44-1805fvmzpgnkxwMltgf 18 [facility] Work Phone: SANDUSKYStart: 02-11-2022 End: 90-26-2015Ksalxwqnx to same day surgery glendaleKeri Julio RN Hematology/OncologyComment on above:Iron deficiency anemia, unspecified iron deficiency anemia type (Primary Dx); History of bariatric surgeryRefill RequestStart: 02-11-2022 End: 40-70-0882hgzhzwrahjEdugs 18 [facility] Work Phone: SANDUSKYStart: 02-04-2022 End: 87-36-5416Rverdbscc to same day surgery centerCompute Work Phone: Hematology/OncologyComment on above:Iron deficiency anemia, unspecified iron deficiency anemia type (Primary Dx); History of bariatric surgeryStart: 02-04-2022 End: 22-80-0184emqfbccjfvDpjdi 18 [facility] Work Phone: SANDServicefulYComment on above:Iron deficiency anemia, unspecified iron deficiency anemia type (Primary Dx)Start: 02-04-2022 End: 88-53-3005Eoaeukh encounter Sarabjit Meek MD Work Phone: SANDUSKYStart: 12-30-2021 End: 19-67-9547Xzknwuoce to same day surgery centerIllumiousky Work Phone: Hematology/OncologyComment on above:Iron deficiency anemia, unspecified iron deficiency anemia type (Primary Dx); History of bariatric surgeryStart: 12-30-2021 End: 37-44-9553omcdigkfjrWnquo 11 [place] Work Phone: SANDUSKYStart: 12-23-2021 End: 98-93-3183Rmzdqlvkn to same day surgery centerChair [place] Work Phone: Hematology/OncologyComment on above:Iron deficiency anemia, unspecified iron deficiency anemia type (Primary Dx); History of bariatric surgeryStart: 12-23-2021 End: 21-65-3095sjknmjcdavRrgtp 10 [place] Work Phone: SANDUSKYStart: 12-16-2021 End: 18-24-4048Tqzkfiigu to same day surgery centerChair [place] Work Phone: Hematology/OncologyComment on above:Iron deficiency anemia, unspecified iron deficiency anemia type (Primary Dx); History of bariatric surgeryStart: 12-16-2021 End: 59-14-5172egtmnynxrpLrjpo 11 [place] Work Phone: SANDUSKYStart: 11-29-2021 End: 21-67-3949ulhmjmfiigMP SANDRA CASTILLOFacility:H1 Procedures DateProcedureProcedure DetailPerforming ClinicianStart: 26-23-2927Sztythvjkouil metabolic panelSandra Raphael PA-C Work Phone: Start: 72-49-6663OcbrtpgjxsaSE Brennon Annalise Work Phone: Start: 21-70-4900Dyske depression screening assessment Chair [facility] Work Phone: Start: 82-26-8952Arofekoktsl observation [Identifier] in Cervix by Cyto Shelley Mcclain MD Work Phone: Screening for malignant neoplasm of colonBrennon Zambrano Other Plan of Treatment DateCare ActivityDetailAuthorStart: 66-43-2341Lyfuuqzu ScreeningDiabetes ScreeningSouth Mills ClinicStart: 49-80-1378Xyginpac ScreeningDiabetes Screening [place] ClinicStart: 79-74-2376Wdqmmmyk ScreeningDiabetes ScreeningSouth Mills ClinicStart: 99-38-7622Kjjwfrao ScreeningDiabetes ScreeningSouth Mills Clinic Start: 55-39-9194Hovpdpqe ScreeningDiabetes ScreeningClecleveland clinic avon hospital ClinicStart: 90-62-7383Puqmqjif ScreeningDiabetes ScreeningAdena Regional Medical Centertart: 12-06-2026 Diabetes ScreeningDiabetes ScreeningAdena Regional Medical Centertart: 17-16-0157Qydaupug ScreeningDiabetes ScreeningAdena Regional Medical Centertart: 84-98-5124Lvwymijk Screening Diabetes ScreeningAdena Regional Medical Centertart: 20-83-0215CNBWQEKQ SCREENDIABETES [facility] Centertart: 87-49-1099KJDUEGSV SCREENDIABETES SCREENAdena Regional Medical Centertart: 94-07-1339YJPJJDGK SCREENDIABETES [facility]art: 08-16-2025 End: 71-28-5584Bzgbsg-up encounterHematology/OncologyComment on above:3 month follow upfollow up and InjectaferStart: 08-09-2025 End: 51-79-6794Desoahf encounter akejwunwz01/19/2025 10:00 AM EST Office Visit [facility] [address] [place] [address] [place] [address] labNortKresge Eye Institute LaboratoryComment on above:labStart: 48-81-5565ZEJYMTFS SCREENDIABETES [facility] Centertart: 27-40-9522Txxvujlhc vaccinationAdena Regional Medical Centertart: 05-11-2025 End: 17-08-3137AMO W Auto Differential panel - BloodCOMPLETE BLOOD COUNT AND DIFFERENTIAL Lab Routine Iron deficiency anemia, unspecified iron deficiency anemia type History of bariatric surgery 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 B12 deficiency Expected: 05/11/2025 (Approximate), Expires: 08/10/2025leveland ClinicComment on above:Expected: 05/11/2025 (Approximate), Expires: 08/10/2025 Start: 05-11-2025 End: 45-71-0535Fjtrnlngclzai metabolic 2000 panel - Serum or PlasmaCOMPREHENSIVE METABOLIC PANEL Lab Routine Iron deficiency anemia, unspecified iron deficiency anemia type History of bariatric surgery 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 B12 deficiency Expected: 05/11/2025 (Approximate), Expires: 08/10/2025[place] ClinicComment on above:Expected: 05/11/2025 (Approximate), Expires: 08/10/2025 Start: 05-11-2025 End: 67-37-9485Akbrgprw [Mass/volume] in Serum or PlasmaFERRITIN Lab Routine Iron deficiency anemia, unspecified iron deficiency anemia type History of iker atric surgery 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 B12 deficiency Expected: 05/11/2025 (Approximate), Expires: 08/10/2025[place] ClinicComment on above: Expected: 05/11/2025 (Approximate), Expires: 08/10/2025Start: 05-11-2025 End: 80-76-8688Nkodsv [Mass/volume] in Serum or PlasmaFOLATE, SERUM Lab Routine Iron deficiency anemia, unspecified iron deficiency anemia type History of bariatric surgery 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 B12 deficiency Expected: 05/11/2025 (Approximate), Expires: 08/10/2025[place] ClinicComment on above: Expected: 05/11/2025 (Approximate), Expires: 08/10/2025Start: 05-11-2025 End: 96-58-0361Fbfx and Iron binding capacity panel - Serum or PlasmaIRON AND TIBC Lab Routine Iron deficiency anemia, unspecified iron deficiency anemia type History of bariatric surgery 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 B12 deficiency Expected: 05/11/2025 (Approximate), Expires: 08/10/2025[place] ClinicComment on above:Expected: 05/11/2025 (Approximate), Expires: 08/10/2025Start: 05-09-2025 End: 25-24-1307Fhmwrav encounter /19/2025 11:30 AM EDT Office Visit [facility] [address] [place] [address] [place] [address] lab / week of april / Follow up based on thoses results [facility] LaboratoryComment on above:lab / week of april / Follow up based on thoses resultsStart: 03-79-6237Upwtlholj vaccinationFlu vaccine (Season Ended)Juan Carlos [facility] HospitalStart: 03-07-2025 End: 37-13-7761intglpnurc88/17/2025 1:30 PM EDT [facility] Hematology/Oncology [address] [place] [address] Injectafer m3Lzeanqzafu/OncologyComment on above:Injectafer e1Gbpty: 02-28-2025 End: 26-25-2866GNL W Auto Differential panel - BloodCOMPLETE BLOOD COUNT AND DIFFERENTIAL Lab Routine Iron deficiency anemia, unspecified iron deficiency anemia type History of bariatric surgery 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 B12 deficiency Expected: 02/28/2025, Expires: 05/30/2025[place] ClinicComment on above:Expected: 02/28/2025, Expires: 05/30/2025Start: 02-28-2025 End: 95-38-0861Zaximverm (Vitamin B12) [Mass/volume] in Serum or PlasmaVITAMIN B12 Lab Routine Iron deficiency anemia, unspecified iron deficiency anemia type History of bariatric surgery 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 B12 deficiency Expected: 02/28/2025, Expires: 05/30/2025[place] ClinicComment on above: Expected: 02/28/2025, Expires: 05/30/2025Start: 02-28-2025 End: 15-74-7779Buefojrelacna metabolic 2000 panel - Serum or PlasmaCOMPREHENSIVE METABOLIC PANEL Lab Routine Iron deficiency anemia, unspecified iron deficiency anemia type History of bariatric surgery 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 B12 deficiency Expected: 02/28/2025, Expires: 05/30/2025[place] ClinicComment on above:Expected: 02/28/2025, Expires: 05/30/2025Start: 02-28-2025 End: 40-28-0756Wdhaiotv [Mass/volume] in Serum or PlasmaFERRITIN Lab Routine Iron deficiency anemia, unspecified iron deficiency anemia type History of iker atric surgery 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 B12 deficiency Expected: 02/28/2025, Expires: 05/30/2025[place] ClinicComment on above:Expected: 02/28/2025, Expires: 05/30/2025Start: 02-28-2025 End: 49-17-4944Nfufxk [Mass/volume] in Serum or PlasmaFOLATE, SERUM Lab Routine Iron deficiency anemia, unspecified iron deficiency anemia type History of bariatric surgery 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 B12 deficiency Expected: 02/28/2025, Expires: 05/30/2025[place] ClinicComment on above:Expected: 02/28/2025, Expires: 05/30/2025Start: 02-28-2025 End: 45-12-1025Sprk and Iron binding capacity panel - Serum or PlasmaIRON AND TIBC Lab Routine Iron deficiency anemia, unspecified iron deficiency anemia type History of bariatric surgery 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 B12 deficiency Expected: 02/28/2025, Expires: [facility]2025[facility] Work Phone: Comment on above:Expected: 02/28/2025, Expires: 05/30/2025Start: 45-39-2511SECTEPRI SCREENDIABETES SCREENAdena Regional Medical Centertart: 02-01-2025 End: 61-92-0670YNV W Auto Differential panel - BloodCOMPLETE BLOOD COUNT AND DIFFERENTIAL Lab Routine Iron deficiency anemia, unspecified iron deficiency anemia type History of bariatric surgery 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 B12 deficiency Expected: 02/01/2025 (Approximate), Expires: 05/03/2025[facility] ClinicComment on above:Expected: 02/01/2025 (Approximate), Expires: 05/03/2025 Start: 02-01-2025 End: 39-18-4862Jzroslcty (Vitamin B12) [Mass/volume] in Serum or PlasmaVITAMIN B12 Lab Routine Iron deficiency anemia, unspecified iron deficiency anemia type History of bariatric surgery 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 B12 deficiency Expected: 02/01/2025 (Approximate), Expires: 05/03/2025[facility] ClinicComment on above:Expected: 02/01/2025 (Approximate), Expires: 05/03/2025Start: 02-01-2025 End: 15-88-9273Gdfqndynibkvl metabolic 2000 panel - Serum or PlasmaCOMPREHENSIVE METABOLIC PANEL Lab Routine Iron deficiency anemia, unspecified iron deficiency anemia type History of bariatric surgery 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 B12 deficiency Expected: 02/01/2025 (Approximate), Expires: 05/03/2025[facility] ClinicComment on above:Expected: 02/01/2025 (Approximate), Expires: 05/03/2025 Start: 02-01-2025 End: 19-82-0604Sxkrhqmh [Mass/volume] in Serum or PlasmaFERRITIN Lab Routine Iron deficiency anemia, unspecified iron deficiency anemia type History of iker atric surgery 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 B12 deficiency Expected: 02/01/2025 (Approximate), Expires: 05/03/2025[facility] ClinicComment on above: Expected: 02/01/2025 (Approximate), Expires: 05/03/2025Start: 02-01-2025 End: 79-73-4728Zeifre [Mass/volume] in Serum or PlasmaFOLATE, SERUM Lab Routine Iron deficiency anemia, unspecified iron deficiency anemia type History of bariatric surgery 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 B12 deficiency Expected: 02/01/2025 (Approximate), Expires: 05/03/2025[facility] ClinicComment on above: Expected: 02/01/2025 (Approximate), Expires: 05/03/2025Start: 02-01-2025 End: 88-83-9120Abuv and Iron binding capacity panel - Serum or PlasmaIRON AND TIBC Lab Routine Iron deficiency anemia, unspecified iron deficiency anemia type History of bariatric surgery 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 B12 deficiency Expected: 02/01/2025 (Approximate), Expires: 05/03/2025[facility] Work Phone: Comment on above:Expected: 02/01/2025 (Approximate), Expires: 05/03/2025Start: 72-14-2927EOSUIZNB SCREENDIABETES SCREENAdena Regional Medical Centertart: 10-20-2024 End: 89-70-5727VTF W Auto Differential panel - BloodCOMPLETE BLOOD COUNT AND DIFFERENTIAL Lab Routine Iron deficiency anemia, unspecified iron deficiency anemia type History of bariatric surgery Expected: 10/20/2024 (Approximate), Expires: 01/19/2025[place] ClinicComment on above:Expected: 10/20/2024 (Approximate), Expires: 01/19/2025Start: 10-20-2024 End: 23-86-6348Qujtkzbucjewy metabolic 2000 panel - Serum or PlasmaCOMPREHENSIVE METABOLIC PANEL Lab Routine Iron deficiency anemia, unspecified iron deficiency anemia type History of bariatric surgery Expected: 10/20/2024 (Approximate), Expires: 01/19/2025[facility] ClinicComment on above:Expected: 10/20/2024 (Approximate), Expires: 01/19/2025Start: 10-20-2024 End: 01-98-5644Spwybhyb [Mass/volume] in Serum or PlasmaFERRITIN Lab Routine Iron deficiency anemia, unspecified iron deficiency anemia type History of iker atric surgery Expected: 10/20/2024 (Approximate), Expires: 01/19/2025[facility] ClinicComment on above:Expected: 10/20/2024 (Approximate), Expires: 01/19/2025 Start: 10-20-2024 End: 97-72-5089Owau and Iron binding capacity panel - Serum or PlasmaIRON AND TIBC Lab Routine Iron deficiency anemia, unspecified iron deficiency anemia type History of bariatric surgery Expected: 10/20/2024 (Approximate), Expires: 01/19/2025[facility] Work Phone: Comment on above:Expected: 10/20/2024 (Approximate), Expires: 01/19/2025Start: 10-11-2024 End: 33-77-7885zalvyyaijc66/21/2025 9:30 AM [facility] Hematology/Oncology [address] [place] [address] [place] [address] Injectafer b4Szbwptevtb/OncologyComment on above:Injectafer g1Evboe: 10-04-2024 End: 07-56-0851Jeljmp-up encounterHematology/OncologyComment on above:follow up w/ Injectafer x2 (pt had local labs done and received results)Start: 07-19-2024 End: 05-51-4707CZA W Auto Differential panel - BloodCOMPLETE BLOOD COUNT AND DIFFERENTIAL Lab Routine Iron deficiency anemia, unspecified iron deficiency anemia type Expected: 07/19/2024 (Approximate), Expires: 10/18/2024[facility] ClinicComment on above:Expected: 07/19/2024 (Approximate), Expires: 10/18/2024 Start: 07-19-2024 End: 78-63-0083Tbcjojdvhfnyt metabolic 2000 panel - Serum or PlasmaCOMPREHENSIVE METABOLIC PANEL Lab Routine Iron deficiency anemia, unspecified iron deficiency anemia type Expected: 07/19/2024 (Approximate), Expires: 10/18/2024[facility] ClinicComment on above:Expected: 07/19/2024 (Approximate), Expires: 10/18/2024 Start: 07-19-2024 End: 62-99-3386Wpzpmvow [Mass/volume] in Serum or PlasmaFERRITIN Lab Routine Iron deficiency anemia, unspecified iron deficiency anemia type Expected: 07/19 (Approximate), Expires: 10/18/2024[facility] ClinicComment on above: Expected: 07/19/2024 (Approximate), Expires: 10/18/2024Start: 07-19-2024 End: 62-78-4626Zwuh and Iron binding capacity panel - Serum or PlasmaIRON AND TIBC Lab Routine Iron deficiency anemia, unspecified iron deficiency anemia type Expected:07/19/2024 (Approximate), Expires: 10/18/2024[facility] Work Phone: Comment on above:Expected: 07/19/2024 (Approximate), Expires: 10/18/2024Start: 06-20-2024 End: 62-85-9156Syobie-up ciqajamfo61/30/2024 10:30 AM EDT Visit (SP) Office Hematology/Oncology [address] [place] [address] [place] [address] Sandra Raphael, PA-C [address] [place] [address] [place] [address] follow up after iron infusions - date req per patient Hematology/OncologyComment on above:follow up after iron infusions - date req per patientStart: 06-20-2024 End: 83-54-7843Igienrs encounter /30/2024 10:15 AM EDT Office Visit [facility] [address] [place] [address] [place] [address] follow up after iron infusions - date req per patientNortKresge Eye Institute LaboratoryComment on above:follow up after iron infusions - date req per patientStart: 05-26-2024 End: 74-45-4509pnzkgrtumk15/05/2024 10:00 AM EDT Infusion Center Hematology/Oncology [address] [place] [address] INJECTAFERHematology/OncologyComment on above:INJECTAFERStart: 77-89-9756BIWZL- 19 Vaccine ( season)COVID-19 Vaccine ()[facility] Centerart: 43-00-3405Mqgtk-19 Vaccine ()Covid-19 Vaccine ()[facility]: 34-70-3823Zqneu-19 Vaccine ()Covid-19 Vaccine ()[facility]: 87-26-2075Iymwhjsih vaccinationAdena Regional Medical Centertart: 05-19-2024 End: 25-35-9995pvbcnwypuq85/29/2024 10:00 AM EDT Infusion Center Hematology/Oncology [address] [place] [address] INJECTAFERHematology/OncologyComment on above:INJECTAFERStart: 05-16-2024 End: 96-90-9880rvkesjpjto57/26/2024 9:30 AM EDT Infusion Center Hematology/Oncology [address] [place] [address] [place] [address] possible injectaferHematology/OncologyComment on above:possible injectaferStart: 54-31-3917KcjlytaylUC Healthtart: 05-09-2024 End: 13-45-0542Lwrgfs-up ydlonitao64/19/2024 9:30 AM EDT Visit (SP) Office Hematology/Oncology [address] [place], [place] [phone] Sandra Raphael PAVianeyC [address] [place] [address] lab and follow upHematology/OncologyComment on above:lab and follow upStart: 05-09-2024 End: 81-75-5477Hzhihcg encounter zkzpswuso32/19/2024 9:00 AM EDT Office Visit [facility] [address] [place] [address] lab and follow upNortKresge Eye Institute LaboratoryComment on above:lab and follow upStart: 02-11-2024 End: 93-78-0035UZB W Auto Differential panel - BloodCBC + DIFF Lab Routine Iron deficiency anemia, unspecified iron deficiency anemia type History of bariatric surgery Expected: 02/11/2024 (Approximate), Expires: 05/12/2024[facility] Work Phone: Comment on above:Expected: 02/11/2024 (Approximate), Expires: 05/12/2024Start: 02-11-2024 End: 63-85-8160Anhcntunmjoqu metabolic 2000 panel - Serum or PlasmaCOMP METABOLIC PANEL Lab Routine Iron deficiency anemia, unspecified iron deficiency anemia type History of bariatric surgery Expected: 02/11/2024 (Approximate), Expires: 05/12/2024[facility] Work Phone: Comment on above:Expected: 02/11/2024 (Approximate), Expires: 05/12/2024Start: 02-11-2024 End: 34-24-7943Isrethqe [Mass/volume] in Serum or PlasmaFERRITIN BLD Lab Routine Iron deficiency anemia, unspecified iron deficiency anemia type History of bariatric surgery Expected: 02/11/2024 (Approximate), Expires: 05/12/2024 [facility] Work Phone: Comment on above:Expected: 02/11/2024 (Approximate), Expires: 05/12/2024Start: 02-11-2024 End: 00-78-8118Hnwv and Iron binding capacity panel - Serum or PlasmaIRON + TIBC Lab Routine Iron deficiency anemia, unspecified iron deficiency anemia type History of bariatric surgery Expected: 02/11/2024 (Approximate), Expires: 05/12/2024[facility] Work Phone: Comment on above:Expected: 02/11/2024 (Approximate), Expires: 05/12/2024Start: 39-93-9267Mnyfqmkmhjvl 50+ years Vaccine (1 of 1 - PCV)Pneumococcal 50+ years Vaccine (1 of 1 - PCV)[facility] Centerart: 67-83-2864Ipkzwmcvmove Vaccine: 50+ (1 of 1 - PCV)Pneumococcal Vaccine: 50+ (1 of 1 - PCV)[facility] [facility]: 55-34-5647Dcpxjnsf vaccine (1 of 2)Shingles vaccine (1 of 2)[facility]: 44-23-2341Jmgqvewi Vaccine (1 of 2)Shingrix Vaccine (1 of 2)[facility] 12-16-2023 End: 84-10-6143MED W Auto Differential panel - BloodCBC + DIFF Lab Routine Iron deficiency anemia, unspecified iron deficiency anemia type History of bariatric surgery 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 B12 deficiency Expected: 12/16/2023 (Approximate), Expires: 03/16/2024[facility] Work Phone: Comment on above:Expected: 12/16/2023 (Approximate), Expires: 03/16/2024Start: 12-16-2023 End: 56-96-2864Ffvbuubhqieni metabolic 2000 panel - Serum or PlasmaCOMP METABOLIC PANEL Lab Routine Iron deficiency anemia, unspecified iron deficiency anemia type History of bariatric surgery 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 B12 deficiency Expected: 12/16/2023 (Approximate), Expires: 03/16/2024[facility] Work Phone: Comment on above:Expected: 12/16/2023 (Approximate), Expires: 03/16/2024Start: 12-16-2023 End: 14-40-2584Ielfwiub [Mass/volume] in Serum or PlasmaFERRITIN BLD Lab Routine Iron deficiency anemia, unspecified iron deficiency anemia type History of bariatric surgery 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 B12 deficiency Expected: 12/16/2023 (Approximate), Expires: 03/16/2024[facility] Work Phone: Comment on above:Expected: 12/16/2023 (Approximate), Expires: 03/16/2024Start: 12-16-2023 End: 49-23-9011Iapl and Iron binding capacity panel - Serum or PlasmaIRON + TIBC Lab Routine Iron deficiency anemia, unspecified iron deficiency anemia type History of bariatric surgery 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 B12 deficiency Expected: 12/16/2023 (Approximate), Expires: 03/16/2024[facility] Work Phone: Comment on above:Expected: 12/16/2023 (Approximate), Expires: 03/16/2024Start: 28-98-6093Weurtryiki Health ScreeningBehavioral Health ScreeningAdena Regional Medical Centertart: 91-97-1666Iovyolcsgx AssessmentDepression AssessmentAdena Regional Medical Centertart: 09-09-2023 End: 18-09-4678UGZ W Auto Differential panel - BloodCBC + DIFF Lab Routine Iron deficiency anemia, unspecified iron deficiency anemia type History of bariatric surgery 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 B12 deficiency Expected: 09/09/2023 (Approximate), Expires: 11/09/2023[facility] Work Phone: Comment on above:Expected: 09/09/2023 (Approximate), Expires: 11/09/2023Start: 09-09-2023 End: 56-20-1474Qrrtbirwpvpdg metabolic 2000 panel - Serum or PlasmaCOMP METABOLIC PANEL Lab Routine Iron deficiency anemia, unspecified iron deficiency anemia type History of bariatric surgery 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 B12 deficiency Expected: 09/09/2023 (Approximate), Expires: 11/09/2023[facility] Work Phone: Comment on above:Expected: 09/09/2023 (Approximate), Expires: 11/09/2023Start: 09-09-2023 End: 87-12-5286Cryvxhnh [Mass/volume] in Serum or PlasmaFERRITIN BLD Lab Routine Iron deficiency anemia, unspecified iron deficiency anemia type History of bariatric surgery 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 B12 deficiency Expected: 09/09/2023 (Approximate), Expires: 11/09/2023[facility] Work Phone: Comment on above:Expected: 09/09/2023 (Approximate), Expires: 11/09/2023Start: 09-09-2023 End: 38-32-7332Hufs and Iron binding capacity panel - Serum or PlasmaIRON + TIBC Lab Routine Iron deficiency anemia, unspecified iron deficiency anemia type History of bariatric surgery 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 B12 deficiency Expected: 09/09/2023 (Approximate), Expires: 11/09/2023[facility] Work Phone: Comment on above:Expected: 09/09/2023 (Approximate), Expires: 11/09/2023Start: 05-00-1679Fveib-19 Vaccine ()Covid- 19 Vaccine ()[facility]: 94-02-0550Xuvchtkil vaccinationAdena Regional Medical Centertart: 01-18-2023 End: 24-85-8348VUE W Auto Differential panel - BloodCBC + DIFF Lab Routine Iron deficiency anemia, unspecified iron deficiency anemia type Expected: 01/18/2023 (Approximate), Expires: 03/20/2023[facility] Work Phone: Comment on above:Expected: 01/18/2023 (Approximate), Expires: 03/20/2023Start: 01-18-2023 End: 32-15-5460Adfaxjwr [Mass/volume] in Serum or PlasmaFERRITIN BLD Lab Routine Iron deficiency anemia, unspecified iron deficiency anemia type Expected: 0 01/18/2023 (Approximate), Expires: 09/19/2023[facility] Work Phone: Comment on above:Expected: 01/18/2023 (Approximate), Expires: 09/19/2023Start: 01-18-2023 End: 17-31-0790Jknq and Iron binding capacity panel - Serum or PlasmaIRON + TIBC Lab Routine Iron deficiency anemia, unspecified iron deficiency anemia type Expected: 01/18/2023 (Approximate), Expires: 09/19/2023[facility] Work Phone: Comment on above:Expected: 01/18/2023 (Approximate), Expires: 09/19/2023Start: 01-18-2023 End: 82-76-1924YMPYF COUNTRETIC COUNT Lab Routine Iron deficiency anemia, unspecified iron deficiency anemia type Expected: 01/18/2023 (Approximate), Expires: 03/20/2023[facility] Work Phone: Comment on above:Expected: 01/18/2023 (Approximate), Expires: 03/20/2023Start: 48-20-2000Xtdig depression screening assessment DEPRESSION SCREENINGAdena Regional Medical Centertart: 01-45-7568SPFXYHTCLW ASSESSMENT DEPRESSION ASSESSMENTAdena Regional Medical Centertart: 06-20-2022 End: 18-06-3571SZX W Auto Differential panel - BloodCBC + DIFF Lab Routine Iron deficiency anemia, unspecified iron deficiency anemia type History of bariatric surgery 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 B12 deficiency Expected: 06/20/2022, Expires: 08/20/2022[facility] Work Phone: Comment on above:Expected: 06/20/2022, Expires: 08/20/2022tart: 06-20-2022 End: 92-42-5253Bqlogiblxdmdp metabolic 2000 panel - Serum or PlasmaCOMP METABOLIC PANEL Lab Routine Iron deficiency anemia, unspecified iron deficiency anemia type History of bariatric surgery 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 B12 deficiency Expected: 06/20/2022, Expires: 08/20/2022[facility] Work Phone: Comment on above:Expected: 06/20/2022, Expires: 08/20/2022tart: 06-20-2022 End: 41-16-9831Nncklelf [Mass/volume] in Serum or PlasmaSt. [facility] Work Phone: Comment on above:Expected: 06/20/2022, Expires: 08/20/2022tart: 06-20-2022 End: 19-93-6780Vpsv and Iron binding capacity panel - Serum or PlasmaC[facility] Clinic Foundation Work Phone: Comment on above:Expected: 06/20/2022, Expires: 08/20/2022tart: 06-04-2022 End: 99-94-4994Axmvtpvg [Mass/volume] in Serum or PlasmaFERRITIN BLD Lab Routine Iron deficiency anemia, unspecified iron deficiency anemia type Expected: 0 06/04/2022, Expires: 08/04/2022[facility] Work Phone: Comment on above:Expected: 06/04/2022, Expires: 08/04/2022tart: 06-04-2022 End: 86-82-2160Qmed and Iron binding capacity panel - Serum or PlasmaIRON + TIBC Lab Routine Iron deficiency anemia, unspecified iron deficiency anemia type Expected: 06/04/2022, Expires: 08/04/2022[facility] Work Phone: Comment on above:Expected: 06/04/2022, Expires: 08/04/2022tart: 05-13-0082Vfehaqabr [facility]: 04-01-2022 End: 99-59-5311UKS W Auto Differential panel - BloodCBC + DIFF Lab Routine Iron deficiency anemia, unspecified iron deficiency anemia type Expected: 04/01/2022 (Approximate), Expires: 06/01/2022[facility] Work Phone: Comment on above:Expected: 04/01/2022 (Approximate), Expires: 06/01/2022tart: 04-01-2022 End: 36-75-2204ZEQLQSUE BLDFERRITIN BLD Lab Routine Iron deficiency anemia, unspecified iron deficiency anemia type Expected: 04/01/2022 (Approximate), Expires: 02/04/2023[facility] Work Phone: Comment on above:Expected: 04/01/2022 (Approximate), Expires: 02/04/2023Start: 04-01-2022 End: 29-74-5787TESO + TIBCIRON + TIBC Lab Routine Iron deficiency anemia, unspecified iron deficiency anemia type Expected: 04/01/2022 (Approximate), Expires: 02/04/2023[facility] Work Phone: Comment on above:Expected: 04/01/2022 (Approximate), Expires: 02/04/2023Start: 04-01-2022 End: 75-74-6799XKWNL COUNTRETIC COUNT Lab Routine Iron deficiency anemia, unspecified iron deficiency anemia type Expected: 04/01/2022 (Approximate), [facility]: [facility] Comment on above:Expected: 04/01/2022 (Approximate), Expires: 06/01/2022tart: 25-85-8038VEDUPXXJRS ASSESSMENTDEPRESSION ASSESSMENT [facility]: 29-19-5306KPWBN-19 VACCINE (3 - Booster for Pfizer series)COVID-19 VACCINE (3 - Booster for Pfizer series)[facility]: 75-91-4108Ytljrqsqc vaccinationINFLUENZA (#1)[facility]: 04-03-2021 COVID-19 VACCINE (3 - Booster for Pfizer series)COVID-19 VACCINE (3 - Booster for Pfizer series)[facility]: 55-06-5460KCPTB-19 VACCINE (3 - Pfizer series)COVID-19 VACCINE (3 - Pfizer series)[facility]: 04-06-2020 Screening for malignant neoplasm of cervixInova Health SystemStart: 94-28-5641SVBWELRQO (FIT-DNA)COLOGUARD (FIT-DNA)[facility]: 91-91-1636MvgqqgihxqaJZZKZGQASOYHmpwifizj ClinicStart: 86-31-0517BDLRXQOTCQ CANCER SCREENINGCOLORECTAL CANCER SCREENINGAdena Regional Medical Centertart: 48-13-5230XY COLONOGRAPHYCT COLONOGRAPHYCleLima City Hospitaltart: 18-25-6141PSNDY OCCULT BLOOD FECAL OCCULT BLOODAdena Regional Medical Centertart: 78-64-1285Yfetq 1996 panel - Serum or PlasmaLipid ScreeningAdena Regional Medical Centertart: 62-60-3956Uunmu panelLipid Screening [facility]: 00-45-4728HZLDO SCREENLIPID SCREENAdena Regional Medical Centertart: 76-27-8053Madchljkj for malignant neoplasm of colonAdena Regional Medical Centertart: 79-26-9504RTBKSLAVNXFCJJYLOTOYBKTIAMZcjnpdfna ClinicStart: 62-20-5926Ewbwy panel LipidsBon [facility] HospitalStart: 09-16-8121YslffbuemkwFhgtrwyfn ClinicStart: 56-52-6654Ulksypknk for malignant neoplasm of breastA[facility] Medical Centertart: 91-46-8159IBS TESTINGHPV TESTINGAdena Regional Medical Centertart: 48-53-9035Oohnwplhf for malignant neoplasm of cervixAdena Regional Medical Centertart: 66-23-2484KYV TESTINGPAP TESTINGAdena Regional Medical Centertart: 19-74-3707Qudqifbif for malignant neoplasm of cervixAdena Regional Medical Centertart: 44-43-0102DLxC/Tdap/Td vaccine (1 - Tdap) DTaP/Tdap/Td vaccine (1 - Tdap)[facility] HospitalStart: 1993 Hepatitis B Vaccine (1 of 3 - 19+ 3-dose series)Hepatitis B Vaccine (1 of 3 - 19+ 3-dose series)[facility]: 32-51-5778Kveao microalbumin profile [facility]: 63-51-8985Ejnyrtq ScreeningAnxiety ScreeningAdena Regional Medical Centertart: 34-90-3683Slrxtqjapf ScreeningDepression ScreeningUniversity Hospitals Health System Start: 46-58-2492NMKYHYZGQ C SCREENINGHEPATITIS C SCREENINGUniversity Hospitals Health System Start: 58-23-1369Zfrrtokvn C screeningAdena Regional Medical Centertart: 70-39-8658FKU SCREENINGHIV SCREENINGAdena Regional Medical Centertart: 62-69-6843IMT screeningHIV ScreeningAdena Regional Medical Centertart: 47-51-1626OMM screeningHIV screenBon [facility] HospitalStart: 92-39-5228Wigunjfwqq ScreenDepression ScreenMountain View Regional Medical Centerart: 82-44-5006JXVNNCGJI B (1 of 3 - 3-dose series)HEPATITIS B (1 of 3 - 3-dose series)[facility]: 26-60-5966Howajydep B Vaccine (1 of 3 - 3-dose series)Hepatitis B Vaccine (1 of 3 - 3-dose series)[facility] metabolic 2000 panel - Serum or PlasmaDayton Va Medical Center End: 11-84-6271Sgeinypckeciya vitamin b-12Bon [facility] Work Phone: Comment on above:Once for 1 Occurrences starting 01/31/2025 until 01/31/2025MG Breast - bilateral ScreeningDayton Va Medical CenterPatient EducationColon polyps Hemorrhoids (DC) Know your Meds [facility] Work Phone: [facility] Immunizations Immunization DateImmunizationNotesCare EqinfhtcFenfjolp69-34-8672AGRQS-42 vaccine, age 12+ yr (PFIZER-BIONTECH - PURPLE TOP)Chair Evelia Work Phone: [facility] Health SystemRlsnql00-89-6413ESLNR-36 vaccine, age 12+ yr (PFIZER-BIONTECH - PURPLE TOP)Chair Evelia Work Phone: [facility] Payers DatePayer CategoryPayerPolicy [id number] Health InsuranceMMO SUPERMED PPO Member Subscriber Plan / Payer (Effective 2017-Present) Name: Lucero FERNANDEZ ID: [id number] Relation to Subscriber: Spouse Name: DAVID FERNANDEZ Date of : 1970 (Home) Address: [address] [place] [address] Payer ID: Not on file Type: PPO Address: [address] [id number] UnknownMMO MMO SUPERMED PLUS [id number] 2017-Present [phone] [address] [place] [address] [id number] Social History DateTypeDetailFacilityStart: 09-18-2017 End: 28-12-7941Iubwhdv smoking status NHISNever smoked tobaccoUniversity Hospitals Health System Start: 09-18-2017 End: 25-14-7563Mmiarsa use and exposureSmokeless tobacco non-userAdena Regional Medical Centertart: 12-06-2021 End: 47-87-6269Bmpurvk intakeCurrent drinker of alcohol (finding)[facility]: 85-76-0451Pixhoqa SDOH Alcohol Commentsocial onlyUniversity Hospitals Health System Start: 36-04-1795Hmz Assigned At BirthNot on fileAdena Regional Medical Centertart: 12-06-2021 End: 82-78-5609Abpynvou to SARS-CoV-2 (event)Not sureUniversity Hospitals Health SystemHistory of tobacco usePassive smokerA[facility]a Regional Medical Centertart: 09-19-2022 End: 19-68-7412Tcrbhia of Social functionAdena Regional Medical Centertart: 09-19-2022 End: 75-82-9656Hsajwlj use panelAdena Regional Medical Centertart: 61-15-9585Uwrbd Depression Screening Aadxgjoffe6Ileewrxze ClinicStart: 30-94-4713Icsxhdc smoking status NHISEx-smoker (finding)[facility]althtart: 93-04-9025Mtq [facility] Hospitaltart: 73-08-6138ZxuJijpvh (finding)[facility] Medical Equipment Procedure CodeEquipment CodeEquipment Original TextEquipment IdentifierDates1 Syringe once every month.[id number]: 05-21-2021 End: 18-65-0931Snaebcg on above:1 Syringe once every month. Goals DatePatient GoalDesired Activity/State Clinical Notes 10-22-2017 to 05-16-2025 Note Date & NbdsLggeEnlvqrfa18-15-4934 Evaluation note* Diagnosis Onset Date Resolution Status Admit Date Contact dermatitis acuteAugust 2024 9:19amObesityacuteSeptember 2024 3:09pmPruritic rashacuteSeptember 2024 3:09pmScreening mammogram for breast canceracute June 05, 2025 3:09pmWellness examinationacuteSept2024 3:09pm [facility] Work Phone: [phone] Telephone encounter Note* Telephone Encounter - Raeann Monterroso - 05/11/2025 8:57 AM EDT Pt scheduled and confirmed 11-19 at 10am for labs and 08/16 at 10for Sandra and 1030 for treatment. Also mailed an appt reminder too. [facility]08-21-2025 Miscellaneous Notes* Telephone Encounter - Raeann Monterroso - 05/11/2025 8:57 AM EDT Pt scheduled and confirmed 11-19 at 10am for labs and 11 at 10for Sandra and 1030 for treatment. [...] Gambino RN * Telephone Encounter - Sandra Raphael PA-C - 05/10/2025 10:57 AM EDT Repeat labs in 3 months with follow up a week after Sandra Raphael PA-C * Telephone Encounter - Justo Gambino RN - 05/10/2025 10:36 AM EDT Images from the original note were not included. Sandra Raphael PA-C to [facility] Triage Pool (Selected Message) 05/10/25 7:55 AM [...] note were not included. documented in this encounterUniversity Hospitals Health System08-20-2025 Telephone encounter Note * Telephone Encounter - Justo Gambino RN - 05/10/2025 11:02 AM EDT Pt updated on result/plan of care. She is agreeable to repeat labs 3 months, RTC 1 week following. She denies any questions, needs or concerns at this time. Will await call to schedule. PSS: please call to schedule per MM. Justo Gambino RN [facility]08-20-2025 Telephone encounter Note* Telephone Encounter - Sandra Raphael PA-C - 05/10/2025 10:57 AM EDT Repeat labs in 3 months with follow up a week after Sandra Raphael PA-C [facility]08-20-2025 Telephone encounter Note* Telephone Encounter - Justo Gambino RN - 05/10/2025 10:36 AM EDT Images from the original note were not included. Sandra Raphael PA-C to [facility] Triage Pool (Selected Message) 05/10/25 7:55 AM Result Note Iron levels look good. Please let her know MM: When would you like RTC? Justo Gambino RN [facility]06-10-2025 Telephone encounter Note* Telephone Encounter - Marilyn Andrew - 02/28/2025 2:16 PM EDT Labs scheduled for 05-09-25 Follow up based on these results [facility]06-10-2025 Telephone encounter Note* Telephone Encounter - Marilyn Andrew Tia - 02/28/2025 2:15 PM EDT Images from the original note were not included. [facility]06-10-2025 NoteHNO ID: [id number] Author: SANDRA RAPHAEL PA-C Service: ? Author Type: Physician Assembler Equipment Type: Progress Notes Filed: 02/28/2025 13:52 Note [...] Continue monthly B12 injections at home Sandra Raphael PA-C CC: Brennon Zambrano DO I spent a total of 21 minutes on the date of the service which included preparing to see the patient, vwtg-eg-oafp patient care, completing clinical documentation, performing a medically appropriate examination, counseling and educating the patient/family/caregiver, ordering medications, tests, or procedures, independently interpreting results (not separately reported), communicating results to the patient/family/caregiver, and care coordination (not separately reported).[facility]06-10-20[facility] History of Present illness Narrative* Sandra Raphael PA-C - 02/28/2025 1:33 PM EDT Date [...] Continue monthly B12 injections at home Sandra Raphael PA-C CC: Brennon Zambrano DO I spent a total of 21 minutes on the date of the service which included preparing to see the patient, xnsh-dj-orpf patient care, completing clinical documentation, performing a medically appropriate examination, counseling and educating the patient/family/caregiver, ordering medications, tests, or p rocedures, independently interpreting results (not separately reported), communicating results to the patient/family/caregiver, and care coordination (not separately reported). documented in this encounterUniversity Hospitals Health System05-20-2025 Telephone encounter Note * Telephone Encounter - Myranda Mishra - 02/07/2025 9:15 AM EDT Patient has been scheduled for RV with Sandra and injectafer on 02/21 and another dose on 02/28. Patient notified of dates/times. Patient needs AM appts and was informed this still requires authorization. Myranda Mishra [facility]05-20-2025 Miscellaneous Notes* Telephone Encounter - Myranda Mishra - 02/07/2025 9:15 AM EDT Patient has been scheduled for RV with Sandra and injectafer on 02/21 and another dose on 02/28. Patient notified of dates/times. Patient needs AM appts and was informed this still requires authorization. Myranda Mishra * Telephone Encounter - Justo Gambino RN - 02/06/2025 9:03 AM EDT VM left with MM message and recommendation. Encouraged to call with any additional questions/concerns. Aware PSS to call with appt Pharm: please place injectofer orders Roslyn/Marilyn: Please call to schedule Justo Gambino RN documented in this encounterUniversity Hospitals Health System05-19-2025 Telephone encounter Note * Telephone Encounter - Justo Gambino RN - 02/06/2025 9:03 AM EDT VM left with MM message and recommendation. Encouraged to call with any additional questions/concerns. Aware PSS to call with appt Pharm: please place injectofer orders Roslyn/Marilyn: Please call to schedule Justo Gambino RN [facility]05-16-2025 Telephone encounter Note* Telephone Encounter - Justo Gambino RN - 02/03/2025 8:50 AM EDT Pt notified. She is coming to [place] today and will come in at 1030 to have rest of labs completed. Pt added to lab schedule Justo Gambino RN [facility]05-16-2025 Miscellaneous Notes* Telephone Encounter - Justo Gambino RN - 02/03/2025 8:50 AM EDT Pt notified. She is coming to [place] today and will come in at 1030 to have rest of labs completed. Pt added to lab schedule Justo Gambino RN * Telephone Encounter - Sandra Raphael PA-C - 02/03/2025 8:40 AM EDT Please call and advise patient that we received only a B12 result from [facility]. WE call them and they said no other labs were done. If patient wishes to go back to [facility] and have the restof her labs redrawn, please fax the remaining orders to them and ensure they receive all orders. Otherwise she is welcome to come here to have them drawn. Sandra Raphael PA-C documented in this encounterUniversity Hospitals Health System05-16-2025 Telephone encounter Note * Telephone Encounter - Sandra Raphael PA-C - 02/03/2025 8:40 AM EDT Please call and advise patient that we received only a B12 result from [facility]. WE call them and they said no other labs were done. If patient wishes to go back to [facility] and have the restof her labs redrawn, please fax the remaining orders to them and ensure they receive all orders. Otherwise she is welcome to come here to have them drawn. Sandra Raphael PA-C [facility]01-14-2025 NoteHNO ID: [id number] Author: KERI JULIO RN Service: ? Author Type: Registered Nurse Type: Progress Notes Filed: 10/04/2024 11:20 Note Text: Order clarification per pharmacy that injecafer is to be given IVP due to IVF shortage Keri Julio RNThe [facility]01-[facility] History of Present illness Narrative* Keri Julio RN - 10/04/2024 10:26 AM EST Order clarification per pharmacy that injecafer is to be given IVP due to IVF shortage Keri Julio RN documented in this encounterUniversity Hospitals Health System01-14-2025 History of Present illness Narrative* Sandra Raphael PA-C - 10/04/2024 9:30 AM EST Date [...] symmetrical LAB: See labs in epic from [facility] ASSESSMENT/PLAN: 1. Iron deficiency anemia, unspecified iron [...] needed. Lab orders printed for patient for [facility]. 2. History of bariatric surgery - ICD9: V45.86, ICD10: Z98.84 3. 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 B12 deficiency - ICD9: 281.1, ICD10: D53.1 Continue monthly B12 injections at home Sandra Raphael PA-C I spent a total of 20 minutes on the date of the service which included preparing to see the patient, ijfw-rk-xctg patient care, completing clinical documentation, performing a medically appropriate examination, counseling and educating the patient/family/caregiver, ordering medications, tests, or p rocedures, independently interpreting results (not separately reported), communicating results to the patient/family/caregiver, and care coordination (not separately reported). CC: Brennon Zambrano DO documented in this encounterUniversity Hospitals Health System01-14-2025 NoteHNO ID: [id number] Author: SANDRA RAPHAEL PA-C Service: ? Author Type: Physician Assembler Equipment Type: Progress Notes Filed: 10/04/2024 09:54 Note [...] symmetrical LAB: See labs in epic from [facility] ASSESSMENT/PLAN: 1. Iron deficiency anemia, unspecified iron [...] needed. Lab orders printed for patient for [facility]. 2. History of bariatric surgery - ICD9: V45.86, ICD10: Z98.84 3. 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 B12 deficiency - ICD9: 281.1, ICD10: D53.1 Continue monthly B12 injections at home Sandra Raphael PA-C I spent a total of 20 minutes on the date of the service which included preparing to see the patient, sxlo-rq-jdga patient care, completing clinical documentation, performing a medically appropriate examination, counseling and educating the patient/family/caregiver, ordering medications, tests, or procedures, independently interpreting results (not separately reported), communicating results to the patient/family/caregiver, and care coordination (not separately reported). CC: Brennon Zambrano, [facility]01-06-2025 Telephone encounter Note * Telephone Encounter - Myranda Mishra - 09/26/2024 2:21 PM EST Patient has been scheduled and notified. Thanks! Myranda Mishra [facility]01-06-2025 Miscellaneous Notes* Telephone Encounter - Myranda Mishra - 09/26/2024 2:21 PM EST Patient has been scheduled and notified. Thanks! Myranda Mishra * Telephone Encounter - Sandra Raphael PA-C - 09/26/2024 11:59 AM EST sure * Telephone Encounter - Myranda Mishra - 09/26/2024 11:29 AM EST Did you want to see her same day prior? Myranda Mishra * Telephone Encounter - Demetra Jean RPh - 09/26/2024 11:15 AM EST Orders placed and per Filomena Telles no non formulary approval is needed for Monty AdameD, BCOP * Telephone Encounter - Sandra Raphael PA-C - 09/26/2024 8:40 AM EST Please inform her she needs more IV iron. She requires infectafer that will need special approval from pharmacy and orders will need placed by pharmacy. Sandra Raphael PA-C * Telephone Encounter - Jo Ann Vargas - 09/26/2024 8:37 AM EST Labs are in chart under the lab tab. * Telephone Encounter - Myranda Mishra - 09/23/2024 11:55 AM EST I did explain this to patient, she still insisted they be sent to [place]. Myranda Mishra * Telephone Encounter - Sandra Raphael PA-C - 09/23/2024 11:50 AM EST I am sorry she is aggravated about her appointments. Unfortunately, we have a 24 hour turn around time on our iron labs. She is more than welcome to get them done elsewhere, however, be advised, theydo not always send us results in an efficient manner. Sandra Raphael PA-C * Telephone Encounter - Myranda Mishra - 09/23/2024 11:17 AM EST Patient calls [...] be faxed to [facility] - fax [phone]. Faxed lab orders September 23, 2024 11:27 [...] await for approval if so. Thanks! Myranda Mishra documented in this encounterUniversity Hospitals Health System01-06-2025 Telephone encounter Note * Telephone Encounter - Sandra Raphael PA-C - 09/26/2024 11:59 AM EST sure [facility]01-06-2025 Telephone encounter Note* Telephone Encounter - Myranda Mishra - 09/26/2024 11:29 AM EST Did you want to see her same day prior? Myranda Mishra [facility]01-06-2025 Telephone encounter Note* Telephone Encounter - Demetra Jean RPh - 09/26/2024 11:15 AM EST Orders placed and per Filomena Telles no non formulary approval is needed for injectafeisrael Jean, PharmD, BCOP [facility] Work Phone: [phone] Telephone encounter Note* Telephone Encounter - Sandra Raphael PA-C - 09/26/2024 8:40 AM EST Please inform her she needs more IV iron. She requires infectafer that will need special approval from pharmacy and orders will need placed by pharmacy. Sandra Raphael PA-C [facility]01-06-2025 Telephone encounter Note* Telephone Encounter - Jo Ann Vargas - 09/26/2024 8:37 AM EST Labs are in chart under the lab tab. [facility]01-03-2025 Telephone encounter Note* Telephone Encounter - Myranda Mishra - 09/23/2024 11:55 AM EST I did explain this to patient, she still insisted they be sent to [place]. Myranda Mishra [facility]01-03-2025 Telephone encounter Note* Telephone Encounter - Sandra Raphael PA-C - 09/23/2024 11:50 AM EST I am sorry she is aggravated about her appointments. Unfortunately, we have a 24 hour turn around time on our iron labs. She is more than welcome to get them done elsewhere, however, be advised, theydo not always send us results in an efficient manner. Sandra Raphael PA-C [facility]01-03-2025 Telephone encounter Note* Telephone Encounter - Myranda Mishra - 09/23/2024 11:17 AM EST Patient calls [...] be faxed to [facility] - fax [phone]. Faxed lab orders September 23, 2024 11:27 [...] await for approval if so. Thanks! Myranda Mishra [facility]10-01-2024 Telephone encounter Note* Telephone Encounter - Justo Gambino RN - 06/21/2024 9:03 AM EDT Pt aware and agreeable to plan of care. Pt denies questions, needs or concerns at this time. Justo Gambino RN [facility]10-01-2024 Telephone encounter Note* Telephone Encounter - Justo Gambino RN - 06/21/2024 9:03 AM EDT ----- Message from Sandra Raphael PA-C sent at 06/21/2024 7:45 AM EDT ----- Please call with normal iron levels. No need for IV iron at this time. [facility]10-01-2024 Miscellaneous Notes* Telephone Encounter - Justo Gambino RN - 06/21/2024 9:03 AM EDT Pt aware and agreeable to plan of care. Pt denies questions, needs or concerns at this time. Justo Gambino RN * Telephone Encounter - Justo Gambino RN - 06/21/2024 9:03 AM EDT ----- Message from Sandra Raphael PA-C sent at 06/21/2024 7:45 AM EDT ----- Please call with normal iron levels. No need for IV iron at this time. documented in this encounterUniversity Hospitals Health System09-30-2024 Telephone encounter Note * Telephone Encounter - Myranda Mishra - 06/20/2024 10:39 AM EDT Patient did not want to schedule appointments when she was here today. She states she will call [facility] to schedule appts at her convenience. Myranda Mishra [facility]09-30-2024 Miscellaneous Notes* Telephone Encounter - Myranda Mishra - 06/20/2024 10:39 AM EDT Patient did not want to schedule appointments when she was here today. She states she will call [facility] to schedule appts at her convenience. Myranda Mishra documented in this encounterUniversity Hospitals Health System09-30-2024 History of Present illness Narrative* Sandra Raphael PA-C - 06/20/2024 10:30 AM EDT Date [...] have a horse show from 06/30-07/17/2024 in [place]. Current Outpatient Medications Medication Sig cyanocobalamin 1,000 [...] B12 injections at home, refilled today Sandra Raphael PA-C CC: Brennon Zambrano DO I spent a total of 20 minutes on the date of the service which included preparing to see the patient, [id number] patient care, completing clinical documentation, performing a medically appropriate examination, counseling and educating the patient/family/caregiver, ordering medications, tests, or p rocedures, independently interpreting results (not separately reported), communicating results to the patient/family/caregiver, and care coordination (not separately reported). documented in this encounterUniversity Hospitals Health System09-30-2024 NoteHNO ID: [id number] Author: SANDRA RAPHAEL PA-C Service: ? Author Type: Physician Assembler Equipment Type: Progress Notes Filed: 06/20/2024 10:45 Note [...] have a horse show from 06/30-07/17/2024 in [place]. Current Outpatient Medications Medication Sig cyanocobalamin 1,000 [...] B12 injections at home, refilled today Sandra Raphael PA-C CC: Brennon Zambrano, I spent a total of 20 minutes on the date of the service which included preparing to see the patient, [id number] patient care, completing clinical documentation, performing a medically appropriate examination, counseling and educating the patient/family/caregiver, ordering medications, tests, or procedures, independently interpreting results (not separately reported), communicating results to the patient/family/caregiver, and care coordination (not separately reported).[facility]08-23-2024 Procedure note [facility]08-21-2024 Telephone encounter Note* Telephone Encounter - Myranda Mishra - 05/11/2024 1:53 PM EDT Patient called back and scheduled Injectafer 05/19 and 05/26 and her next follow up on 06/20. Appointment dates and times coordinated through her work schedule. Patient is all set, Thanks! Myranda Mishra [facility]08-21-2024 Miscellaneous Notes* Telephone Encounter - Myranda Mishra - 05/11/2024 1:53 PM EDT Patient called back and scheduled Injectafer 05/19 and 05/26 and her next follow up on 06/20. Appointment dates and times coordinated through her work schedule. Patient is all set, Thanks! Myranda Mishra * Telephone Encounter - Myranda Mishra - 05/11/2024 1:23 PM EDT Call placed to patient - got a loud ring noise and no one was there and call dropped x2. Will try patient at a later time. Myranda Mishra * Telephone Encounter - Sandra Raphael PA-C - 05/10/2024 11:29 AM EDT 6-8 weeks after she gets the iron Sandra Jackie Raphael PA-C * Telephone Encounter - Justo Gambino RN - 05/10/2024 11:13 AM EDT Pt aware and agreeable to Injectofer x 2 doses Pharm: please place orders MM: when would you like to repeat labs/follow up? PSS: Please call to schedule Justo Gambino, RN * Telephone Encounter - Sandra Raphael PA-C - 05/10/2024 10:49 AM EDT Please call with low iron levels. She will benefit from iv iron if she approves. She is allergic tomonoferric and didn't respond to venofer in the past. She will need injectafer x 2. Please ask pharmacy to put the orders in because I cannot * Telephone Encounter - Justo Gambino RN - 05/10/2024 9:44 AM EDT Sandra, please verify need for IV Iron and advise follow up. Pt will need IV Iron orders. Thank you, Justo * Telephone Encounter - Myranda Mishra - 05/09/2024 11:09 AM EDT Patient was [...] up when labs are resulted. Thanks! Myranda Mishra documented in this encounterUniversity Hospitals Health System08-21-2024 Telephone encounter Note * Telephone Encounter - Myranda Mishra - 05/11/2024 1:23 PM EDT Call placed to patient - got a loud ring noise and no one was there and call dropped x2. Will try patient at a later time. Myranda Mishra [facility]08-20-2024 Telephone encounter Note* Telephone Encounter - Sandra Raphael PA-C - 05/10/2024 11:29 AM EDT 6-8 weeks after she gets the iron Sandra Raphael PA-C [facility]08-20-2024 Telephone encounter Note* Telephone Encounter - Justo Gambino RN - 05/10/2024 11:13 AM EDT Pt aware and agreeable to Injectofer x 2 doses Pharm: please place orders MM: when would you like to repeat labs/follow up? PSS: Please call to schedule Justo Gambino RN [facility]08-20-2024 Telephone encounter Note* Telephone Encounter - Sandra Raphael PA-C - 05/10/2024 10:49 AM EDT Please call with low iron levels. She will benefit from iv iron if she approves. She is allergic tomonoferric and didn't respond to venofer in the past. She will need injectafer x 2. Please ask pharmacy to put the orders in because I cannot [facility]08-20-2024 Telephone encounter Note* Telephone Encounter - Justo Gambino RN - 05/10/2024 9:44 AM EDT Sandra, please verify need for IV Iron and advise follow up. Pt will need IV Iron orders. Thank you, Justo [facility]08-19-2024 Telephone encounter Note* Telephone Encounter - Myranda Mishra - 05/09/2024 11:09 AM EDT Patient was [...] up when labs are resulted. Thanks! Myranda Mishra [facility]08-12-2024 Telephone encounter Note* Telephone Encounter - Josephine Amin MA - 05/02/2024 9:51 AM EDT Patient coming in Thursday05/09/24 for follow up labs. Please add lab orders. Thanks. Josephine Amin MA [facility]08-12-2024 Telephone encounter Note* Telephone Encounter - Josephine Amin MA - 05/02/2024 9:49 AM EDT Patient coming in Thursday05/09/24 for follow up treatment. Please add lab orders. Thanks. Josephine Amin MA [facility]05-07-2024 Telephone encounter Note* Telephone Encounter - Justo Gambino RN - 01/26/2024 12:22 PM EDT Pt informed of MM message and denies any questions, needs or concerns at this time. Appointment verified. Justo Gambino RN [facility]05-07-2024 Miscellaneous Notes* Telephone Encounter - Justo Gambino RN - 01/26/2024 12:22 PM EDT Pt informed of MM message and denies any questions, needs or concerns at this time. Appointment verified. Justo Gambino RN * Telephone Encounter - Justo Gambino RN - 01/26/2024 12:20 PM EDT ----- Message from Sandra Raphael PA-C sent at 01/26/2024 12:15 PM EDT ----- Please all with good iron levels documented in this encounterUniversity Hospitals Health System05-07-2024 Telephone encounter Note * Telephone Encounter - Justo Gambino RN - 01/26/2024 12:20 PM EDT ----- Message from Sandra Raphael PA-C sent at 01/26/2024 12:15 PM EDT ----- Please all with good iron levels [facility]04-01-2024 Miscellaneous Notes* Telephone Encounter - Josephine Amin MA - 05/02/2024 9:51 AM EDT Patient coming in Thursday05/09/24 for follow up labs. Please add lab orders. Thanks. Josephine Amin MA documented in this encounterUniversity Hospitals Health System04-01-2024 Miscellaneous Notes* Telephone Encounter - Josephine Amin MA - 05/02/2024 9:49 AM EDT Patient coming in Thursday05/09/24 for follow up treatment. Please add lab orders. Thanks. Josephine Amin MA documented in this encounterUniversity Hospitals Health System03-19-2024 Miscellaneous Notes* Telephone Encounter - Myranda Mishra - 12/08/2023 11:51 AM EDT Patient has been scheduled for Injectafer on 12/20 and 12/27 -- date preference per patient's schedule.Thanks! Myranda Mishra * Telephone Encounter - Justo Gambino RN - 12/08/2023 11:22 AM EDT Pt informed of need for IV Injectofer and is agreeable to poc. She will await scheduling to call for appts. She denies any questions, needs or concerns at this time. PSS: Please call to schedule Justo Gambino RN * Telephone Encounter - Demetra Jean [facility] - 12/08/2023 10:28 AM EDT Images from the original note were not included. Orders placed. Previous PT non-formulary approval on file: PSS: Please schedule accordingly for Injectafer Yoan Jean, PharmD, BCOP * Telephone Encounter - Sandra Raphael PA-C - 12/08/2023 7:46 AM EDT Please [...] since I cannot put in injectafer. Sandra Raphael PA-C documented in this encounterUniversity Hospitals Health System03-18-2024 History of Present illness Narrative* Sandra Raphael PA-C - 12/07/2023 9:30 AM EDT Date [...] Continue monthly B12 injections at home Sandra Raphael PA-C CC: Brennon Zambrano DO documented in this encounterUniversity Hospitals Health System12-15-2023 Evaluation note* Encounter Date Diagnosis Assessment Notes Treatment Notes Treatment Clinical Notes Aug, Pernicious anemia (ICD-10 - D51. 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 They are also encouraged to continue exercise to achieve/maintain a normal BMI. Patient is instructed on home BP measurements: - rest for 5 minutes w/o talking- positioned w/ feeton floor and arm supported- average best 2/3 readings w/ goal < 135/85 Continue checking at home and update office w/ results Aug,Morbid (severe) obesity due to excess calories (ICD-10 - E66.01)This patient has been instructed on a low-fat, high-fiber diet. They are instructed to reduce calories, portion sizes and snacks. It is recommended that they exercise for 30 minutes, 3-5 times weekly. Continue to titrate Semiglutide monthly Aug,ody mass index [BMI] 50.0-59.9, adult (ICD-10 - Z68.43) [employer] Other [id number] Miscellaneous Notes* Telephone Encounter - Justo Gambino RN - 08/31/2023 9:28 AM EST Pt aware of MM message. She denies any questions, needs or concerns at this time. Justo Gambino RN * Telephone Encounter - Justo Gambino RN - 08/31/2023 9:28 AM EST ----- Message from Sandra Raphael PA-C sent at 08/31/2023 8:00 AM EST ----- Please call with normal iron levels documented in this encounterUniversity Hospitals Health System12-08-2023 History of Present illness Narrative* Sandra Raphael PA-C - 08/28/2023 8:42 AM EST Date [...] Continue monthly B12 injections at home Sandra Raphael PA-C CC: Brennon Zambrano DO documented in this encounterUniversity Hospitals Health System11-07-2023 Miscellaneous Notes* Telephone Encounter - Myranda Mishra - 07/28/2023 1:18 PM EST Patient has been scheduled for 08/07 and 08/14 and notified. Thanks! Myranda Tad * Telephone Encounter - Doris Amin RN [...] 9:29 AM EST ----- Message from Sandra Raphael PA-C sent at 07/27/2023 8:05 AM EST [...] of her first infusion. documented in this encounterUniversity Hospitals Health System09-26-2023 Evaluation note* Encounter Date Diagnosis Assessment Notes Treatment Notes Treatment Clinical Notes May, Morbid (severe) obesity due to e xcess calories (ICD-10 - E66.01) [employer] Other 09-21-2023 Evaluation note* Encounter Date Diagnosis Assessment Notes Treatment Notes Treatment Clinical Notes May, Wellness examination (ICD-10 - Z 00.00) Healthy diet and exercise. Reviewed age-appropriate preventive testing recommended. May,ernicious anemia (ICD-10 - D51.0)Continue B12 supplements May,Iron deficiency anemia secondary to inadequate dietary iron intake (ICD-10 - D50.8)Continue Fe infusions per Hematology May,Morbid (severe) obesity due to excess calories (ICD-10 - E66.01)This patient has been instructed on a low-fat, high-fiber diet. They are instructed to reduce calories, portion sizes and snacks. It is recommended that they exercise for 30 minutes, 3-5 times weekly. Discussed use of GLP-1 inhibitors and Adipex May,ody mass index [BMI] 50.0-59.9, adult (ICD-10 - Z68.43) May,Screening mammogram for breast cancer (ICD-10 - Z12.31)Instructed patient on monthly SBE and yearly mammograms. May,Screening for colon cancer (ICD-10 - Z12.11)Due for screening colonoscopy - last scope 5 years ago - mother w/ hx of CRC [employer] Other 09-21-2023 Evaluation note* Encounter Date Diagnosis Assessment Notes Treatment Notes Treatment Clinical Notes May, Morbid (severe) obesity due to e xcess calories (ICD-10 - E66.01) [employer] Other 06-21-2023 Miscellaneous Notes* Telephone Encounter - Justo Gambino RN - 03/11/2023 8:49 AM EDT Pt aware of MM message and denies any further questions, needs or concerns at this time. Justo Gambino RN * Telephone Encounter - Sandra Raphael PA-C - 03/11/2023 7:52 AM EDT Please call patient with improved iron levels. No need for additional IV iron at this time Sandra Raphael PA-C documented in this encounterUniversity Hospitals Health System06-20-2023 History of Present illness Narrative* Sandra Raphael PA-C - 03/10/2023 11:00 AM EDT Date [...] Continue monthly B12 injections at home Sandra Raphael PA-C CC: Brennon Zambrano DO documented in this encounterUniversity Hospitals Health System05-02-2023 Miscellaneous Notes* Telephone Encounter - Myranda Mishra - 01/20/2023 2:22 PM EDT Patient has been scheduled per Marilyn Mishra * Telephone Encounter - Myranda Mishra - 01/13/2023 2:18 PM EDT Call placed to patient, no answer. Left message to call back to schedule for iron. Myranda Mishra * Telephone Encounter - Reese Meek MD - 01/09/2023 3:30 PM EDT 3 weeks * Telephone Encounter - Myranda Mishra - 01/09/2023 1:43 PM EDT How many doses would you like? Myranda Mishra * Telephone Encounter - Reese Meek MD [...] and will place orders documented in this encounterUniversity Hospitals Health System01-03-2023 Miscellaneous Notes* Telephone Encounter - Rosalinda Virk [...] levels are all good. documented in this encounterUniversity Hospitals Health System12-30-2022 History of Present illness Narrative* Reese Meek [...] at home Reese Meek MD CC: Brennon Zambrano, I spent a total of 15 minutes on the date of the service which included preparing to see the patient, [id number] patient care, completing clinical documentation, obtaining and/or reviewing separately obtained history, performing a medically appropriate examination and ordering medications, tests, or procedures. documented in this encounterUniversity Hospitals Health System12-16-2022 Miscellaneous Notes* Telephone Encounter - Izzy Rogers MA - 09/05/2022 11:14 AM EST Patient has an appt on 09/19/22. Would you like labs, if so place orders. Izzy Rogers MA documented in this encounterUniversity Hospitals Health System10-03-2022 Miscellaneous Notes* Telephone Encounter - Myranda Mishra - 06/23/2022 4:21 PM EDT Patient requested Injectafer be scheduled for the end of June. She is scheduled for 07/15 and 07/22. Myranda Mishra * Telephone Encounter - Justo Gambino RN - 06/23/2022 3:58 PM EDT Pt notified and agreeable to Injectofer x 2 per recommendation. MM: Please order PSS: please call pt and schedule. Justo Gambino RN * Telephone Encounter - Justo Gambino RN - 06/23/2022 3:57 PM EDT ----- Message from Sandra Raphael PA-C sent at 06/23/2022 11:47 AM EDT ----- Please call. Iron levels have improved, however, not completely normalized. She may benefit from additional Injectafer X 2 doses if she agrees. Sandra Raphael PA-C documented in this encounterUniversity Hospitals Health System09-30-2022 History of Present illness Narrative* Sandra Raphael PA-C - 06/20/2022 10:30 AM EDT (Elements [...] Continue monthly B12 injections at home Sandra Raphael PA-C CC: Brennon Zambrano DO documented in this encounterUniversity Hospitals Health System09-14-2022 Miscellaneous Notes* Telephone Encounter - Izzy Rogers MA - 06/04/2022 12:56 PM EDT Patient has an appt on 06/20/22. If labs are needed please place orders. Izzy Rogers MA documented in this encounterUniversity Hospitals Health System07-22-2022 Miscellaneous Notes* Telephone Encounter - Marilyn Orosco - 04/11/2022 11:49 AM EDT Scheduled for 2 injectafers q week. Follow up scheduled 6 weeks after last injectafer * Telephone Encounter - Filomena Telles RPh - 04/11/2022 9:52 AM EDT Injectafer orders in and approved for non-formulary use. Will submit PA once she gets scheduled. Thanks, Filomena Telles RP * Telephone Encounter - Reese Meek MD - 04/10/2022 4:26 PM EDT agree * Telephone Encounter - Sandra Raphael PA-C - 04/10/2022 3:32 PM EDT 6 weeks following injectafer would be a good time to see her Sandra Raphael PA-C * Telephone Encounter - Marilyn Correia Sec - 04/10/2022 1:52 PM EDT I will call Ilsa to schedule her for injectafer. When should she be scheduled for a follow up? Her last appt with AURELIO was on 02-04-22. Her appt with Jessy on 04-02-22 was canceled by the patient. Please advise. Thank you * Telephone Encounter - Sandra Raphael PA-C - 04/10/2022 12:[address] Meek would like to try Injectafer since she doesn't seem to respond well or long enough to venofer and she is allergic to monoferric. Can you add the injectafer regimen and see if itcan get approved? PSS: please call and schedule for IV iron Triage: please inform patient of need for additional IV iron Sandra Raphael PA-C * Telephone Encounter - Reese Meek MD - 04/10/2022 8:20 AM EDT Yes, if we can * Telephone Encounter - Sandra Raphael PA-C - 04/10/2022 8:12 AM EDT Patient had allergic reaction to monoferic--chest palpitations and flushing. Do you want Injectaferpossibly or a different iron formulation? Sandra Raphael PA-C * Telephone Encounter - Sandra Raphael PA-C - 04/10/2022 8:12 AM EDT ----- Message from Reese Meek MD sent at 04/09/2022 7:02 PM EDT ----- Do you think that we can give her monoferric instead. That would be great if we can documented in this encounterUniversity Hospitals Health System06-07-2022 History of Present illness Narrative* China Miller RN - 02/25/2022 9:45 AM EDT . documented in this encounterUniversity Hospitals Health System05-24-2022 Miscellaneous Notes* Telephone Encounter - Jessy Baez [...] month. ALVARO: No Authorizing Provider: JESSY BAEZ APRN.ICHTHYOLOGIST * Telephone Encounter - Keri Julio RN - 02/11/2022 10:18 AM EDT Patient has requested a refill of B12. Rx are pended to be filled at [facility] per patient Keri Julio RN documented in this encounterUniversity Hospitals Health System05-17-2022 History of Present illness Narrative* Reese Meek [...] at home Reese Meek MD CC: Brennon Zambrano DO I spent a total of 15 minutes on the date of the service which included preparing to see the patient, [id number] patient care, completing clinical documentation, obtaining and/or reviewing separately obtained history, performing a medically appropriate examination and ordering medications, tests, or procedures. documented in this encounterUniversity Hospitals Health System04-04-2022 History of Present illness Narrative* China Miller RN - 12/23/2021 9:39 AM EDT . documented in this encounterUniversity Hospitals Health System02-01-2018 History general Narrative - Reported* Type Description Date Medical History B12 deficiency Medical HistoryFe deficiencySurgical HistoryBariatric surgerySurgical HistoryEGD 10/2017Surgical HistoryColonoscopy, polypectomy10/2017Surgical HistoryC-Section Surgical HistoryTubal ligationSurgical HistoryOvarian cystectomySurgical History Molar pregnancyHospitalization Historysee surgical history [facility] [facility] Other Evaluation note* Diagnosis Iron deficiency anemia, unspecified iron deficiency anemia type- Primary History of bariatric surgery Bariatric surgery status documented in this encounter [facility] note* Diagnosis Iron deficiency anemia, unspecified iron deficiency anemia type- Primary History of bariatric surgery Bariatric surgery status documented in this encounter [facility] note* Diagnosis Iron deficiency anemia, unspecified iron deficiency anemia type- Primary History of bariatric surgery Bariatric surgery status documented in this encounter [facility] note* Diagnosis Iron deficiency anemia, unspecified iron deficiency anemia type- Primary documented in this encounter [facility] note* Diagnosis Iron deficiency anemia, unspecified iron deficiency anemia type- Primary History of bariatric surgery Bariatric surgery status documented in this encounter [facility] note* Diagnosis Iron deficiency anemia, unspecified iron deficiency anemia type History of bariatric surgery Bariatric surgery status documented in this encounter [facility] note* Diagnosis Iron deficiency anemia, unspecified iron deficiency anemia type- Primary History of bariatric surgery Bariatric surgery status 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 B12 deficiency Other vitamin B12 deficiency anemia documented in this encounter [facility] note* Diagnosis Iron deficiency anemia, unspecified iron deficiency anemia type- Primary documented in this encounter [facility] note* Diagnosis Iron deficiency anemia, unspecified iron deficiency anemia type- Primary documented in this encounter [facility] note* Diagnosis Iron deficiency anemia, unspecified iron deficiency anemia type History of bariatric surgery Bariatric surgery status [facility]* Diagnosis Iron deficiency anemia, unspecified iron deficiency anemia type- Primary History of bariatric surgery Bariatric surgery status documented in this encounter [facility] note* Diagnosis Iron deficiency anemia, unspecified iron deficiency anemia type- Primary History of bariatric surgery Bariatric surgery status documented in this encounter [facility] note* Diagnosis Iron deficiency anemia, unspecified iron deficiency anemia type- Primary History of bariatric surgery Bariatric surgery status 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 B12 deficiency Other vitamin B12 deficiency anemia [facility]* Diagnosis Iron deficiency anemia, unspecified iron deficiency anemia type History of bariatric surgery Bariatric surgery status [facility]* Diagnosis Iron deficiency anemia, unspecified iron deficiency anemia type- Primary History of bariatric surgery Bariatric surgery status [facility]* Diagnosis Iron deficiency anemia, unspecified iron deficiency anemia type- Primary documented in this encounter [facility] noteNo assessment information [facility] Work Phone: [facility]* Diagnosis History of bariatric surgery- Primary Bariatric surgery status Iron deficiency anemia, unspecified iron deficiency anemia type documented in this encounter [facility] note* Diagnosis History of bariatric surgery- Primary Bariatric surgery status Iron deficiency anemia, unspecified iron deficiency anemia type [facility]* Diagnosis Iron deficiency anemia, unspecified iron deficiency anemia type History of bariatric surgery Bariatric surgery status [facility]* Diagnosis Iron deficiency anemia, unspecified iron deficiency anemia type- Primary History of bariatric surgery Bariatric surgery status 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 B12 deficiency Other vitamin B12 deficiency anemia [facility]* Diagnosis History of bariatric surgery- Primary Bariatric surgery status Iron deficiency anemia, unspecified iron deficiency anemia type documented in this encounter [facility] note* Diagnosis Iron deficiency anemia, unspecified iron deficiency anemia type- Primary History of bariatric surgery Bariatric surgery status 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 B12 deficiency Other vitamin B12 deficiency anemia [facility]* Diagnosis History of bariatric surgery- Primary Bariatric surgery status Iron deficiency anemia, unspecified iron deficiency anemia type [facility]* Diagnosis History of bariatric surgery- Primary Bariatric surgery status Iron deficiency anemia, unspecified iron deficiency anemia type documented [facility] this [facility] Author Teresa Burks [facility] May 13, 2024 8:45amNote Date/TimeAugust 2023 8:15am[place] [address] Gastroenterology H&P Signed Patient: Ilsa Fernandez MR#: [id number] : 1975 Acct:[id number] Age/Sex: 49 / F Adm Date: 4 Loc: Room: Type: [facility] Attending Dr: Teresa Burks MD Copies to: DO Teresa Ruiz MD~ Date of Service: 05/13/2024 HISTORY & PHYSICAL: Patient's history with special attention to the cardiovascular, pulmonary systems and the current problem was reviewed with the patient immediately prior to the procedure. Present medications and doses reviewed in the EMR. Allergies and pertinent laboratory tests were also re viewedat this time in the EMR. The physical [...] signed by Teresa Burks MD> 05/13/24 0845 [facility] Work Phone: Reason for referral (narrative)No reason for referral information availableM[facility] Work Phone: Reason for visit Narrative* [place] Prior Authorization (Routine) - Pending ReviewSpecialtyDiagnoses / ProceduresReferred By Contact Referred To Contact Diagnoses History of bariatric surgery Iron deficiency anemia, unspecified iron deficiency anemia type Procedures INJ FERRIC CARBOXYMALTOS 1MG Sandra Raphael PA-C [address] [facility] [place] [address] Phone: tel: fax: Sandra Raphael PA-C [address] [facility] [place] [address] Phone: tel: fax: Referral IDStatusReasonStart DateExpiration DateVisits RequestedVisits [id number] Review [facility] for [facility] Narrative* [place] Prior Authorization (Routine) - AuthorizedSpecialtyDiagnoses / ProceduresReferred By ContactReferred To Contact Diagnoses History of bariatric surgery Iron deficiency anemia, unspecified iron deficiency anemia type Procedures INJ FERRIC CARBOXYMALTOS 1MG Sandra Raphael PA-C [address] [facility] [place] [address] Phone: tel: fax: Sandra Raphael PA-C [address] [place] [address] Phone: tel: fax: Referral IDStatusCl[facility] DateExpiration DateVisits RequestedVisits [id number]/[id number] [facility] Medications Administered Section Medication OrderMAR ActionAction DateDoseRateSite acetaminophen 650 mg tab(s) (TYLENOL) 650 mg, ORAL, ONCE, 1 dose, On Thu12/16/21 at 0930, Give 30 minutes prior to infusion. No more [id number] mg of acetaminophen should be given per day (FROM ALL SOURCES), If ordered PRN for pain, patient/guardian may elect to receive this medication for higher pain levels if preferred: N/A Given12/16/2021 9:35 AM [id number] mg diphenhydrAMINE 50 mg (BENADRYL) 50 mg, ORAL, ONCE, 1 dose, On Thu12/16/21 at 0930, Give 30 minutes prior to infusion. Given12/16/2021 9:35 AM EDT50 mg iron sucrose 200 mg in NaCl 0.9% 100 mL (VENOFER) 200 mg, INTRAVENOUS, at 400 mL/hr, Administer over 15 Minutes, ONCE, 1 dose, On Thu12/16/21 at 0930, Please conduct a 30 minute post dose observation. TV 120 mL New Bag/Syringe/Ectxum8112/16/2021 10:00 AM [id number] mg400 mL/hr methylPREDNISolone sod succinate(PF) 100 mg injection (SOLU-Medrol) 100 mg, INTRAVENOUS, ONCE, 1 dose, On Thu12/16/21 at 0930, Give prior to chemotherapy. Given12/16/2021 9:35 AM [id number] mgMedication OrderMAR ActionAction DateDoseRate Site iron sucrose 200 mg in NaCl 0.9% 100 mL (VENOFER) 200 mg, INTRAVENOUS, at 400 mL/hr, Administer over 15 Minutes, ONCE, 1 dose, On Thu12/23/21 at 1000,Please conduct a 30 minute post dose observation. TV 120 mL New Bag/Syringe/Fjxlkj4012/23/2021 10:00 AM ERU171 mg400 mL/hr methylPREDNISolone sod succinate(PF) 100 mg injection (SOLU-Medrol) 100 mg, INTRAVENOUS, ONCE, 1 dose, On Thu12/23/21 at 1000, Give prior to chemotherapy. Given12/23/2021 9:39 AM [id number] mgMedication OrderMAR ActionAction DateDoseRate Site acetaminophen 650 mg tab(s) (TYLENOL) 650 mg, ORAL, ONCE, 1 dose, On Thu12/30/21 at 0930, Give 30 minutes prior to infusion. No more [id number] mg of acetaminophen should be given per day (FROM ALL SOURCES), If ordered PRN for pain, patient/guardian may elect to receive this medication for higher pain levels INSTEAD of the opioid, if preferred: N/A Given12/30/2021 9:38 AM [id number] mg diphenhydrAMINE 50 mg (BENADRYL) 50 mg, ORAL, ONCE, 1 dose, On Thu12/30/21 at 0930, Give 30 minutes prior to infusion. Given12/30/2021 9:38 AM EDT50 mg iron sucrose 200 mg in NaCl 0.9% 100 mL (VENOFER) 200 mg, INTRAVENOUS, at 400 mL/hr, Administer over 15 Minutes, ONCE, 1 dose, On Thu12/30/21 at 0930, Please conduct a 30 minute post dose observation. TV 120 mL New Bag/Syringe/Tyfiqx3112/30/2021 10:05 AM [id number] mg400 mL/hr methylPREDNISolone sod succinate(PF) 100 mg injection (SOLU-Medrol) 100 mg, INTRAVENOUS, ONCE, 1 dose, On Thu12/30/21 at 0930, Give prior to chemotherapy. Given12/30/2021 9:40 AM [id number] mgMedication OrderMAR ActionAction DateDoseRate Site acetaminophen 650 mg tab(s) (TYLENOL) 650 mg, ORAL, ONCE, 1 dose, On Thu02/04/22 at 1100, Give 30 minutes prior to infusion. No more [id number] mg of acetaminophen should be given per day (FROM ALL SOURCES), If ordered PRN for pain, patient/guardian may elect to receive this medication for higher pain levels INSTEAD of the opioid, if preferred: N/A Given02/04/2022 10:49 AM [id number] mg diphenhydrAMINE 50 mg (BENADRYL) 50 mg, ORAL, ONCE, 1 dose, On Thu02/04/22 at 1100, Give 30 minutes prior to infusion. Given02/04/2022 10:50 AM EDT50 mg iron sucrose 200 mg in NaCl 0.9% 100 mL (VENOFER) 200 mg, INTRAVENOUS, at 440 mL/hr, Administer over 15 Minutes, ONCE, 1 dose, On Thu02/04/22 at 1130, Please conduct a 30 minute post dose observation. New Bag/Syringe/Qpduuv5602/04/2022 11:19 AM [id number] mg440 mL/hr methylPREDNISolone sod succinate(PF) 100 mg injection (SOLU-Medrol) 100 mg, INTRAVENOUS, ONCE, 1 dose, On Thu02/04/22 at 1100, Give prior to chemotherapy. Given02/04/2022 11:05 AM [id number] mgMedication OrderMAR ActionAction DateDoseRate Site iron sucrose 200 mg in NaCl 0.9% 100 mL (VENOFER) 200 mg, INTRAVENOUS, at 400 mL/hr, Administer over 15 Minutes, ONCE, 1 dose, On Thu02/11/22 at 1000, Please conduct a 30 minute post dose observation. New Bag/Syringe/Jhboln9902/11/2022 10:11 AM [id number] mg400 mL/hr methylPREDNISolone sod succinate(PF) 100 mg injection (SOLU-Medrol) 100 mg, INTRAVENOUS, ONCE, 1 dose, On Thu02/11/22 at 1000, Give prior to chemotherapy. Given02/11/2022 9:56 AM [id number] mgMedication OrderMAR ActionAction DateDoseRate Site iron sucrose 200 mg in NaCl 0.9% 100 mL (VENOFER) 200 mg, INTRAVENOUS, at 400 mL/hr, Administer over 15 Minutes, ONCE, 1 dose, On Thu02/18/22 at 0900, Please conduct a 30 minute post dose observation. New Bag/Syringe/Tfuloo3902/18/2022 9:19 AM [id number] mg400 mL/hr methylPREDNISolone sod succinate(PF) 100 mg injection (SOLU-Medrol) 100 mg, INTRAVENOUS, ONCE, 1 dose, On Thu02/18/22 at 0900, Give prior to chemotherapy. Given02/18/2022 9:03 AM [id number] mgMedication OrderMAR ActionAction DateDoseRate Site iron sucrose 200 mg in NaCl 0.9% 100 mL (VENOFER) 200 mg, INTRAVENOUS, at 440 mL/hr, Administer over 15 Minutes, ONCE, 1 dose, On Thu02/25/22 at 0930,Please conduct a 30 minute post dose observation. Appr. Total volume: 120 mL New Bag/Syringe/Fuvief5202/25/2022 10:00 AM [id number] mg440 mL/hr methylPREDNISolone sod succinate(PF) 100 mg injection (SOLU-Medrol) 100 mg, INTRAVENOUS, ONCE, 1 dose, On Thu02/25/22 at 0930, Give prior to chemotherapy. Given02/25/2022 9:45 AM [id number] mgMedication OrderMAR ActionAction DateDoseRate Site ferric carboxymaltose 750 mg in NaCl 0.9% 250 mL (INJECTAFER) 750 mg (set by rule on 04/10/2022 1:19 PM), INTRAVENOUS, Administer over 30 Minutes, ONCE, 1 dose, On Thu05/14/22 at 1030, Approx Total Volume: 290 mL Maximum dose is 750 mg EXP: 05/16/22 1030 Room Temp New Bag/Syringe/Prjwjh1705/14/2022 10:57 AM [id number] mgMedication OrderMAR Action Action DateDoseRateSite ferric carboxymaltose 750 mg in NaCl 0.9% 250 mL (INJECTAFER) 750 mg (set by rule on 04/10/2022 1:19 PM), INTRAVENOUS, Administer over 30 Minutes, ONCE, 1 dose, On Thu05/21/22 at 1030, Approx Total Volume: 290 mL Maximum dose is 750 mg New Bag/Syringe/Llerwz1805/21/2022 10:32 AM [id number] mgMedication OrderMAR Action Action DateDoseRateSite ferric carboxymaltose 750 mg in NaCl 0.9% 250 mL (INJECTAFER) 750 mg (set by rule on 06/23/2022 11:46 AM), INTRAVENOUS, Administer over 30 Minutes, ONCE, 1 dose, On Thu07/15/22 at 1130, Approx Total Volume: 290 mL Maximum dose is 750 mg EXP: 07/17/2022@1130 Room Temp New Bag/Syringe/Cdroye4907/15/2022 11:28 AM [id number] mgMedication OrderMAR Action Action DateDoseRateSite ferric carboxymaltose 750 mg in NaCl 0.9% 250 mL (INJECTAFER) 750 mg (set by rule on 06/23/2022 11:46 AM), INTRAVENOUS, Administer over 30 Minutes, ONCE, 1 dose, On Thu07/22/22 at 1100, Approx Total Volume: 290 mL Maximum dose is 750 mg New Bag/Syringe/Lqmtdt7607/22/2022 11:11 AM [id number] mgMedication OrderMAR Action Action DateDoseRateSite ferric carboxymaltose 750 mg in NaCl 0.9% 250 mL (INJECTAFER) 750 mg (set by rule on 02/05/2023 3:38 PM), INTRAVENOUS, Administer over 30 Minutes, ONCE, 1 dose, On Thu02/19/23 at 0930, Approx Total Volume: 290 mL Maximum dose is 750 mg New Bag/Syringe/Vtamio6502/19/2023 9:45 AM [id number] mgMedication OrderMAR Action Action DateDoseRateSite ferric carboxymaltose 750 mg in NaCl 0.9% 250 mL (INJECTAFER) 750 mg (set by rule on 07/27/2023 12:47 PM), INTRAVENOUS, Administer over 30 Minutes, ONCE, 1 dose, On Thu08/07/23 at 1100, Approx Total Volume: 290 mL Maximum dose is 750 mg New Bag/Syringe/Uihfeh9408/07/2023 10:44 AM [id number] mgMedication OrderMAR Action Action DateDoseRateSite ferric carboxymaltose 750 mg in NaCl 0.9% 250 mL (INJECTAFER) 750 mg (set by rule on 07/27/2023 12:47 PM), INTRAVENOUS, Administer over 30 Minutes, ONCE, 1 dose, On Thu08/14/23 at 0900, Approx Total Volume: 290 mL Maximum dose is 750 mg EXP: 08/14/23 1700 New Bag/Syringe/Onzyoa0008/14/2023 9:18 AM [id number] mg Summary Purpose Family History Relationship Condition Age at Onset Recorded Date/T humera father Diabetes mellitus Unknown motherDeceasedUnknownMalignant neoplasmUnknownMalignant neoplasm of colonUnknown Advance Directives Advance Directive Response Recorded Date/ Time Advance Directives No October 11:46am Date ActivatedDate InactivatedComments10/11/2013 11:42 AM10/11/2013 2:42 PM Chief Complaint and Reason for [...] or prosecute any alcohol or drug abuse patient.[facility] SystemIn the event this information is protected by the Federal Confidentiality of Alcohol and Drug Abuse Patient Records regulations: The Federal rules restrict any use of the information to criminally investigate or prosecute any alcohol or drug abuse patient.[facility] SystemIn the event this information is protected by the Federal Confidentiality of Alcohol and Drug Abuse Patient Records regulations: The Federal rules restrict any use of the information to criminally investigate or prosecute any alcohol or drug abuse patient.[facility] SystemIn the event this information is protected by the Federal Confidentiality of Alcohol and Drug Abuse Patient Records regulations: The Federal rules restrict any use of the information to criminally investigate or prosecute any alcohol or drug abuse patient.[facility] SystemIn the event this information is protected by the Federal Confidentiality of Alcohol and Drug Abuse Patient Records regulations: The Federal rules restrict any use of the information to criminally investigate or prosecute any alcohol or drug abuse patient.[facility] SystemIn the event this information is protected by the Federal Confidentiality of Alcohol and Drug Abuse Patient Records regulations: The Federal rules restrict any use of the information to criminally investigate or prosecute any alcohol or drug abuse patient.[facility] SystemIn the event this information is protected by the Federal Confidentiality of Alcohol and Drug Abuse Patient Records regulations: The Federal rules restrict any use of the information to criminally investigate or prosecute any alcohol or drug abuse patient.[facility] SystemIn the event this information is protected by the Federal Confidentiality of Alcohol and Drug Abuse Patient Records regulations: The Federal rules restrict any use of the information to criminally investigate or prosecute any alcohol or drug abuse patient.[facility] SystemIn the event this information is protected by the Federal Confidentiality of Alcohol and Drug Abuse Patient Records regulations: The Federal rules restrict any use of the information to criminally investigate or prosecute any alcohol or drug abuse patient.[facility] the event this information is protected by the Federal Confidentiality of Alcohol and Drug Abuse Patient Records regulations: The Federal rules restrict any use of the information to criminally investigate or prosecute any alcohol or drug abuse patient.[facility] SystemIn the event this information is protected by the Federal Confidentiality of Alcohol and Drug Abuse Patient Records regulations: The Federal rules restrict any use of the information to criminally investigate or prosecute any alcohol or drug abuse patient.[facility] SystemIn the event this information is protected by the Federal Confidentiality of Alcohol and Drug Abuse Patient Records regulations: The Federal rules restrict any use of the information to criminally investigate or prosecute any alcohol or drug abuse patient.[facility]In the event this information is protected by the Federal Confidentiality of Alcohol and Drug Abuse Patient Records regulations: The Federal rules restrict any use of the information to criminally investigate or prosecute any alcohol or drug abuse patient.[facility] SystemIn the event this information is protected by the Federal Confidentiality of Alcohol and Drug Abuse Patient Records regulations: The Federal rules restrict any use of the information to criminally investigate or prosecute any alcohol or drug abuse patient.[facility] SystemIn the event this information is protected by the Federal Confidentiality of Alcohol and Drug Abuse Patient Records regulations: The Federal rules restrict any use of the information to criminally investigate or prosecute any alcohol or drug abuse patient.[facility] SystemIn the event this information is protected by the Federal Confidentiality of Alcohol and Drug Abuse Patient Records regulations: The Federal rules restrict any use of the information to criminally investigate or prosecute any alcohol or drug abuse patient.[facility] SystemIn the event this information is protected by the Federal Confidentiality of Alcohol and Drug Abuse Patient Records regulations: The Federal rules restrict any use of the information to criminally investigate or prosecute any alcohol or drug abuse patient.[facility] SystemIn the event this information is protected by the Federal Confidentiality of Alcohol and Drug Abuse Patient Records regulations: The Federal rules restrict any use of the information to criminally investigate or prosecute any alcohol or drug abuse patient.[facility] SystemIn the event this information is protected by the Federal Confidentiality of Alcohol and Drug Abuse Patient Records regulations: The Federal rules restrict any use of the information to criminally investigate or prosecute any alcohol or drug abuse patient.[facility] SystemIn the event this information is protected by the Federal Confidentiality of Alcohol and Drug Abuse Patient Records regulations: The Federal rules restrict any use of the information to criminally investigate or prosecute any alcohol or drug abuse patient.[facility] SystemIn the event this information is protected by the Federal Confidentiality of Alcohol and Drug Abuse Patient Records regulations: The Federal rules restrict any use of the information to criminally investigate or prosecute any alcohol or drug abuse patient.[facility] SystemIn the event this information is protected by the Federal Confidentiality of Alcohol and Drug Abuse Patient Records regulations: The Federal rules restrict any use of the information to criminally investigate or prosecute any alcohol or drug abuse patient.[facility] SystemIn the event this information is protected by the Federal Confidentiality of Alcohol and Drug Abuse Patient Records regulations: The Federal rules restrict any use of the information to criminally investigate or prosecute any alcohol or drug abuse patient.[facility] SystemIn the event this information is protected by the Federal Confidentiality of Alcohol and Drug Abuse Patient Records regulations: The Federal rules restrict any use of the information to criminally investigate or prosecute any alcohol or drug abuse patient.[facility] SystemIn the event this information is protected by the Federal Confidentiality of Alcohol and Drug Abuse Patient Records regulations: The Federal rules restrict any use of the information to criminally investigate or prosecute any alcohol or drug abuse patient.[facility] SystemIn the event this information is protected by the Federal Confidentiality of Alcohol and Drug Abuse Patient Records regulations: The Federal rules restrict any use of the information to criminally investigate or prosecute any alcohol or drug abuse patient.[facility] SystemIn the event this information is protected by the Federal Confidentiality of Alcohol and Drug Abuse Patient Records regulations: The Federal rules restrict any use of the information to criminally investigate or prosecute any alcohol or drug abuse patient.[facility] SystemIn the event this information is protected by the Federal Confidentiality of Alcohol and Drug Abuse Patient Records regulations: The Federal rules restrict any use of the information to criminally investigate or prosecute any alcohol or drug abuse patient.[facility] SystemIn the event this information is protected by the Federal Confidentiality of Alcohol and Drug Abuse Patient Records regulations: The Federal rules restrict any use of the information to criminally investigate or prosecute any alcohol or drug abuse patient.[facility] SystemIn the event this information is protected by the Federal Confidentiality of Alcohol and Drug Abuse Patient Records regulations: The Federal rules restrict any use of the information to criminally investigate or prosecute any alcohol or drug abuse patient.[facility] SystemIn the event this information is protected by the Federal Confidentiality of Alcohol and Drug Abuse Patient Records regulations: The Federal rules restrict any use of the information to criminally investigate or prosecute any alcohol or drug abuse patient.[facility] SystemIn the event this information is protected by the Federal Confidentiality of Alcohol and Drug Abuse Patient Records regulations: The Federal rules restrict any use of the information to criminally investigate or prosecute any alcohol or drug abuse patient.[facility] SystemIn the event this information is protected by the Federal Confidentiality of Alcohol and Drug Abuse Patient Records regulations: The Federal rules restrict any use of the information to criminally investigate or prosecute any alcohol or drug abuse patient.[facility] SystemIn the event this information is protected by the Federal Confidentiality of Alcohol and Drug Abuse Patient Records regulations: The Federal rules restrict any use of the information to criminally investigate or prosecute any alcohol or drug abuse patient.[facility] SystemIn the event this information is protected by the Federal Confidentiality of Alcohol and Drug Abuse Patient Records regulations: The Federal rules restrict any use of the information to criminally investigate or prosecute any alcohol or drug abuse patient.[facility] SystemIn the event this information is protected by the Federal Confidentiality of Alcohol and Drug Abuse Patient Records regulations: The Federal rules restrict any use of the information to criminally investigate or prosecute any alcohol or drug abuse patient.[facility] SystemIn the event this information is protected by the Federal Confidentiality of Alcohol and Drug Abuse Patient Records regulations: The Federal rules restrict any use of the information to criminally investigate or prosecute any alcohol or drug abuse patient.[facility] SystemIn the event this information is protected by the Federal Confidentiality of Alcohol and Drug Abuse Patient Records regulations: The Federal rules restrict any use of the information to criminally investigate or prosecute any alcohol or drug abuse patient.[facility] SystemIn the event this information is protected by the Federal Confidentiality of Alcohol and Drug Abuse Patient Records regulations: The Federal rules restrict any use of the information to criminally investigate or prosecute any alcohol or drug abuse patient.[facility] SystemIn the event this information is protected by the Federal Confidentiality of Alcohol and Drug Abuse Patient Records regulations: The Federal rules restrict any use of the information to criminally investigate or prosecute any alcohol or drug abuse patient.[facility] SystemIn the event this information is protected by the Federal Confidentiality of Alcohol and Drug Abuse Patient Records regulations: The Federal rules restrict any use of the information to criminally investigate or prosecute any alcohol or drug abuse patient.[facility] SystemIn the event this information is protected by the Federal Confidentiality of Alcohol and Drug Abuse Patient Records regulations: The Federal rules restrict any use of the information to criminally investigate or prosecute any alcohol or drug abuse patient.[facility] SystemIn the event this information is protected by the Federal Confidentiality of Alcohol and Drug Abuse Patient Records regulations: The Federal rules restrict any use of the information to criminally investigate or prosecute any alcohol or drug abuse patient.[facility] SystemIn the event this information is protected by the Federal Confidentiality of Alcohol and Drug Abuse Patient Records regulations: The Federal rules restrict any use of the information to criminally investigate or prosecute any alcohol or drug abuse patient.[facility] SystemIn the event this information is protected by the Federal Confidentiality of Alcohol and Drug Abuse Patient Records regulations: The Federal rules restrict any use of the information to criminally investigate or prosecute any alcohol or drug abuse patient.[facility] SystemIn the event this information is protected by the Federal Confidentiality of Alcohol and Drug Abuse Patient Records regulations: The Federal rules restrict any use of the information to criminally investigate or prosecute any alcohol or drug abuse patient.[facility] SystemIn the event this information is protected by the Federal Confidentiality of Alcohol and Drug Abuse Patient Records regulations: The Federal rules restrict any use of the information to criminally investigate or prosecute any alcohol or drug abuse patient.[facility] SystemIn the event this information is protected by the Federal Confidentiality of Alcohol and Drug Abuse Patient Records regulations: The Federal rules restrict any use of the information to criminally investigate or prosecute any alcohol or drug abuse patient.[facility] SystemIn the event this information is protected by the Federal Confidentiality of Alcohol and Drug Abuse Patient Records regulations: The Federal rules restrict any use of the information to criminally investigate or prosecute any alcohol or drug abuse patient.[facility] SystemIn the event this information is protected by the Federal Confidentiality of Alcohol and Drug Abuse Patient Records regulations: The Federal rules restrict any use of the information to criminally investigate or prosecute any alcohol or drug abuse patient.[facility] SystemIn the event this information is protected by the Federal Confidentiality of Alcohol and Drug Abuse Patient Records regulations: The Federal rules restrict any use of the information to criminally investigate or prosecute any alcohol or drug abuse patient.[facility] SystemIn the event this information is protected by the Federal Confidentiality of Alcohol and Drug Abuse Patient Records regulations: The Federal rules restrict any use of the information to criminally investigate or prosecute any alcohol or drug abuse patient.[facility] SystemIn the event this information is protected by the Federal Confidentiality of Alcohol and Drug Abuse Patient Records regulations: The Federal rules restrict any use of the information to criminally investigate or prosecute any alcohol or drug abuse patient.[facility] SystemIn the event this information is protected by the Federal Confidentiality of Alcohol and Drug Abuse Patient Records regulations: The Federal rules restrict any use of the information to criminally investigate or prosecute any alcohol or drug abuse patient.[facility] Reason for Visit (unrecogniz ed section and content) SpecialtyDiagnoses / ProceduresReferred By ContactReferred To Contact Diagnoses Iron deficiency anemia, unspecified iron deficiency anemia type History of bariatric surgery Procedures IRON SUCROSE INJECTION PER 1 MG Sandra Raphael PA-C [address] [place] [address] [facility] [place] [place] [address] Referral IDStatusReasonStart DateExpiration DateVisits RequestedVisits [id number]/1/202112/31/[id number]af up ReasonOnset DateCommentsRefill Wyualts88/24/2022ReasonCommentsResultsSpecialty Diagnoses / ProceduresReferred By ContactReferred To Contact Diagnoses Iron deficiency anemia, unspecified iron deficiency anemia type History of bariatric surgery Procedures INJ FERRIC CARBOXYMALTOS 1MG Reese Meek MD [address] [place] [address] [facility] [place]orton [address] [place] [address] Referral IDStatusReasonStart DateExpiration DateVisits RequestedVisits [id number]/21/202212/31/[id number] month follow upReasonCommentsLab OrdersReasonCommentsResultsAppointmentReasonComments Anemia3 month follow upSpecialtyDiagnoses / ProceduresReferred By Contact Referred To Contact Diagnoses Iron deficiency anemia, unspecified iron deficiency anemia type History of bariatric surgery Procedures IRON SUCROSE INJECTION PER 1 MG Reese Meek MD [address] [place] [address] [facility] [place] [address] [place] [address] Referral IDStatusReasonStart DateExpiration DateVisits RequestedVisits [id number]/21/202312/31/[id number] DateCommentsRefill Ipnbscj5202/23/20230220KpzfheZklujcvdAsmtzz5 month follow upReasonCommentsAppointment SpecialtyDiagnoses / ProceduresReferred By ContactReferred To Contact Diagnoses Iron deficiency anemia, unspecified iron deficiency anemia type History of bariatric surgery Procedures INJ FERRIC CARBOXYMALTOS 1MG Sandra Raphael PA-C [address] [facility] [address] [facility] [place] [address] [address] Referral IDStatusReasonStart DateExpiration DateVisits RequestedVisits [id number]/6/202312/31/[id number] month follow upReasonCommentsAnemiaFollow upReferral IDStatusReasonStart Date Expiration DateVisits RequestedVisits [id number]/19/[id number] / ProceduresReferred By ContactReferred To Contact Diagnoses History of bariatric surgery Iron deficiency anemia, unspecified iron deficiency anemia type Procedures INJ FERRIC CARBOXYMALTOS 1MG Sandra Raphael PA-C [address] [place] [address] [facility] [place] [address] [place] [address] Referral IDStatusReasonStart DateExpiration DateVisits RequestedVisits [id number]/20/202412/31/1831453IucywiSrsatvscKkmr Appointment Referral IDStatusReasonStart DateExpiration DateVisits RequestedVisits [id number]/6/202512/31/7412408DqsxeoFwncq DateComments injectofer vxdkuq7202/06/2025 Care Teams (unrecognized sec tion and content) Team MemberRelationshipSpecialtyStart DateEnd Date Brennon Zambrano, DO [address] [facility] [place] [address] PCP - GeneralInternal Jylwaqtj68/26/17Team MemberRelationshipSpecialtyStart Date End Date Brennon Zambrano, DO [address] [facility] [place] [address] PCP - GeneralInternal Amyrceha52/26/17Team MemberRelationshipSpecialtyStart Date End Date Brennon Zambrano, DO [address] [facility] [place] [address] PCP - GeneralInternal Vxstgrxs32/26/17Team MemberRelationshipSpecialtyStart Date End Date Brennon Zambrano Eugene, DO [address] [facility] [place] [address] PCP - GeneralInternal Gaqomwic04/26/17Team MemberRelationshipSpecialtyStart Date End Date Brennon Zambrano, DO [address] [facility] [place] [address] PCP - GeneralInternal Toizzsim31/26/17Team MemberRelationshipSpecialtyStart Date End Date Brennon Zambrano, DO [address] [facility] [place] [address] PCP - GeneralInternal Vfrkipxu68/26/17Team MemberRelationshipSpecialtyStart Date End Date Brennon Zambrano Eugene, DO [address] [facility] [place] [address] PCP - GeneralInternal Ncepvumc88/26/17Team MemberRelationshipSpecialtyStart Date End Date Brennon Zambrano, DO [address] [facility] [place] [address] PCP - GeneralInternal Emypamxn72/26/17Team MemberRelationshipSpecialtyStart Date End Date Brennon Zambrano, DO [address] [facility] [address] PCP - GeneralInternal Eefeqeuf32/26/17Team MemberRelationshipSpecialtyStart Date End Date Brennon Zambrano, DO [address] [facility] [address] PCP - GeneralInternal Blgsylxh93/26/17Team MemberRelationshipSpecialtyStart Date End Date Brennon Zambrano, DO [address] [facility] [address] PCP - GeneralInternal Vphhrwnj19/26/17Team MemberRelationshipSpecialtyStart Date End Date Brennon Zambrano, DO [address] [facility] [place] [address] PCP - GeneralInternal Hfeljuwb10/26/17Team MemberRelationshipSpecialtyStart Date End Date Brennon Zambrano, DO [address] [facility] [place] [address] PCP - GeneralInternal Gezkhndr21/26/17Team MemberRelationshipSpecialtyStart Date End Date Brennon Zambrano, DO [address] [facility] [place] [address] PCP - GeneralInternal Aouxrwzp85/26/17Team MemberRelationshipSpecialtyStart Date End Date Brennon Zambrano, DO [address] [facility] [address] PCP - GeneralInternal Wlbsxnuo31/26/17Team MemberRelationshipSpecialtyStart Date End Date Brennon Zambrano, DO [address] [facility] [address] PCP - GeneralInternal Wotjctac43/26/17Team MemberRelationshipSpecialtyStart Date End Date Brennon Zambrano, DO [address] [facility] [place] [address] PCP - GeneralInternal Vynbcryi46/26/17Team MemberRelationshipSpecialtyStart Date End Date Brennon Zambrano, DO [address] [facility] [place] [address] PCP - GeneralInternal Hblcwmdd40/26/17Team MemberRelationshipSpecialtyStart Date End Date Brennon Zambrano, DO [address] [facility] [address] PCP - GeneralInternal Eeypwlua19/26/17Team MemberRelationshipSpecialtyStart Date End Date Brennon Zambrano, DO [address] [facility] [place] [address] PCP - GeneralInternal Zzthgohu62/26/17Team MemberRelationshipSpecialtyStart Date End Date Brennon Zambrano, DO [address] [facility] [place] [address] PCP - GeneralInternal Wcoanrgg58/26/17Team MemberRelationshipSpecialtyStart Date End Date Brennon Zambrano, DO [address] [facility] [place] [address] PCP - GeneralInternal Xonrmmex54/26/17Team MemberRelationshipSpecialtyStart Date End Date Brennon Zambrano, DO [address] [facility] [place] [address] PCP - GeneralInternal Buojsbpa54/26/17Team MemberRelationshipSpecialtyStart Date End Date Brennon Zambrano DO [address] [facility] [place] [address] PCP - GeneralInternal Ugzfjutf53/26/17Team MemberRelationshipSpecialtyStart Date End Date AnnaliseBrennon Eugene DO [address] [place] [address] PCP - GeneralInternal Bnoirgok53/26/17Team MemberRelationshipSpecialtyStart Date End Date AnnaliseBrennon Eugene DO [address] [place] [address] [facility] Twhstjla81/26/17Team MemberRelationshipSpecialtyStart Date End Date Brennon Zambrano DO [address] [place] [address] [facility] - [facility]nal Qtaajdbc87/26/17 Team Status: Active Member Role Status Dates Brennon Zambrano DO Primary Care Provider Active Team Status: Active Member Role Status Dates Brennon Zambrano DO Primary Care Provider Active Start: February 23, 2024 Homero Boothe ProviderActiveStart: February 23, 2024 Team Status: Active Member Role Status Dates Brennon Zambrano DO Primary Care Provider Active Start: May 09, 2024 ANNETTE Alvarenga-Mirna ProviderActiveStart: May 09, 2024 Team Status: Inactive Member Role Status Dates Brennon Zambrano DO Primary Care Provider Active Start: May 13, 2024 End: May 13, 2024Imad Vitaliy , Wadeending ProviderActiveStart: May 13, 2024 End: May 13, 2024 Team Status: Active Member Role Status Dates Brennon Zambrano DO Primary Care Provider Active Start: May 13, 2024 Imad Asaad , MDAttending Provider, Other ProviderActiveStart: May 13, 2024 Team MemberRelationshipSpecialtyStart DateEnd Date Brennon Zambrano DO [address] [facility] [place] [address] PCP - GeneralInternal Xsdkaxeo66/26/17Team MemberRelationshipSpecialtyStart Date End Date Brennon Zambrano DO [address] [facility] [address] PCP - GeneralInternal Kghvfyxi05/26/17Team MemberRelationshipSpecialtyStart Date End Date Jesus Alberto Mcclain MD [address] [facility] [place] [address] PCP - General10/03/13Team MemberRelationshipSpecialtyStart DateEnd Date Brennon Zambrano DO [address] [facility] [place] [address] PCP - GeneralInternal Mwkhnyey98/26/17Team MemberRelationshipSpecialtyStart Date End Date Brennon Zambrano DO [address] [facility] [address] PCP - GeneralInternal Ssuujbku37/26/17Team MemberRelationshipSpecialtyStart Date End Date Brennon Zambrano DO [address] [facility] [address] PCP - GeneralInternal Aemuwbwo44/26/17Team MemberRelationshipSpecialtyStart Date End Date Jesus Alberto Mcclain MD [address] [facility] [place] [address] PCP - General14Team MemberRelationshipSpecialtyStart DateEnd Date Brennon Zambrano DO [address] [facility] [address] PCP - GeneralInternal Vuqqtyej61/26/17Team MemberRelationshipSpecialtyStart Date End Date Brennon Zambrano [address] [place] [address] PCP - GeneralInternal Naqgyjrb64/26/17Team MemberRelationshipSpecialtyStart Date End Date Brennon Zambrano DO [address] [facility] [address] PCP - GeneralInternal Mpkyfoel75/26/17Te MemberRelationshipSpecialtyStart Date End Date Brennon Zambrano Eugene [address] [facility] [address] PCP - GeneralInternal Vsjtobwc06/26/17 Team Status: Active Member Role Status Dates Brennon Zambrano DO Primary Care Provider Active Start: May 04, 2025 Teresa Burks MDAttisai ProviderActiveStart: May 04, 2025 Team Status: Active Member Role Status Dates Brennon Zambrano DO Primary Care Provider Active Start: May 09, 2025 BRANDON AlvarengaCAttenrosalie ProviderActiveStart: May 09, 2025 Team Status: Inactive Member Role Status Dates Brennon Zambrano DO Primary Care Provider Active Start: May 16, 2025 End: May 16, 2025Gudelia Foster ProviderActiveStart: May 16, 2025 End: May 16, 2025 Team Status: Inactive Member Role Status Dates Brennon Zambrano DO Primary Care Provider Active Start: June 05, 2025 End: June 05jose Zambrano DOAttisai ProviderActiveStart: June 05, 2025 End: June 05, 2025 INFORMATION SOURCE (unrecogn ized section and content) DATE CREATED AUTHOR 12/25/2021 [facility] DATE CREATED AUTHOR 'S ORGANIZ ATION 05/28/2024 [facility] DATE CREATED AUTHOR AUTHOR'S ORGANIZ ATION 02/01/2025 [facility] DATE CREATED AUTHOR AUTHOR'S ORGANIZ ATION 05/13/2025 [facility] Inactive Administered Medications - up to 3 most recent administrations Administered Medications (un recognized section and content) Medication OrderMAR ActionAction DateDoseRateSite ferric carboxymaltose 750 mg in NaCl 0.9% 250 mL (INJECTAFER) 750 mg (set by rule on 12/08/2023 10:27 AM), INTRAVENOUS, Administer over 30 Minutes, ONCE, 1 dose, On Thu12/21/23 at 0930, Approx Total Volume: 290 mL Maximum dose is 750 mg EXP: 12/23/2023 0915 RT New Bag/Syringe/Yvwyck6712/21/2023 9:25 AM [id number] mgMedication OrderMAR Action Action DateDoseRateSite ferric carboxymaltose 750 mg in NaCl 0.9% 250 mL (INJECTAFER) 750 mg (set by rule on 12/08/2023 10:27 AM), INTRAVENOUS, Administer over 30 Minutes, ONCE, 1 dose, On Thu12/28/23 at 1000, Approx Total Volume: 290 mL Maximum dose is 750 mg EXP: 12/28/2023 1740 RT New Bag/Syringe/Zrbojr7412/28/2023 10:00 AM [id number] mg Goals (unrecognized section and content) Goals [...] BE BASED ON THE PRIMARY CLINICAL RECORDS. [employer] provides no warranty or guarantee of the accuracy or completeness of information in this document.
== END 2025-07-31 08:01 | disposition home or self-care (01) ==
LOC: MAMMO 08:00
PROVIDERS: PCP Internal Medicine; Visit Provider Internal Medicine
DX: Z00.00 Encounter for general adult medical examination without abnormal findings (principal); Z12.31 Encounter for screening mammogram for malignant neoplasm of breast; Z80.0 Family history of malignant neoplasm of digestive organs
CPT/HCPCS: 77063; 77067